=== PATIENT | male | born 1960 | race Caucasian/White ===

== ENCOUNTER → 2019-02-05 10:27 | Outpatient (CLI) | payer BC, SELFPAY ==
--- NOTE | 2019-02-05 | CA_ITS ---
PROCEDURE: 2-D M-mode and color Doppler study INDICATIONS FOR THE TEST: Chest pain COPD Heart Murmur Tobacco Smoking PalpitationsX Fatigue Syncope Edema Hypertension Diabetes MellitusX Rheumatic Fever SOB SMALLS Obesity HyperlipidemiaX Family History HDX Additional History PATIENT INFORMATION HEIGHT:71 WEIGHT:172 GENDER: Male B/P:130/60 2-D/M-MODE INTERPRETATION: 2-D MEASUREMENTS OBSERVED VALUES IN CMS Right Ventricular Dimension (RVDd) 2.2 Interventricular Septum (Thickness)(IVsd) .8 Left Ventricular Internal Dimensions(LVIDd) 5.3 Left Ventricular Posterior Wall (Thickness)(LVPWd) .8 Aortic Root 3.6 Aortic Cusp Separation 2.0 Left Atrial Dimensions (LAD) 1.9 2D 1. Left atrium is normal size, left ventricle is normal size, there is no concentric left ventricular hypertrophy, visually estimated ejection fraction of 55% with no regional wall motion abnormality. 2. The right atrium and right ventricle are normal size and contractility. 3. The aortic valve is minimally thickened and fibrosed. 4. The mitral and tricuspid valvular grossly normal. 5. The pulmonic valve is poorly visualized. 6. No significant pericardial effusion noted. DOPPLER INTERROGATION: Doppler interrogation of the aortic, mitral and tricuspid valvular presence of mild mitral and tricuspid regurgitation, tricuspid regurgitation jet velocity is inadequate for calculation of the right ventricular systolic pressure, diastolic parameters are within normal range. CONCLUSION: 1. Normal left ventricular size, preserved left ventricular systolic function, visually estimated ejection fraction 55% with no regional wall motion abnormality. Diastolic parameters are within normal range. 2. Mild mitral and tricuspid regurgitation 3. No significant pericardial effusion noted.
== END ==
PROVIDERS: PCP Family Medicine; Visit Provider Family Medicine
DX: R00.2 Palpitations (principal); Z91.89 Other specified personal risk factors, not elsewhere classified
CPT/HCPCS: 93017; 93306

== ENCOUNTER → 2019-02-20 10:06 | Outpatient (CLI) | payer BC, SELFPAY ==
[2019-02-20 10:54] LABS: Basophils % 0.8 % (0.1-2.0); Eosinophils # 0.2 K/mm3 (0.0-0.4); Eosinophils % 3.5 % (0.1-12.0); Hematocrit 46.4 % (42.0-52.0); Lymphocytes # 1.8 K/mm3 (0.7-4.5); Lymphocytes % 36.1 % (10-50); Mean Corpuscular HGB Conc 34.6 g/dL (31.8-35.4); Mean Corpuscular Hemoglobin 29.6 pg (27.0-31.2); Mean Corpuscular Volume 85.6 fl (80-94); Mean Platelet Volume 7.5 fl (7.4-10.4); Monocytes # 0.2 K/mm3 (0.1-1.0); Monocytes % 4.9 % (1.7-9.3); Neutrophils # 2.7 K/mm3 (1.8-7.8); Neutrophils % 54.6 % (37.0-80.0); Platelet Count 271 K/mm3 (142-424); Red Blood Count 5.42 M/mm3 (4.60-6.20); Red Cell Distribution Width 12.7 % (11.5-17.5); White Blood Count 4.9 K/mm3 (4.8-10.8)
[2019-02-20 11:09] LABS: Hemoglobin A1C 9.1 % (0.0-7.0)
[2019-02-20 13:35] LABS: Alanine Aminotransferase 25 U/L (12-78); Albumin Level 4.1 gm/dL (3.4-5.0); Albumin/Globulin Ratio 1.1 (1.1-1.8); Alkaline Phosphatase 87 U/L (46-116); Anion Gap 14.5 mEq/L (5-15); Aspartate Amino Transferase 13 U/L (15-37); Bilirubin,Total 0.8 mg/dL (0.2-1.0); Blood Urea Nitrogen 14 mg/dL (7-18); Calcium 9.3 mg/dL (8.5-10.1); Carbon Dioxide 27 mmol/L (21.0-32.0); Chloride 101 mmol/L (98-107); Chol/HDL Ratio 5.5 (1-3.5); Cholesterol 253 mg/dL (140-200); Creatinine,Serum 0.94 mg/dL (0.70-1.30); Estimated Glomerular Filt Rate 82 ml/min (>60); GFR (African American) 100 ML/MIN (>60); Globulin 3.7 gm/dl (1.3-3.2); Glucose 186 mg/dL (74-106); HDL Cholesterol 46 mg/dL (27-67); LDL Cholesterol 166 mg/dL (0-130); Potassium 4.5 mmoL/L (3.5-5.1); Prostate Specific Ag Screen 3.3 ng/mL (0.0-4.0); Sodium 138 mmol/L (136-145); T4 (Thyroxine) 5.9 ug/dl (4.7-13.3); Thyroid Stimulating Hormone 0.99 uIU/ml (0.358-3.740); Total Protein,Serum 7.8 gm/dL (6.4-8.2); Triglycerides 206 mg/dL (30-200); VLDL Cholesterol 41 mg/dL (0-40)
== END ==
PROVIDERS: Visit Provider Family Medicine
DX: R00.2 Palpitations (principal); E78.5 Hyperlipidemia, unspecified; E11.9 Type 2 diabetes mellitus without complications; Z79.84 Long term (current) use of oral hypoglycemic drugs
CPT/HCPCS: 36415; 80053; 80061; 83036; 84436; 84443; 85025; G0103

== ENCOUNTER → 2019-03-04 06:31 | Outpatient (CLI) | payer BC, SELFPAY ==
--- NOTE | 2019-03-04 06:40 | NM_ITS ---
CARDIOLITE SPECT MYOCARDIAL PERFUSION [facility], REST AND STRESS: History: Diabetes, hyperlipidemia, family history, shortness of breath and palpitations. Procedure: Patient exercised on Moustapha protocol 7 minutes and 45 seconds, resting heart rate was 76 bpm resting blood pressure 136/76, with exercise maximum heart rate achieved was 1 35 bpm is less than 85% of the maximum predicted heart rate and a blood pressure was 180/80. Test was stopped due to shortness of breath patient denied any complained of chest pain. Patient has good exercise capacity achieved 10.1mets of workload on treadmill, the blood pressure response to exercise was adequate. Patient did not achieve the target heart rate. Electrocardiogram: Resting electrocardiogram showed sinus rhythm occasional premature ventricular complexes, with exercise there is less than 1.[address] segment depression noted from the baseline EKG. The EKG portion of the exercise Myoview is nondiagnostic as patient did not achieve the target heart rate. Cardiac stress and resting SPECT images: Cardiac stress and resting SPECT images were obtained using technetium 99 Myoview 32.7 mCi stress and 9.7 mCi at rest. Gated SPECT further analysis of segmental wall motion and calculation of the ejection fraction also done. Cardiac stress and resting SPECT images show uniform myocardial activity without segmental perfusion abnormality, right ejection fraction is 63% with no regional wall motion abnormality, right ventricle is normal size and contractility. Conclusion: 1. The EKG portion of the exercise Myoview is nondiagnostic as patient did not achieve the target heart rate, patient has good exercise capacity achieved 10.1mets of workload on treadmill, the blood pressure response to exercise was adequate. Test was stopped shortness of breath patient denied any complained of chest pain. 2. No scintigraphic evidence of reversible ischemia seen at this level of exercise, computer derived ejection fraction is 63% with no regional wall motion abnormality, right ventricle is normal size and contractility.
--- NOTE | 2019-03-04 07:31 | HMH.ITSHM ---
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 []INVOCOMET ASA TRILIPEX
== END ==
PROVIDERS: PCP Family Medicine; Visit Provider Internal Medicine
DX: E11.8 Type 2 diabetes mellitus with unspecified complications (principal); E78.5 Hyperlipidemia, unspecified; I10 Essential (primary) hypertension; R00.2 Palpitations; R06.09 Other forms of dyspnea; R94.39 Abnormal result of other cardiovascular function study; Z72.0 Tobacco use; Z82.49 Family history of ischemic heart disease and other diseases of the circulatory system; Z79.84 Long term (current) use of oral hypoglycemic drugs
CPT/HCPCS: 78452; 93017; A9502

== ENCOUNTER → 2019-12-01 09:49 | Outpatient (CLI) | payer BC, SELFPAY ==
--- NOTE | 2019-12-01 09:52 | XR_ITS ---
PROCEDURE: XR CHEST 2V CLINICAL HISTORY: COUGH Cough, smoker COMPARISON: CXR CHEST(2 VIEWS-NOT PORTABLE) from 05/13/2014 CXR CHEST(2 VIEWS-NOT PORTABLE) from 11/30/[address] CHEST W/ CONTRAST from 12/09/2014 FINDINGS: The cardiomediastinal silhouette and pulmonary vascularity are within normal limits. The lungs are clear without infiltrates, suspicious nodules, or pleural effusions. There is mild chronic wedging involving what appears to represent T6 and T5 not significantly changed. There are degenerative changes in the thoracic. IMPRESSION: No acute findings. Dictated by: Chivo Worrell MD 12/01/2019 11:03 Electronically signed by Chivo Worrell MD in [place] 12/01/2019 11:03
== END ==
PROVIDERS: PCP Family Medicine; Visit Provider Family Medicine
DX: R05 Cough (principal)
CPT/HCPCS: 71046

== ENCOUNTER → 2021-02-21 10:53 | Outpatient (CLI) | payer BC, SELFPAY ==
--- NOTE | 2021-02-21 10:59 | XR_ITS ---
PROCEDURE: XR SHOULDER RT MIN 2V CLINICAL INDICATION: UNSPECIFIED FALL, INITIAL ENCOUNTER; PAIN IN RT SHOULDER COMPARISON: CR [id number] VIEWS from 02/06/2016 FINDINGS: Mild narrowing and sclerosis of the AC joint. Mild osteophytic spurring of inferior lip of the glenoid.. The humeral head appears intact. There are no soft tissue calcifications. IMPRESSION: Stable degenerate changes of the shoulder as noted, negative for acute fracture Dictated by: Dr. Mustapha Verduzco MD 02/21/2021 11:30 Dr. Mustapha Verduzco MD in [place] 02/21/2021 11:30
== END ==
PROVIDERS: PCP Family Medicine; Visit Provider Family Medicine
DX: M25.511 Pain in right shoulder (principal); W19.XXXA Unspecified fall, initial encounter
CPT/HCPCS: 73030

== ENCOUNTER → 2021-06-13 09:59 | Outpatient (CLI) | payer BC, SELFPAY ==
[2021-06-13 10:25] LABS: Basophils # 0.1 K/mm3 (0-0.2); Basophils % 1.2 % (0.1-2.0); Eosinophils # 0.3 K/mm3 (0.0-0.4); Eosinophils % 4.4 % (0.1-12.0); Hemoglobin 14.8 g/dL (14.1-18.0); Lymphocytes # 2.6 K/mm3 (0.7-4.5); Mean Corpuscular HGB Conc 33.6 g/dL (31.8-35.4); Mean Corpuscular Hemoglobin 28.7 pg (27.0-31.2); Mean Corpuscular Volume 85.6 fl (80-94); Monocytes # 0.3 K/mm3 (0.1-1.0); Monocytes % 4.9 % (1.7-9.3); Neutrophils # 2.8 K/mm3 (1.8-7.8); Neutrophils % 46.4 % (37.0-80.0); Platelet Count 268 K/mm3 (142-424); Red Blood Count 5.14 M/mm3 (4.60-6.20); Red Cell Distribution Width 12.5 % (11.5-17.5)
[2021-06-13 10:36] LABS: Hemoglobin A1C 8.7 % (4.0-6.0)
[2021-06-13 10:46] LABS: Alanine Aminotransferase 13 U/L (12-78); Albumin Level 4.3 g/dl (3.5-5.0); Albumin/Globulin Ratio 1.6 (1.1-1.8); Alkaline Phosphatase 74 U/L (38-126); Anion Gap 12.5 mEq/L (5-15); Aspartate Amino Transferase 17 U/L (17-59); Bilirubin,Total 0.7 mg/dl (0.2-1.3); Blood Urea Nitrogen 11 mg/dl (9-20); Carbon Dioxide 31 mmol/L (22.0-30.0); Chloride 99 mmol/L (98-107); Chol/HDL Ratio 3.3 (1-3.5); Cholesterol 138 mg/dl (140-200); Estimated Glomerular Filt Rate 86 ml/min (>60); GFR (African American) 104 ML/MIN (>60); Globulin 2.7 g/dL (1.3-3.2); Glucose 232 mg/dl (74-100); HDL Cholesterol 42 mg/dl (40-60); Potassium 4.5 mmoL/L (3.5-5.1); Sodium 138 mmol/L (136-145); Triglycerides 179 mg/dl (30-150); VLDL Cholesterol 36 mg/dL (0-40)
[2021-06-13 10:58] LABS: Direct LDL Cholesterol 63.56 mg/dL (100-129)
[2021-06-13 11:04] LABS: T4 (Thyroxine) 8.4 ug/dl (5.53-11.0)
[2021-06-13 11:17] LABS: Prostate Specific Ag Screen 3.8 ng/ml (0.0-4.0); Thyroid Stimulating Hormone 1.44 uIU/mL (0.465-4.68)
== END ==
PROVIDERS: Visit Provider Family Medicine
DX: E11.9 Type 2 diabetes mellitus without complications (principal); R63.4 Abnormal weight loss; Z12.5 Encounter for screening for malignant neoplasm of prostate
CPT/HCPCS: 36415; 80053; 80061; 83036; 84436; 84443; 85025; G0103

== ENCOUNTER → 2021-07-05 07:50 | Outpatient (CLI) | payer MEDICARE, BC, SELFPAY ==
--- NOTE | 2021-07-05 08:03 | US_ITS ---
PROCEDURE: US ABDOMEN LIMITED CLINICAL INDICATION: CHOLELITHIASIS COMPARISON: CT [facility] CT CHEST W/ CONTRAST from 12/09/2014 FINDINGS: PANCREAS: Pancreas is not well delineated due to overlying bowel gas. CT or MRI without and with contrast with pancreatic protocol may provide further evaluation if clinically desired. LIVER: No focal liver lesions demonstrated. Homogeneous echogenicity. No intrahepatic biliary ductal dilatation evident. There is appropriate direction of blood flow within a non dilated portal vein RIGHT KIDNEY: Unremarkable. Normal size and echogenicity. No hydronephrosis GALLBLADDER: Gallbladder is filled with sludge and small stones. Gallbladder is distended at 12 by 4 cm. No pericholecystic fluid biliary dilatation or gallbladder wall thickening. IMPRESSION: Distended gallbladder filled with sludge and small stones. The pancreas is not visualized due to overlying bowel gas. Dictated by: Chiov Worrell MD 07/05/2021 16:43 Chivo Worrell MD in [place] 07/05/2021 16:43
== END ==
PROVIDERS: PCP Family Medicine; Visit Provider Family Medicine
DX: K80.20 Calculus of gallbladder without cholecystitis without obstruction (principal)
CPT/HCPCS: 76705

== ENCOUNTER → 2021-07-31 14:16 | Outpatient (CLI) | payer MEDICARE, BC, SELFPAY | PROVIDERS: PCP Family Medicine; Visit Provider Nurse Practitioner | DX: Z20.822 Contact with and (suspected) exposure to COVID-19 (principal) | CPT/HCPCS: C9803; U0003; U0005 ==

== ENCOUNTER 2021-08-02 06:58 | Day surgery (SDC) | payer MEDICARE, BC, SELFPAY ==
[2021-08-01 12:41] VITALS: BMI 21.6
[2021-08-02 07:14] VITALS: BP 116/81; PULSE 88; RESP 18; TEMP 36.5; O2SAT 100
--- NOTE | 2021-08-02 07:41 | P.PN_ITS ---
[facility] Anesthesia Checklist - Patient Identification Patient Identification: Arm Band, Verbal (Name & ) - Structural Data Admitted From: Home Planned Operative Procedure/s: egd/colon Consent for Planned Operative Procedure(s) Verified: Yes Verified Documents: History and Physical - NPO Status Verified Time NPO: 00:00 - Chart Verification Results Verified: CBC, BMP - Additional verifications Patient : No Anesthesia Reactions: No Hx Blood Transfusions: No Blood Transfusion Reaction: No Cephalosporin Allergy: No Previous Colonoscopy: No - Cardiovascular Assessment Heart Sounds: S1 & S2 Pulse Strength: Baseline Pulse Rhythm: Regular Peripheral Edema: No - Airway Assessment C-Spine Mobility Assessed: Yes TMJ Mobility Assessed: Yes Dentition: Good Dentition - Neurological Assessment Level of Consciousness: Awake, Alert, Appropriate Hx Seizures: No Numbness or tingling in extremities: No - Anesthesia Plan Anesthesia Risk discussed: Yes Anesthesia Plan: Verified ASA Class: II Anesthesia Type: MAC [facility] History I have reviewed the patient's past medical history: Yes Medical History: Reports:: Diabetes Mellitus Type 2, Hyperlipidemia, Palpitations Denies:: Cancer, Diabetes Mellitus Type 1, Internal Pacemaker, MRSA, Seizures *Have you ever received a pneumonia vaccine?: No *Have you received a flu vaccine this season?: No Other Medical History: Reports: Arthritis Anesthesia experience/problems:: none Laterality Cases: Right: Arthroscopy Knee, Cataract Other Surgeries: Yes: No Previous Surgery, Other (Back Sx). No: Pacemaker Amputation: No Fractures: No - *Social History Last grade of school completed: High school graduate Smoking Status: Light tobacco smoker Tobacco Type: smokeless tobacco # Packs/Day (cigarettes): 0 #Yrs smoked (if former smoker): 40 Alcohol Intake: current Alcohol Intake Frequency:: a few times a week Substance Use Type: denies use *Occupational Status:: employed, retired Housing: house Household Members: family *Travel in the last 8 weeks: None Family Hx:: No significant family history
[2021-08-02 08:11] VITALS: O2SAT 100
[2021-08-02 09:09] VITALS: BP 98/60; PULSE 89; RESP 14; TEMP 36.3; O2SAT 95
--- NOTE | 2021-08-02 09:11 | HMH.SCOPE ---
- Procedure: Date: 08/02/21 Patient Date of :: 1960 Procedure Performed:: Esophagogastroduodenoscopy with biopsies Colonoscopy Indications:: Patient is a 61-year-old male with history of diabetes referred by Chuy Jean for gallbladder. Patient describes about a 6-month history of nausea and upset stomach . This often lasts for hours. It is not associated with eating. He describes a sour sulfur burps. He has been losing weight and has had about a 50 pound unintentional weight loss. He has no abdominal pain. Patient states that he had CT scanning performed. This may have been done at another institution as I do not have record. This prompted ultrasound which reveals distended gallbladder with small stones and sludge. Patient states that he has never had prior colonoscopy. He was scheduled on 2 occasions and ended up canceling. When I saw the patient I was concerned that he has no pain and his symptoms are not related to eating. He has merely had nausea and significant weight loss. Patient also states that he has significant irregularity of his bowels. He states that sometimes it may move daily and sometimes he goes 7 to 10 days without a bowel movement. For this reason I would advocate proceeding with EGD and colonoscopy initially to evaluate for potential malignancy. Patient presented for EGD and colonoscopy he stated that he was not clear despite undergoing full bowel prep. He was given enemas prior to the procedure. Performing Provider:: Wilbert Burgess MD Referring Provider:: Chuy Jean MD Sedation:: MAC sedation Procedure:: Patient was positioned in lateral decubitus position. Adequate intravenous sedation was achieved. Attention was first turned to upper endoscopy. Olympus endoscope was inserted via the oropharynx. Esophagus was cannulated and the endoscope was advanced. Apparent gastroesophageal junction was encountered at approximately 42 cm from the incisors. Stomach was cannulated and insufflated. Retroflexion was performed. There was some mild diffuse nonerosive gastritis. Gastric antral mucosal biopsies obtained for CLOtest for H. pylori. Pylorus was traversed and the endoscope was advanced into the duodenum which appeared unremarkable. Endoscope was withdrawn into the gastric lumen and gastric mucosal biopsy was obtained for histopathologic analysis. Distal esophageal biopsies were obtained to evaluate for microscopic esophagitis. Stomach was desufflated and the endoscope was withdrawn. Attention was turned to colonoscopy. Variable stiffness Olympus colonoscope was inserted via the anus. It was advanced to the cecum with some minor difficulty due to floppiness of the colon. Colonic preparation was poor as there was particulate stool throughout the colon with undigested vegetable matter as well. Fair visualization was achieved with irrigation and suctioning. The ileocecal valve was clearly identified. Colonoscope was slowly withdrawn through the colon with careful surveillance with irrigation and suctioning performed. Please note that upon initial advancement of the colonoscope there was a possible polyp. This was not visualized upon withdrawal and therefore the colonoscope was reinserted to the right colon and slowly withdrawn once again. There was no visualized polyp. However, visualization was suboptimal. Within the rectum retroflexion was performed which revealed no evidence of any pathologic internal hemorrhoids. Colonoscope was withdrawn. Findings:: Mild nonerosive gastritis Possible mild esophagitis Poor colonic preparation No obvious obstructing colonic mass Recommendations:: Follow-up on the biopsies from the upper endoscopy. No obvious alternative etiology on upper endoscopy or colonoscopy that would explain his nausea and weight loss. May proceed with cholecystectomy as a potential etiology. I will obtain his CT scan report from outside facility. Complications:
[2021-08-02 09:24] VITALS: BP 96/64; PULSE 86; RESP 16; TEMP 36.4; O2SAT 100
[2021-08-02 09:32] VITALS: BP 91/57; PULSE 79; RESP 16; TEMP 36.4; O2SAT 100
[2021-08-02 14:59] LABS: POC Glucose,Bedside 121 (70-110)
== END 2021-08-02 09:56 | disposition home or self-care (01) ==
LOC: OUTP 07:01
PROVIDERS: PCP Family Medicine; Visit Provider Surgery
PROC: 0DJ08ZZ Inspection of Upper Intestinal Tract, Via Natural or Artificial Opening Endoscopic (ICD-10-PCS; CPT 43235; principal; 2021-08-02 08:05)
DX: K29.40 Chronic atrophic gastritis without bleeding (principal); K22.9 Disease of esophagus, unspecified; R63.4 Abnormal weight loss; R93.3 Abnormal findings on diagnostic imaging of other parts of digestive tract; R11.0 Nausea; E11.9 Type 2 diabetes mellitus without complications; E78.5 Hyperlipidemia, unspecified; R00.2 Palpitations; M19.90 Unspecified osteoarthritis, unspecified site; Z72.0 Tobacco use; Z79.82 Long term (current) use of aspirin; Z79.899 Other long term (current) drug therapy; Z79.84 Long term (current) use of oral hypoglycemic drugs
CPT/HCPCS: 43239; 45378; 82962; 87339; 88305

== ENCOUNTER 2021-08-03 07:57 | Day surgery (SDC) | payer MEDICARE, BC, SELFPAY ==
[2021-08-03] VITALS (24 sets, daily range): BP systolic 114–156; BP diastolic 66–85; PULSE 60–87; RESP 16–18; TEMP 36.2–43; O2SAT 95–100; BMI 50.7
--- NOTE | 2021-08-03 08:19 | P.PN_ITS ---
[facility] Anesthesia Checklist - Patient Identification Patient Identification: Arm Band, Verbal (Name & ) - Structural Data Admitted From: Home Planned Operative Procedure/s: lap choly Consent for Planned Operative Procedure(s) Verified: Yes Verified Documents: History and Physical - NPO Status Verified Time NPO: 00:00 - Chart Verification Results Verified: CBC, BMP - Additional verifications Patient : No Anesthesia Reactions: No Hx Blood Transfusions: No Blood Transfusion Reaction: No Cephalosporin Allergy: No Previous Colonoscopy: Yes - Cardiovascular Assessment Heart Sounds: S1 & S2 Pulse Strength: Baseline Pulse Rhythm: Regular Peripheral Edema: No - Airway Assessment C-Spine Mobility Assessed: Yes TMJ Mobility Assessed: Yes Dentition: Good Dentition - Neurological Assessment Level of Consciousness: Awake, Alert, Appropriate Hx Seizures: No Numbness or tingling in extremities: No - Anesthesia Plan Anesthesia Risk discussed: Yes Anesthesia Plan: Verified ASA Class: II Anesthesia Type: General [facility] History I have reviewed the patient's past medical history: Yes Medical History: Reports:: Diabetes Mellitus Type 2, Hyperlipidemia, Palpitations Denies:: Cancer, Diabetes Mellitus Type 1, Internal Pacemaker, MRSA, Seizures *Have you ever received a pneumonia vaccine?: No *Have you received a flu vaccine this season?: No Other Medical History: Reports: Arthritis. Denies: Blood Transfusion Reaction Anesthesia experience/problems:: none Laterality Cases: Right: Arthroscopy Knee Other Surgeries: Yes: No Previous Surgery, Other (Back Sx). No: Pacemaker Amputation: No Fractures: No - *Social History Smoking Status: Never smoker Tobacco Type: smokeless tobacco # Packs/Day (cigarettes): 0 #Yrs smoked (if former smoker): 40 Alcohol Intake: never Alcohol Intake Frequency:: a few times a week Substance Use Type: denies use *Occupational Status:: retired Housing: house Household Members: spouse *Travel in the last 8 weeks: None Family Hx:: No significant family history
[2021-08-03 08:29] LABS: POC Glucose,Bedside 182 (70-110)
[2021-08-03 08:36] LABS: Basophils % 0.7 % (0.1-2.0); Eosinophils # 0.2 K/mm3 (0.0-0.4); Eosinophils % 3.4 % (0.1-12.0); Hematocrit 40.7 % (42.0-52.0); Hemoglobin 13.8 g/dL (14.1-18.0); Lymphocytes # 1.9 K/mm3 (0.7-4.5); Lymphocytes % 33.7 % (10-50); Mean Corpuscular HGB Conc 33.9 g/dL (31.8-35.4); Mean Corpuscular Hemoglobin 30.3 pg (27.0-31.2); Mean Corpuscular Volume 89.5 fl (80-94); Mean Platelet Volume 8.3 fl (7.4-10.4); Monocytes # 0.3 K/mm3 (0.1-1.0); Monocytes % 5.4 % (1.7-9.3); Neutrophils # 3.2 K/mm3 (1.8-7.8); Neutrophils % 56.8 % (37.0-80.0); Platelet Count 310 K/mm3 (142-424); Red Blood Count 4.54 M/mm3 (4.60-6.20); Red Cell Distribution Width 12.8 % (11.5-17.5); White Blood Count 5.7 K/mm3 (4.8-10.8)
[2021-08-03 08:39] LABS: Alanine Aminotransferase 20 U/L (12-78); Albumin Level 4.2 g/dl (3.5-5.0); Albumin/Globulin Ratio 1.4 (1.1-1.8); Alkaline Phosphatase 63 U/L (38-126); Anion Gap 10.9 mEq/L (5-15); Aspartate Amino Transferase 22 U/L (17-59); Bilirubin,Total 0.7 mg/dl (0.2-1.3); Blood Urea Nitrogen 12 mg/dl (9-20); Calcium 9.2 mg/dl (8.4-10.2); Carbon Dioxide 32 mmol/L (22.0-30.0); Chloride 100 mmol/L (98-107); Creatinine Clearance Estimated 105 mL/min (50-200); Estimated Glomerular Filt Rate 99 ml/min (>60); GFR (African American) 119 ML/MIN (>60); Glucose 196 mg/dl (74-100); Potassium 3.9 mmoL/L (3.5-5.1); Sodium 139 mmol/L (136-145); Total Protein,Serum 7.2 g/dl (6.3-8.2)
--- NOTE | 2021-08-03 11:27 | HMH.OPNOTE ---
Date of procedure: 08/03/21 Pre-op Diagnosis:: Symptomatic gallstones Post-op Diagnosis:: Same Procedure performed:: Laparoscopic cholecystectomy Surgeon:: Wilbert Burgess MD BASIC COMBATANT SWIMMER:: Ricardo Kat Anesthesia: GETFletcher Estimated blood loss (mL): 50 Clinical Note:: Patient is a 61-year-old male with history of diabetes referred by Chuy Jean for gallbladder and seen in the office several days ago. Patient describes about a 6-month history of nausea and upset stomach . This often lasts for hours. It is not associated with eating. He describes a sour sulfur burps. He has been losing weight and has had about a 50 pound unintentional weight loss. He has no abdominal pain. He had a CT scan done at outside facility. This prompted ultrasound which reveals distended gallbladder with small stones and sludge. When he was seen in the office patient stated that he has never had prior colonoscopy. He was scheduled on 2 occasions and ended up canceling. When I saw the patient I was concerned that he has no pain and his symptoms are not related to eating. He has merely had nausea and significant weight loss. Patient also states that he has significant irregularity of his bowels. He states that sometimes it may move daily and sometimes he goes 7 to 10 days without a bowel movement. For this reason I would advocated proceeding with EGD and colonoscopy initially to evaluate for potential malignancy. Patient presented for EGD and colonoscopy he stated that he was not clear despite undergoing full bowel prep. He was given enemas prior to the procedure. He underwent upper endoscopy and colonoscopy yesterday on 08/02/2021. Colonic preparation was poor with fair visualization but there was no obstructing mass and upper endoscopy was relatively unremarkable. Given his poor preparation I did recommend follow-up colonoscopy in 1 to 2 years. I did obtain the records from his CT scan done at [facility] on 06/16/2021. This reveals evidence of old granulomatous disease and nodular noncalcified opacity in the left lung base. Recommendation was for short interval follow-up CT of the chest or PET/CT scan with possible consideration of biopsy. Gallbladder was found to be markedly distended and hydropic with gallstones. There was a wedge-shaped area in the spleen consistent with possible previous splenic infarction. There was also noted to be low-density lesion in the lower pole of the right kidney which is indeterminate and felt that renal mass protocol CT or MRI should be considered. I did discuss the situation with the patient and family post procedure. He is going to be leaving to be out of town next week for 3 weeks. The options were discussed in great detail. Given the patient's significant symptomatology with no obvious etiology on upper endoscopy or colonoscopy surgery was offered to the patient. He strongly wished to proceed with cholecystectomy. Operative findings:: Patient had a massively distended tense gallbladder. It was filled with gallstones and sludge. Operative note:: Patient was taken to the operating room. He was positioned in supine position. General anesthesia was induced via endotracheal tube. Abdomen was prepped and draped in the standard surgical fashion. Subumbilical skin incision was made and while performing abdominal wall lift Veress needle was inserted. CO2 pneumoperitoneum was achieved to 15 mmHg. 11 mm optical trocar was inserted at the umbilicus. Intraperitoneal contents were visualized. He was positioned in reverse Trendelenburg with left side down. The gallbladder was easily identified and found to be markedly distended and somewhat tense. A couple of 5 mm trochars were inserted in the right upper abdomen. 10 mm trocar was inserted in the epigastrium. Gallbladder was grasped retracted anteriorly and superiorly over the dome of the liver. Gallbladder was distended and tense. Infundibulum of the gallbladde
--- NOTE | 2021-08-03 11:33 | P.PN_ITS ---
[facility] Anesthesia Record Part I Intake, IV Amount: 1,000 Estimated blood loss (mL): 50 Urine output (mL): 0 Blood Pressure: 156/85 SaO2: 99 Pulse Rate: 60 Respiratory Rate: 16 Temperature: 98.1 F Patient is:: Drowsy, Stable Stable to PACU at:: 11:30
[2021-08-03 13:07] LABS: POC Glucose,Bedside 236 (70-110)
--- NOTE | 2021-08-04 13:02 | HMH.ANESII ---
[facility] Anesthesia Record Part II Discharge Time: 12:30 Destination: Surgical Day Care (OP Surgery) PACU nurse assessment reviewed?: Yes Patient Condition:: Good Anesthesia Complications:: None Swallowing reflex intact?: Yes Cyanosis?: No Blood Pressure: 133/73 Pulse Rate: 76 Temperature: 98 F Mental Status: Alert & Oriented Pain level:: 7 Nausea and/or vomitting:: None Intake, IV Amount: 0
[2021-08-04 13:03] VITALS: BP 133/73; PULSE 76; TEMP 36.6
== END 2021-08-03 14:00 | disposition home or self-care (01) ==
LOC: OR 07:59
PROVIDERS: PCP Family Medicine; Visit Provider Surgery
PROC: 0FT44ZZ Resection of Gallbladder, Percutaneous Endoscopic Approach (ICD-10-PCS; CPT 47562; principal; 2021-08-03 09:30)
DX: K80.80 Other cholelithiasis without obstruction (principal); E11.9 Type 2 diabetes mellitus without complications; E78.5 Hyperlipidemia, unspecified; R00.2 Palpitations; M19.90 Unspecified osteoarthritis, unspecified site; Z82.49 Family history of ischemic heart disease and other diseases of the circulatory system
CPT/HCPCS: 47562; 80053; 82962; 85025; 88304; 96374; J0131; J2405; J2710

== ENCOUNTER → 2021-09-04 15:05 | Outpatient (CLI) | payer MEDICARE, BC, SELFPAY ==
--- NOTE | 2021-09-04 15:06 | CT_ITS ---
PROCEDURE: CT CHEST WO CON CLINICAL INDICATION: Lung nodule COMPARISON: CT [facility] CT CHEST W/ CONTRAST from 12/09/2014 US US ABDOMEN LIMITED from 07/05/2021 TECHNIQUE: Axial images obtained with sagittal and coronal reformats. All CT scans at the facility use one or more dose reduction, viz: automated exposure control, ma/kV adjustment per patient size (including targeted exams where dose is matched to indication, i.e. head), or iterative reconstruction technique. FINDINGS: HEART AND MEDIASTINAL STRUCTURES: Coronary artery calcifications and/or stent. No mediastinal or hilar mass or adenopathy. LUNGS AND PLEURAL SPACES: COPD changes. 14 x 10 mm noncalcified pulmonary nodule in the left lower lobe posteriorly in the subpleural region with a small linear extension projecting medially. Not significantly changed from 12/09/2014. No additional pulmonary nodules evident. No effusions or infiltrates. BONY STRUCTURES: Degenerative changes thoracic spine UPPER ABDOMEN: There is a pneumoperitoneum. There has been and interval cholecystectomy since the ultrasound exam of 07/05/2021 which could account for the pneumoperitoneum. Please correlate with clinical parameters. 12 mm hypodensity right kidney posteriorly suggesting a small renal cyst. ADDITIONAL FINDINGS: No other significant abnormalities. IMPRESSION: Stable 14 mm left lower lobe pulmonary nodule with COPD. Pneumoperitoneum. Please correlate as the patient's timing of the interval cholecystectomy. Dictated by: Chivo Worrell MD 09/05/2021 08:17 Chivo Worrell MD in [place] 09/05/2021 08:17
== END ==
PROVIDERS: PCP Family Medicine; Visit Provider Internal Medicine Pulmonary Disease
DX: R91.8 Other nonspecific abnormal finding of lung field (principal)
CPT/HCPCS: 71250

== ENCOUNTER 2021-11-05 15:46 | Emergency (ER) | payer MEDICARE, BC, SELFPAY ==
[2021-11-05 17:35] VITALS: BP 0/0; PULSE 0; RESP 0; TEMP -17.7; TEMP 0; O2SAT 0
== END 2021-11-05 17:35 | disposition left against medical advice (07) ==
PROVIDERS: Emergency Provider Emergency Medicine; PCP Family Medicine
DX: Z53.21 Procedure and treatment not carried out due to patient leaving prior to being seen by health care provider (principal)
CPT/HCPCS: 99211

== ENCOUNTER → 2021-11-07 09:17 | Outpatient (CLI) | payer MEDICARE, BC, SELFPAY ==
--- NOTE | 2021-11-07 | US_ITS ---
FINAL REPORT CLINICAL HISTORY: DM, HTN, HLD, SMOKER ULCER X 1 WK ON LATERAL SIDES OF FEET, BILATERALLY. REDNESS UP THE SIDE OF BOTH FEET FINDINGS: ANKLE-BRACHIAL PRESSURE INDICES Pressure indices are as follows: RIGHT LOWER EXTREMITY: Ankle-brachial pressure index: 1.8 Comments: Normal LEFT LOWER EXTREMITY: Ankle-brachial pressure index: 1.5 Comments: Normal CONCLUSION: No evidence of significant obstructive peripheral vascular disease of the lower extremities. Measurements may be artificially elevated. Correlate with any known vascular calcification. Reviewed, Interpreted and Dictated by Tomy Sun MD Transcribed by Virgilio Cummings Authenticated by Tomy Sun MD on 11/07/2021 01:37:26 PM [facility]
--- NOTE | 2021-11-07 10:15 | XR_ITS ---
FINAL REPORT CLINICAL HISTORY: DIABETIC FOOT ULCER on lateral side of left foot FINDINGS: LEFT FOOT Three views demonstrate no acute fracture or dislocation. There are advanced hypertrophic changes of osteoarthritis at the first MTP joint. The visualized bony structures are well aligned. No soft tissue abnormality is seen. IMPRESSION: No acute process. Reviewed, Interpreted and Dictated by Tomy Sun MD Transcribed by Stephanie Parks Authenticated by Tomy Sun MD on 11/07/2021 12:14:14 PM [facility]
== END ==
PROVIDERS: PCP Family Medicine; Visit Provider Family Medicine
DX: I73.9 Peripheral vascular disease, unspecified (principal); E11.621 Type 2 diabetes mellitus with foot ulcer; L97.421 Non-pressure chronic ulcer of left heel and midfoot limited to breakdown of skin
CPT/HCPCS: 73630; 93923

== ENCOUNTER → 2021-11-14 09:22 | Outpatient (CLI) | payer MEDICARE, BC, SELFPAY ==
[2021-11-14 10:10] LABS: Basophils # 0.1 K/mm3 (0-0.2); Basophils % 1.2 % (0.1-2.0); Eosinophils # 0.3 K/mm3 (0.0-0.4); Eosinophils % 4.1 % (0.1-12.0); Hematocrit 43.9 % (42.0-52.0); Hemoglobin 14.6 g/dL (14.1-18.0); Lymphocytes # 2.5 K/mm3 (0.7-4.5); Mean Corpuscular HGB Conc 33.3 g/dL (31.8-35.4); Mean Corpuscular Hemoglobin 29.6 pg (27.0-31.2); Mean Corpuscular Volume 88.8 fl (80-94); Mean Platelet Volume 7.7 fl (7.4-10.4); Monocytes # 0.3 K/mm3 (0.1-1.0); Monocytes % 4.9 % (1.7-9.3); Neutrophils # 3.7 K/mm3 (1.8-7.8); Neutrophils % 53.7 % (37.0-80.0); Platelet Count 353 K/mm3 (142-424); Red Blood Count 4.95 M/mm3 (4.60-6.20); Red Cell Distribution Width 12.6 % (11.5-17.5); White Blood Count 6.8 K/mm3 (4.8-10.8)
[2021-11-14 10:21] LABS: Hemoglobin A1C 8.6 % (4.0-6.0)
[2021-11-14 10:35] LABS: Erythrocyte Sedimentation Rate 16 mm/hr (0-20)
[2021-11-14 10:54] LABS: Chloride 101 mmol/L (98-107)
[2021-11-14 10:55] LABS: Potassium 4.4 mmoL/L (3.5-5.1); Sodium 138 mmol/L (136-145)
[2021-11-14 10:57] LABS: Alanine Aminotransferase 20 U/L (12-78); Alkaline Phosphatase 67 U/L (38-126); Anion Gap 12.4 mEq/L (5-15); Aspartate Amino Transferase 27 U/L (17-59); Bilirubin,Total 0.6 mg/dl (0.2-1.3); Blood Urea Nitrogen 15 mg/dl (9-20); Carbon Dioxide 29 mmol/L (22.0-30.0); Estimated Glomerular Filt Rate 115 ml/min (>60); GFR (African American) 139 ML/MIN (>60)
[2021-11-14 10:58] LABS: Albumin Level 4.3 g/dl (3.5-5.0); Albumin/Globulin Ratio 1.6 (1.1-1.8); Calcium 9.2 mg/dl (8.4-10.2); Globulin 2.7 g/dL (1.3-3.2); Glucose 172 mg/dl (74-100)
[2021-11-14 11:03] LABS: C-Reactive Protein 0.5 mg/L (0-4)
== END ==
PROVIDERS: PCP Family Medicine; Visit Provider Podiatrist
DX: Z51.89 Encounter for other specified aftercare (principal); E11.9 Type 2 diabetes mellitus without complications; Z79.84 Long term (current) use of oral hypoglycemic drugs
CPT/HCPCS: 36415; 80053; 83036; 85025; 85651; 86140

== ENCOUNTER → 2021-11-21 13:44 | Outpatient (CLI) | payer MEDICARE, BC, SELFPAY | PROVIDERS: Visit Provider Podiatrist | DX: E11.621 Type 2 diabetes mellitus with foot ulcer (principal); L97.412 Non-pressure chronic ulcer of right heel and midfoot with fat layer exposed; L97.411 Non-pressure chronic ulcer of right heel and midfoot limited to breakdown of skin; Z79.84 Long term (current) use of oral hypoglycemic drugs | CPT/HCPCS: 87070; 87205 ==

== ENCOUNTER → 2021-12-04 10:12 | Outpatient (CLI) | payer MEDICARE, BC, SELFPAY ==
[2021-12-04 11:30] LABS: Basophils # 0.1 K/mm3 (0-0.2); Basophils % 1.3 % (0.1-2.0); Eosinophils # 0.3 K/mm3 (0.0-0.4); Eosinophils % 4.2 % (0.1-12.0); Hematocrit 47.4 % (42.0-52.0); Hemoglobin 15.2 g/dL (14.1-18.0); Lymphocytes # 2.1 K/mm3 (0.7-4.5); Lymphocytes % 33.6 % (10-50); Mean Corpuscular HGB Conc 32.1 g/dL (31.8-35.4); Mean Corpuscular Volume 90.3 fl (80-94); Mean Platelet Volume 7.6 fl (7.4-10.4); Monocytes # 0.3 K/mm3 (0.1-1.0); Monocytes % 4.9 % (1.7-9.3); Neutrophils # 3.4 K/mm3 (1.8-7.8); Neutrophils % 56.1 % (37.0-80.0); Platelet Count 399 K/mm3 (142-424); Red Blood Count 5.25 M/mm3 (4.60-6.20); Red Cell Distribution Width 12.6 % (11.5-17.5); White Blood Count 6.1 K/mm3 (4.8-10.8)
[2021-12-04 11:49] LABS: Chloride 101 mmol/L (98-107); Potassium 4.6 mmoL/L (3.5-5.1); Sodium 137 mmol/L (136-145)
[2021-12-04 11:52] LABS: Anion Gap 11.6 mEq/L (5-15); Blood Urea Nitrogen 12 mg/dl (9-20); Calcium 9.4 mg/dl (8.4-10.2); Carbon Dioxide 29 mmol/L (22.0-30.0); Estimated Glomerular Filt Rate 115 ml/min (>60); GFR (African American) 139 ML/MIN (>60); Glucose 242 mg/dl (74-100)
== END ==
PROVIDERS: PCP Family Medicine; Visit Provider Urology
DX: E11.621 Type 2 diabetes mellitus with foot ulcer (principal); E78.2 Mixed hyperlipidemia; R00.2 Palpitations; R06.02 Shortness of breath; R68.89 Other general symptoms and signs; Z82.49 Family history of ischemic heart disease and other diseases of the circulatory system; Z79.84 Long term (current) use of oral hypoglycemic drugs
CPT/HCPCS: 36415; 80048; 85025; C9803; U0003; U0005

== ENCOUNTER 2021-12-05 08:52 | Day surgery (SDC) | payer MEDICARE, BC, SELFPAY ==
[2021-12-05] VITALS (19 sets, daily range): BP systolic 111–153; BP diastolic 65–91; PULSE 69–79; RESP 16–20; TEMP 36.9; O2SAT 99–100; BMI 22.0
--- NOTE | 2021-12-05 07:10 | IR_ITS ---
APPROVED REPORT Patient Location: Outpatient PROCEDURES Catheter placed in the abdominal aorta Abdominal aortography Repositioning of the catheter in the abdominal aorta Bilateral iliofemoral runoff INDICATION Abnormal MARILIA, Tiana claudication class V, Informed consent was obtained prior to the procedure. COMPLICATIONS None Estimated Blood Loss: Less than 10 mls TECHNIQUE 1% lidocaine used anesthetize the right groin the right femoral artery was accessed via the Salinger technique and a 4 Turkish sheath was placed in the right femoral artery. A pigtail catheter was advanced to the abdominal aorta where abdominal aortography was performed. The catheter was then repositioned and bilateral iliofemoral runoff was performed. Following this the patient was transferred to the postop holding area in stable condition for sheath removal. ANGIOGRAPHIC RESULTS Suprarenal abdominal aorta is widely patent. Bilateral renal arteries are widely patent and normal Infrarenal abdominal aorta is calcified with no stenosis greater than 10 to 20% Bilateral common internal and external iliac arteries are widely patent Bilateral common femoral arteries are normal Bilateral profunda femoris arteries are normal Bilateral superficial femoral arteries are widely patent with excellent inline flow into widely patent bilateral profunda femoris arteries. Distally there is three-vessel runoff below the knee bilaterally. The left anterior tibialis artery has a proximal calcified 80 to 90% stenosis but still delivers excellent inline flow through the dorsalis pedis IMPRESSION Excellent macro vasculature as described above with a severe stenosis in the left anterior tibialis artery which is not the etiology for patient's lower extremity ulcers Patient's lower extremity ulcers almost certainly stems from microvascular disease although there remains the possibility of ulcer stemming from venous insufficiency. PLAN 1. Xarelto 2.5 p.o. twice daily 2. Aspirin 81 mg daily 3. LDL less than 55 4. Physical therapy 5. Risk factor modification Electronically signed by : Trae Beaulieu MD 12/05/2021 13:03:43
== END 2021-12-05 15:11 | disposition home or self-care (01) ==
LOC: CATHLAB 08:53
PROVIDERS: PCP Family Medicine; Visit Provider Internal Medicine
DX: E11.621 Type 2 diabetes mellitus with foot ulcer (principal); E78.2 Mixed hyperlipidemia; Z82.49 Family history of ischemic heart disease and other diseases of the circulatory system; L97.522 Non-pressure chronic ulcer of other part of left foot with fat layer exposed; L97.512 Non-pressure chronic ulcer of other part of right foot with fat layer exposed; I70.213 Atherosclerosis of native arteries of extremities with intermittent claudication, bilateral legs; Z79.84 Long term (current) use of oral hypoglycemic drugs; Z79.899 Other long term (current) drug therapy
CPT/HCPCS: 36247; 75716; 99152; C1725; C1769; J1644; Q9966

== ENCOUNTER → 2021-12-06 15:36 | Outpatient (CLI) | payer MEDICARE, BC, SELFPAY | PROVIDERS: Visit Provider Family Medicine | DX: E11.9 Type 2 diabetes mellitus without complications (principal) ==

== ENCOUNTER → 2021-12-11 10:50 | Outpatient (CLI) | payer MEDICARE, BC, SELFPAY | PROVIDERS: PCP Family Medicine; Visit Provider Podiatrist | DX: Z01.812 Encounter for preprocedural laboratory examination (principal); Z11.52 Encounter for screening for COVID-19 | CPT/HCPCS: C9803; U0003; U0005 ==

== ENCOUNTER 2021-12-13 06:12 | Day surgery (SDC) | payer MEDICARE, BC, SELFPAY ==
[2021-12-11 14:54] VITALS: BMI 22.3
[2021-12-13 06:29] VITALS: BP 120/68; PULSE 79; RESP 18; TEMP 36.6; O2SAT 100
--- NOTE | 2021-12-13 07:03 | HMH.ANESCL ---
[facility] Anesthesia Checklist - Patient Identification Patient Identification: Arm Band - Structural Data Admitted From: Home Planned Operative Procedure/s: Wound debridement Consent for Planned Operative Procedure(s) Verified: Yes - NPO Status Verified Time NPO: 00:00 - Additional verifications Anesthesia Reactions: No Hx Blood Transfusions: No Blood Transfusion Reaction: No - Airway Assessment C-Spine Mobility Assessed: Yes TMJ Mobility Assessed: Yes Dentition: Good Dentition - Neurological Assessment Level of Consciousness: Awake Hx Seizures: No Numbness or tingling in extremities: No - Anesthesia Plan Anesthesia Risk discussed: Yes Anesthesia Plan: Verified ASA Class: III Anesthesia Type: General [facility] History I have reviewed the patient's past medical history: Yes Medical History: Reports:: Diabetes Mellitus Type 2, Hyperlipidemia, Palpitations Denies:: Cancer, Diabetes Mellitus Type 1, Internal Pacemaker, MRSA, Seizures *Have you ever received a pneumonia vaccine?: No *Have you received a flu vaccine this season?: No Other Medical History: Reports: Arthritis. Denies: Blood Transfusion Reaction Anesthesia experience/problems:: None Laterality Cases: Right: Arthroscopy Knee, Cataract, Other Other Surgeries: Yes: No Previous Surgery, Other (Back Sx). No: Pacemaker Amputation: No Fractures: No - *Social History Last grade of school completed: High school graduate Smoking Status: Heavy tobacco smoker Tobacco Type: smokeless tobacco # Packs/Day (cigarettes): 0 #Yrs smoked (if former smoker): 40 Alcohol Intake: never Alcohol Intake Frequency:: a few times a week Substance Use Type: denies use *Occupational Status:: unemployed Housing: house Household Members: spouse *Travel in the last 8 weeks: None Family Hx:: Coronary Artery Disease, Heart Attack
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
[2021-12-13 08:55] VITALS: BP 113/66; PULSE 78; RESP 16; TEMP 36.1; O2SAT 100
--- NOTE | 2021-12-13 09:00 | XR_ITS ---
FINAL REPORT CLINICAL HISTORY: Post op FINDINGS: RIGHT FOOT: Three views of the right foot were obtained. There is no acute fracture or dislocation. There are moderate degenerative changes at the 1st MTP joint. There are mild degenerative changes elsewhere in the foot. There is presumed postoperative change involving the lateral head of the 5th metatarsal in the lateral aspect of the 5th proximal phalanx. There is no soft tissue abnormality. IMPRESSION: Postoperative and degenerative changes. Reviewed, Interpreted and Dictated by Wilbert Zuniga III, MD Transcribed by Virgilio Cummings Authenticated by Wilbert Zuniga III, MD on 12/13/2021 10:33:[address] [facility]
--- NOTE | 2021-12-13 09:00 | XR_ITS ---
FINAL REPORT CLINICAL HISTORY: Post op COMPARISON: November 07, 2021 FINDINGS: LEFT FOOT: Three views of the left foot were obtained. There is no acute fracture or dislocation. There are moderate degenerative changes at the 1st MTP joint. There are mild degenerative changes elsewhere in the foot. There is postoperative change along the lateral midfoot. There is no soft tissue abnormality. IMPRESSION: Postoperative and degenerative changes. Reviewed, Interpreted and Dictated by Wilbert Zuniga III, MD Transcribed by Virgilio Cummings Authenticated by Wilbert Zuniga III, MD on 12/13/2021 10:33:57 AM [facility]
[2021-12-13 09:10] VITALS: BP 115/73; PULSE 74; RESP 16; O2SAT 100
[2021-12-13 09:25] VITALS: BP 109/76; PULSE 74; RESP 16; TEMP 36.4; O2SAT 100
[2021-12-13 09:50] VITALS: BP 104/70; PULSE 72; RESP 16; O2SAT 100
[2022-08-02 10:57] LABS: POC Glucose,Bedside 150 (70-110)
== END 2021-12-13 09:55 | disposition home or self-care (01) ==
LOC: OR 06:13
PROVIDERS: PCP Family Medicine; Visit Provider Podiatrist
DX: E11.621 Type 2 diabetes mellitus with foot ulcer (principal); L97.525 Non-pressure chronic ulcer of other part of left foot with muscle involvement without evidence of necrosis; L97.515 Non-pressure chronic ulcer of other part of right foot with muscle involvement without evidence of necrosis; T25.022A Burn of unspecified degree of left foot, initial encounter; T25.021A Burn of unspecified degree of right foot, initial encounter; E11.42 Type 2 diabetes mellitus with diabetic polyneuropathy; F17.200 Nicotine dependence, unspecified, uncomplicated; M19.071 Primary osteoarthritis, right ankle and foot; M19.072 Primary osteoarthritis, left ankle and foot; Z79.84 Long term (current) use of oral hypoglycemic drugs
CPT/HCPCS: 11042; 73630; 82962; 87070; 87077; 87186; 87205; 88304; 88305; 88311; 96374; J3370

== ENCOUNTER → 2022-01-01 11:15 | Outpatient (CLI) | payer MEDICARE, BC, SELFPAY ==
[2022-01-01 12:13] LABS: Basophils # 0.1 K/mm3 (0-0.2); Basophils % 0.8 % (0.1-2.0); Eosinophils # 0.2 K/mm3 (0.0-0.4); Eosinophils % 2.4 % (0.1-12.0); Hematocrit 41.5 % (42.0-52.0); Hemoglobin 13.4 g/dL (14.1-18.0); Lymphocytes # 1.8 K/mm3 (0.7-4.5); Lymphocytes % 18.4 % (10-50); Mean Corpuscular HGB Conc 32.3 g/dL (31.8-35.4); Mean Corpuscular Hemoglobin 28.3 pg (27.0-31.2); Mean Corpuscular Volume 87.8 fl (80-94); Mean Platelet Volume 6.9 fl (7.4-10.4); Monocytes # 0.4 K/mm3 (0.1-1.0); Monocytes % 4.1 % (1.7-9.3); Neutrophils # 7.4 K/mm3 (1.8-7.8); Neutrophils % 74.2 % (37.0-80.0); Platelet Count 595 K/mm3 (142-424); Red Blood Count 4.73 M/mm3 (4.60-6.20); Red Cell Distribution Width 12.6 % (11.5-17.5); White Blood Count 9.9 K/mm3 (4.8-10.8)
[2022-01-01 12:36] LABS: Erythrocyte Sedimentation Rate 54 mm/hr (0-20)
[2022-01-01 13:11] LABS: Hemoglobin A1C 7.4 % (4.0-6.0)
[2022-01-01 13:21] LABS: Alanine Aminotransferase 15 U/L (12-78); Albumin Level 3.8 g/dl (3.5-5.0); Albumin/Globulin Ratio 1.2 (1.1-1.8); Alkaline Phosphatase 96 U/L (38-126); Anion Gap 11.5 mEq/L (5-15); Aspartate Amino Transferase 20 U/L (17-59); Bilirubin,Total 0.4 mg/dl (0.2-1.3); Blood Urea Nitrogen 13 mg/dl (9-20); Calcium 9.1 mg/dl (8.4-10.2); Carbon Dioxide 30 mmol/L (22.0-30.0); Chloride 98 mmol/L (98-107); Estimated Glomerular Filt Rate 115 ml/min (>60); GFR (African American) 139 ML/MIN (>60); Globulin 3.1 g/dL (1.3-3.2); Glucose 250 mg/dl (74-100); Potassium 4.5 mmoL/L (3.5-5.1); Sodium 135 mmol/L (136-145); Total Protein,Serum 6.9 g/dl (6.3-8.2)
[2022-01-01 13:26] LABS: C-Reactive Protein 7.1 mg/L (0-4)
== END ==
PROVIDERS: PCP Family Medicine; Visit Provider Podiatrist
DX: Z51.89 Encounter for other specified aftercare (principal); E11.42 Type 2 diabetes mellitus with diabetic polyneuropathy; Z79.84 Long term (current) use of oral hypoglycemic drugs
CPT/HCPCS: 36415; 80053; 83036; 85025; 85651; 86140

== ENCOUNTER → 2022-01-17 09:03 | Outpatient (CLI) | payer MEDICARE, BC, SELFPAY ==
[2022-01-17 09:45] LABS: Basophils # 0.2 K/mm3 (0-0.2); Basophils % 2.2 % (0.1-2.0); Eosinophils # 0.4 K/mm3 (0.0-0.4); Eosinophils % 5.6 % (0.1-12.0); Hemoglobin 13.7 g/dL (14.1-18.0); Lymphocytes # 2.8 K/mm3 (0.7-4.5); Lymphocytes % 38.9 % (10-50); Mean Corpuscular HGB Conc 31.8 g/dL (31.8-35.4); Mean Corpuscular Hemoglobin 28.5 pg (27.0-31.2); Mean Corpuscular Volume 89.6 fl (80-94); Mean Platelet Volume 7.9 fl (7.4-10.4); Monocytes # 0.4 K/mm3 (0.1-1.0); Monocytes % 5.1 % (1.7-9.3); Neutrophils # 3.4 K/mm3 (1.8-7.8); Neutrophils % 48.2 % (37.0-80.0); Platelet Count 393 K/mm3 (142-424); Red Cell Distribution Width 13.4 % (11.5-17.5); White Blood Count 7.1 K/mm3 (4.8-10.8)
[2022-01-17 10:33] LABS: Alanine Aminotransferase 22 U/L (12-78); Albumin/Globulin Ratio 1.4 (1.1-1.8); Alkaline Phosphatase 86 U/L (38-126); Aspartate Amino Transferase 20 U/L (17-59); Bilirubin,Total 0.4 mg/dl (0.2-1.3); Blood Urea Nitrogen 15 mg/dl (9-20); Calcium 9.5 mg/dl (8.4-10.2); Carbon Dioxide 31 mmol/L (22.0-30.0); Chloride 99 mmol/L (98-107); Estimated Glomerular Filt Rate 115 ml/min (>60); GFR (African American) 139 ML/MIN (>60); Globulin 2.8 g/dL (1.3-3.2); Glucose 202 mg/dl (74-100); Sodium 136 mmol/L (136-145); Total Protein,Serum 6.8 g/dl (6.3-8.2)
[2022-01-17 10:43] LABS: Erythrocyte Sedimentation Rate 43 mm/hr (0-20)
[2022-01-17 15:02] LABS: Anion Gap 10.7 mEq/L (5-15); Potassium 4.7 mmoL/L (3.5-5.1)
[2022-01-17 15:11] LABS: C-Reactive Protein 2.8 mg/L (0-4)
[2022-01-18 09:07] LABS: Coronavirus 19, PCR Not Detected (NotDetected); Influenza A, PCR Not Detected (NotDetected); Influenza B, PCR Not Detected (NotDetected)
== END ==
PROVIDERS: Visit Provider Podiatrist
DX: Z01.812 Encounter for preprocedural laboratory examination (principal); Z11.52 Encounter for screening for COVID-19; M89.8X7 Other specified disorders of bone, ankle and foot; E11.42 Type 2 diabetes mellitus with diabetic polyneuropathy; Z79.84 Long term (current) use of oral hypoglycemic drugs; Z51.89 Encounter for other specified aftercare
CPT/HCPCS: 36415; 80053; 85025; 85651; 86140; C9803; U0003; U0005

== ENCOUNTER 2022-01-17 16:00 | Outpatient (RCR) | payer MEDICARE, BC, SELFPAY | END 2022-01-17 16:05 | disposition home or self-care (01) | LOC: PT 16:00 | PROVIDERS: PCP Family Medicine; Visit Provider Family Medicine | DX: E11.621 Type 2 diabetes mellitus with foot ulcer (principal) | CPT/HCPCS: 97162; 97164; 97597; 97598 ==

== ENCOUNTER 2022-01-18 11:58 | Day surgery (SDC) | payer MEDICARE, BC, SELFPAY ==
[2022-01-16 13:23] VITALS: BMI 22.3
[2022-01-18 12:14] VITALS: BP 113/76; PULSE 86; RESP 16; TEMP 36.4; O2SAT 99
[2022-01-18 14:02] VITALS: BP 124/75; PULSE 78; RESP 18; TEMP 36.2; O2SAT 97
--- NOTE | 2022-01-18 14:12 | HMH.OPNOTE ---
Date of procedure: 01/18/22 Pre-op Diagnosis:: 1. B/L DFU Post-op Diagnosis:: Same Procedure performed:: 1. Right foot wound debridement 2. Left foot wound debridement 3. B/L graft application Surgeon:: Latonia Reed DPM Anesthesia: none Estimated blood loss (mL): 5 Clinical Note:: Patient is a 62-year-old diabetic male who had surgery, 12/13/21: B/l foot ulcer wound debridement, B/l foot exostectomy, Open bone biopsy x2, Delayed primary closure with wound rotation flap/skin plasty. The patient has no new signs of infection. The wound base appears healthy and ready for skin graft substitute. We discussed continued local wound care versus application of graft. After a long discussion with the patient in regards to the conservative versus surgical treatment for the wound, the patient has elected to proceed with surgery because the wound is healthy, there will be a faster return to work and activities. The patient has been instructed on the planned procedure, all risk versus benefits of the procedure discussed. These include but are not limited to: bleeding, infection, nerve and blood vessel damage, need for further surgery, delay in healing of soft tissue, prolonged pain and recovery, CRPS/RSD, DVT and local anesthetic complications. No guarantees were given. All questions fully answered. The patient verbalized understanding and agreed to proceed with surgery. Written consent was obtained. Necessary labs and pre-op testing ordered: cbc, cmp, esr, crp, covid. Rx for Geary 5mg, Zyvox 600mg BID [id number] given. Operative findings:: Preop wound measurements, left fifth metatarsal base 4.2x2.6 x0.1 cm with intact eschar and yellow fibrotic tissue. The right foot predebridement was 2.6 x 1.3 x 0.1 cm with intact eschar and yellow fibrotic tissue. No purulence or malodor noted. Wounds were sharply excisionally divided with a 15 blade, forceps and curette full-thickness through skin subcutaneous tissue deep fascia down to the level of the bone. Post debridement the right 5th metatarsal wound was 100% granular. Exposed fifth MPJ. A piece of the fifth metatarsal head on the right was sent for pathology. No obvious signs of osteomyelitis to the fifth metatarsal. Post debridement: 2.8 x 1.6 x 0.5 cm. Post debridement the left fifth metatarsal base wound was 100% granular, measured 6.0 x 2.3 x 0.8 cm. Electrocautery was used on the left foot wound due to bleeding. Operative note:: On this date and time the patient was deemed an appropriate surgical candidate and with the informed consent signed the patient was wheeled from the preoperative holding area to the local procedure room. No anesthesia was used for this case. Both the right and left lower extremities were prepped and draped in normal sterile fashion. 1 g IM Rocephin given preop. Right foot wound debridement: Attention was directed to the dorsal lateral right foot where previous surgery had been performed. There was postoperative wound dehiscence noted, diabetic ulceration site. Swelling was down. See operative findings for pre and postop measurements and details. Utilizing a 15 blade, forceps and curette the wound was debrided sharply excisionally through skin subcutaneous tissue deep fascia of full-thickness down to the level of the bone. Exposed fifth metatarsal head. A piece of the fifth metatarsal head was taken for pathology specimen. Fibrotic tissue and biofilm was removed. No signs of deep infection. Good bleeding was noted. 100% granular base was noted. Post debridement, no purulence or signs of infection. Gentamicin irrigation was then used to flush the wound site. It was re-explored and no signs of deep infection noted. Left foot wound debridement: Similar procedure performed to the left foot. See operative findings for pre and postop measurements and details. 15 blade forceps and curettes used to sharply excisionally debride the wound full-thickness to the level of the fifth metatarsal base. Wound was
[2022-08-02 10:58] LABS: POC Glucose,Bedside 237 (70-110)
== END 2022-01-18 14:06 | disposition home or self-care (01) ==
LOC: OUTP 12:00
PROVIDERS: PCP Family Medicine; Visit Provider Podiatrist
PROC: (CPT 15275; principal; 2022-01-18 12:30)
DX: T81.31XA Disruption of external operation (surgical) wound, not elsewhere classified, initial encounter (principal); M19.071 Primary osteoarthritis, right ankle and foot; L97.412 Non-pressure chronic ulcer of right heel and midfoot with fat layer exposed; L97.422 Non-pressure chronic ulcer of left heel and midfoot with fat layer exposed; E11.621 Type 2 diabetes mellitus with foot ulcer; E11.42 Type 2 diabetes mellitus with diabetic polyneuropathy; A49.01 Methicillin susceptible Staphylococcus aureus infection, unspecified site; F17.290 Nicotine dependence, other tobacco product, uncomplicated; M20.11 Hallux valgus (acquired), right foot; M20.12 Hallux valgus (acquired), left foot; Z79.84 Long term (current) use of oral hypoglycemic drugs; Z82.49 Family history of ischemic heart disease and other diseases of the circulatory system; Z91.19 Patient's noncompliance with other medical treatment and regimen
CPT/HCPCS: 15275; 20240; 82962; 88305; 88311; J0696; Q4106

== ENCOUNTER → 2022-01-24 10:20 | Outpatient (CLI) | payer MEDICARE, BC, SELFPAY | PROVIDERS: PCP Family Medicine; Visit Provider Podiatrist | DX: Z01.812 Encounter for preprocedural laboratory examination (principal); Z11.52 Encounter for screening for COVID-19; E11.42 Type 2 diabetes mellitus with diabetic polyneuropathy | CPT/HCPCS: C9803; U0003; U0005 ==

== ENCOUNTER 2022-01-25 11:52 | Day surgery (SDC) | payer MEDICARE, BC, SELFPAY ==
[2022-01-22 13:46] VITALS: BMI 22.3
[2022-01-25 12:19] VITALS: BP 160/89; PULSE 84; RESP 18; TEMP 36.9; O2SAT 99
--- NOTE | 2022-01-25 12:38 | HMH.OPNOTE ---
Date of procedure: 01/25/22 Pre-op Diagnosis:: 1. B/L DFU Post-op Diagnosis:: Same Procedure performed:: 1. Right foot wound debridement 2. Left foot wound debridement 3. B/L graft application Surgeon:: Latonia Reed DPM Anesthesia: none Estimated blood loss (mL): 5 Clinical Note:: Patient is a 62-year-old diabetic male who had surgery, 12/13/21: B/l foot ulcer wound debridement, B/l foot exostectomy, Open bone biopsy x2, Delayed primary closure with wound rotation flap/skin plasty. The patient has no new signs of infection. The wound base appears healthy and ready for skin graft substitute. Discussed results of the pathology could indicate early bone changes. Clinically however not significant for osteomyelitis. We discussed continued local wound care versus application of graft #2. Discussed rechecking x-ray, infection labs next week. If changes noted to xray, plan for MRI and possible debridement with wound vac application prior to any more skin grafting. After a long discussion with the patient in regards to the conservative versus surgical treatment for the wound, the patient has elected to proceed with surgery because the wound is healthy, there will be a faster return to work and activities. The patient has been instructed on the planned procedure, all risk versus benefits of the procedure discussed. These include but are not limited to: bleeding, infection, nerve and blood vessel damage, need for further surgery, delay in healing of soft tissue, prolonged pain and recovery, CRPS/RSD, DVT and local anesthetic complications. No guarantees were given. All questions fully answered. The patient verbalized understanding and agreed to proceed with surgery. Written consent was obtained. Rx for Ranier 5mg, Zyvox 600mg BID [id number] given last week. Operative findings:: Preop wound measurements, left fifth metatarsal base 3.5 x1.8 x0.1 cm with intact eschar and yellow fibrotic tissue. Appears macerated and wet, slough noted to wound base. Exposed extensor tendon distally. The right foot predebridement was 3.1 x 1.5 x 0.1 cm with intact eschar and yellow fibrotic tissue. Exposed 5th metatarsal head on right. No purulence or malodor noted. Wounds were sharply excisionally divided with a 15 blade, forceps and curette full-thickness through skin subcutaneous tissue deep fascia down to the level of the bone. Post debridement the right 5th metatarsal wound was 100% granular. Exposed fifth MPJ. A piece of 5th metatarsal tissue was sent for pathology from both the left and right ulcer. No obvious signs of osteomyelitis to the fifth metatarsal. Post debridement right: 2.2 x 1.5 x 0.4cm. Post debridement the left fifth metatarsal base wound had a skin bridge noted. The proximal wound was 100% granular, 0.5x0.3x0.2cm, thru skin into/including subq tissue. The distal ulcer was 75% granular, 25% exposed tendon/yellow tissue and measured 4.5 x 2.2 x 0.6cm. No obvious signs of osteomyelitis however will monitor new pathology specimens and repeat labs and x-rays next week. Discussed with family if there is any suspicion we will proceed with MRI, hold off on grafting and may possibly need more aggressive surgery for bone debridement. Operative note:: On this date and time the patient was deemed an appropriate surgical candidate and with the informed consent signed the patient was wheeled from the preoperative holding area to the local procedure room. No anesthesia was used for this case. Both the right and left lower extremities were prepped and draped in normal sterile fashion. 1 g IM Rocephin given preop. Right foot wound debridement: Attention was directed to the dorsal lateral right foot where previous surgery had been performed. Swelling was down. See operative findings for pre and postop measurements and details. Utilizing a 15 blade, forceps and curette the wound was debrided sharply excisionally through skin subcutaneous tissue deep fascia of full-thickness down to the level of th
[2022-01-25 13:30] VITALS: BP 168/92; PULSE 85; RESP 18; TEMP 36.5; O2SAT 99
[2022-01-25 13:41] VITALS: BP 168/92; PULSE 85; RESP 18; O2SAT 99
[2022-08-02 10:58] LABS: POC Glucose,Bedside 290 (70-110)
== END 2022-01-25 13:44 | disposition home or self-care (01) ==
LOC: OUTP 11:54
PROVIDERS: PCP Family Medicine; Visit Provider Podiatrist
DX: E11.621 Type 2 diabetes mellitus with foot ulcer (principal); T81.31XA Disruption of external operation (surgical) wound, not elsewhere classified, initial encounter; M19.071 Primary osteoarthritis, right ankle and foot; L97.412 Non-pressure chronic ulcer of right heel and midfoot with fat layer exposed; L97.422 Non-pressure chronic ulcer of left heel and midfoot with fat layer exposed; E11.42 Type 2 diabetes mellitus with diabetic polyneuropathy; A49.01 Methicillin susceptible Staphylococcus aureus infection, unspecified site; F17.290 Nicotine dependence, other tobacco product, uncomplicated; M20.11 Hallux valgus (acquired), right foot; M20.12 Hallux valgus (acquired), left foot; Z79.84 Long term (current) use of oral hypoglycemic drugs; Z82.49 Family history of ischemic heart disease and other diseases of the circulatory system; Z91.19 Patient's noncompliance with other medical treatment and regimen
CPT/HCPCS: 15275; 20240; 82962; 88305; J0696; Q4106

== ENCOUNTER → 2022-01-31 09:58 | Outpatient (CLI) | payer MEDICARE, BC, SELFPAY ==
--- NOTE | 2022-01-31 10:08 | XR_ITS ---
FINAL REPORT CLINICAL HISTORY: diabetic ulcer lat foot FINDINGS: RIGHT FOOT Three views of the right foot demonstrate no acute fracture or dislocation. There is severe degenerative change of the 1st MTP joint. There are mild degenerative changes elsewhere. There is bony erosion of the distal 5th metatarsal and 5th proximal phalanx which is most worrisome for osteomyelitis. There is medial subluxation of the 5th proximal phalanx at the MTP joint. IMPRESSION: Findings worrisome for osteomyelitis at the distal 5th metatarsal and the 5th proximal phalanx. Reviewed, Interpreted and Dictated by Wilbert Zuniga III, MD Transcribed by Stephanie Parks Authenticated by Wilbert Zuniga III, MD on 01/31/2022 11:05:02 AM [facility]
--- NOTE | 2022-01-31 10:08 | XR_ITS ---
FINAL REPORT CLINICAL HISTORY: DIABETIC FOOT ULCERS lat side of foot FINDINGS: LEFT FOOT Three views of the left foot demonstrate no acute fracture or dislocation. There is severe degenerative change of the 1st MTP joint. There are mild degenerative changes elsewhere. There is erosion of the proximal lateral 5th metatarsal of uncertain chronicity. Osteomyelitis in this region cannot be excluded. There are vascular calcifications. IMPRESSION: Erosion of the proximal lateral 5th metatarsal of uncertain chronicity. Osteomyelitis in this region cannot be excluded. If indicated MRI for further evaluation. Degenerative change as described. Reviewed, Interpreted and Dictated by Wilbert Zuniga III, MD Transcribed by Stephanie Parks Authenticated by Wilbert Zuniga III, MD on 01/31/2022 11:05:00 AM [facility]
[2022-01-31 11:04] LABS: Basophils # 0.1 K/mm3 (0-0.2); Basophils % 1.5 % (0.1-2.0); Eosinophils # 0.3 K/mm3 (0.0-0.4); Eosinophils % 4.3 % (0.1-12.0); Hematocrit 42.7 % (42.0-52.0); Hemoglobin 14.1 g/dL (14.1-18.0); Lymphocytes # 1.6 K/mm3 (0.7-4.5); Lymphocytes % 26.5 % (10-50); Mean Corpuscular Hemoglobin 29.2 pg (27.0-31.2); Mean Corpuscular Volume 88.4 fl (80-94); Mean Platelet Volume 8.5 fl (7.4-10.4); Monocytes # 0.3 K/mm3 (0.1-1.0); Neutrophils # 3.9 K/mm3 (1.8-7.8); Neutrophils % 62.7 % (37.0-80.0); Platelet Count 389 K/mm3 (142-424); Red Blood Count 4.83 M/mm3 (4.60-6.20); Red Cell Distribution Width 14.2 % (11.5-17.5); White Blood Count 6.2 K/mm3 (4.8-10.8)
[2022-01-31 11:31] LABS: Erythrocyte Sedimentation Rate 26 mm/hr (0-20)
[2022-01-31 11:34] LABS: Chloride 103 mmol/L (98-107)
[2022-01-31 11:35] LABS: Potassium 4.4 mmoL/L (3.5-5.1); Sodium 138 mmol/L (136-145)
[2022-01-31 11:37] LABS: Alanine Aminotransferase 47 U/L (12-78); Aspartate Amino Transferase 34 U/L (17-59); Bilirubin,Total 0.4 mg/dl (0.2-1.3); Blood Urea Nitrogen 16 mg/dl (9-20); Estimated Glomerular Filt Rate 115 ml/min (>60); GFR (African American) 139 ML/MIN (>60)
[2022-01-31 11:38] LABS: Albumin Level 3.9 g/dl (3.5-5.0); Albumin/Globulin Ratio 1.3 (1.1-1.8); Alkaline Phosphatase 101 U/L (38-126); Anion Gap 9.4 mEq/L (5-15); Calcium 8.7 mg/dl (8.4-10.2); Carbon Dioxide 30 mmol/L (22.0-30.0); Globulin 2.9 g/dL (1.3-3.2); Glucose 279 mg/dl (74-100); Total Protein,Serum 6.8 g/dl (6.3-8.2)
[2022-01-31 11:46] LABS: C-Reactive Protein 0.9 mg/L (0-4)
[2022-01-31 12:07] LABS: Hemoglobin A1C 7.6 % (4.0-6.0)
== END ==
PROVIDERS: PCP Family Medicine; Visit Provider Nurse Practitioner Family
DX: Z01.812 Encounter for preprocedural laboratory examination (principal); Z11.52 Encounter for screening for COVID-19; M86.8X7 Other osteomyelitis, ankle and foot; M89.8X7 Other specified disorders of bone, ankle and foot; M19.071 Primary osteoarthritis, right ankle and foot; E11.621 Type 2 diabetes mellitus with foot ulcer
CPT/HCPCS: 36415; 73630; 80053; 83036; 85025; 85651; 86140; C9803; U0003; U0005

== ENCOUNTER 2022-02-01 12:14 | Day surgery (SDC) | payer MEDICARE, BC, SELFPAY ==
[2022-01-31 08:55] VITALS: BMI 22.3
[2022-02-01] VITALS (22 sets, daily range): BP systolic 125–146; BP diastolic 67–81; PULSE 72–77; RESP 16–20; TEMP 36.7–37.1; O2SAT 98–100
--- NOTE | 2022-02-01 14:27 | XR_ITS ---
FINAL REPORT CLINICAL HISTORY: Post op bone biopsy COMPARISON: 01/31/2022 FINDINGS: LEFT FOOT Three views demonstrate no acute fracture or dislocation. There are degenerative changes of the first metatarsophalangeal joint. There has been interval amputation of the proximal fifth metatarsal. 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 Reviewed, Interpreted and Dictated by Wilbert Zuniga III, MD Transcribed by Jennifer Sanders Authenticated by Wilbert Zuniga III, MD on 02/01/2022 04:06:[address] [facility]
--- NOTE | 2022-02-01 14:27 | XR_ITS ---
FINAL REPORT CLINICAL HISTORY: Post op bone biopsy COMPARISON: 01/31/2022 FINDINGS: RIGHT FOOT Three views demonstrate no acute fracture or dislocation. There are severe degenerative changes of the first metatarsophalangeal joint. Vascular calcification is identified. There has been interval amputation of the distal fifth metatarsal and a portion of the fifth proximal phalanx. IMPRESSION: Interval amputation as above. Reviewed, Interpreted and Dictated by Wilbert Zuniga III, MD Transcribed by Jennifer Sanders Authenticated by Wilbert Zuniga III, MD on 02/01/2022 04:06:07 PM [facility]
--- NOTE | 2022-02-01 17:00 | HMH.OPNOTE ---
Date of procedure: 02/01/22 Pre-op Diagnosis:: 1. Bilateral foot wound/DFU 2. Right foot osteomyelitis 3. Right diabetic foot infection Post-op Diagnosis:: Same Procedure performed:: 1. B/L foot wound debridement 2. Bone biopsy b/l 5th metatarsal Surgeon:: Latonia Reed DPM Anesthesia: local (20cc 0.5% marcaine plain) Estimated blood loss (mL): 20 Clinical Note:: Called patient to discuss results of b/l foot x-rays taken 01/31/22. Reports noted. FINDINGS: LEFT FOOT? Three views demonstrate no acute fracture or dislocation.? There are degenerative changes of the first metatarsophalangeal joint.? There has been interval amputation of the proximal fifth metatarsal. 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 FINDINGS: RIGHT FOOT Three views of the right foot demonstrate no acute fracture or dislocation. There is severe degenerative change of the 1st MTP joint. There are mild degenerative changes elsewhere. There is bony erosion of the distal 5th metatarsal and 5th proximal phalanx which is most worrisome for osteomyelitis. There is medial subluxation of the 5th proximal phalanx at the MTP joint. IMPRESSION: Findings worrisome for osteomyelitis at the distal 5th metatarsal and the 5th proximal phalanx. Explained with new x-rays changes, hold graft. Plan for surgery for I&D, bone biopsies. We discussed continued local wound care versus surgery. Discussed need for possible MRI, oral versus IV antibiotics. After a long discussion with the patient in regards to the conservative versus surgical treatment for the wound, the patient has elected to proceed with surgery. The patient has been instructed on the planned procedure, all risk versus benefits of the procedure discussed. \These include but are not limited to: bleeding, infection, nerve and blood vessel damage, need for further surgery, delay in healing of soft tissue, prolonged pain and recovery, CRPS/RSD, DVT and local anesthetic complications. No guarantees were given. All questions fully answered. The patient verbalized understanding and agreed to proceed with surgery. Written consent was obtained. Continue [place] 5mg, Zyvox 600mg BID [id number] given. Operative findings:: Interestingly both of the ulcers appears better and smaller secondary to graft applications. However with the x-ray changes, high index of suspicion for osteomyelitis will hold on rate graft application. Predebridement wound measurements, left fifth metatarsal base was 4x2x0.3cm, with some graft incorporation. There was intact eschar and yellow fibrotic tissue noted. There was no maceration and did not appear wet or sloughy. Prior skin bridge and the left fifth metatarsal proximal wound had healed. Post debridement sharply excisionally with 15 blade, forceps and curette full-thickness through skin, subcutaneous tissue into deep fascia and fifth metatarsal, wound was 75% granular, 25% exposed tendon/yellow tissue and measured 4.5 x 2.2 x 0.6cm. Fifth metatarsal base was soft, but no purulence or malodor noted. The right foot predebridement was 2.5 x 1.5 x 0.1 cm with intact eschar and yellow fibrotic tissue. Less exposed 5th metatarsal head on right. No purulence or malodor noted. Wounds were sharply excisionally divided with a 15 blade, forceps and curette full-thickness through skin subcutaneous tissue deep fascia down to the level of the bone. Incision made over the right fifth metatarsal head. The bone was soft to the base of the proximal phalanx and fifth metatarsal head. Post debridement the right 5th metatarsal wound was 100% granular, with bleeding noted. Exposed fifth MPJ. Post debridement right: 2.5 x 1.5 x 0.3cm. Concern for osteomyelitis, bone cultures and biopsy obtained. Discussed with the family we will proceed with MRI next week. He will follow up with [facility] wound care, Conrado Luciano. Pending results of cultures and MRI will possibly need PICC with IV antibiotics versus wound d
[2022-08-02 10:58] LABS: POC Glucose,Bedside 261 (70-110)
== END 2022-02-01 15:50 | disposition home or self-care (01) ==
LOC: OR 12:15
PROVIDERS: PCP Family Medicine; Visit Provider Podiatrist
DX: E11.621 Type 2 diabetes mellitus with foot ulcer (principal); T81.31XA Disruption of external operation (surgical) wound, not elsewhere classified, initial encounter; M19.071 Primary osteoarthritis, right ankle and foot; L97.412 Non-pressure chronic ulcer of right heel and midfoot with fat layer exposed; L97.422 Non-pressure chronic ulcer of left heel and midfoot with fat layer exposed; E11.42 Type 2 diabetes mellitus with diabetic polyneuropathy; A49.01 Methicillin susceptible Staphylococcus aureus infection, unspecified site; F17.290 Nicotine dependence, other tobacco product, uncomplicated; M20.11 Hallux valgus (acquired), right foot; M20.12 Hallux valgus (acquired), left foot; Z79.84 Long term (current) use of oral hypoglycemic drugs; Z82.49 Family history of ischemic heart disease and other diseases of the circulatory system; Z91.19 Patient's noncompliance with other medical treatment and regimen; E11.69 Type 2 diabetes mellitus with other specified complication; M86.172 Other acute osteomyelitis, left ankle and foot; M86.171 Other acute osteomyelitis, right ankle and foot
CPT/HCPCS: 11044; 20240; 73630; 82962; 87077; 87106; 88304; 88305; 88311; 96374; J3370

== ENCOUNTER 2022-02-06 07:56 | Outpatient (RCR) | payer MEDICARE, BC, SELFPAY ==
--- NOTE | 2022-02-06 08:57 | HMH.PTOPWND ---
Rehab Outpt Wound Evaluation Rehab OP Wound Evaluation Start: 02/06/22 08:04 Freq: Status: Active Protocol: Document 02/06/22 08:47 CAROL (Rec: 02/06/22 08:57 PHORKIMBERLYN [id number]) Electronically Signed By Alfonzo Catherine, PT 02/06/22 08:47 Subjective/History History History Pt is 62 yowm who presents with B lateral foot wounds S/P I&D with bone biopsy on 02/01. He reports continued pain in B feet, but otherwise feels he is healing well. He has hx of prior debridement of these wounds with graft placements. His last x-rays were concerning for osteomyelitis requiring the new surgery. He has PMH of DM- II (last A1c of 7.6%) and HL. Subjective Subjective Currently pain is 6/10, at worst he reports 7/10 with random sharp, shooting pains. Sutures remain in place after OR. Wound Eval Wound Left Lateral Foot Wound Type Diabetic Foot Ulcer Is This a Chronic Wound Yes Wound Length (cm) 1.6 Wound Width (cm) 3.6 Wound Bed Appearance Beefy Red Percentage Granulated (%) 100 Wound Margins Description Well Defined Surrounding Tissue Appearance [place] Surrounding Tissue Temperature Warm Drainage Description Serosanguineous Drainage Amount Small Drainage Odor No Odor Primary Dressing Composite Comment betadine,optifoam thin Wound Secondary Dressing Type Gauze Roll/Wrap,Adhering Gauze Roll Wound Debridement Method Gauze Wound Debridement Amount of Tissue Minimal Removed Dressing Change Patient Tolerance Tolerated Well Right Lateral Distal Toe - 5th Digit Wound Type Diabetic Foot Ulcer Is This a Chronic Wound Yes Wound Length (cm) 1.5 Wound Width (cm) 2.9 Wound Bed Appearance Beefy Red Percentage Granulated (%) 100 Wound Margins Description scabbed blood Surrounding Tissue Appearance [place] Surrounding Tissue Temperature Warm Drainage Description Serosanguineous Drainage Amount Small Drainage Odor No Odor Primary Dressing Composite Comment betadine, optifoam thin Woun
== END 2022-02-06 07:59 | disposition home or self-care (01) ==
LOC: PT 07:56
PROVIDERS: PCP Family Medicine; Visit Provider Podiatrist
DX: L03.116 Cellulitis of left lower limb (principal); L03.115 Cellulitis of right lower limb; M86.9 Osteomyelitis, unspecified; A49.01 Methicillin susceptible Staphylococcus aureus infection, unspecified site
CPT/HCPCS: 97162

== ENCOUNTER → 2022-02-13 13:30 | Outpatient (CLI) | payer MEDICARE, BC, SELFPAY ==
--- NOTE | 2022-02-13 13:30 | MR_ITS ---
FINAL REPORT CLINICAL HISTORY: eval for osteomyelitis, BILATERAL DIABETIC WOUNDS X4.5 MONTHS, NEUROPATHY LATERAL SIDED FOOT WOUND 15ML PROHANCE FINDINGS: MRI LOWER EXTREMITY W & W/O CONTRAST, RIGHT FOOT Multi planar MR imaging was obtained of the right foot before and after contrast administration. The Achilles tendon is intact. The plantar fascia is intact. There are moderate hypertrophic changes at the 1st MTP joint with osteophyte formation at the medial and lateral joint margins. There is marrow edema and contrast enhancement in the distal 5th metatarsal and 5th proximal phalanx. There is corresponding decreased signal on T1 imaging. There is overlying soft tissue ulceration. There is mild subcutaneous emphysema under the ulceration. IMPRESSION: Abnormal marrow edema and contrast enhancement of the distal 5th metatarsal and 5th proximal phalanx with overlying soft tissue ulceration and subcutaneous emphysema consistent with acute osteomyelitis. Reviewed, Interpreted and Dictated by Tomy Sun MD Transcribed by Virgilio Cummings Authenticated by Tomy Sun MD on 02/13/2022 04:21:35 PM [facility]
--- NOTE | 2022-02-13 13:30 | MR_ITS ---
FINAL REPORT CLINICAL HISTORY: eval for osteomyelitis, BILATERAL DIABETIC WOUNDS X4.5 MONTHS, NEUROPATHY LATERAL SIDED FOOT WOUND 15ML PROHANCE FINDINGS: Multi planar MR imaging of the left foot was obtained with and without contrast. There is abnormal marrow edema in the lateral and inferior cuboid. Marrow edema seen throughout the base of the 5th metatarsal and proximal 4th metatarsal. There is soft tissue ulceration laterally adjacent to the base of the 5th metatarsal. The supporting tendons appear intact. The mortise appears intact. IMPRESSION: Abnormal marrow edema, predominantly in the lateral cuboid and base of the 4th and 5th metatarsals highly concerning for acute osteomyelitis. Reviewed, Interpreted and Dictated by Tomy Sun MD Transcribed by Jennifer Sanders Authenticated by Tomy Sun MD on 02/13/2022 04:51:48 PM [facility]
== END ==
PROVIDERS: PCP Family Medicine; Visit Provider Podiatrist
DX: L03.116 Cellulitis of left lower limb (principal); M86.9 Osteomyelitis, unspecified
CPT/HCPCS: 73720; A9576

== ENCOUNTER 2022-02-15 12:02 | Outpatient (CLI) | payer MEDICARE, BC, SELFPAY ==
[2022-02-15 12:37] VITALS: BMI 22.3
--- NOTE | 2022-02-15 12:38 | XR_ITS ---
FINAL REPORT CLINICAL HISTORY: PICC line placement COMPARISON: December 01, 2019 FINDINGS: The heart size is normal. The mediastinum is within normal limits. There is no acute cardiopulmonary process. There is no pleural effusion. There is a questionable right apical pneumothorax with 7 mm of pleural separation. The bony thorax is intact. The left-sided PICC line tip terminates at the junction of the SVC and right atrium. IMPRESSION: Questionable right apical pneumothorax. Recommend repeat study to confirm. Please correlate with any recent attempted line placement. Left-sided PICC line terminates at the junction of the SVC and right atrium. Reviewed, Interpreted and Dictated by Tomy Sun MD Transcribed by Virgilio Cummings Authenticated by Tomy Sun MD on 02/15/2022 02:21:00 PM [facility]
--- NOTE | 2022-02-15 13:30 | XR_ITS ---
FINAL REPORT CLINICAL HISTORY: R/O PNEUMO COMPARISON: 1 hour prior FINDINGS: The heart size is normal. The mediastinum is within normal limits. There is no acute cardiopulmonary process. There is no pleural effusion. The previously questioned pneumothorax is not identified and probably represented a skin fold. The bony thorax is intact. The left PICC line remains in place. IMPRESSION: Previously questioned pneumothorax is not identified and probably represented a skin fold. Reviewed, Interpreted and Dictated by Tomy Sun MD Transcribed by Virgilio Cummings Authenticated by Tomy Sun MD on 02/15/2022 02:20:29 PM [facility]
[2022-02-15 15:15] VITALS: BP 119/70; PULSE 68; RESP 20; TEMP 36.9; O2SAT 95
[2022-02-15 15:57] VITALS: BP 126/74; PULSE 68; RESP 20; TEMP 36.9; O2SAT 95
== END 2022-02-15 16:02 | disposition home or self-care (01) ==
LOC: INF 12:02
PROVIDERS: PCP Family Medicine; Visit Provider Podiatrist
DX: M86.672 Other chronic osteomyelitis, left ankle and foot (principal); M86.671 Other chronic osteomyelitis, right ankle and foot
CPT/HCPCS: 36569; 71045; 96365; C1751; J0878

== ENCOUNTER 2022-02-16 10:16 | Outpatient (CLI) | payer MEDICARE, BC, SELFPAY ==
[2022-02-16 11:03] VITALS: BMI 22.3
[2022-02-16 11:26] VITALS: BP 110/52; PULSE 83; RESP 16; TEMP 36.7; O2SAT 99
[2022-02-16 11:29] LABS: Basophils # 0.2 K/mm3 (0-0.2); Basophils % 2.6 % (0.1-2.0); Eosinophils # 0.3 K/mm3 (0.0-0.4); Eosinophils % 4.2 % (0.1-12.0); Hematocrit 39.8 % (42.0-52.0); Hemoglobin 13.4 g/dL (14.1-18.0); Lymphocytes # 1.6 K/mm3 (0.7-4.5); Mean Corpuscular HGB Conc 33.6 g/dL (31.8-35.4); Mean Corpuscular Hemoglobin 29.4 pg (27.0-31.2); Mean Corpuscular Volume 87.3 fl (80-94); Mean Platelet Volume 8.2 fl (7.4-10.4); Monocytes # 0.4 K/mm3 (0.1-1.0); Monocytes % 5.4 % (1.7-9.3); Neutrophils # 4.2 K/mm3 (1.8-7.8); Neutrophils % 63.8 % (37.0-80.0); Platelet Count 290 K/mm3 (142-424); Red Blood Count 4.56 M/mm3 (4.60-6.20); Red Cell Distribution Width 13.9 % (11.5-17.5); White Blood Count 6.5 K/mm3 (4.8-10.8)
[2022-02-16 11:33] LABS: Alanine Aminotransferase 38 U/L (12-78); Albumin/Globulin Ratio 1.4 (1.1-1.8); Alkaline Phosphatase 86 U/L (38-126); Anion Gap 13.2 mEq/L (5-15); Aspartate Amino Transferase 34 U/L (17-59); Bilirubin,Total 0.5 mg/dl (0.2-1.3); Blood Urea Nitrogen 20 mg/dl (9-20); Calcium 9.1 mg/dl (8.4-10.2); Carbon Dioxide 27 mmol/L (22.0-30.0); Chloride 99 mmol/L (98-107); Creatine Kinase 43 U/L (55-170); Creatinine Clearance Estimated 80 mL/min (50-200); Estimated Glomerular Filt Rate 137 ml/min (>60); GFR (African American) 166 ML/MIN (>60); Globulin 2.9 g/dL (1.3-3.2); Glucose 241 mg/dl (74-100); Potassium 4.2 mmoL/L (3.5-5.1); Sodium 135 mmol/L (136-145); Total Protein,Serum 6.9 g/dl (6.3-8.2)
[2022-02-16 11:40] LABS: C-Reactive Protein 0.3 mg/L (0-4)
[2022-02-16 12:05] LABS: Erythrocyte Sedimentation Rate 24 mm/hr (0-20)
[2022-02-16 12:15] VITALS: BP 112/58; PULSE 81; RESP 17; TEMP 36.7; O2SAT 99
== END 2022-02-16 12:15 | disposition home or self-care (01) ==
PROVIDERS: PCP Family Medicine; Visit Provider Podiatrist
DX: M86.672 Other chronic osteomyelitis, left ankle and foot (principal); M86.671 Other chronic osteomyelitis, right ankle and foot; A49.01 Methicillin susceptible Staphylococcus aureus infection, unspecified site
CPT/HCPCS: 80053; 82550; 85025; 85651; 86140; 96365; G0463; J0878

== ENCOUNTER → 2022-02-17 10:13 | Outpatient (CLI) | payer MEDICARE, BC, SELFPAY ==
[2022-02-17 10:21] VITALS: BP 116/71; PULSE 83; RESP 20; TEMP 36.8; O2SAT 100
--- NOTE | 2022-02-17 15:47 | PC.NURSE ---
LATE ENTRY- DRESSING CHANGED TO BILAT FEET. PT TOLERATED WELL. REDNESS NOTED ON RIGHT FOOT- MARKED THIS WITH MARKER TO KEEP EYE ON THIS. CLEAN STERILE DRESSING APPLIED PER ORDER.
== END ==
PROVIDERS: PCP Family Medicine; Visit Provider Podiatrist
DX: E11.42 Type 2 diabetes mellitus with diabetic polyneuropathy (principal); M86.671 Other chronic osteomyelitis, right ankle and foot; M86.672 Other chronic osteomyelitis, left ankle and foot; A49.01 Methicillin susceptible Staphylococcus aureus infection, unspecified site
CPT/HCPCS: 96365; G0463; J0878

== ENCOUNTER → 2022-02-18 10:19 | Outpatient (CLI) | payer MEDICARE, BC, SELFPAY ==
[2022-02-18 10:40] VITALS: BMI 22.3
[2022-02-18 11:08] VITALS: BP 144/85; PULSE 78; RESP 18; TEMP 36.8; O2SAT 100
== END ==
PROVIDERS: PCP Family Medicine; Visit Provider Podiatrist
DX: A49.01 Methicillin susceptible Staphylococcus aureus infection, unspecified site (principal); M86.671 Other chronic osteomyelitis, right ankle and foot; M86.672 Other chronic osteomyelitis, left ankle and foot
CPT/HCPCS: 96365; G0463; J0878

== ENCOUNTER 2022-02-19 10:23 | Outpatient (CLI) | payer MEDICARE, BC, SELFPAY ==
[2022-02-19 10:35] VITALS: BP 117/58; PULSE 92; RESP 16; TEMP 36.4; O2SAT 98
[2022-02-19 11:30] VITALS: BP 119/62; PULSE 86
== END 2022-02-19 11:30 | disposition home or self-care (01) ==
LOC: INF 10:25
PROVIDERS: PCP Family Medicine; Visit Provider Podiatrist
DX: E11.621 Type 2 diabetes mellitus with foot ulcer (principal); L03.116 Cellulitis of left lower limb; L03.115 Cellulitis of right lower limb; Z79.84 Long term (current) use of oral hypoglycemic drugs
CPT/HCPCS: 96365; G0463; J0878

== ENCOUNTER 2022-02-20 10:19 | Outpatient (CLI) | payer MEDICARE, BC, SELFPAY ==
[2022-02-20 10:50] VITALS: BP 124/71; PULSE 82; RESP 18; TEMP 36.3; O2SAT 98
[2022-02-20 11:40] VITALS: BP 142/71; PULSE 77; RESP 18; O2SAT 98
== END 2022-02-20 11:40 | disposition home or self-care (01) ==
LOC: INF 10:20
PROVIDERS: PCP Family Medicine; Visit Provider Podiatrist
DX: E11.621 Type 2 diabetes mellitus with foot ulcer (principal); L03.116 Cellulitis of left lower limb; M86.172 Other acute osteomyelitis, left ankle and foot; L03.115 Cellulitis of right lower limb; M86.171 Other acute osteomyelitis, right ankle and foot; Z79.84 Long term (current) use of oral hypoglycemic drugs; A49.01 Methicillin susceptible Staphylococcus aureus infection, unspecified site
CPT/HCPCS: 96365; G0463; J0878

== ENCOUNTER 2022-02-21 10:11 | Outpatient (CLI) | payer MEDICARE, BC, SELFPAY ==
[2022-02-21 10:35] VITALS: BP 137/74; PULSE 78; RESP 16; O2SAT 99
[2022-02-21 11:30] VITALS: BP 145/48; PULSE 79
== END 2022-02-21 11:30 | disposition home or self-care (01) ==
PROVIDERS: PCP Family Medicine; Visit Provider Podiatrist
DX: E11.621 Type 2 diabetes mellitus with foot ulcer (principal); L03.116 Cellulitis of left lower limb; M86.672 Other chronic osteomyelitis, left ankle and foot; L03.115 Cellulitis of right lower limb; M86.671 Other chronic osteomyelitis, right ankle and foot; A49.01 Methicillin susceptible Staphylococcus aureus infection, unspecified site; Z79.84 Long term (current) use of oral hypoglycemic drugs
CPT/HCPCS: 96365; G0463; J0878

== ENCOUNTER 2022-02-22 10:09 | Outpatient (CLI) | payer MEDICARE, BC, SELFPAY ==
[2022-02-22 10:21] VITALS: BMI 22.3
[2022-02-22 10:45] VITALS: BP 125/63; PULSE 78; RESP 18; TEMP 36.1; O2SAT 95
[2022-02-22 10:45] LABS: Basophils # 0.1 K/mm3 (0-0.2); Basophils % 2.5 % (0.1-2.0); Eosinophils # 0.4 K/mm3 (0.0-0.4); Eosinophils % 7.8 % (0.1-12.0); Hematocrit 39.8 % (42.0-52.0); Hemoglobin 12.8 g/dL (14.1-18.0); Lymphocytes # 1.5 K/mm3 (0.7-4.5); Lymphocytes % 32.9 % (10-50); Mean Corpuscular HGB Conc 32.2 g/dL (31.8-35.4); Mean Corpuscular Hemoglobin 28.9 pg (27.0-31.2); Mean Corpuscular Volume 89.7 fl (80-94); Mean Platelet Volume 8.7 fl (7.4-10.4); Monocytes # 0.2 K/mm3 (0.1-1.0); Neutrophils # 2.4 K/mm3 (1.8-7.8); Neutrophils % 51.8 % (37.0-80.0); Platelet Count 275 K/mm3 (142-424); Red Blood Count 4.44 M/mm3 (4.60-6.20); Red Cell Distribution Width 14.3 % (11.5-17.5); White Blood Count 4.6 K/mm3 (4.8-10.8)
[2022-02-22 10:53] LABS: Chloride 103 mmol/L (98-107); Potassium 4.4 mmoL/L (3.5-5.1); Sodium 135 mmol/L (136-145)
[2022-02-22 10:56] LABS: Alanine Aminotransferase 41 U/L (12-78); Albumin Level 3.8 g/dl (3.5-5.0); Albumin/Globulin Ratio 1.3 (1.1-1.8); Alkaline Phosphatase 83 U/L (38-126); Anion Gap 10.4 mEq/L (5-15); Aspartate Amino Transferase 44 U/L (17-59); Bilirubin,Total 0.5 mg/dl (0.2-1.3); Blood Urea Nitrogen 12 mg/dl (9-20); Calcium 8.3 mg/dl (8.4-10.2); Carbon Dioxide 26 mmol/L (22.0-30.0); Creatinine Clearance Estimated 80 mL/min (50-200); Estimated Glomerular Filt Rate 137 ml/min (>60); GFR (African American) 166 ML/MIN (>60); Globulin 2.9 g/dL (1.3-3.2); Glucose 323 mg/dl (74-100); Total Protein,Serum 6.7 g/dl (6.3-8.2)
[2022-02-22 11:13] LABS: Creatine Kinase 286 U/L (55-170)
[2022-02-22 11:18] LABS: C-Reactive Protein 0.4 mg/L (0-4)
[2022-02-22 11:24] LABS: Erythrocyte Sedimentation Rate 31 mm/hr (0-20)
[2022-02-22 12:00] VITALS: BP 132/74; PULSE 82; RESP 16; TEMP 36.3; O2SAT 96
== END 2022-02-22 12:25 | disposition home or self-care (01) ==
LOC: INF 10:10
PROVIDERS: PCP Family Medicine; Visit Provider Podiatrist
DX: E11.621 Type 2 diabetes mellitus with foot ulcer (principal); L03.116 Cellulitis of left lower limb; M86.672 Other chronic osteomyelitis, left ankle and foot; L03.115 Cellulitis of right lower limb; M86.671 Other chronic osteomyelitis, right ankle and foot; A49.01 Methicillin susceptible Staphylococcus aureus infection, unspecified site; Z79.84 Long term (current) use of oral hypoglycemic drugs
CPT/HCPCS: 80053; 82550; 85025; 85651; 86140; 96365; G0463; J0878

== ENCOUNTER 2022-02-23 10:09 | Outpatient (CLI) | payer MEDICARE, BC, SELFPAY ==
[2022-02-23 10:21] VITALS: BP 136/74; PULSE 83; RESP 18; TEMP 36.4; O2SAT 99
[2022-02-23 11:20] VITALS: BP 142/84; PULSE 81; RESP 18; TEMP 36.4; O2SAT 99
== END 2022-02-23 11:20 | disposition home or self-care (01) ==
LOC: INF 10:10
PROVIDERS: PCP Family Medicine; Visit Provider Podiatrist
DX: E11.621 Type 2 diabetes mellitus with foot ulcer (principal); L03.116 Cellulitis of left lower limb; M86.672 Other chronic osteomyelitis, left ankle and foot; L03.115 Cellulitis of right lower limb; M86.671 Other chronic osteomyelitis, right ankle and foot; A49.01 Methicillin susceptible Staphylococcus aureus infection, unspecified site; Z79.84 Long term (current) use of oral hypoglycemic drugs
CPT/HCPCS: 96365; G0463; J0878

== ENCOUNTER 2022-02-24 09:32 | Outpatient (CLI) | payer MEDICARE, BC, SELFPAY ==
[2022-02-24 11:17] VITALS: BP 130/77; PULSE 76; RESP 18; O2SAT 100
== END 2022-02-24 11:10 | disposition home or self-care (01) ==
LOC: INF 09:33
PROVIDERS: PCP Family Medicine; Visit Provider Podiatrist
DX: E11.621 Type 2 diabetes mellitus with foot ulcer (principal); L03.116 Cellulitis of left lower limb; M86.672 Other chronic osteomyelitis, left ankle and foot; L03.115 Cellulitis of right lower limb; M86.671 Other chronic osteomyelitis, right ankle and foot; A49.01 Methicillin susceptible Staphylococcus aureus infection, unspecified site; Z79.84 Long term (current) use of oral hypoglycemic drugs
CPT/HCPCS: 96365; G0463; J0878

== ENCOUNTER 2022-02-25 10:06 | Outpatient (CLI) | payer MEDICARE, BC, SELFPAY ==
[2022-02-25 10:46] VITALS: BP 107/61; PULSE 63; RESP 18; O2SAT 99
== END 2022-02-25 11:00 | disposition home or self-care (01) ==
LOC: INF 10:07
PROVIDERS: PCP Family Medicine; Visit Provider Podiatrist
DX: E11.621 Type 2 diabetes mellitus with foot ulcer (principal); L03.116 Cellulitis of left lower limb; M86.672 Other chronic osteomyelitis, left ankle and foot; L03.115 Cellulitis of right lower limb; M86.671 Other chronic osteomyelitis, right ankle and foot; A49.01 Methicillin susceptible Staphylococcus aureus infection, unspecified site; Z79.84 Long term (current) use of oral hypoglycemic drugs
CPT/HCPCS: 96365; G0463; J0878

== ENCOUNTER 2022-02-26 10:15 | Outpatient (CLI) | payer MEDICARE, BC, SELFPAY ==
[2022-02-26 10:22] VITALS: BMI 22.3
[2022-02-26 10:40] VITALS: BP 120/69; PULSE 84; RESP 15; TEMP 36.3; O2SAT 98
[2022-02-26 10:46] LABS: Basophils # 0.1 K/mm3 (0-0.2); Eosinophils # 0.3 K/mm3 (0.0-0.4); Eosinophils % 6.1 % (0.1-12.0); Hematocrit 39.2 % (42.0-52.0); Lymphocytes # 1.6 K/mm3 (0.7-4.5); Lymphocytes % 31.2 % (10-50); Mean Corpuscular HGB Conc 33.1 g/dL (31.8-35.4); Mean Corpuscular Hemoglobin 28.4 pg (27.0-31.2); Mean Corpuscular Volume 85.6 fl (80-94); Mean Platelet Volume 7.6 fl (7.4-10.4); Monocytes # 0.3 K/mm3 (0.1-1.0); Monocytes % 5.8 % (1.7-9.3); Platelet Count 276 K/mm3 (142-424); Red Blood Count 4.58 M/mm3 (4.60-6.20); Red Cell Distribution Width 13.2 % (11.5-17.5); White Blood Count 5.3 K/mm3 (4.8-10.8)
[2022-02-26 10:47] LABS: Chloride 102 mmol/L (98-107); Potassium 4.5 mmoL/L (3.5-5.1); Sodium 135 mmol/L (136-145)
[2022-02-26 10:50] LABS: Alanine Aminotransferase 53 U/L (12-78); Albumin Level 3.9 g/dl (3.5-5.0); Albumin/Globulin Ratio 1.4 (1.1-1.8); Alkaline Phosphatase 82 U/L (38-126); Anion Gap 9.5 mEq/L (5-15); Aspartate Amino Transferase 48 U/L (17-59); Bilirubin,Total 0.5 mg/dl (0.2-1.3); Blood Urea Nitrogen 14 mg/dl (9-20); Calcium 9.2 mg/dl (8.4-10.2); Carbon Dioxide 28 mmol/L (22.0-30.0); Creatine Kinase 101 U/L (55-170); Creatinine Clearance Estimated 80 mL/min (50-200); Estimated Glomerular Filt Rate 115 ml/min (>60); GFR (African American) 139 ML/MIN (>60); Globulin 2.8 g/dL (1.3-3.2); Glucose 312 mg/dl (74-100); Total Protein,Serum 6.7 g/dl (6.3-8.2)
[2022-02-26 10:56] LABS: C-Reactive Protein 0.3 mg/L (0-4)
[2022-02-26 11:11] LABS: Erythrocyte Sedimentation Rate 24 mm/hr (0-20)
== END 2022-02-26 11:30 | disposition home or self-care (01) ==
PROVIDERS: PCP Family Medicine; Visit Provider Podiatrist
DX: E11.621 Type 2 diabetes mellitus with foot ulcer (principal); L03.116 Cellulitis of left lower limb; M86.672 Other chronic osteomyelitis, left ankle and foot; L03.115 Cellulitis of right lower limb; M86.671 Other chronic osteomyelitis, right ankle and foot; A49.01 Methicillin susceptible Staphylococcus aureus infection, unspecified site; Z79.84 Long term (current) use of oral hypoglycemic drugs
CPT/HCPCS: 80053; 82550; 85025; 85651; 86140; 96365; G0463; J0878

== ENCOUNTER 2022-02-27 10:07 | Outpatient (CLI) | payer MEDICARE, BC, SELFPAY ==
[2022-02-27 10:19] VITALS: BP 121/70; PULSE 81; RESP 18; TEMP 36.6; O2SAT 98
[2022-02-27 11:15] VITALS: BP 141/80; PULSE 77; RESP 18; O2SAT 98
== END 2022-02-27 11:15 | disposition home or self-care (01) ==
LOC: INF 10:08
PROVIDERS: PCP Family Medicine; Visit Provider Podiatrist
DX: E11.621 Type 2 diabetes mellitus with foot ulcer (principal); L03.116 Cellulitis of left lower limb; M86.672 Other chronic osteomyelitis, left ankle and foot; L03.115 Cellulitis of right lower limb; M86.671 Other chronic osteomyelitis, right ankle and foot; A49.01 Methicillin susceptible Staphylococcus aureus infection, unspecified site; Z79.84 Long term (current) use of oral hypoglycemic drugs; Z11.52 Encounter for screening for COVID-19
CPT/HCPCS: 96365; C9803; G0463; J0878; U0003; U0005

== ENCOUNTER → 2022-02-27 16:30 | Outpatient (CLI) | payer MEDICARE, BC, SELFPAY | PROVIDERS: PCP Family Medicine; Visit Provider Podiatrist | DX: Z01.812 Encounter for preprocedural laboratory examination (principal); Z11.52 Encounter for screening for COVID-19 | CPT/HCPCS: C9803; U0003; U0005 ==

== ENCOUNTER 2022-02-28 10:02 | Outpatient (CLI) | payer MEDICARE, BC, SELFPAY ==
[2022-02-28 10:10] VITALS: BP 131/72; PULSE 78; RESP 20; TEMP 36.4; O2SAT 99
[2022-02-28 10:58] VITALS: BP 134/66; PULSE 76; RESP 20; O2SAT 98
== END 2022-02-28 10:58 | disposition home or self-care (01) ==
LOC: INF 10:02
PROVIDERS: PCP Family Medicine; Visit Provider Podiatrist
DX: E11.621 Type 2 diabetes mellitus with foot ulcer (principal); L03.116 Cellulitis of left lower limb; M86.672 Other chronic osteomyelitis, left ankle and foot; L03.115 Cellulitis of right lower limb; M86.671 Other chronic osteomyelitis, right ankle and foot; A49.01 Methicillin susceptible Staphylococcus aureus infection, unspecified site; Z79.84 Long term (current) use of oral hypoglycemic drugs
CPT/HCPCS: 96365; G0463; J0878

== ENCOUNTER 2022-03-01 11:37 | Day surgery (SDC) | payer MEDICARE, BC, SELFPAY ==
[2022-02-28 08:20] VITALS: BMI 22.3
[2022-03-01] VITALS (25 sets, daily range): BP systolic 124–141; BP diastolic 60–84; PULSE 71–77; RESP 16–22; TEMP 36.3–36.9; O2SAT 96–100
--- NOTE | 2022-03-01 12:41 | HMH.OPNOTE ---
Date of procedure: 03/01/22 Pre-op Diagnosis:: 1. Bilateral foot wound/DFU 2. Right foot osteomyelitis 3. Right diabetic foot infection 4. Left DM Charcot foot Post-op Diagnosis:: Same Procedure performed:: 1. B/L foot suture removal 2. B/L foot wound debridement 3. Right 5th toe and 5th metatarsal bone resection, open bone biopsies 4. Left 5th metatarsal bone resection, open bone biopsy 5. Left 4th metatarsal, cuboid percutaneus bone biopsy Surgeon:: Latonia Reed DPM Anesthesia: local (0.5% marcaine plain) Estimated blood loss (mL): 30 Clinical Note:: Patient is a 62-year-old diabetic male with a history of bilateral foot osteomyelitis. He has had multiple graft applications, wound debridements. 02/16/2022 he had a PICC line placed and has been receiving daily infusions at [facility] of daptomycin. Discussed possible suture removal, b/l foot debridement or OR bone resection, new biopsies, possible right 5th toe amputation. He did not want amputation at this time. Explained if we do adequate resection with clean bone biopsy margins, we may be able to salvage the toe. He understands he still may need amputation in the future however. Conservative treatment options include local wound care, oral and IV antibiotics, change in shoe wear, taping/padding, and off-loading. Patient understands that there is a chance that the toes can migrate to fill the gap or the foot may change shape after surgery. He understands there is risk of future gangrene if the toe loses circulation or does not heal which could lead to amputation. Patient also understands that they could have wound healing complications including delayed healing and infection. We discussed that if the wound does not heal, it is possible that they may need a more proximal amputation and could result in further loss of digits, loss of partial foot or loss of leg. We discussed the risks and benefits in great detail. Other surgical risks include: prolonged pain and swelling, further infection requiring oral or IV antibiotics, delay in healing of soft tissue or bone, nerve or blood vessel damage, CRPS/RSD, DVT/PE, anesthesia complications, and even . All questions answered. Patient verbalized understanding. Consent obtained. Operative findings:: Both the left and right foot for last swollen. No significant ascending cellulitis noted. Sutures clean dry intact to the right fifth toe and metatarsal and left fifth metatarsal. All sutures were removed from both feet without complication. Post suture removal there was a wound noted to the incision sites. 15 blade and forceps used to sharply excisionally debrided the wounds through skin and subcutaneous tissue. No new purulence or drainage noted. The left fifth metatarsal wound postdebridement was 100% granular measured 4 x 1.4 x 0.6 cm extending full thickness to the deep fascia, exposed peroneal tendon. 15 blade used to extend the wound proximally over the fifth metatarsal full-thickness exposing the bone. Bone was soft. The saw was used to make a resection cut. A piece of the fifth metatarsal was sent as bone biopsy to path and culture. Sharp excisional debridement with 15 blade and forceps to the right wound. The right fifth metatarsal wound postdebridement was 100% granular and measured 1.6 x 0.2 x 0.1 cm extending full-thickness through skin into/including subcutaneous tissue. A separate incision was made dorsally over the fifth toe. Dissection full-thickness down to the bone. Saw used to resect base of the fifth proximal phalanx. Incision extended through the wound over the fifth metatarsal laterally full-thickness exposing the bone. Saw used to make a resection cut and a piece of the fifth metatarsal was sent as bone biopsy to path and culture. A piece of fifth metatarsal was also sent for proximal margin to pathology. Operative note:: On this date and time the patient was deemed an appropriate surgical candidate and with the informed
--- NOTE | 2022-03-01 14:00 | XR_ITS ---
FINAL REPORT CLINICAL HISTORY: Post op bone biopsy/resection COMPARISON: February 01, 2022 FINDINGS: 3 views of the left foot were obtained. There has been resection through the base of the 5th metatarsal. There are linear iatrogenic defects at the base of the 4th metatarsal and tarsal cuboid, new from prior. IMPRESSION: Resection through the base of the 5th metatarsal. Linear lucencies in the base of the 4th metatarsal and cuboid consistent with iatrogenic defects. Reviewed, Interpreted and Dictated by Tomy Sun MD Transcribed by Virgilio Cummings Authenticated by Tomy Sun MD on 03/01/2022 03:28:33 PM [facility]
--- NOTE | 2022-03-01 14:00 | XR_ITS ---
FINAL REPORT CLINICAL HISTORY: Post op bone biopsy/resection COMPARISON: February 01, 2022 FINDINGS: 3 views of the right foot were obtained. There has been progressive resection of the distal 5th metatarsal. There is a linear lucency of the mid 4th metatarsal concerning for iatrogenic defect. There are moderate hypertrophic changes of the 1st MTP joint. IMPRESSION: Progressive resection of the 5th metatarsal. Linear lucency mid 4th metatarsal concerning for iatrogenic defect. Reviewed, Interpreted and Dictated by Tomy Sun MD Transcribed by Virgilio Cummings Authenticated by Tomy Sun MD on 03/01/2022 03:28:34 PM [facility]
[2022-03-02 09:12] LABS: POC Glucose,Bedside 189 (70-110)
== END 2022-03-01 15:00 | disposition home or self-care (01) ==
LOC: OR 11:38
PROVIDERS: PCP Family Medicine; Visit Provider Podiatrist
PROC: (CPT 11044; principal; 2022-03-01 13:30)
DX: E11.621 Type 2 diabetes mellitus with foot ulcer (principal); M86.172 Other acute osteomyelitis, left ankle and foot; M86.171 Other acute osteomyelitis, right ankle and foot; L97.412 Non-pressure chronic ulcer of right heel and midfoot with fat layer exposed; L97.422 Non-pressure chronic ulcer of left heel and midfoot with fat layer exposed; E11.42 Type 2 diabetes mellitus with diabetic polyneuropathy
CPT/HCPCS: 11044; 73630; 82962; 88304; 88305; 88307; 88311; J0878; J3370

== ENCOUNTER 2022-03-02 09:57 | Outpatient (CLI) | payer MEDICARE, BC, SELFPAY ==
[2022-03-02 10:25] VITALS: BP 97/59; PULSE 83; RESP 20; TEMP 37.5; O2SAT 95
[2022-03-02 11:00] VITALS: BP 98/78; PULSE 83; RESP 20; TEMP 36.9; O2SAT 97
== END 2022-03-02 11:00 | disposition home or self-care (01) ==
LOC: INF 09:58
PROVIDERS: PCP Family Medicine; Visit Provider Podiatrist
DX: E11.621 Type 2 diabetes mellitus with foot ulcer (principal); L03.116 Cellulitis of left lower limb; M86.672 Other chronic osteomyelitis, left ankle and foot; L03.115 Cellulitis of right lower limb; M86.671 Other chronic osteomyelitis, right ankle and foot; A49.01 Methicillin susceptible Staphylococcus aureus infection, unspecified site; Z79.84 Long term (current) use of oral hypoglycemic drugs
CPT/HCPCS: 96365; G0463; J0878

== ENCOUNTER → 2022-03-03 09:44 | Outpatient (CLI) | payer MEDICARE, BC, SELFPAY ==
[2022-03-03 10:44] VITALS: BP 125/67; RESP 16; TEMP 37.1; O2SAT 99
--- NOTE | 2022-03-03 10:53 | PC.NURSE ---
bilateral foot dressings changed. incisions cleansed with betadine, covered with ioplex, 4x4, wrapped with kerlix and anders wrap. pt tolerated well. no drainage noted. sutures intact.
== END ==
PROVIDERS: PCP Family Medicine; Visit Provider Podiatrist
DX: E11.621 Type 2 diabetes mellitus with foot ulcer (principal); L03.116 Cellulitis of left lower limb; M86.672 Other chronic osteomyelitis, left ankle and foot; L03.115 Cellulitis of right lower limb; M86.671 Other chronic osteomyelitis, right ankle and foot; A49.01 Methicillin susceptible Staphylococcus aureus infection, unspecified site; Z79.84 Long term (current) use of oral hypoglycemic drugs
CPT/HCPCS: 96365; G0463; J0878

== ENCOUNTER → 2022-03-04 09:42 | Outpatient (CLI) | payer MEDICARE, BC, SELFPAY ==
--- NOTE | 2022-03-04 10:22 | PC.NURSE ---
BILATERAL FOOT DRESSINGS CHANGED. MINIMAL BLOODY DRAINAGED NOTED TO BOTH. REDRESSED PER MD ORDER
[2022-03-04 10:24] VITALS: BP 99/60; PULSE 79; RESP 18; TEMP 36.8; O2SAT 98
== END ==
PROVIDERS: PCP Family Medicine; Visit Provider Podiatrist
DX: E11.621 Type 2 diabetes mellitus with foot ulcer (principal); L03.116 Cellulitis of left lower limb; M86.672 Other chronic osteomyelitis, left ankle and foot; L03.115 Cellulitis of right lower limb; M86.671 Other chronic osteomyelitis, right ankle and foot; A49.01 Methicillin susceptible Staphylococcus aureus infection, unspecified site; Z79.84 Long term (current) use of oral hypoglycemic drugs
CPT/HCPCS: 96365; G0463; J0878

== ENCOUNTER 2022-03-05 09:45 | Outpatient (CLI) | payer MEDICARE, BC, SELFPAY ==
[2022-03-05 09:49] VITALS: BMI 22.3
[2022-03-05 10:10] LABS: Basophils # 0.1 K/mm3 (0-0.2); Basophils % 1.4 % (0.1-2.0); Eosinophils # 0.3 K/mm3 (0.0-0.4); Eosinophils % 3.8 % (0.1-12.0); Hematocrit 35.9 % (42.0-52.0); Hemoglobin 12.3 g/dL (14.1-18.0); Lymphocytes # 1.6 K/mm3 (0.7-4.5); Lymphocytes % 20.4 % (10-50); Mean Corpuscular HGB Conc 34.1 g/dL (31.8-35.4); Mean Corpuscular Hemoglobin 30.1 pg (27.0-31.2); Mean Corpuscular Volume 88.2 fl (80-94); Mean Platelet Volume 8.7 fl (7.4-10.4); Monocytes # 0.4 K/mm3 (0.1-1.0); Monocytes % 5.3 % (1.7-9.3); Neutrophils # 5.3 K/mm3 (1.8-7.8); Neutrophils % 69.1 % (37.0-80.0); Platelet Count 267 K/mm3 (142-424); Red Blood Count 4.07 M/mm3 (4.60-6.20); Red Cell Distribution Width 13.8 % (11.5-17.5); White Blood Count 7.7 K/mm3 (4.8-10.8)
[2022-03-05 10:12] VITALS: BP 132/73; PULSE 89; RESP 18; TEMP 36.2; O2SAT 98
[2022-03-05 10:20] LABS: Chloride 98 mmol/L (98-107)
[2022-03-05 10:21] LABS: Potassium 4.3 mmoL/L (3.5-5.1); Sodium 133 mmol/L (136-145)
[2022-03-05 10:23] LABS: Alanine Aminotransferase 40 U/L (12-78); Alkaline Phosphatase 87 U/L (38-126); Anion Gap 10.3 mEq/L (5-15); Aspartate Amino Transferase 29 U/L (17-59); Bilirubin,Total 0.6 mg/dl (0.2-1.3); Blood Urea Nitrogen 14 mg/dl (9-20); Carbon Dioxide 29 mmol/L (22.0-30.0); Creatinine Clearance Estimated 80 mL/min (50-200); Estimated Glomerular Filt Rate 137 ml/min (>60); GFR (African American) 166 ML/MIN (>60)
[2022-03-05 10:24] LABS: Albumin Level 3.7 g/dl (3.5-5.0); Albumin/Globulin Ratio 1.2 (1.1-1.8); Calcium 9.2 mg/dl (8.4-10.2); Glucose 385 mg/dl (74-100); Total Protein,Serum 6.7 g/dl (6.3-8.2)
[2022-03-05 10:29] LABS: Creatine Kinase 43 U/L (55-170)
[2022-03-05 10:35] LABS: C-Reactive Protein 44.6 mg/L (0-4)
[2022-03-05 10:39] LABS: Erythrocyte Sedimentation Rate 104 mm/hr (0-20)
[2022-03-05 11:10] VITALS: BP 127/61; PULSE 88; RESP 18; O2SAT 98
== END 2022-03-05 11:10 | disposition home or self-care (01) ==
LOC: INF 09:45
PROVIDERS: PCP Family Medicine; Visit Provider Podiatrist
DX: E11.621 Type 2 diabetes mellitus with foot ulcer (principal); L03.116 Cellulitis of left lower limb; M86.672 Other chronic osteomyelitis, left ankle and foot; L03.115 Cellulitis of right lower limb; M86.671 Other chronic osteomyelitis, right ankle and foot; A49.01 Methicillin susceptible Staphylococcus aureus infection, unspecified site; Z79.84 Long term (current) use of oral hypoglycemic drugs
CPT/HCPCS: 80053; 82550; 85025; 85651; 86140; 96365; G0463; J0878

== ENCOUNTER 2022-03-06 09:50 | Outpatient (CLI) | payer MEDICARE, BC, SELFPAY ==
[2022-03-06 10:54] VITALS: BP 115/72; PULSE 68; TEMP 36.7; O2SAT 99
== END 2022-03-06 10:54 | disposition home or self-care (01) ==
LOC: INF 09:51
PROVIDERS: PCP Family Medicine; Visit Provider Podiatrist
DX: E11.621 Type 2 diabetes mellitus with foot ulcer (principal); L03.116 Cellulitis of left lower limb; M86.672 Other chronic osteomyelitis, left ankle and foot; L03.115 Cellulitis of right lower limb; M86.671 Other chronic osteomyelitis, right ankle and foot; A49.01 Methicillin susceptible Staphylococcus aureus infection, unspecified site; Z79.84 Long term (current) use of oral hypoglycemic drugs
CPT/HCPCS: 96365; G0463; J0878

== ENCOUNTER 2022-03-07 09:42 | Outpatient (CLI) | payer MEDICARE, BC, SELFPAY ==
[2022-03-07 10:06] VITALS: BP 122/71; PULSE 80; RESP 18; TEMP 36.6; O2SAT 100
[2022-03-07 10:36] VITALS: BP 120/75; PULSE 77; RESP 18; O2SAT 99
[2022-03-07 10:55] VITALS: BP 123/64; PULSE 75; RESP 18; O2SAT 99
== END 2022-03-07 11:00 | disposition home or self-care (01) ==
LOC: INF 09:43
PROVIDERS: PCP Family Medicine; Visit Provider Podiatrist
DX: E11.621 Type 2 diabetes mellitus with foot ulcer (principal); L03.116 Cellulitis of left lower limb; M86.672 Other chronic osteomyelitis, left ankle and foot; L03.115 Cellulitis of right lower limb; M86.671 Other chronic osteomyelitis, right ankle and foot; A49.01 Methicillin susceptible Staphylococcus aureus infection, unspecified site; Z79.84 Long term (current) use of oral hypoglycemic drugs
CPT/HCPCS: 96365; G0463; J0878

== ENCOUNTER 2022-03-08 10:57 | Outpatient (CLI) | payer MEDICARE, BC, SELFPAY ==
[2022-03-08 11:15] VITALS: BP 132/74; PULSE 89; RESP 16; O2SAT 99
[2022-03-08 12:09] VITALS: BP 128/72; PULSE 82; RESP 16; TEMP 36.7; O2SAT 99
== END 2022-03-08 12:09 | disposition home or self-care (01) ==
LOC: INF 10:58
PROVIDERS: PCP Family Medicine; Visit Provider Podiatrist
DX: E11.621 Type 2 diabetes mellitus with foot ulcer (principal); L03.116 Cellulitis of left lower limb; M86.672 Other chronic osteomyelitis, left ankle and foot; L03.115 Cellulitis of right lower limb; M86.671 Other chronic osteomyelitis, right ankle and foot; A49.01 Methicillin susceptible Staphylococcus aureus infection, unspecified site; Z79.84 Long term (current) use of oral hypoglycemic drugs
CPT/HCPCS: 96365; J0878

== ENCOUNTER 2022-03-09 09:46 | Outpatient (CLI) | payer MEDICARE, BC, SELFPAY ==
[2022-03-09 10:13] VITALS: BP 134/72; PULSE 68; RESP 16; TEMP 36.8; O2SAT 99
[2022-03-09 11:17] VITALS: BP 131/67; PULSE 82; O2SAT 100
== END 2022-03-09 11:17 | disposition home or self-care (01) ==
LOC: INF 09:48
PROVIDERS: PCP Family Medicine; Visit Provider Podiatrist
DX: E11.621 Type 2 diabetes mellitus with foot ulcer (principal); L03.116 Cellulitis of left lower limb; M86.672 Other chronic osteomyelitis, left ankle and foot; L03.115 Cellulitis of right lower limb; M86.671 Other chronic osteomyelitis, right ankle and foot; A49.01 Methicillin susceptible Staphylococcus aureus infection, unspecified site; Z79.84 Long term (current) use of oral hypoglycemic drugs
CPT/HCPCS: 96365; G0463; J0878

== ENCOUNTER 2022-03-10 09:49 | Outpatient (CLI) | payer MEDICARE, BC, SELFPAY ==
[2022-03-10 11:10] VITALS: BP 135/69; PULSE 82; RESP 18; O2SAT 98
== END 2022-03-10 11:12 | disposition home or self-care (01) ==
LOC: INF 09:50
PROVIDERS: PCP Family Medicine; Visit Provider Podiatrist
DX: E11.621 Type 2 diabetes mellitus with foot ulcer (principal); L03.116 Cellulitis of left lower limb; M86.672 Other chronic osteomyelitis, left ankle and foot; L03.115 Cellulitis of right lower limb; M86.671 Other chronic osteomyelitis, right ankle and foot; A49.01 Methicillin susceptible Staphylococcus aureus infection, unspecified site; Z79.84 Long term (current) use of oral hypoglycemic drugs
CPT/HCPCS: 96365; G0463; J0878

== ENCOUNTER 2022-03-11 09:48 | Outpatient (CLI) | payer MEDICARE, BC, SELFPAY ==
[2022-03-11 10:42] VITALS: BP 127/68; PULSE 80; RESP 16; O2SAT 98
== END 2022-03-11 10:33 | disposition home or self-care (01) ==
PROVIDERS: PCP Family Medicine; Visit Provider Podiatrist
DX: E11.621 Type 2 diabetes mellitus with foot ulcer (principal); L03.116 Cellulitis of left lower limb; M86.672 Other chronic osteomyelitis, left ankle and foot; L03.115 Cellulitis of right lower limb; M86.671 Other chronic osteomyelitis, right ankle and foot; A49.01 Methicillin susceptible Staphylococcus aureus infection, unspecified site; Z79.84 Long term (current) use of oral hypoglycemic drugs
CPT/HCPCS: 96365; G0463; J0878

== ENCOUNTER 2022-03-12 09:51 | Outpatient (CLI) | payer MEDICARE, BC, SELFPAY ==
[2022-03-12 10:35] VITALS: BMI 22.3
[2022-03-12 10:45] VITALS: BP 144/76; PULSE 74; RESP 18; O2SAT 100
[2022-03-12 11:03] LABS: Basophils # 0.1 K/mm3 (0-0.2); Basophils % 1.7 % (0.1-2.0); Eosinophils # 0.1 K/mm3 (0.0-0.4); Eosinophils % 2.8 % (0.1-12.0); Hematocrit 37.8 % (42.0-52.0); Hemoglobin 12.6 g/dL (14.1-18.0); Lymphocytes # 1.2 K/mm3 (0.7-4.5); Lymphocytes % 34.2 % (10-50); Mean Corpuscular HGB Conc 33.5 g/dL (31.8-35.4); Mean Corpuscular Hemoglobin 29.2 pg (27.0-31.2); Mean Corpuscular Volume 87.2 fl (80-94); Mean Platelet Volume 7.9 fl (7.4-10.4); Monocytes # 0.2 K/mm3 (0.1-1.0); Monocytes % 5.8 % (1.7-9.3); Neutrophils % 55.4 % (37.0-80.0); Platelet Count 355 K/mm3 (142-424); Red Blood Count 4.33 M/mm3 (4.60-6.20); Red Cell Distribution Width 13.8 % (11.5-17.5); White Blood Count 3.6 K/mm3 (4.8-10.8)
[2022-03-12 11:06] LABS: Chloride 96 mmol/L (98-107)
[2022-03-12 11:07] LABS: Potassium 4.6 mmoL/L (3.5-5.1); Sodium 133 mmol/L (136-145)
[2022-03-12 11:09] LABS: Alanine Aminotransferase 74 U/L (12-78); Aspartate Amino Transferase 54 U/L (17-59); Bilirubin,Total 0.5 mg/dl (0.2-1.3); Blood Urea Nitrogen 14 mg/dl (9-20); Creatinine Clearance Estimated 80 mL/min (50-200); Estimated Glomerular Filt Rate 137 ml/min (>60); GFR (African American) 166 ML/MIN (>60)
[2022-03-12 11:10] LABS: Albumin Level 3.8 g/dl (3.5-5.0); Albumin/Globulin Ratio 1.3 (1.1-1.8); Alkaline Phosphatase 128 U/L (38-126); Anion Gap 13.6 mEq/L (5-15); Carbon Dioxide 28 mmol/L (22.0-30.0); Creatine Kinase 64 U/L (55-170); Total Protein,Serum 6.8 g/dl (6.3-8.2)
[2022-03-12 11:14] LABS: Glucose 466 mg/dl (74-100)
[2022-03-12 11:15] LABS: C-Reactive Protein 6.4 mg/L (0-4)
[2022-03-12 11:30] LABS: Erythrocyte Sedimentation Rate 60 mm/hr (0-20)
[2022-03-12 11:42] VITALS: BP 144/59; PULSE 73; RESP 18
== END 2022-03-12 11:42 | disposition home or self-care (01) ==
LOC: INF 09:52
PROVIDERS: PCP Family Medicine; Visit Provider Podiatrist
DX: E11.621 Type 2 diabetes mellitus with foot ulcer (principal); L03.116 Cellulitis of left lower limb; Z79.84 Long term (current) use of oral hypoglycemic drugs
CPT/HCPCS: 80053; 82550; 85025; 85651; 86140; 96365; G0463; J0878

== ENCOUNTER 2022-03-13 09:50 | Outpatient (CLI) | payer MEDICARE, BC, SELFPAY ==
[2022-03-13 10:09] VITALS: BP 109/65; PULSE 71; RESP 18; TEMP 36.4; O2SAT 98
[2022-03-13 10:39] VITALS: BP 111/69; PULSE 78; RESP 18; O2SAT 98
[2022-03-13 11:00] VITALS: BP 107/61; PULSE 76; RESP 18; O2SAT 98
== END 2022-03-13 11:06 | disposition home or self-care (01) ==
LOC: INF 09:53
PROVIDERS: PCP Family Medicine; Visit Provider Podiatrist
DX: E11.621 Type 2 diabetes mellitus with foot ulcer (principal); L03.116 Cellulitis of left lower limb; M86.672 Other chronic osteomyelitis, left ankle and foot; L03.115 Cellulitis of right lower limb; M86.671 Other chronic osteomyelitis, right ankle and foot; A49.01 Methicillin susceptible Staphylococcus aureus infection, unspecified site
CPT/HCPCS: 96365; G0463; J0878

== ENCOUNTER 2022-03-14 09:48 | Outpatient (CLI) | payer MEDICARE, BC, SELFPAY ==
[2022-03-14 10:21] VITALS: BP 130/86; PULSE 81; O2SAT 100
[2022-03-14 11:20] VITALS: BP 131/82; PULSE 79; O2SAT 100
== END 2022-03-14 11:20 | disposition home or self-care (01) ==
LOC: INF 09:49
PROVIDERS: PCP Family Medicine; Visit Provider Podiatrist
DX: E11.621 Type 2 diabetes mellitus with foot ulcer (principal); L03.116 Cellulitis of left lower limb; M86.672 Other chronic osteomyelitis, left ankle and foot; L03.115 Cellulitis of right lower limb; M86.671 Other chronic osteomyelitis, right ankle and foot; A49.01 Methicillin susceptible Staphylococcus aureus infection, unspecified site; Z79.84 Long term (current) use of oral hypoglycemic drugs
CPT/HCPCS: 96365; G0463; J0878

== ENCOUNTER 2022-03-15 09:51 | Outpatient (CLI) | payer MEDICARE, BC, SELFPAY ==
[2022-03-15 11:30] VITALS: BP 132/74; PULSE 69; O2SAT 100
[2022-03-15 11:35] VITALS: BP 134/68; PULSE 68; O2SAT 98
== END 2022-03-15 11:35 | disposition home or self-care (01) ==
LOC: INF 09:52
PROVIDERS: PCP Family Medicine; Visit Provider Podiatrist
DX: E11.621 Type 2 diabetes mellitus with foot ulcer (principal); L03.116 Cellulitis of left lower limb; M86.672 Other chronic osteomyelitis, left ankle and foot; L03.115 Cellulitis of right lower limb; M86.671 Other chronic osteomyelitis, right ankle and foot; A49.01 Methicillin susceptible Staphylococcus aureus infection, unspecified site; Z79.84 Long term (current) use of oral hypoglycemic drugs
CPT/HCPCS: 96365; G0463; J0878

== ENCOUNTER 2022-03-16 09:44 | Outpatient (CLI) | payer MEDICARE, BC, SELFPAY ==
[2022-03-16 10:15] VITALS: BP 140/72; PULSE 71; O2SAT 99
[2022-03-16 11:15] VITALS: BP 145/74; PULSE 78; O2SAT 99
== END 2022-03-16 11:15 | disposition home or self-care (01) ==
LOC: INF 09:45
PROVIDERS: PCP Family Medicine; Visit Provider Podiatrist
DX: E11.621 Type 2 diabetes mellitus with foot ulcer (principal); L03.116 Cellulitis of left lower limb; M86.672 Other chronic osteomyelitis, left ankle and foot; L03.115 Cellulitis of right lower limb; M86.671 Other chronic osteomyelitis, right ankle and foot; A49.01 Methicillin susceptible Staphylococcus aureus infection, unspecified site
CPT/HCPCS: 96365; G0463; J0878

== ENCOUNTER 2022-03-17 09:48 | Outpatient (CLI) | payer MEDICARE, BC, SELFPAY ==
[2022-03-17 10:04] VITALS: BP 108/55; PULSE 79; RESP 15; TEMP 36.8; O2SAT 98
[2022-03-17 11:03] VITALS: BP 108/64; PULSE 79; RESP 15; TEMP 36.7; O2SAT 98
== END 2022-03-17 11:03 | disposition home or self-care (01) ==
LOC: INF 09:49
PROVIDERS: PCP Family Medicine; Visit Provider Podiatrist
DX: E11.621 Type 2 diabetes mellitus with foot ulcer (principal); L03.116 Cellulitis of left lower limb; M86.672 Other chronic osteomyelitis, left ankle and foot; L03.115 Cellulitis of right lower limb; M86.671 Other chronic osteomyelitis, right ankle and foot; A49.01 Methicillin susceptible Staphylococcus aureus infection, unspecified site; Z79.84 Long term (current) use of oral hypoglycemic drugs
CPT/HCPCS: 96365; G0463; J0878

== ENCOUNTER → 2022-03-18 09:48 | Outpatient (CLI) | payer MEDICARE, BC, SELFPAY ==
[2022-03-18 10:05] VITALS: BP 149/72; PULSE 90; RESP 18; TEMP 36.5; O2SAT 99
== END ==
PROVIDERS: PCP Family Medicine; Visit Provider Podiatrist
DX: E11.621 Type 2 diabetes mellitus with foot ulcer (principal); L03.116 Cellulitis of left lower limb; M86.672 Other chronic osteomyelitis, left ankle and foot; L03.115 Cellulitis of right lower limb; M86.671 Other chronic osteomyelitis, right ankle and foot; A49.01 Methicillin susceptible Staphylococcus aureus infection, unspecified site; Z79.84 Long term (current) use of oral hypoglycemic drugs
CPT/HCPCS: 96365; G0463; J0878

== ENCOUNTER 2022-03-19 09:48 | Outpatient (CLI) | payer MEDICARE, BC, SELFPAY ==
[2022-03-19 10:11] VITALS: BMI 22.3
[2022-03-19 10:20] VITALS: BP 123/72; PULSE 84; O2SAT 99
[2022-03-19 10:37] LABS: Basophils # 0.1 K/mm3 (0-0.2); Basophils % 1.3 % (0.1-2.0); Eosinophils # 0.2 K/mm3 (0.0-0.4); Eosinophils % 3.2 % (0.1-12.0); Hematocrit 38.8 % (42.0-52.0); Hemoglobin 12.8 g/dL (14.1-18.0); Lymphocytes # 1.5 K/mm3 (0.7-4.5); Lymphocytes % 25.5 % (10-50); Mean Corpuscular Hemoglobin 28.5 pg (27.0-31.2); Mean Corpuscular Volume 86.3 fl (80-94); Mean Platelet Volume 8.2 fl (7.4-10.4); Monocytes # 0.2 K/mm3 (0.1-1.0); Neutrophils # 3.8 K/mm3 (1.8-7.8); Platelet Count 408 K/mm3 (142-424); Red Blood Count 4.49 M/mm3 (4.60-6.20); Red Cell Distribution Width 13.9 % (11.5-17.5); White Blood Count 5.8 K/mm3 (4.8-10.8)
[2022-03-19 11:02] LABS: Erythrocyte Sedimentation Rate 31 mm/hr (0-20)
[2022-03-19 11:04] LABS: Chloride 99 mmol/L (98-107); Sodium 133 mmol/L (136-145)
[2022-03-19 11:05] LABS: Potassium 4.4 mmoL/L (3.5-5.1)
[2022-03-19 11:07] LABS: Alanine Aminotransferase 35 U/L (12-78); Albumin Level 3.8 g/dl (3.5-5.0); Albumin/Globulin Ratio 1.2 (1.1-1.8); Alkaline Phosphatase 99 U/L (38-126); Anion Gap 11.4 mEq/L (5-15); Aspartate Amino Transferase 35 U/L (17-59); Bilirubin,Total 0.5 mg/dl (0.2-1.3); Blood Urea Nitrogen 16 mg/dl (9-20); Carbon Dioxide 27 mmol/L (22.0-30.0); Creatine Kinase 55 U/L (55-170); Creatinine Clearance Estimated 80 mL/min (50-200); Estimated Glomerular Filt Rate 115 ml/min (>60); GFR (African American) 139 ML/MIN (>60); Globulin 3.1 g/dL (1.3-3.2); Total Protein,Serum 6.9 g/dl (6.3-8.2)
[2022-03-19 11:11] LABS: Glucose 402 mg/dl (74-100)
[2022-03-19 11:13] LABS: C-Reactive Protein 1.4 mg/L (0-4)
[2022-03-19 11:15] VITALS: BP 133/82; PULSE 75; TEMP 36.6; O2SAT 99
--- NOTE | 2022-03-19 11:27 | PC.NURSE ---
lab called to report critical glucose level of 402. Name, and lab result were verified and repeated. pt was notified and reported that he forgot a couple sugar pills this weekend. Pt instructed to check glucose at home and take prescribed medicine as instructed and call PCP office if glucose remains that high.
== END 2022-03-19 11:15 | disposition home or self-care (01) ==
LOC: INF 09:49
PROVIDERS: PCP Family Medicine; Visit Provider Podiatrist
DX: E11.621 Type 2 diabetes mellitus with foot ulcer (principal); L03.116 Cellulitis of left lower limb; M86.672 Other chronic osteomyelitis, left ankle and foot; L03.115 Cellulitis of right lower limb; M86.671 Other chronic osteomyelitis, right ankle and foot; A49.01 Methicillin susceptible Staphylococcus aureus infection, unspecified site; Z79.84 Long term (current) use of oral hypoglycemic drugs
CPT/HCPCS: 80053; 82550; 85025; 85651; 86140; 96365; G0463; J0878

== ENCOUNTER 2022-03-20 11:37 | Outpatient (CLI) | payer MEDICARE, BC, SELFPAY ==
[2022-03-20 12:18] VITALS: BP 105/59; PULSE 56; O2SAT 99
[2022-03-20 13:10] VITALS: BP 130/74; PULSE 72; O2SAT 98
== END 2022-03-20 13:10 | disposition home or self-care (01) ==
LOC: INF 11:38
PROVIDERS: PCP Family Medicine; Visit Provider Podiatrist
DX: E11.621 Type 2 diabetes mellitus with foot ulcer (principal); L03.116 Cellulitis of left lower limb; M86.672 Other chronic osteomyelitis, left ankle and foot; L03.115 Cellulitis of right lower limb; M86.671 Other chronic osteomyelitis, right ankle and foot; A49.01 Methicillin susceptible Staphylococcus aureus infection, unspecified site; Z79.84 Long term (current) use of oral hypoglycemic drugs
CPT/HCPCS: 96365; J0878

== ENCOUNTER 2022-03-21 09:42 | Outpatient (CLI) | payer MEDICARE, BC, SELFPAY ==
[2022-03-21 10:45] VITALS: BP 121/63; BP 124/63; PULSE 68; PULSE 74; O2SAT 100; O2SAT 99
== END 2022-03-21 10:45 | disposition home or self-care (01) ==
LOC: INF 09:42
PROVIDERS: PCP Family Medicine; Visit Provider Podiatrist
DX: E11.621 Type 2 diabetes mellitus with foot ulcer (principal); L03.116 Cellulitis of left lower limb; M86.672 Other chronic osteomyelitis, left ankle and foot; L03.115 Cellulitis of right lower limb; M86.671 Other chronic osteomyelitis, right ankle and foot; Z79.84 Long term (current) use of oral hypoglycemic drugs; A49.01 Methicillin susceptible Staphylococcus aureus infection, unspecified site
CPT/HCPCS: 96365; G0463; J0878

== ENCOUNTER 2022-03-22 09:44 | Outpatient (CLI) | payer MEDICARE, BC, SELFPAY ==
[2022-03-22 10:20] VITALS: BP 115/68; PULSE 72; RESP 18; TEMP 36.4; O2SAT 99
[2022-03-22 11:10] VITALS: BP 130/75; PULSE 75; RESP 16; TEMP 36.4; O2SAT 99
== END 2022-03-22 11:12 | disposition home or self-care (01) ==
LOC: INF 09:45
PROVIDERS: PCP Family Medicine; Visit Provider Podiatrist
DX: E11.621 Type 2 diabetes mellitus with foot ulcer (principal); L03.116 Cellulitis of left lower limb; M86.672 Other chronic osteomyelitis, left ankle and foot; L03.115 Cellulitis of right lower limb; M86.671 Other chronic osteomyelitis, right ankle and foot; A49.01 Methicillin susceptible Staphylococcus aureus infection, unspecified site; Z79.84 Long term (current) use of oral hypoglycemic drugs
CPT/HCPCS: 96365; G0463; J0878

== ENCOUNTER 2022-03-23 09:49 | Outpatient (CLI) | payer MEDICARE, BC, SELFPAY ==
[2022-03-23 10:10] VITALS: BP 124/65; PULSE 72; O2SAT 99
[2022-03-23 10:55] VITALS: BP 128/72; PULSE 57; O2SAT 99
== END 2022-03-23 10:55 | disposition home or self-care (01) ==
LOC: INF 09:50
PROVIDERS: PCP Family Medicine; Visit Provider Podiatrist
DX: E11.621 Type 2 diabetes mellitus with foot ulcer (principal); L03.116 Cellulitis of left lower limb; M86.672 Other chronic osteomyelitis, left ankle and foot; L03.115 Cellulitis of right lower limb; M86.671 Other chronic osteomyelitis, right ankle and foot; A49.01 Methicillin susceptible Staphylococcus aureus infection, unspecified site; Z79.84 Long term (current) use of oral hypoglycemic drugs
CPT/HCPCS: 96365; G0463; J0878

== ENCOUNTER 2022-03-24 09:40 | Outpatient (CLI) | payer MEDICARE, BC, SELFPAY | END 2022-03-24 11:04 | disposition home or self-care (01) | LOC: INF 09:42 | PROVIDERS: PCP Family Medicine; Visit Provider Podiatrist | DX: E11.621 Type 2 diabetes mellitus with foot ulcer (principal); L03.116 Cellulitis of left lower limb; M86.672 Other chronic osteomyelitis, left ankle and foot; L03.115 Cellulitis of right lower limb; M86.671 Other chronic osteomyelitis, right ankle and foot; A49.01 Methicillin susceptible Staphylococcus aureus infection, unspecified site; Z79.84 Long term (current) use of oral hypoglycemic drugs | CPT/HCPCS: 96365; G0463; J0878 ==

== ENCOUNTER → 2022-03-25 09:42 | Outpatient (CLI) | payer MEDICARE, BC, SELFPAY ==
[2022-03-25 10:10] VITALS: BP 122/66; PULSE 83; RESP 16; TEMP 36.4; O2SAT 100
[2022-03-25 10:45] VITALS: BP 123/70; PULSE 78; RESP 17; O2SAT 98
== END ==
PROVIDERS: PCP Family Medicine; Visit Provider Podiatrist
DX: E11.621 Type 2 diabetes mellitus with foot ulcer (principal); L03.116 Cellulitis of left lower limb; M86.672 Other chronic osteomyelitis, left ankle and foot; L03.115 Cellulitis of right lower limb; M86.671 Other chronic osteomyelitis, right ankle and foot; A49.01 Methicillin susceptible Staphylococcus aureus infection, unspecified site; Z79.84 Long term (current) use of oral hypoglycemic drugs
CPT/HCPCS: 96365; G0463; J0878

== ENCOUNTER 2022-03-26 09:39 | Outpatient (CLI) | payer MEDICARE, BC, SELFPAY ==
[2022-03-26 10:05] VITALS: BP 141/66; PULSE 80; RESP 18; O2SAT 100
[2022-03-26 11:00] VITALS: BP 145/62; PULSE 78; RESP 18
== END 2022-03-26 11:00 | disposition home or self-care (01) ==
LOC: INF 09:40
PROVIDERS: PCP Family Medicine; Visit Provider Podiatrist
DX: E11.621 Type 2 diabetes mellitus with foot ulcer (principal); L03.116 Cellulitis of left lower limb; M86.672 Other chronic osteomyelitis, left ankle and foot; L03.115 Cellulitis of right lower limb; M86.671 Other chronic osteomyelitis, right ankle and foot; A49.01 Methicillin susceptible Staphylococcus aureus infection, unspecified site; Z79.84 Long term (current) use of oral hypoglycemic drugs
CPT/HCPCS: 96365; G0463; J0878

== ENCOUNTER 2022-03-27 09:42 | Outpatient (CLI) | payer MEDICARE, BC, SELFPAY ==
[2022-03-27 09:47] VITALS: BMI 22.3
[2022-03-27 10:00] VITALS: BP 135/59; PULSE 49; RESP 18; O2SAT 95
[2022-03-27 10:12] LABS: Basophils # 0.2 K/mm3 (0-0.2); Basophils % 2.1 % (0.1-2.0); Eosinophils # 0.3 K/mm3 (0.0-0.4); Eosinophils % 3.5 % (0.1-12.0); Hematocrit 41.2 % (42.0-52.0); Lymphocytes % 25.8 % (10-50); Mean Corpuscular HGB Conc 33.9 g/dL (31.8-35.4); Mean Corpuscular Hemoglobin 28.9 pg (27.0-31.2); Mean Corpuscular Volume 85.2 fl (80-94); Mean Platelet Volume 8.2 fl (7.4-10.4); Monocytes # 0.4 K/mm3 (0.1-1.0); Monocytes % 4.8 % (1.7-9.3); Neutrophils # 4.9 K/mm3 (1.8-7.8); Neutrophils % 63.8 % (37.0-80.0); Platelet Count 397 K/mm3 (142-424); Red Blood Count 4.84 M/mm3 (4.60-6.20); Red Cell Distribution Width 14.2 % (11.5-17.5); White Blood Count 7.6 K/mm3 (4.8-10.8)
[2022-03-27 10:17] LABS: Potassium 4.6 mmoL/L (3.5-5.1); Sodium 136 mmol/L (136-145)
[2022-03-27 10:20] LABS: Alanine Aminotransferase 41 U/L (12-78); Albumin Level 4.3 g/dl (3.5-5.0); Albumin/Globulin Ratio 1.3 (1.1-1.8); Alkaline Phosphatase 115 U/L (38-126); Aspartate Amino Transferase 32 U/L (17-59); Bilirubin,Total 0.5 mg/dl (0.2-1.3); Blood Urea Nitrogen 12 mg/dl (9-20); Calcium 9.4 mg/dl (8.4-10.2); Carbon Dioxide 29 mmol/L (22.0-30.0); Creatine Kinase 83 U/L (55-170); Creatinine Clearance Estimated 80 mL/min (50-200); Estimated Glomerular Filt Rate 137 ml/min (>60); GFR (African American) 166 ML/MIN (>60); Globulin 3.3 g/dL (1.3-3.2); Glucose 282 mg/dl (74-100); Total Protein,Serum 7.6 g/dl (6.3-8.2)
[2022-03-27 10:39] LABS: Erythrocyte Sedimentation Rate 16 mm/hr (0-20)
[2022-03-27 10:50] VITALS: BP 109/66; PULSE 86; RESP 18
[2022-03-27 11:04] LABS: Hemoglobin A1C 9.1 % (4.0-6.0)
[2022-03-27 11:08] LABS: C-Reactive Protein 0.4 mg/L (0-4)
[2022-03-27 13:30] LABS: Anion Gap 10.6 mEq/L (5-15); Chloride 101 mmol/L (98-107)
== END 2022-03-27 10:50 | disposition home or self-care (01) ==
LOC: INF 09:44
PROVIDERS: PCP Family Medicine; Visit Provider Podiatrist
DX: E11.9 Type 2 diabetes mellitus without complications (principal); M86.19 Other acute osteomyelitis, multiple sites; U07.1 COVID-19; Z79.84 Long term (current) use of oral hypoglycemic drugs
CPT/HCPCS: 80053; 82550; 83036; 85025; 85651; 86140; 96365; C9803; G0463; J0878; U0003; U0005

== ENCOUNTER 2022-03-28 09:44 | Outpatient (CLI) | payer MEDICARE, BC, SELFPAY ==
[2022-03-28 10:15] VITALS: BP 126/83; PULSE 72; TEMP 36.4; O2SAT 99
[2022-03-28 11:05] VITALS: BP 132/72; PULSE 74; O2SAT 99
== END 2022-03-28 11:05 | disposition home or self-care (01) ==
LOC: INF 09:45
PROVIDERS: PCP Family Medicine; Visit Provider Podiatrist
DX: E11.621 Type 2 diabetes mellitus with foot ulcer (principal); L03.116 Cellulitis of left lower limb; M86.672 Other chronic osteomyelitis, left ankle and foot; L03.115 Cellulitis of right lower limb; M86.671 Other chronic osteomyelitis, right ankle and foot; A49.01 Methicillin susceptible Staphylococcus aureus infection, unspecified site; Z79.84 Long term (current) use of oral hypoglycemic drugs
CPT/HCPCS: 96365; G0463; J0878

== ENCOUNTER 2022-03-29 11:52 | Day surgery (SDC) | payer MEDICARE, BC, SELFPAY ==
--- NOTE | 2022-03-28 15:16 | SUR.PREOP ---
Spoke w/ [place] in Dr. Reed's office, states MD wishes to continue w/ procedure aware of positive CV-19 swab. 1515 - Spoke w/ patient @ this time. Made aware of testing positive for covid.
[2022-03-29 12:21] VITALS: BMI 22.3
[2022-03-29 12:24] VITALS: BP 135/73; PULSE 84; RESP 18; TEMP 36.1; O2SAT 100
[2022-03-29 12:36] LABS: POC Glucose,Bedside 335 (70-110)
--- NOTE | 2022-03-29 13:45 | HMH.OPNOTE ---
Date of procedure: 03/29/22 Pre-op Diagnosis:: 1. B/L DFU Post-op Diagnosis:: Same Procedure performed:: 1. Right foot wound debridement 2. Left foot wound debridement 3. Left foot wound graft application Surgeon:: Latonia Reed DPM Anesthesia: none Estimated blood loss (mL): 3 Clinical Note:: Patient is a 62-year-old diabetic male with a history of bilateral foot osteomyelitis. He has had multiple graft applications, wound debridements. 02/16/2022 he had a PICC line placed and has been receiving daily infusions at [facility] of daptomycin. Repeat OR bone biopsies were negative for OM. Explained due to adequate resection with clean bone biopsy margin, we can likely salvage toe. He understands he still may need amputation in the future however if infection recurs. Conservative treatment options include local wound care, oral and IV antibiotics, change in shoe wear, taping/padding, and off-loading. Patient understands that there is a chance that the toes can migrate to fill the gap or the foot may change shape after surgery. He understands there is risk of future gangrene if the toe loses circulation or does not heal which could lead to amputation. Patient also understands that they could have wound healing complications including delayed healing and infection. We discussed that if the wound does not heal, it is possible that they may need a more proximal amputation and could result in further loss of digits, loss of partial foot or loss of leg. We discussed the risks and benefits in great detail. Other surgical risks include: prolonged pain and swelling, further infection requiring oral or IV antibiotics, delay in healing of soft tissue or bone, nerve or blood vessel damage, CRPS/RSD, DVT/PE, anesthesia complications, and even . All questions answered. Patient verbalized understanding. Consent obtained. Operative findings:: Preop wound measurements, left fifth metatarsal base 2.3 x 1.8 x0.2 cm with intact eschar and yellow fibrotic tissue. No exposed extensor tendon distally. The right foot predebridement was 1 x 0.3 x 0.0cm with intact dry scab. No purulence or malodor noted. Right foot wound was sharply excisionally divided with a 15 blade and forceps through the dried scab and skin. The wound underneath was healed. Post debridement wound measures 0 x 0 cm. Left foot wound was sharply excisionally divided with a 15 blade, forceps and curette full-thickness through skin subcutaneous tissue into/including deep fascia. No exposed 5th metatarsal bone. Post debridement the left fifth metatarsal base wound was 100% granular and measured 2.5 x 2.0 x 0.3cm. No obvious signs of infection. Proceed with graft application to left foot. Operative note:: On this date and time the patient was deemed an appropriate surgical candidate and with the informed consent signed the patient was wheeled from the preoperative holding area to the local procedure room. No anesthesia was used for this case. Both the right and left lower extremities were prepped and draped in normal sterile fashion. IV 750mg Dapotmycin given post-op. Right foot wound debridement: Attention was directed to the dorsal lateral right foot where previous surgery had been performed. Swelling was down. See operative findings for pre and postop measurements and details. Utilizing a 15 blade, forceps the wound was debrided sharply excisionally through skin. Dry scab and skin was removed. Post debridement, no purulence or signs of infection and the wound was healed. Gentamicin irrigation was then used to flush the skin. Dry sterile dressing applied. Left foot wound debridement: Similar procedure performed to the left foot. See operative findings for pre and postop measurements and details. 15 blade, forceps and curette used to sharply excisionally debride the wound full-thickness through skin, subcutaneous tissue into/including deep fascia. Wound was flushed with gentamicin irrigation. No deep
[2022-03-29 14:34] VITALS: BP 135/73; PULSE 84; RESP 18; O2SAT 100
== END 2022-03-29 14:30 | disposition home or self-care (01) ==
LOC: OUTP 11:53
PROVIDERS: PCP Family Medicine; Visit Provider Podiatrist
DX: E11.621 Type 2 diabetes mellitus with foot ulcer (principal); M86.172 Other acute osteomyelitis, left ankle and foot; M86.171 Other acute osteomyelitis, right ankle and foot; L97.412 Non-pressure chronic ulcer of right heel and midfoot with fat layer exposed; L97.411 Non-pressure chronic ulcer of right heel and midfoot limited to breakdown of skin; E11.42 Type 2 diabetes mellitus with diabetic polyneuropathy; Z91.19 Patient's noncompliance with other medical treatment and regimen; F17.210 Nicotine dependence, cigarettes, uncomplicated; Z79.84 Long term (current) use of oral hypoglycemic drugs
CPT/HCPCS: 11044; 82962; J0878; Q4101

== ENCOUNTER 2022-04-05 11:54 | Day surgery (SDC) | payer MEDICARE, BC, SELFPAY ==
[2022-04-03 13:26] VITALS: BMI 22.4
[2022-04-05 12:17] VITALS: BP 146/81; PULSE 83; RESP 18; TEMP 36.7; O2SAT 99
--- NOTE | 2022-04-05 12:22 | PC.NURSE ---
patient has PICC line in right upper arm
[2022-04-05 12:31] LABS: POC Glucose,Bedside 269 (70-110)
--- NOTE | 2022-04-05 12:46 | HMH.OPNOTE ---
Date of procedure: 04/05/22 Pre-op Diagnosis:: 1. B/L DFU Post-op Diagnosis:: Same Procedure performed:: 1. Right foot wound debridement 2. Left foot wound debridement 3. Left foot wound graft application Surgeon:: Latonia Reed DPM Anesthesia: none Estimated blood loss (mL): 2 Clinical Note:: Patient is a 62-year-old diabetic male with a history of bilateral foot osteomyelitis. He has had multiple graft applications, wound debridements. 02/16/2022 he had a PICC line placed and has been receiving daily infusions at [facility] of daptomycin. Repeat OR bone biopsies were negative for OM. Explained due to adequate resection with clean bone biopsy margin, we can likely salvage toe. He understands he still may need amputation in the future however if infection recurs. Conservative treatment options include local wound care, oral and IV antibiotics, change in shoe wear, taping/padding, and off-loading. Patient understands that there is a chance that the toes can migrate to fill the gap or the foot may change shape after surgery. He understands there is risk of future gangrene if the toe loses circulation or does not heal which could lead to amputation. Patient also understands that they could have wound healing complications including delayed healing and infection. We discussed that if the wound does not heal, it is possible that they may need a more proximal amputation and could result in further loss of digits, loss of partial foot or loss of leg. We discussed the risks and benefits in great detail. Other surgical risks include: prolonged pain and swelling, further infection requiring oral or IV antibiotics, delay in healing of soft tissue or bone, nerve or blood vessel damage, CRPS/RSD, DVT/PE, anesthesia complications, and even . All questions answered. Patient verbalized understanding. Consent obtained. Operative findings:: Preop wound measurements, the right foot predebridement was 0.2 x 0.1 x 0.0cm with intact dry scab. No purulence or malodor noted. Right foot wound was sharply excisionally divided with a 15 blade and forceps through the dried scab and skin. The wound underneath was healed. Post debridement wound measures 0 x 0 cm. Pre-debridement, left fifth metatarsal base 2.0 x 1.7 x0.3 cm with intact graft and yellow fibrotic tissue. Some graft incorporation noted. No exposed extensor tendon distally. Left foot wound was sharply excisionally divided with a 15 blade, forceps and curette full-thickness through skin subcutaneous tissue into/including deep fascia. No exposed 5th metatarsal bone. Post debridement the left fifth metatarsal base wound was 100% granular and measured 1.9 x 1.5 x 0.2cm. No obvious signs of infection. Proceed with graft application to left foot. Operative note:: On this date and time the patient was deemed an appropriate surgical candidate and with the informed consent signed the patient was wheeled from the preoperative holding area to the local procedure room. No anesthesia was used for this case. Both the right and left lower extremities were prepped and draped in normal sterile fashion. IM 1g Rocephin given post-op. Right foot wound debridement: Attention was directed to the dorsal lateral right foot where previous surgery had been performed. Swelling was down. See operative findings for pre and postop measurements and details. Utilizing a 15 blade, forceps the wound was debrided sharply excisionally through skin. Dry scab and skin was removed. Post debridement, no purulence or signs of infection and the wound was healed. Gentamicin irrigation was then used to flush the skin. Left foot wound debridement: Similar procedure performed to the left foot. See operative findings for pre and postop measurements and details. 15 blade, forceps and curette used to sharply excisionally debride the wound full-thickness through skin, subcutaneous tissue into/including deep fascia. Wound was flushed with gentamicin irrigation.
[2022-04-05 13:55] VITALS: BP 142/61; PULSE 71; RESP 16; TEMP 36.7; O2SAT 100
== END 2022-04-05 13:55 | disposition home or self-care (01) ==
LOC: OUTP 11:54
PROVIDERS: PCP Family Medicine; Visit Provider Podiatrist
DX: E11.621 Type 2 diabetes mellitus with foot ulcer (principal); Z79.84 Long term (current) use of oral hypoglycemic drugs; M86.172 Other acute osteomyelitis, left ankle and foot; M86.171 Other acute osteomyelitis, right ankle and foot; L97.412 Non-pressure chronic ulcer of right heel and midfoot with fat layer exposed; L97.411 Non-pressure chronic ulcer of right heel and midfoot limited to breakdown of skin; E11.42 Type 2 diabetes mellitus with diabetic polyneuropathy; F17.290 Nicotine dependence, other tobacco product, uncomplicated; Z91.19 Patient's noncompliance with other medical treatment and regimen; Z79.899 Other long term (current) drug therapy
CPT/HCPCS: 11044; 82962; J0696; Q4101

== ENCOUNTER → 2022-04-10 10:27 | Outpatient (CLI) | payer MEDICARE, BC, SELFPAY ==
[2022-04-10 10:34] LABS: Influenza A, PCR Not Detected (NotDetected); Influenza B, PCR Not Detected (NotDetected)
[2022-04-10 10:56] LABS: Basophils # 0.1 K/mm3 (0-0.2); Basophils % 1.8 % (0.1-2.0); Eosinophils # 0.3 K/mm3 (0.0-0.4); Eosinophils % 6.8 % (0.1-12.0); Hematocrit 43.3 % (42.0-52.0); Hemoglobin 14.2 g/dL (14.1-18.0); Lymphocytes # 1.5 K/mm3 (0.7-4.5); Lymphocytes % 34.3 % (10-50); Mean Corpuscular HGB Conc 32.9 g/dL (31.8-35.4); Mean Corpuscular Hemoglobin 29.1 pg (27.0-31.2); Mean Corpuscular Volume 88.4 fl (80-94); Mean Platelet Volume 8.3 fl (7.4-10.4); Monocytes # 0.3 K/mm3 (0.1-1.0); Monocytes % 6.5 % (1.7-9.3); Neutrophils # 2.2 K/mm3 (1.8-7.8); Neutrophils % 50.6 % (37.0-80.0); Platelet Count 238 K/mm3 (142-424); Red Cell Distribution Width 14.6 % (11.5-17.5); White Blood Count 4.4 K/mm3 (4.8-10.8)
[2022-04-10 11:21] LABS: Chloride 101 mmol/L (98-107); Potassium 4.7 mmoL/L (3.5-5.1); Sodium 138 mmol/L (136-145)
[2022-04-10 11:23] LABS: Alanine Aminotransferase 70 U/L (12-78); Aspartate Amino Transferase 46 U/L (17-59); Blood Urea Nitrogen 14 mg/dl (9-20); Estimated Glomerular Filt Rate 115 ml/min (>60); GFR (African American) 139 ML/MIN (>60)
[2022-04-10 11:24] LABS: Albumin Level 4.4 g/dl (3.5-5.0); Albumin/Globulin Ratio 1.6 (1.1-1.8); Alkaline Phosphatase 89 U/L (38-126); Anion Gap 11.7 mEq/L (5-15); Bilirubin,Total 0.4 mg/dl (0.2-1.3); Calcium 9.8 mg/dl (8.4-10.2); Carbon Dioxide 30 mmol/L (22.0-30.0); Globulin 2.8 g/dL (1.3-3.2); Glucose 297 mg/dl (74-100); Total Protein,Serum 7.2 g/dl (6.3-8.2)
[2022-04-10 11:29] LABS: C-Reactive Protein 0.3 mg/L (0-4)
[2022-04-10 11:36] LABS: Erythrocyte Sedimentation Rate 20 mm/hr (0-20)
[2022-04-10 12:34] LABS: Coronavirus 19, PCR Detected (NotDetected)
== END ==
PROVIDERS: PCP Family Medicine; Visit Provider Podiatrist
DX: E11.42 Type 2 diabetes mellitus with diabetic polyneuropathy (principal); Z98.890 Other specified postprocedural states; U07.1 COVID-19; Z79.84 Long term (current) use of oral hypoglycemic drugs
CPT/HCPCS: 36415; 80053; 85025; 85651; 86140; C9803; U0003; U0005

== ENCOUNTER → 2022-05-24 07:47 | Outpatient (CLI) | payer MEDICARE, BC, SELFPAY ==
[2022-05-24 08:53] LABS: Basophils # 0.1 K/mm3 (0-0.2); Basophils % 1.6 % (0.1-2.0); Eosinophils # 0.3 K/mm3 (0.0-0.4); Eosinophils % 4.6 % (0.1-12.0); Hematocrit 43.9 % (42.0-52.0); Hemoglobin 14.8 g/dL (14.1-18.0); Lymphocytes # 2.7 K/mm3 (0.7-4.5); Lymphocytes % 44.6 % (10-50); Mean Corpuscular HGB Conc 33.6 g/dL (31.8-35.4); Mean Corpuscular Hemoglobin 28.2 pg (27.0-31.2); Mean Platelet Volume 7.6 fl (7.4-10.4); Monocytes # 0.3 K/mm3 (0.1-1.0); Monocytes % 5.5 % (1.7-9.3); Neutrophils # 2.6 K/mm3 (1.8-7.8); Neutrophils % 43.7 % (37.0-80.0); Platelet Count 255 K/mm3 (142-424); Red Blood Count 5.23 M/mm3 (4.60-6.20); Red Cell Distribution Width 12.7 % (11.5-17.5); White Blood Count 6.1 K/mm3 (4.8-10.8)
[2022-05-24 09:09] LABS: Anion Gap 9.3 mEq/L (5-15); Blood Urea Nitrogen 15 mg/dl (9-20); Calcium 9.2 mg/dl (8.4-10.2); Carbon Dioxide 31 mmol/L (22.0-30.0); Chloride 99 mmol/L (98-107); Chol/HDL Ratio 5.6 (1-3.5); Cholesterol 168 mg/dl (140-200); Estimated Glomerular Filt Rate 98 ml/min (>60); GFR (African American) 119 ML/MIN (>60); Glucose 271 mg/dl (74-100); HDL Cholesterol 30 mg/dl (40-60); Potassium 4.3 mmoL/L (3.5-5.1); Sodium 135 mmol/L (136-145); Triglycerides 322 mg/dl (30-150); VLDL Cholesterol 64 mg/dL (0-40)
[2022-05-24 09:20] LABS: Direct LDL Cholesterol 78.52 mg/dL (100-129)
[2022-05-24 09:27] LABS: 25-OH Vitamin D, Total 29.7 ng/mL (30-100)
[2022-05-24 09:39] LABS: Thyroid Stimulating Hormone 2.42 uIU/mL (0.465-4.68)
[2022-05-24 10:00] LABS: Vitamin B12 461 pg/mL (239-931)
== END ==
PROVIDERS: PCP Family Medicine; Visit Provider Family Medicine
DX: E11.9 Type 2 diabetes mellitus without complications (principal); E78.5 Hyperlipidemia, unspecified; E55.9 Vitamin D deficiency, unspecified; R53.83 Other fatigue; Z12.5 Encounter for screening for malignant neoplasm of prostate; Z79.84 Long term (current) use of oral hypoglycemic drugs
CPT/HCPCS: 36415; 80048; 80061; 82306; 82607; 84443; 85025; G0103

== ENCOUNTER 2022-06-26 17:30 | Outpatient (RCR) | payer MEDICARE, BC, SELFPAY ==
--- NOTE | 2022-05-28 15:45 | HMH.PTOPEV ---
PT Outpatient Evaluation Rehab PT Outpatient Evaluation Start: 05/28/22 15:05 Freq: Status: Active Protocol: Document 05/28/22 15:05 BATSHEVASANCHEZ (Rec: 05/28/22 15:45 MIMIGLENN [id number]) Electronically Signed By Abdullahi Luciano PT 05/28/22 15:05 Outpatient Therapy Subjective History Subjective History THis is the initial Physical Therapy evaluation for Nas Marmolejo. Pt is a 62 y/o male referred to PT for c/o BLE weakness and decreased balance. Pt has long surgical history on B feet. Originally pt had diabetis wounds on feet in early 2021. Multiple bouts of wound care, surgical debridement, skin grafts and ABX finally required bone resections for osteomylitis. Pt has finally healed fully but has issues w/ deconditioning due to being NWB for multiple months. Pt has decreased strength, endurance and balance. Chief Complaint Paresthesia,Weakness Symptoms Relieved By Rest/Positioning Symptoms Aggravated By Physical Activity,Walking Prior Functional Limitations None Current Functional Limitations Recreation Activity,Walking, Balance Symptom Description Intermittent Ankle/Foot Eval Gait Observation General Gait Pattern Observation No Deviations/Normal MMT bilateral Ankle Dorsiflexion Strength Grade 4- Good- Ankle Plantarflexion Strength Grade 4- Good- Foot Eversion Strength Grade 4- Good- Foot Inversion Strength Grade 4- Good- Neuro tests normal sensation to monofilament No decrease sensation to monofilament Yes absent sensation to monofilament Yes Balance Eval Rhomberg Feet Together/Eyes open/Stable Surface pass Feet Together/Eyes Closed/Stable Surface fail Feet Together/Eyes open/Unstable Surface pass Feet Together/Eyes Closed/Unstable fail Surface Outpatient Therapy Assessment Impairments Problems/Impairmments Impaired Range of Motion, Impaired Strength,Impaired Walking,Impaired Incline Stepping,Impaired Stepping on Uneven Surface,Impaired Recreational Activities, Impaired Balance,Impaired Self Care/Self Management Prognosis Rehab Potential
== END 2022-06-26 17:35 | disposition home or self-care (01) ==
LOC: PT 17:30
PROVIDERS: PCP Family Medicine; Visit Provider Podiatrist
DX: M76.72 Peroneal tendinitis, left leg (principal); R29.898 Other symptoms and signs involving the musculoskeletal system; M25.372 Other instability, left ankle; Z98.890 Other specified postprocedural states
CPT/HCPCS: 97110; 97112; 97163; 97530

== ENCOUNTER → 2023-05-29 12:32 | Outpatient (CLI) | payer MEDICARE, BC, SELFPAY | PROVIDERS: PCP Family Medicine; Visit Provider Nurse Practitioner | DX: R00.2 Palpitations (principal) | CPT/HCPCS: 93270 ==

== ENCOUNTER → 2023-06-05 11:28 | Outpatient (CLI) | payer MEDICARE, BC, SELFPAY ==
--- NOTE | 2023-06-05 | CA_ITS ---
APPROVED REPORT Exam: Pharmacologic Technologist: Tracee Barrow, Ht: 5 ft 11 in Wt: 172 lbs BSA: 1.98 m2 HR: 62 bpm BP: 142/74 mmHg Rhythm: NSR, 1 DEGREE AVB, PVCS, LEFTWARD AXIS, INCOMPLETE RBBB Indications: SOA, CP Medical History Medical History: Hyperlipidemia, Diabetes, Smoking Medications: Asa,,,,, Metformin,,,,, Atorvastatin,,,,, BisOPROLOL,,,,, RIvaROXABAN,,,,, EMpagliflozin,,,,, Allergies: No known drug allergies Cardiac Risk Factors: Hyperlipidemia, Diabetes, Smoking Stress Test Details Test: LEXISCAN HR Resting HR: 65 bpm Max Heart Rate (APMHR): 158 bpm Max HR Achieved: 79 bpm Target HR (85% APMHR): 134 bpm % of APMHR: 50 Recovery HR: 60 bpm BP Resting BP: 142/74 mmHg Max BP: 153/70 mmHg Recovery BP: 141.0/72.0 mmHg ECG Resting ECG: NSR, 1 DEGREE, PVCS, LEFTWARD AXIS, INCOMPLETE RBBB Stress ECG: NO CHANGE Arrhythmia: PVCs Clinical Exercise duration: 04:00 min Highest Stage Achieved: Exercise capacity: n/a METs Stress ECG Conclusion PT HAD MILD SOA, AND HEAD DISCOMFORT NO CP OCC ISOLATED UNIFORM PVC NO SIGNIFICANT ST CHANGES CONCLUSION: UNREMARKABLE LEXISCAN STRESS MYOVIEW IMAGES REPORTED SEPARATELY Test Summary REST 04:39 . . 65 . 142/ 74 . . Stage 1 01:00 . . 76 . . . . Stage 2 01:00 . . 71 . 153/ 70 . . Stage 3 01:00 . . 71 . 146/ 70 . . Stage 4 01:00 . . 68 . 143/ 63 . Stop exercise at 04:00 RECOVERY 01:00 . . 66 . . . . RECOVERY 02:00 . . 65 . 136/ 68 . . RECOVERY 03:00 . . 61 . 141/ 72 . . RECOVERY 03:17 . . 62 . 141/ 72 . . Electronically signed by : Chrissy Kim, 06/08/2023 14:52:25
--- NOTE | 2023-06-05 11:32 | NM_ITS ---
APPROVED REPORT Exam: Nuclear Stress Test Indication: DYSRHYTHMIA, HTN, DM, HYPERLIPIDEMIA, FM HX, ANGINA, SOB, PALPITATIONS, FATIGUE Patient Location: Outpatient Stress Tech: Tracee Barrow [place] Tech:Mirela ButtMAKEDA RT(R)(N) Ht: 5 ft 11 in Wt: 170 lbs HR: 65 bpm BP: 142/74 mmHg BSA: 1.97 m2 TID: 1.00 BMI: 23.7 History: DYSRHYTHMIA, HTN, DM, HYPERLIPIDEMIA, FM HX, ANGINA, SOB, PALPITATIONS, FATIGUP PT. COULD NOT LAY ON STOMACH FOR PRONE IMAGES Procedure: Patient received 0.4 mg of intravenous Lexiscan, resting heart rate 65 bpm, resting blood pressure 142/74 mmHg, with Lexiscan maximum heart rate achieved was 76 bpm which is % of the maximum predicted heart rate and blood pressure was 153/70 mmHg. With Lexiscan, patient denied any complaint of chest pain. Cardiac Stress and Resting SPECT Images: Cardiac Stress and Resting SPECT images were obtained using technetium 99m Myoview 30.2 mCi stress and 10.49 mCi at rest. The patient could not lie on his abdomen. Therefore, prone stress imaging could not be performed. This may affect the diagnostic interpretation of the study findings. Resting and stress imaging in supine position demonstrate a large-sized, moderate, fixed perfusion defect in the inferior LV wall from the base and extending distally towards the inferoapical region. There is minimal surrounding reversibility in the same region. Gated imaging demonstrates mild reduction in global LV systolic function. There is moderate hypokinesis in the inferior LV wall. LVEF is calculated at 47%. Conclusion: The patient could not lie on his abdomen. Therefore, prone stress imaging could not be performed. This may affect the diagnostic interpretation of the study findings. Large-sized, moderate, fixed perfusion defect in the inferior LV wall from the base and extending distally towards the inferoapical region. There is minimal surrounding reversibility in the same region. Gated imaging demonstrates mild reduction in global LV systolic function. There is moderate hypokinesis in the inferior LV wall. LVEF is calculated at 47%. Electronically signed by : Chrissy Kim, 06/08/2023 14:56:59
== END ==
PROVIDERS: PCP Family Medicine; Visit Provider Nurse Practitioner
DX: I20.8 Other forms of angina pectoris (principal)
CPT/HCPCS: 78452; 93017; A9502; J2785

== ENCOUNTER → 2023-06-18 11:03 | Outpatient (CLI) | payer MEDICARE, BC, SELFPAY ==
--- NOTE | 2023-06-18 11:06 | CA_ITS ---
APPROVED REPORT EXAM: Comprehensive 2D, Doppler, and color-flow Echocardiogram Wood Treating Inspector: Radha Sharma RVT Ht: 5 ft 11 in Wt: 172lbs BSA: 1.98 BP: 127/67 mmHg Indications: SOA,HLD,PALPS,DM 2D Dimensions LVOT 2.39 cm (M/F) 1.5-2.5 LA Volume 26.70 mL LA Volume Index 13.48 mL/m2 (M/F) 16-34 M-Mode Dimensions RVDd 2.71 cm (0.9-2.6) LA Diam 2.94 cm (1.9-4.0) LVDd 5.04 cm (3.5-5.7) Ao Diam 3.71 cm (2.0-3.7) LVDs 3.31 cm (3.5-5.7) IVSd 0.96 cm (0.6-1.1) PWd 0.58 cm (0.6-1.1) EF (Teich) 63.10% FS 34.30% EDV (Teich) 120.50 mL TAPSE 2.59 (<1.7) ESV (Teich) 44.50 mL LV Diastology E Decel Time 193.00 (160-240 msec) E/A Ratio 0.8 MED E' 7.60 (< 7 cm/sec) E'/MED E' Ratio 9.54 (>14) LAT E' 8.50 (<10 cm/sec) E/LAT E' Ratio 8.53 (>14) Aortic Valve AO Peak GR. 3.50 mmHg Mitral Valve MV E Max Dawson. 73.00 (40-130 cm/s) MV A Velocity 93.00 (40-130 cm/s) E/A Ratio 0.78 MV Decel. Time 193.00 (160-240 ms) MV PHT 57.00 ms Pulmonary Valve PV Peak Velocity 79.00 (50-150 cm/s) Left Ventricle The left ventricle is normal size. The left ventricular systolic function is normal. The left ventricular ejection fraction is within the normal range. There is proximal septal thickening present. There is normal LV segmental wall motion. The left ventricular diastolic function is normal. LVEF is 50-55%. Right Ventricle The right ventricle is normal size. The right ventricular systolic function is normal. Atria The left atrium size is normal. The right atrium size is normal. There is no Doppler evidence of interatrial shunt. Aortic Valve The aortic valve is mildly thickened. The aortic valve is trileaflet. There is no aortic valvular stenosis. No aortic regurgitation is present. Mitral Valve The mitral valve is mildly thickened. No evidence of mitral valve stenosis. Trace mitral regurgitation. Tricuspid Valve The tricuspid valve leaflets are thin and pliable. Trace tricuspid regurgitation. There is insufficient TR jet to estimate RVSP. Pulmonic Valve The pulmonary valve is grossly normal in structure. Trace pulmonic regurgitation. Great Vessels The aortic root is normal in size. The visualized proximal segment of the ascending aorta is mildly dilated, measuring 3.9 cm. IVC is normal in size and collapses >50% with inspiration. Pericardium There is no pericardial effusion. Other Information Study Quality: Fair Conclusion Normal biventricular systolic function. No significant valvular disease. Mild dilation of the ascending aorta (3.9 cm). Electronically signed by : Chrissy Kim, 06/19/2023 14:54:34
== END ==
PROVIDERS: PCP Family Medicine; Visit Provider Nurse Practitioner
DX: R06.00 Dyspnea, unspecified (principal)
CPT/HCPCS: 93306

== ENCOUNTER 2023-06-20 10:50 | Day surgery (SDC) | payer MEDICARE, BC, SELFPAY ==
[2023-06-20] VITALS (11 sets, daily range): BP systolic 103–149; BP diastolic 65–91; PULSE 56–72; RESP 17–20; O2SAT 93–100; BMI 23.7
--- NOTE | 2023-06-20 07:10 | IR_ITS ---
APPROVED REPORT Patient Location: Outpatient Gum Sprayer: MAKEDA Huynh RT (R) PROCEDURES Selective coronary angiogram Drug-eluting stent deployment to the mid LAD Intravascular ultrasound to the LAD Drug-eluting stent deployment to the proximal right coronary artery INDICATION Coronary artery disease, Abnormal Myoview, Complex coronary artery revascularization requiring IVUS guidance, Informed consent was obtained prior to the procedure. COMPLICATIONS NONE Estimated Blood Loss: LESS THAN 10 ML TECHNIQUE One percent lidocaine used to anesthetize the right anterior aspect of the wrist. The right radial artery was accessed via the Seldinger technique. A 6 Kittitian sheath was placed in the right radial artery. 2.5 mg of Verapamil, 800 mcg of nitroglycerin, 1mg Lidocaine and 5000 U Heparin were given through the arterial sheath. The papa catheter was also used to perform selective coronary angiography. At the end the diagnostic angiogram therapeutic heparin was administered giving a therapeutic ACT and the guide catheter was placed in left main artery followed by Choice PT support wire being placed on the LAD. A 3 mm x 34 mm Greenwood frontier stent was deployed at 18 ben reducing the stenosis. Because of the complex nature of the angiogram and intervention intravascular ultrasound probe was advanced which demonstrated the stent had good stent apposition to the hathaway however it was undersized significantly. Because of this a 3.5 x 12 mm noncompliant balloon was deployed distally and the stent and deployed at 16 ben it was then pulled back incrementally and deployed at 18, 20, and 22 ben in the proximal portion of the stent. ILIANA-3 flow was present before and after the procedure. There was no jailing of the first diagonal artery. At this point the apparatus was removed and the guide catheter was placed in the right coronary followed by Choice PT export wire. Each time the right coronary was engaged there was severe dampening. A 2.75 x 38 mm Sung frontier stent was deployed at 20 ben reducing the severe stenosis to 0%. No dampening occurred after stent deployment. At the end the procedure the apparatus was removed the sheath was removed and hemostasis was achieved using TR banding patient was transferred to the postop putting in stable condition. ILIANA-3 flow was present down both the LAD and right coronary before and after the procedure ANGIOGRAPHIC RESULTS The left main artery Normal The left anterior descending artery Has proximal 30 to 40% stenosis with a mid vessel 50 and hazy 70% stenosis. A large first diagonal artery is a proximal eccentric 50% stenosis The circumflex artery Is codominant and has proximal 10 to 20% stenoses. Second obtuse marginal artery which is 2.5 mm in diameter has a proximal concentric 50% stenosis. The mid circumflex artery immediately distal to the second obtuse marginal artery has a 50 to 60% stenosis followed by an additional eccentric 50 to 60% stenosis. Distally it supplies a small to moderate obtuse marginal artery network The right coronary artery Is a codominant vessel has a long proximal 60 to 70% stenosis The KOROMA ventriculogram reveals Not performed The left ventricular end-diastolic pressure Not measured IMPRESSION Coronary disease as described above Successful stenting the mid LAD severe disease reduced to 0% with 1 drug-eluting stent Persistent mild to moderate disease in the proximal LAD and persistent moderate disease in a large proximal first diagonal artery Persistent moderate disease in the second obtuse marginal artery and mid circumflex artery distal to the second obtuse marginal artery which supplies a small to moderate distal marginal complex Severe disease in the right coronary artery in which severe dam
[2023-06-20 11:28] LABS: Basophils # 0.1 K/mm3 (0-0.2); Basophils % 0.9 % (0.1-2.0); Eosinophils # 0.3 K/mm3 (0.0-0.4); Hematocrit 51.8 % (42.0-52.0); Hemoglobin 16.8 g/dL (14.1-18.0); Lymphocytes # 2.4 K/mm3 (0.7-4.5); Lymphocytes % 37.1 % (10-50); Mean Corpuscular HGB Conc 32.5 g/dL (31.8-35.4); Mean Corpuscular Hemoglobin 29.1 pg (27.0-31.2); Mean Corpuscular Volume 89.4 fl (80-94); Mean Platelet Volume 8.9 fl (7.4-10.4); Monocytes # 0.4 K/mm3 (0.1-1.0); Monocytes % 5.5 % (1.7-9.3); Neutrophils # 3.4 K/mm3 (1.8-7.8); Neutrophils % 52.5 % (37.0-80.0); Platelet Count 289 K/mm3 (142-424); Red Blood Count 5.79 M/mm3 (4.60-6.20); Red Cell Distribution Width 12.6 % (11.5-17.5); White Blood Count 6.4 K/mm3 (4.8-10.8)
[2023-06-20 11:29] LABS: Chloride 98 mmol/L (98-107); Potassium 4.5 mmoL/L (3.5-5.1); Sodium 137 mmol/L (136-145)
[2023-06-20 11:32] LABS: Anion Gap 13.5 mEq/L (5-15); Blood Urea Nitrogen 15 mg/dl (9-20); Calcium 9.6 mg/dl (8.4-10.2); Carbon Dioxide 30 mmol/L (22.0-30.0); Creatinine Clearance Estimated 84 mL/min (50-200); Estimated Glomerular Filt Rate 76 ml/min (>60); GFR (African American) 92 ML/MIN (>60); Glucose 311 mg/dl (74-100)
[2023-06-20 13:32] LABS: CATHL Activated Clotting Time > 400 SEC (74-125)
--- NOTE | 2023-06-20 14:44 | HMH.PHACL ---
PHA Fish Hatchery Specialist Discharge Med Marketing Professional: Tomy Marmolejo has received discharge medication counseling on the following medications: EFFIENT 10 MG DAILY ASPIRIN 81 MG DAILY ATORVASTATIN 40 MG HS BISOPROLOL 5 MG DAILY HOLDING METFORMIN UNTIL 06/23/23. NO FABIO/ARB AT THIS TIME PER MD.
== END 2023-06-20 15:35 | disposition home or self-care (01) ==
PROVIDERS: PCP Family Medicine; Visit Provider Internal Medicine
DX: R94.39 Abnormal result of other cardiovascular function study (principal)
CPT/HCPCS: 80048; 85025; 85347; 99152; 99153; C1725; C1769; C1876; J1644; Q9967

== ENCOUNTER 2023-06-20 19:33 | Emergency (ER) | payer MEDICARE, BC, SELFPAY ==
[2023-06-20 19:35] VITALS: BP 180/81; PULSE 90; RESP 18; TEMP 36.9; O2SAT 99; BMI 23.7
--- NOTE | 2023-06-20 19:49 | CT_ITS ---
PROCEDURE INFORMATION: Exam: CT Head Without Contrast Exam date and time: 06/20/2023 8:16 PM Age: 63 years old Clinical indication: Pain; Headache not specified; Patient HX: Patient had a cardiac cath earlier today with stents placed. TECHNIQUE: Imaging protocol: Computed tomography of the head without contrast. Radiation optimization: All CT scans at this facility use at least one of these dose optimization techniques: automated exposure control; mA and/or kV adjustment per patient size (includes targeted exams where dose is matched to clinical indication); or iterative reconstruction. REPORTING DATA: Count of CT and Cardiac NM exams in prior 12 months: This patient has received 0 known CTs and 0 known cardiac nuclear medicine studies in the 12 months prior to the current study. COMPARISON: No relevant prior studies available. FINDINGS: Brain: Age-related involutional changes and chronic microvascular ischemic disease. Chronic lacunar infarcts involving the bilateral thalami and right basal ganglia. No evidence for acute transcortical infarct. No mass effect or midline shift. No extra-axial collection. No acute intracranial hemorrhage. Basal cisterns are patent. Cerebral ventricles: No ventriculomegaly. Paranasal sinuses: Visualized sinuses are unremarkable. No fluid levels. Mastoid air cells: Visualized mastoid air cells are well aerated. Orbital cavities: Right cataract surgery. Bones/joints: Unremarkable. No acute fracture. Soft tissues: Unremarkable. IMPRESSION: No evidence for acute transcortical infarct, acute intracranial hemorrhage, or mass effect.
--- NOTE | 2023-06-20 20:12 | PC.NURSE ---
Pt. to CT
--- NOTE | 2023-06-20 20:17 | PC.NURSE ---
pt. back from CT
--- NOTE | 2023-06-20 20:25 | HMH.EDGENADL ---
Discharge Plan Disposition Patient Disposition: Home, Self-Care Condition: Good Prescriptions Prescriptions: No Action metformin 500 mg tablet 500 mg PO BID Hold Instructions: Resume on 06/23/23. atorvastatin 40 mg tablet 40 mg PO DAILY aspirin [Adult Low Dose Aspirin] 81 mg tablet,delayed release (DR/EC) 81 mg PO DAILY rivaroxaban 10 mg Tablet 5 mg PO DAILY Rx Instructions: for 35 days bisoprolol fumarate 5 mg tablet 5 mg PO DAILY prasugrel 10 mg Tablet 10 mg PO DAILY Qty: 30 6RF empagliflozin 25 MG tablet 25 mg PO DAILY Referrals Follow up/Referrals: Jasen Jean MD [Primary Care Provider] - See instructions Activity Restrictions/Add. Instructions Additional Instructions/Restrictions: Please follow-up with your primary care provider. Please return to the emergency department if you develop any new or worsening symptoms or become concerned for your health. 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 pt was home when he started having a headache the pt reviewed the instructions given at [place] and called [facility] and was directed to the ER for a head ct.pt states pain 6/10 that the hydroxizine helped bring it from a 10/10 down the pt states that the pain is in the left denominational area History of Present Illness HPI narrative: 63-year-old male history of heart catheterization today. He reports that he was doing well afterwards but had relatively sudden onset severe left temporal headache. He reports he does not typically get headaches. It was severe earlier today and is improved to approximately 6 out of 10 now. Reports no weakness numbness tingling vision changes or other symptoms. No history of trauma. Related Data Home Medications Medication Instructions Recorded Confirmed aspirin 81 mg tablet,delayed 81 mg PO DAILY HEART HEALTHY 02/24/19 06/18/23 release (Adult Low Dose Aspirin) atorvastatin 40 mg tablet 40 mg PO DAILY Cholesterol 05/31/21 06/18/23 metformin 500 mg tablet 500 mg PO BID Diabetes 05/31/21 06/18/23 empagliflozin 25 mg tablet 25 mg PO DAILY Diabetes 04/03/22 06/18/23 bisoprolol fumarate 5 mg tablet 5 mg PO DAILY htn 06/20/23 rivaroxaban 10 mg tablet 5 mg PO DAILY pafib 06/20/23 06/20/23 Previous Rx's Medication Instructions Recorded prasugrel 10 mg tablet 10 mg PO DAILY #30 tabs 06/20/23 Allergies Allergy/AdvReac Type Severity Reaction Status Date / Time No Known Allergies Allergy Verified 06/20/23 11:30 [facility] Disclaimer: The information contained in this section may have been updated after the patient was seen, as this information can be updated by other users. Medical History Angina at rest Dyspnea Palpitations Surgical History History of colonoscopy Hx laparoscopic cholecystectomy Status post surgery of both feet Social History (Updated 06/20/23 @ 11:25 by Elida Bermudez RN) Smoking Status: Never smoker second hand exposure: Yes alcohol intake: never substance use type: denies use current occupational status: retired and disabled Travel in the last 8 weeks: None household members: spouse housing: house current occupational exposures/hazards: No caffeine: Yes ROS Obtained: Yes All systems reviewed & no additional complaints except as documented Physical Exam General General appearance: alert and in no apparent distress Head Head exam: atraumatic and normocephalic Eye Eye e
--- NOTE | 2023-06-20 22:01 | PC.NURSE ---
pt. assisted to bathroom,
[2023-06-20 22:03] VITALS: BP 167/78; PULSE 87; RESP 18; TEMP 36.9; O2SAT 99
== END 2023-06-20 22:03 | disposition home or self-care (01) ==
PROVIDERS: Emergency Provider Emergency Medicine; PCP Family Medicine
DX: R51.9 Headache, unspecified (principal); I25.118 Atherosclerotic heart disease of native coronary artery with other forms of angina pectoris; I10 Essential (primary) hypertension; E78.5 Hyperlipidemia, unspecified; E11.621 Type 2 diabetes mellitus with foot ulcer; Z79.84 Long term (current) use of oral hypoglycemic drugs; Z79.899 Other long term (current) drug therapy; F17.210 Nicotine dependence, cigarettes, uncomplicated; I48.0 Paroxysmal atrial fibrillation; L97.521 Non-pressure chronic ulcer of other part of left foot limited to breakdown of skin
CPT/HCPCS: 70450; 80048; 85025; 85347; 92928; 92978; 93454; 96361; 96374; 99152; 99153; 99284; C1725; C1769; C1876; C9600; J1644; Q9967

== ENCOUNTER → 2023-07-12 07:32 | Outpatient (CLI) | payer MEDICARE, BC, SELFPAY ==
--- NOTE | 2023-07-12 07:42 | CT_ITS ---
FINAL REPORT CLINICAL HISTORY: dilation of the aorta COMPARISON: 09/04/2021 FINDINGS: Thin section axial CT images of the chest were obtained with contrast. 3D reformatted images were also obtained. This study was performed with techniques to keep radiation doses as low as reasonably achievable (ALARA). Individualized dose reduction techniques using automated exposure control or adjustment of mA and/or kV according to the patients size were employed. There is no evidence of pulmonary embolism. There is mild ectasia of the ascending aorta measuring 38 mm, stable. There is no evidence of dissection. There is no evidence of mediastinal or hilar mass or adenopathy. There is a stable 14 mm left lower lobe nodule, favor benign. No localized inflammatory process is seen within the lungs. Limited images of the upper abdomen reveal several less than 1 cm presumed hepatic cysts. IMPRESSION: No evidence of pulmonary embolism. Stable ectasia of the ascending aorta. Stable left lower lobe nodule, favor benign. Reviewed, Interpreted and Dictated by Wilbert Zuniga III, MD Transcribed by Jennifer Sanders Authenticated and [facility]
[2023-07-12 08:11] LABS: Alanine Aminotransferase 24 U/L (12-78); Albumin Level 4.3 g/dl (3.5-5.0); Albumin/Globulin Ratio 1.3 (1.1-1.8); Alkaline Phosphatase 93 U/L (38-126); Anion Gap 12.2 mEq/L (5-15); Aspartate Amino Transferase 25 U/L (17-59); Bilirubin,Total 0.8 mg/dl (0.2-1.3); Blood Urea Nitrogen 14 mg/dl (9-20); Calcium 9.4 mg/dl (8.4-10.2); Carbon Dioxide 32 mmol/L (22.0-30.0); Chloride 100 mmol/L (98-107); Chol/HDL Ratio 4.1 (1-3.5); Cholesterol 141 mg/dl (140-200); Estimated Glomerular Filt Rate 86 ml/min (>60); GFR (African American) 103 ML/MIN (>60); Globulin 3.4 g/dL (1.3-3.2); Glucose 253 mg/dl (74-100); HDL Cholesterol 34 mg/dl (40-60); Potassium 4.2 mmoL/L (3.5-5.1); Sodium 140 mmol/L (136-145); Total Protein,Serum 7.7 g/dl (6.3-8.2); Triglycerides 286 mg/dl (30-150); VLDL Cholesterol 57 mg/dL (0-40)
[2023-07-12 08:22] LABS: Direct LDL Cholesterol 51.83 mg/dL (100-129)
[2023-07-12 09:04] LABS: Microalbumin/Creatinine Ratio 53.6
[2023-07-12 09:05] LABS: Creatinine,Urine Random 63 mg/dL (Not Estab.)
== END ==
PROVIDERS: Physician Assistant; PCP Family Medicine; Visit Provider Nurse Practitioner Family
DX: I77.819 Aortic ectasia, unspecified site (principal); E11.39 Type 2 diabetes mellitus with other diabetic ophthalmic complication; Q25.44 Congenital dilation of aorta
CPT/HCPCS: 36415; 71275; 80053; 80061; 82043; 82570; Q9967

== ENCOUNTER → 2023-07-23 10:11 | Outpatient (CLI) | payer MEDICARE, BC, SELFPAY ==
--- NOTE | 2023-07-23 10:12 | US_ITS ---
FINAL REPORT CLINICAL HISTORY: R31.9 - Hematuria, unspecified COMPARISON: None FINDINGS: RENAL ULTRASOUND: The right kidney measures 12.25 cm in length, without evidence of hydronephrosis or perinephric fluid. The echotexture of the right kidney is unremarkable. There is a single hypoechoic focus in the lower pole of the right kidney which measures 1.5 cm in size and is compatible with a small cyst. The left kidney measures 11.84 cm in length, without evidence of hydronephrosis or perinephric fluid. The echotexture of the left kidney is unremarkable. IMPRESSION: 1.5 cm cyst lower pole of the right kidney, otherwise unremarkable renal ultrasound. Reviewed, Interpreted and Dictated by Tomy Sun MD Transcribed by Audrey Sidhu Authenticated and [facility]
== END ==
PROVIDERS: PCP Family Medicine; Visit Provider Physician Assistant
DX: R31.9 Hematuria, unspecified (principal)
CPT/HCPCS: 76770

== ENCOUNTER 2024-03-31 15:19 | Outpatient (CLI) | payer MEDICARE, BC, SELFPAY | END 2024-03-31 23:59 | disposition home or self-care (01) | LOC: RT 15:20 | PROVIDERS: PCP Family Medicine; Visit Provider Nurse Practitioner | DX: R00.2 Palpitations (principal); Z79.899 Other long term (current) drug therapy | CPT/HCPCS: 93270 ==

== ENCOUNTER 2024-07-07 14:28 | Outpatient (CLI) | payer MEDICARE, BC, SELFPAY | END 2024-07-07 23:59 | disposition home or self-care (01) | LOC: RT 14:32 | PROVIDERS: PCP Family Medicine; Visit Provider Nurse Practitioner | DX: R00.2 Palpitations (principal); I77.810 Thoracic aortic ectasia; R06.02 Shortness of breath | CPT/HCPCS: 93270 ==

== ENCOUNTER 2024-08-18 08:12 | Outpatient (CLI) | payer MEDICARE, BC, SELFPAY ==
--- NOTE | 2024-08-18 08:15 | US_ITS ---
FINAL REPORT CLINICAL HISTORY: dilation of aorta FINDINGS: Limited sonographic images of the abdominal aorta were obtained. The abdominal aorta measures up to 2.1 cm. There is no evidence of abdominal aortic aneurysm. IMPRESSION: No evidence of abdominal aortic aneurysm. Reviewed, Interpreted and Dictated by Tomy Sun MD Transcribed by Jennifer Sanders Authenticated and [facility]
== END 2024-08-18 23:59 | disposition home or self-care (01) ==
LOC: RAD 08:13
PROVIDERS: PCP Family Medicine; Visit Provider Nurse Practitioner
DX: I77.810 Thoracic aortic ectasia (principal)
CPT/HCPCS: 76770

== ENCOUNTER 2024-12-08 14:54 | Outpatient (CLI) | payer MEDICARE, BC, SELFPAY ==
[2024-12-08 15:46] LABS: Basophils % 0.7 % (0.1-2.0); Eosinophils # 0.1 K/mm3 (0.0-0.4); Eosinophils % 2.2 % (0.1-12.0); Hematocrit 46.9 % (42.0-52.0); Hemoglobin 15.6 g/dL (14.1-18.0); Lymphocytes # 1.7 K/mm3 (0.7-4.5); Lymphocytes % 29.1 % (10-50); Mean Corpuscular HGB Conc 33.3 g/dL (31.8-35.4); Mean Corpuscular Hemoglobin 30.5 pg (27.0-31.2); Mean Corpuscular Volume 91.6 fl (80-94); Mean Platelet Volume 10.1 fl (7.4-10.4); Monocytes # 0.5 K/mm3 (0.1-1.0); Monocytes % 8.1 % (1.7-9.3); Neutrophils # 3.5 K/mm3 (1.8-7.8); Neutrophils % 59.7 % (37.0-80.0); Platelet Count 299 K/mm3 (142-424); Red Blood Count 5.12 M/mm3 (4.60-6.20); Red Cell Distribution Width 12.6 % (11.5-17.5); White Blood Count 5.9 K/mm3 (4.8-10.8)
[2024-12-08 16:03] LABS: Alanine Aminotransferase 24 U/L (12-78); Albumin Level 4.5 g/dl (3.5-5.0); Alkaline Phosphatase 71 U/L (38-126); Anion Gap 14.4 mEq/L (5-15); Aspartate Amino Transferase 27 U/L (17-59); Bilirubin,Direct 0.1 mg/dl (0.0-0.4); Bilirubin,Indirect 0.8 mg/dL (0.0-0.9); Bilirubin,Total 0.9 mg/dl (0.2-1.3); Bilirubin,Unconjugated 0.8 mg/dL (0.0-1.1); Blood Urea Nitrogen 14 mg/dl (9-20); Calcium 9.7 mg/dl (8.4-10.2); Carbon Dioxide 28 mmol/L (22.0-30.0); Chloride 99 mmol/L (98-107); Chol/HDL Ratio 3.4 (1-3.5); Cholesterol 185 mg/dl (140-200); Estimated Glomerular Filt Rate 98 ml/min (>60); GFR (African American) 118 ML/MIN (>60); Glucose 126 mg/dl (74-100); HDL Cholesterol 55 mg/dl (40-60); Potassium 4.4 mmoL/L (3.5-5.1); Sodium 137 mmol/L (136-145); Triglycerides 145 mg/dl (30-150); VLDL Cholesterol 29 mg/dL (0-40)
[2024-12-08 16:14] LABS: Direct LDL Cholesterol 90.63 mg/dL (100-129)
[2024-12-08 16:34] LABS: Thyroid Stimulating Hormone 1.12 uIU/mL (0.465-4.68)
== END 2024-12-08 23:59 | disposition home or self-care (01) ==
LOC: LAB 14:54
PROVIDERS: PCP Family Medicine; Visit Provider Nurse Practitioner
DX: I48.0 Paroxysmal atrial fibrillation (principal); E78.2 Mixed hyperlipidemia; E11.621 Type 2 diabetes mellitus with foot ulcer; L97.509 Non-pressure chronic ulcer of other part of unspecified foot with unspecified severity; I25.10 Atherosclerotic heart disease of native coronary artery without angina pectoris; E78.5 Hyperlipidemia, unspecified; I48.91 Unspecified atrial fibrillation; I10 Essential (primary) hypertension; I77.810 Thoracic aortic ectasia; Z72.0 Tobacco use; I73.9 Peripheral vascular disease, unspecified; I95.2 Hypotension due to drugs
CPT/HCPCS: 36415; 80048; 80061; 80076; 84439; 84443; 85025

== ENCOUNTER 2025-04-12 11:28 | Outpatient (CLI) | payer MEDICARE, BC, SELFPAY ==
--- NOTE | 2025-04-12 11:31 | XR_ITS ---
FINAL REPORT CLINICAL HISTORY: RF DFU dibetic wounds on toes 1-[address] removed debris and bone from 5th a couple yrs ago FINDINGS: RIGHT FOOT 3 views of the right foot were obtained. 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 A healed fracture is seen of the mid fourth metatarsal. There are advanced hypertrophic changes of osteoarthritis at the first MTP joint. Moderate vascular calcifications are seen which may be due to underlying diabetes. IMPRESSION: Postoperative and degenerative changes without acute bony abnormality. Reviewed, Interpreted and Dictated by Tomy Sun MD Transcribed by Sagrario Bosch Authenticated and . [facility]
--- OUTSIDE RECORDS SUMMARY | 2025-04-12 11:31 | XMS_ITS | Clinical Summary ---
Author Organization [facility] Address [address] [place] [address] Care Team Providers Care Filer And Sander Name Role Phone Jasen Jean MD Primary Care Provider +1- [phone] Allergies No known active allergies Medications bisoprolol (Zebeta) 5 MG tablet Take 0.5 tablets (2.5 mg) by mouth 1 (one) time each day. 05/29/20 23 Active prasugrel (Effient) 10 MG tablet Take 1 tablet (10 mg) by mouth 1 (one) time each day. 06/20/20 23 Active Xarelto 20 MG tablet TAKE 1 TABLET BY MOUTH ONCE DAILY WITH EVENING MEAL 06/21/20 23 Active cholecalciferol (Vitamin D-3) 50 MCG (2000 UT) capsule Take 1 capsule (2,000 Units) by mouth. Active hydrOXYzine HCl (Atarax) 10 MG tablet Take 2.5 tablets (25 mg) by mouth. PRN Active Insulin Pen Needle (BD Pen Needle Christina 2nd Gen) 32G X 4 MM miscIndications :Type 2 diabetes mellitus with other specified complication, with long-term current use of insulin ([facility]) USE TO INJECT INSULIN ONCE DAILY 100 each 3 08/11/20 24 Active clopidogrel (Plavix) 75 MG tablet Take 1 tablet (75 mg) by mouth 1 (one) time each day. Active apixaban (Eliquis) 2.5 MG tablet Take 1 tablet (2.5 mg) by mouth 2 (two) times a day. Active Semglee 100 UNIT/ML injection penIndications: Type 2 diabetes mellitus with other specified complication, with long-term current use of insulin (CMS/[facility]) Inject 11 units two times daily. Titrate as directed. MDD: 30 units 30 mL 1 10/19/20 24 Active metFORMIN XR (Glucophage-XR) 500 MG 24 hr tablet Take 2 tablets (1,000 mg) by mouth 2 (two) times a day with meals. 360 tablet 10/19/20 24 025 Active empagliflozin (Jardiance) 25 MGIndications:T ype 2 diabetes mellitus with other specified complication, with long-term current use of insulin (CMS/HCC) Take 1 tablet (25 mg) by mouth 1 (one) time each day. 90 tablet 10/19/20 24 025 Active atorvastatin (Lipitor) 40 MG tabletIndicatio ns:Type 2 diabetes mellitus with ophthalmic complication (CMS/HCC) Take 1 tablet by mouth daily. PLEASE HAVE LABS COMPLETED AND FAXED TO OFFICE FOR FURTHER REFILLS 30 tablet 03/23/20 25 025 Active pioglitazone (Actos) 30 MG tabletIndicatio ns:Type 2 diabetes mellitus with other specified complication, with long-term current use of insulin (CMS/[facility]) Take 1 tablet by mouth daily. 30 tablet 2 04/05/20 25 Active atorvastatin (Lipitor) 40 MG tabletIndicatio ns:Type 2 diabetes mellitus with ophthalmic complication (CMS/HCC) Take 1 tablet (40 mg) by mouth 1 (one) time each day. Further refills provided pending lab results. 30 tablet 09/16/20 24 025 Discontinued pioglitazone (Actos) 30 MG tabletIndicatio ns:Type 2 diabetes mellitus with other specified complication, with long-term current use of insulin (CMS/HCC) Take 1 tablet (30 mg) by mouth 1 (one) time each day. 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 01/20/2024 Type 2 diabetes mellitus, wi th long-term current use of insulin 01/20/2024 Retinopathy 01/20/2024 Neuropathy 01/20/2024 Primary hypertension 08/09/2023 Other hyperlipidemia 08/09/2023 Encounters Date Type Department Care Team Description 04/02/2025 Telephone amBX [facility] Endocrinology [address] [place] [address] Roxana Burris APRN 04/02/2025 Refill [facility] Endocrinology [address] [place] [address] Roxana Burris APRN Type 2 diabetes mellitus with other specified complication, with long-term current use of insulin ([facility]) 03/22/2025 Refill [facility]X [facility] Endocrinology [address] [place] [address] Roxana Burris APRN Type 2 diabetes mellitus with ophthalmic complication ([facility]) from Last 3 Months Family History Medical History Relation Name Comments Heart attack Brother Micah Heart disease Brother Micah Cancer Father Dad Diabetes Father Dad Diabetes type II Father Dad Heart attack Father Dad Heart disease Father Dad Hypertension Father Dad Diabetes Mother Mom Heart attack Mother Mom Heart disease Mother Mom Relation Name Status Comments Brother Micah Father Dad Mother Mom Social History Tobacco Use Types Packs/Day Years Used Date Smoking Tobacco: Never Smokeless Tobacco: Current Snuff Tobacco Cessation:Ready to Q uit: Not Asked; Counseling Given: Not Answered Comments:1 can daily. Alcohol Use Standard Drinks/Week Comments Yes 0 (1 standard drink = 0.6 oz pur e alcohol) Occ. PHQ-2 Answer Date Recorded Patient Health Questionnaire-2 Score 0 01/20/2024 Sex and Gender Information Value Date Recorded Sex Assigned at Not on file Legal Sex Male 7:33 PM EDT Gender Identity Not on file Sexual Orientation Not on file Last Filed Vital Signs Vital Sign Reading Time Taken Comments Blood Pressure 132/77 10/19/2024 2:37 PM EST Pulse 66 10/19/2024 2:37 PM EST Temperature - - Respiratory Rate - - Oxygen Saturation - - Inhaled Oxygen Concentration - - Weight 81.8 kg (180 lb 5.4 oz) 10/19/2024 2:15 P M EST Height 180.3 cm (5' 10.98 ) 10/19/2024 2:[address] Body Mass Index 25.16 10/19/2024 2:15 PM EST Plan of Treatment Upcoming Encounters Date Type Department Care Team (Late st Contact Info) Description 05/12/2025 2:40 PM EDT Office Visit [facility] Endocrinology [address] [place] [address] Roxana Burris, LAND SALES AGENT [address] [place] [address] Health Maintenance Due Date Last Done Comments [facility]-HIV Screening 1960 [facility]-Hepatitis C Screening 1960 [facility]-Medicare Annual Wellness (AWV) 1960 [facility]-/Child/Adol SDOH Screenings 1960 Diabetes: Dental Exam 1971 [facility]- SDOH Screenings 1979 [facility]-Adult SDOH Screenings 1979 [facility]-DTaP,Tdap,and Td Vaccines (1 - Tdap) 01/19/1980 [facility]-Pneumococcal Vaccine: 50+ Years (1 of 2 - PCV) 01/19/1980 CT Colonography 2006 Colonoscopy 2006 FIT-DNA 2006 FIT 2006 FOBT 2006 Sigmoidoscopy 2006 [facility]-Colorectal Cancer Screening 2006 [facility]-Zoster Vaccines (1 of 2) 2011 [facility]-RSV Vaccine: 60+ Years or (1 - Risk 60-74 years 1-dose series) 2021 HER-ONISD-30 Vaccine (2 - 2023- season) 2024 01/12/2021 [facility]-Diabetes: Hemoglobin A1C 2025, 04/13/2024, 01/20/2024, Additional history exists [facility]-Depression Screening 01/19/2025 01/20/2024 [facility]-Influenza Vaccine (Season Ended) 2025 [facility]-Obesity Intervention Completed 024, 04/13/2024, 01/20/2024 HPV Vaccines Aged Out No longer eligi ble based on patient's age to complete this topic [facility]-HIB Vaccines Aged Out No longer e ligible based on patient's age to complete this topic [facility]-Hepatitis A Vaccines Aged Out No longer eligible based on patient's age to complete this topic [facility]-IPV Vaccines Aged Out No longer e ligible based on patient's age to complete this topic [facility]-Rotavirus Vaccines Aged Out No lo nger eligible based on patient's age to complete this topic Procedures Procedure Name Priority Date/Time Associated Diagnosis Comments POCT GLYCOSYLATED HEMOGLOBIN (HGB A1C) Routine 10/19/2024 2:29 PM EST from Last 3 Months or Most Recently Relevant to Health Maintenance Results * POCT glycosylated hemoglobin (Hb A1C) (10/19/2024 2:29 PM EST) POCT Hemoglobin A1C 7.9 <5.7% Non-Diabet ic % [facility] Kit Lot Number [id number] [facility] Kit Expiration Date 07/04/26 [employer] [facility] Blood Venous blood specimen / Unknown 10/19/2024 2:29 PM EST Roxana Burris LAND SALES AGENT POINT OF CARE TEST ENTER /EDIT ORDERABLES Final Result Performing Organization Address City/State/[facility] de Phone Number [facility] [address] [place] [phone] from Last 3 Months or Most Recently Relevant to Health Maintenance [place] [address] ANTHEM Care Teams Filer And Sander Relationship Specialty Start Date End Date Jasen Jean MD [address] [place] [id number] PCP - General 03/17/21
--- OUTSIDE RECORDS SUMMARY | 2025-04-12 11:31 | XMS_ITS | Encounter Summary ---
Author Organization [facility] Address [address] [place] [address] Care Team Providers Care Fruit Trimmer Name Role Phone Jasen Jean MD Primary Care Provider [phone]- [phone] Reason for Visit * Reason Comments Med Refill Encounter Details Date Type Department Care Team (Late st Contact Info) Description 04/02/2025 Refill [facility] Endocrinology [address] [place] [address] Roxana Burris P, LITHOGRAPHY CONTACT WORKER [address] [address] Type 2 diabetes mellitus with other specified complication, with long-term current use of insulin ([facility]) Social History Tobacco Use Types Packs/Day Years Used Date Smoking Tobacco: Never Smokeless Tobacco: Current Snuff Comments:1 can daily. Alcohol Use Standard Drinks/Week Comments Yes 0 (1 standard drink = 0.6 oz pur e alcohol) Occ. PHQ-2 Answer Date Recorded Patient Health Questionnaire-2 Score 0 01/20/2024 Sex and Gender Information Value Date Recorded Sex Assigned at Not on file Legal Sex Male 7:33 PM EDT Gender Identity Not on file Sexual Orientation Not on file documented as of this encounter Miscellaneous Notes * Telephone Encounter - Amie Bolaños, PharmD - 04/02/2025 2:55 PM EDT 1 medication(s) has been approved per protocol. documented in this encounter Plan of Treatment Upcoming Encounters Date Type Department Care Team (Late st Contact Info) Description 05/12/2025 2:40 PM EDT Office Visit [facility] Endocrinology [address] [place] [address] Roxana Burris, LITHOGRAPHY CONTACT WORKER [address] [facility] [address] [place] [address] documented as of this encounter Visit Diagnoses Diagnosis Type 2 diabetes mellitus with other specified complication, with long-term current use of insulin ([facility]) documented in this encounter Additional Health Concerns Assessment Noted Time A fall risk assessment has been complete d for the patient 01/20/2024 3:23 PM EDT A Body Mass Index follow-up plan has been documented for the patient 10/19/2024 3:28 PM EST documented as of this encounter Care Teams Fruit Trimmer Relationship Specialty Start Date End Date Jasen Jean MD [address] [place] [address] PCP - General 03/17/21 documented as of this encounter
--- OUTSIDE RECORDS SUMMARY | 2025-04-12 11:31 | XMS_ITS | Encounter Summary ---
Author Organization [facility] Address [address] [place] [address] Care Team Providers Care Marinator Name Role Phone Jasen Jean MD Primary Care Provider +1- [phone] Reason for Visit * Reason Comments Med Refill Encounter Details Date Type Department Care Team (Late st Contact Info) Description 03/22/2025 Refill [facility] Endocrinology [address] [place] [address] Roxana Burris P, ASPHALT RAKER [address] [facility] [address] [place] [address] Type 2 diabetes mellitus with ophthalmic complication ([facility]) Social History Tobacco Use Types Packs/Day Years [...] encounter Miscellaneous Notes * Telephone Encounter - Yadi Garcia, PharmD - 03/23/2025 9:43 AM EDT Refill request does not meet protocol. Sending to clinic for review. Additional info: Clarification required: labs are overdue. documented in this encounter Plan of Treatment Upcoming Encounters Date Type Department Care Team (Late st Contact Info) Description 05/12/2025 2:40 PM EDT [facility] [address] [place] [address] Roxana Burris, ASPHALT RAKER [address] [facility] [address] [place] [address] documented as of this encounter Visit Diagnoses Diagnosis Type 2 diabetes mellitus with ophthalmic complication (CMS/HCC) documented in this encounter Additional Health Concerns Assessment Noted Time A fall risk assessment has been complete d for the patient 01/20/2024 3:23 PM EDT A Body Mass Index follow-up plan has been documented for the patient 10/19/2024 3:28 PM EST documented as of this encounter Care Teams Marinator Relationship Specialty Start Date End Date Jasen eJan MD [address] [place] [id number] PCP - General 03/17/21 documented as of this encounter
--- OUTSIDE RECORDS SUMMARY | 2025-04-12 11:31 | XMS_ITS | Encounter Summary ---
Author Organization [facility] Address [address] [place] [address] Care Team Providers Care Professor Of Geology Name Role Phone Jasen Jean MD Primary Care Provider +1- [phone] Encounter Details Date Type Department Care Team (Late st Contact Info) Description 04/02/2025 Telephone [facility] Endocrinology [address] [place] [address] Roxana Burris P, HEAVY EQUIPMENT PLUMBING SUPERVISOR [address] [facility] [address] [place] [address] Social History Tobacco Use Types Packs/Day Years [...] encounter Miscellaneous Notes * Telephone Encounter - Leyda Soto CDE, RD - 04/05/2025 9:46 AM EDT 15 mg tablet entered in error by pharmacy team. RX for 30 mg was historically sent after attempted to [place] 15 mg BID rx and discovered insurance only covered 1 - 30 mg tab/d. Updated med list and sent in new rx for 30 mg tablets. documented in this encounter Plan of Treatment Upcoming Encounters Date Type Department Care Team (Late st Contact Info) Description 05/12/2025 2:40 PM EDT [facility] [address] [place] [address] Roxana Burris, HEAVY EQUIPMENT PLUMBING SUPERVISOR [address] [facility] [address] [place] [address] documented as of this encounter Visit Diagnoses Diagnosis Type 2 diabetes mellitus with other specified complication, with long-term current use of insulin ([facility]) documented in this encounter Additional Health Concerns Assessment Noted Time A fall risk assessment has been complete d for the patient 01/20/2024 3:23 PM EDT A Body Mass Index follow-up plan has been documented for the patient 10/19/2024 3:28 PM EST documented as of this encounter Care Teams Professor Of Geology Relationship Specialty Start Date End Date Jasen Jean MD [address] [place] [address] PCP - General 03/17/21 documented as of this encounter
--- OUTSIDE RECORDS SUMMARY | 2025-04-12 11:31 | XMS_ITS | Referral Summary ---
Author Organization [facility] Address [address] [place] [address] Care Team Providers Care Conservation Of Resources Commissioner Name Role Phone Unavailable Primary Care Provider Unavailabl e Social History Tobacco Use Types Packs/Day Years Used Date Smoking Tobacco: Never Assessed Comments Unknown Sex and Gender Information Value Date Recorded Sex Assigned at Unknown 05/01/2022 4:58 PM CDT Legal Sex Male 4:58 PM CDT Gender Identity Other 05/01/2022 4:58 PM CDT Sexual Orientation Not on file Plan of Treatment Not on file
--- OUTSIDE RECORDS SUMMARY | 2025-04-12 11:31 | XMS_ITS | Clinical Summary ---
Author Organization [facility] Address [address] [place] [address] Care Team Providers Care Agricultural Engineering Technician Name Role Phone Unavailable Primary Care Provider [...]
[2025-04-12 12:12] LABS: Basophils % 0.2 % (0.1-2.0); Hematocrit 49.4 % (42.0-52.0); Hemoglobin 15.7 g/dL (14.1-18.0); Immature Granulocytes # 0.01 10^3uL; Immature Granulocytes % 0.1 %; Lymphocytes # 1.7 K/mm3 (0.7-4.5); Lymphocytes % 16.8 % (10-50); Mean Corpuscular HGB Conc 31.8 g/dL (31.8-35.4); Mean Corpuscular Hemoglobin 29.5 pg (27.0-31.2); Mean Corpuscular Volume 92.9 fl (80-94); Mean Platelet Volume 9.7 fl (7.4-10.4); Monocytes # 0.7 K/mm3 (0.1-1.0); Monocytes % 6.9 % (1.7-9.3); Neutrophils # 7.6 K/mm3 (1.8-7.8); Nucleated Red Blood Cells # 0 10^3/uL; Nucleated Red Blood Cells % 0 %; Platelet Count 316 K/mm3 (142-424); Red Blood Count 5.32 M/mm3 (4.60-6.20); Red Cell Distribution Width 12.7 % (11.5-17.5); Red Cell Distribution Width-SD 43.2 fL
[2025-04-12 12:41] LABS: Albumin Level 4.1 g/dl (3.5-5.0); Chloride 100 mmol/L (98-107); Sodium 138 mmol/L (136-145)
[2025-04-12 12:42] LABS: Potassium 4.6 mmoL/L (3.5-5.1)
[2025-04-12 12:43] LABS: Erythrocyte Sedimentation Rate 12 mm/hr (0-20)
[2025-04-12 12:44] LABS: Alanine Aminotransferase 17 U/L (12-78); Albumin/Globulin Ratio 1.2 (1.1-1.8); Aspartate Amino Transferase 21 U/L (17-59); Blood Urea Nitrogen 13 mg/dl (9-20); Estimated Glomerular Filt Rate 85 ml/min (>60); GFR (African American) 103 ML/MIN (>60); Globulin 3.3 g/dL (1.3-3.2); Total Protein,Serum 7.4 g/dl (6.3-8.2)
[2025-04-12 12:45] LABS: Alkaline Phosphatase 104 U/L (38-126); Bilirubin,Total 1.5 mg/dl (0.2-1.3); Calcium 9.6 mg/dl (8.4-10.2); Glucose 184 mg/dl (74-100)
[2025-04-12 12:50] LABS: C-Reactive Protein 40.5 mg/L (0-4)
[2025-04-12 13:17] LABS: Hemoglobin A1C 7.5 % (4.0-6.0)
--- NOTE | 2025-04-12 13:30 | US_ITS ---
FINAL REPORT CLINICAL HISTORY: cold extremity, discoloration, smokeless tobacco, HTN, HLD, DM, diabetic ulcers on right 1st, 2nd, and 3rd digits. Toe cuffs placed on 4th digits of bilateral foot., bilateral claudication, bilateral rest pain, CAD. FINDINGS: ANKLE-BRACHIAL PRESSURE INDICES Pressure indices are as follows: RIGHT LOWER EXTREMITY: Ankle-brachial pressure index: 1.50 Comments: No evidence of occlusion LEFT LOWER EXTREMITY: Ankle-brachial pressure index: 1.84 Comments: No evidence of occlusion IMPRESSION: No evidence of significant arterial occlusive disease of the bilateral lower extremities Reviewed, Interpreted and Dictated by Tomy Sun MD Transcribed by Loyda Pickens Authenticated and [facility]
[2025-04-12 14:30] LABS: Anion Gap 12.6 mEq/L (5-15); Carbon Dioxide 30 mmol/L (22.0-30.0)
== END 2025-04-12 23:59 | disposition home or self-care (01) ==
PROVIDERS: PCP Family Medicine; Visit Provider Podiatrist
DX: M79.671 Pain in right foot (principal); M79.672 Pain in left foot; E11.8 Type 2 diabetes mellitus with unspecified complications; E11.42 Type 2 diabetes mellitus with diabetic polyneuropathy; R09.89 Other specified symptoms and signs involving the circulatory and respiratory systems; E11.40 Type 2 diabetes mellitus with diabetic neuropathy, unspecified; E11.621 Type 2 diabetes mellitus with foot ulcer; L97.519 Non-pressure chronic ulcer of other part of right foot with unspecified severity
CPT/HCPCS: 36415; 73630; 80053; 83036; 85025; 85651; 86140; 87070; 87077; 87205; 93923

== ENCOUNTER 2025-04-21 08:41 | Day surgery (SDC) | payer MEDICARE, BC, SELFPAY ==
[2025-04-21 08:46] VITALS: BMI 25.1
[2025-04-21 08:56] VITALS: BP 176/97; PULSE 67; PULSE 74; RESP 20; O2SAT 96
[2025-04-21 09:09] LABS: Basophils % 0.7 % (0.1-2.0); Eosinophils # 0.2 Kmm3 (0.0-0.4); Eosinophils % 2.8 % (0.1-12.0); Hematocrit 45.8 % (42.0-52.0); Hemoglobin 15.1 g/dL (14.1-18.0); Immature Granulocytes # 0.01 10^3uL; Immature Granulocytes % 0.2 %; Lymphocytes % 32.6 % (10-50); Mean Corpuscular Hemoglobin 30.2 pg (27.0-31.2); Mean Corpuscular Volume 91.6 fl (80-94); Monocytes # 0.5 K/mm3 (0.1-1.0); Monocytes % 7.9 % (1.7-9.3); Neutrophils # 3.4 K/mm3 (1.8-7.8); Neutrophils % 55.8 % (37.0-80.0); Nucleated Red Blood Cells # 0 10^3/uL; Nucleated Red Blood Cells % 0 %; Platelet Count 296 K/mm3 (142-424); Red Cell Distribution Width 12.3 % (11.5-17.5); Red Cell Distribution Width-SD 41.3 fL
[2025-04-21 09:24] LABS: Chloride 104 mmol/L (98-107); Potassium 4.1 mmoL/L (3.5-5.1); Sodium 139 mmol/L (136-145)
[2025-04-21 09:27] LABS: Anion Gap 9.1 mEq/L (5-15); Blood Urea Nitrogen 6 mg/dl (9-20); Calcium 9.2 mg/dl (8.4-10.2); Carbon Dioxide 30 mmol/L (22.0-30.0); Creatinine Clearance Estimated 86 mL/min (50-200); Estimated Glomerular Filt Rate 114 ml/min (>60); GFR (African American) 137 ML/MIN (>60); Glucose 199 mg/dl (74-100)
== END 2025-04-21 10:58 | disposition home or self-care (01) ==
LOC: CATHLAB 08:42
PROVIDERS: PCP Family Medicine; Visit Provider Internal Medicine
DX: I25.118 Atherosclerotic heart disease of native coronary artery with other forms of angina pectoris (principal); Z53.9 Procedure and treatment not carried out, unspecified reason; E11.9 Type 2 diabetes mellitus without complications; I48.0 Paroxysmal atrial fibrillation; Z79.01 Long term (current) use of anticoagulants; E78.5 Hyperlipidemia, unspecified; I73.9 Peripheral vascular disease, unspecified; Z95.5 Presence of coronary angioplasty implant and graft; Z77.22 Contact with and (suspected) exposure to environmental tobacco smoke (acute) (chronic); Z88.8 Allergy status to other drugs, medicaments and biological substances; Z79.82 Long term (current) use of aspirin; Z79.02 Long term (current) use of antithrombotics/antiplatelets; Z79.84 Long term (current) use of oral hypoglycemic drugs; Z79.899 Other long term (current) drug therapy; Z79.4 Long term (current) use of insulin; I25.10 Atherosclerotic heart disease of native coronary artery without angina pectoris
CPT/HCPCS: 93458; 80048; 85025; J2003

== ENCOUNTER 2025-05-19 10:31 | Outpatient (CLI) | payer MEDICARE, BC, SELFPAY ==
--- OUTSIDE RECORDS SUMMARY | 2025-05-19 10:33 | XMS_ITS | Encounter Summary ---
Author Organization Healthcare Address [address] [place] [address] Care Team Providers Care Rotor Pilot Name Role Phone Jasen Jean MD Primary Care Provider +1- [phone] Reason for Visit * Reason Comments Med Refill Encounter Details Date Type Department Care Team (Late st Contact Info) Description 04/16/2025 Refill [facility] Endocrinology [address] [place] [address] Roxana Burris P, QUALITY REVIEW TRAINER [address] [address] Type 2 diabetes mellitus with ophthalmic complication ([facility]) Social History Tobacco Use Types [...] encounter Miscellaneous Notes * Telephone Encounter - Samir Kruger, PharmD - 04/16/2025 4:02 PM EDT 1 medication(s) has been approved per protocol. documented in this encounter Plan of Treatment Upcoming Encounters Date Type Department Care Team (Late st Contact Info) Description 05/25/2025 8:20 AM EDT Office Visit [facility] [address] [facility] 5th Floor [address], [address] [place] [address] Mukund Agustin MD [address] [facility] [address] [place] [address] documented as of this encounter Visit Diagnoses [...] documented as of this encounter Care Teams Rotor Pilot Relationship Specialty Start Date End Date Jasen Jean MD [address] [place] [address] PCP - General 03/17/21 documented as of this encounter
--- OUTSIDE RECORDS SUMMARY | 2025-05-19 10:33 | XMS_ITS | Clinical Summary ---
Author Organization [facility] Address [address] [place] [address] Care Team Providers Care Meat Packer Name Role Phone Jasen Jean MD Primary Care Provider +1- [phone] Allergies No known active allergies Medications bisoprolol (Zebeta) 5 MG tablet Take 0.5 tablets (2.5 mg) by mouth 1 (one) time each day. 3 Active prasugrel (Effient) 10 MG tablet Take 1 tablet (10 mg) by mouth 1 (one) time each day. 3 Active Xarelto 20 MG tablet TAKE 1 TABLET BY MOUTH ONCE DAILY WITH EVENING MEAL 3 Active cholecalciferol (Vitamin D-3) 50 MCG (2000 UT) capsule Take 1 capsule (2,000 Units) by mouth. Active hydrOXYzine HCl (Atarax) 10 MG tablet Take 2.5 tablets (25 mg) by mouth. PRN Active Insulin Pen Needle (BD Pen Needle Christina 2nd Gen) 32G X 4 MM miscIndications:T ype 2 diabetes mellitus with other specified complication, with long-term current use of insulin ([facility]) USE TO INJECT INSULIN ONCE DAILY 100 each 3 4 Active clopidogrel (Plavix) 75 MG tablet Take 1 tablet (75 mg) by mouth 1 (one) time each day. Active apixaban (Eliquis) 2.5 MG tablet Take 1 tablet (2.5 mg) by mouth 2 (two) times a day. Active Semglee 100 UNIT/ML injection penIndications:Ty pe 2 diabetes mellitus with other specified complication, with long-term current use of insulin ([facility]) Inject 11 units two times daily. Titrate as directed. MDD: 30 units 30 mL 1 4 Active metFORMIN XR (Glucophage-XR) 500 MG 24 hr tablet Take 2 tablets (1,000 mg) by mouth 2 (two) times a day with meals. 360 tablet 4 10/19/20 25 Active empagliflozin (Jardiance) 25 MGIndications:Typ e 2 diabetes mellitus with other specified complication, with long-term current use of insulin ([facility]) Take 1 tablet (25 mg) by mouth 1 (one) time each day. 90 tablet 4 10/19/20 25 Active pioglitazone (Actos) 30 MG tabletIndications :Type 2 diabetes mellitus with other specified complication, with long-term current use of insulin ([facility]) Take 1 tablet by mouth daily. 30 tablet 2 5 Active atorvastatin (Lipitor) 40 MG tabletIndications :Type 2 diabetes mellitus with ophthalmic complication ([facility]) TAKE 1 TABLET BY MOUTH ONCE DAILY PLEASE HAVE LABS COMPLETED AND FAXED TO OFFICE FOR FUTHER REFILLS 30 tablet 5 Active Active Problems Problem Noted Date Diagnosed Date Coronary artery disease 04/13/2024 Type 2 diabetes mellitus with ophthalmic complic ation 01/20/2024 Type 2 diabetes mellitus, wi th long-term current use of insulin 01/20/2024 Retinopathy 01/20/2024 Neuropathy 01/20/2024 Primary hypertension 08/09/2023 Other hyperlipidemia 08/09/2023 Encounters Date Type Department Care Team Description 05/13/2025 Refill [facility] Endocrinology [address] [place] [address] Roxana Burris, GALO Type 2 diabetes mellitus with ophthalmic complication (CMS/HCC) 05/06/2025 Telephone [facility] Comprehensive Vascular Clinic [address], [address] [place] [address] None, None 04/16/2025 Refill [facility] Endocrinology [address] [place] [address] Roxana Burris, GALO Type 2 diabetes mellitus with ophthalmic complication ([facility]/HCC) 04/12/2025 Orders Only External Location [address] [place] [address] Provider, External 04/02/2025 [facility] [address] [place] [address] Roxana Burris APRN 04/02/2025 Refill [facility] Endocrinology [address] [place] [address] Roxana Burris, ISOTOPE TECHNOLOGIST Type 2 diabetes mellitus with other specified complication, with long-term current use of insulin ([facility]) 03/22/2025 Refill [facility] Endocrinology [address] [place] [address] Roxana Burris APRN Type 2 diabetes mellitus with ophthalmic complication ([facility]) from Last 3 Months Family [...] Description 05/25/2025 8:20 AM EDT Office Visit [place] [facility] [address] 5th Floor [address], [address] [place] [address] Mukund Agustin MD [address] [place] [address] Health Maintenance Due Date Last Done Comments [facility]-HIV Screening 1960 [facility]-Hepatitis C Screening 1960 [facility]-Medicare Annual Wellness (AWV) 1960 [facility]-Infant/Child/Adol SDOH Screenings 1960 Diabetes: Dental Exam 1971 [...] - Risk 60-74 years 1-dose series) 2021 GTI-SYRUS-15 Vaccine (2 - 2023- season) 2024 01/12/2021 [facility]-Diabetes: Hemoglobin A1C 2025, 04/13/2024, 01/20/2024, Additional history exists [facility]-Depression Screening 01/19/2025 01/20/2024 [facility]-Influenza Vaccine (#1) 2025 [facility]-Obesity Intervention Completed 024, 04/13/2024, 01/20/2024 [...] Procedure Name Priority Date/Time Associated Diagnosis Comments US OUTSIDE IMAGES 04/12/2025 1:1 8 PM EDT POCT GLYCOSYLATED HEMOGLOBIN (HGB A1C) Routine 10/19/2024 2:29 PM EST from Last 3 Months or Most Recently Relevant to Health Maintenance Results * US OUTSIDE IMAGES (04/12/2025 1:18 PM EDT) Anatomical Region Laterality Modality Ultrasound 04/12/2025 1:18 PM EDT us External Provider IMG US PROCEDURES Final Result * POCT glycosylated hemoglobin (Hb A1C) (10/19/2024 2:29 PM EST) POCT Hemoglobin A1C 7.9 <5.7% Non-Diabet ic % [facility] Kit Lot Number [id number] [facility] Kit Expiration Date 07/04/26 HEALTHCARE LAB Blood Venous blood specimen / Unknown 10/19/2024 2:29 PM EST us Roxana Burris ISOTOPE TECHNOLOGIST POINT OF CARE TEST ENTER /EDIT ORDERABLES Final Result [facility] [address] [place] [phone] from Last 3 Months or Most Recently Relevant to Health Maintenance Insurance MEDICARE [facility] Care Teams Meat Packer Relationship Specialty Start Date End Date Jasen Jean MD [address] [place] [address] PCP - General 03/17/21
--- OUTSIDE RECORDS SUMMARY | 2025-05-19 10:33 | XMS_ITS | Encounter Summary ---
Author Organization Healthcare Address [address] [place] [address] Care Team Providers Care Director Marketing Communications Name Role Phone Jasen Jean MD Primary Care Provider +1- [phone] Reason for Visit * Reason Comments Med Refill Encounter Details Date Type Department Care Team (Late st Contact Info) Description 05/13/2025 Refill [facility] Endocrinology [address] [place] [address] Roxana Burris P, TRUCKING SUPERVISOR [address] [facility] [address] [place] [address] Type 2 diabetes mellitus with ophthalmic complication ([facility]) Social History Tobacco Use Types Packs/Day Years [...] encounter Miscellaneous Notes * Telephone Encounter - Sadie Hoskins - 05/14/2025 9:44 AM EDT Refill request does not meet protocol. Sending to clinic for review. Additional info: Appointment compliance - Patient has not followed up in clinic as requested. Please review for scheduling and if refills are appropriate. documented in this encounter Plan of Treatment Upcoming Encounters Date Type Department Care Team (Late st Contact Info) Description 05/25/2025 8:20 AM EDT Office Visit [facility] Comprehensive Vascular Clinic [address] [facility] 5th Floor [address], [address] [place] [address] Mukund Agustin MD [address] [facility] [address] [place] [address] documented as of this encounter Visit Diagnoses [...] documented as of this encounter Care Teams Director Marketing Communications Relationship Specialty Start Date End Date Jasen Jean MD [address] [place] [address] PCP - General 03/17/21 documented as of this encounter
--- OUTSIDE RECORDS SUMMARY | 2025-05-19 10:34 | XMS_ITS | Encounter Summary ---
Author Organization Healthcare Address [address] [place] [address] Care Team Providers Care Field Administrative Assistant Name Role Phone Jasen Jean MD Primary Care Provider +1- [phone] Encounter Details Date Type Department Care Team (Late st Contact Info) Description 05/06/2025 Telephone [facility] [address] [facility] 5th Floor [address], [address] [place] [address] None, None [address] [place], [place] [phone] Social History Tobacco Use Types Packs/Day Years [...] encounter Miscellaneous Notes * Telephone Encounter - Jacquelin Turner - 05/06/2025 10:28 AM EDT Spoke with the pt about scheduling his referral. They are aware and agreeable to the time/date/location and does not have questions at this time documented in this encounter Plan of Treatment Upcoming Encounters Date Type Department Care Team (Late st Contact Info) Description 05/25/2025 8:20 AM EDT Office Visit [facility] [address] [facility] 5th Floor [address], [address] [place] [address] Mukund Agustin MD [address] [facility] [address] [place] [address] documented as of this encounter Visit Diagnoses Not on filedocumented in this encounter Additional Health Concerns Assessment Noted Time A fall risk assessment has been complete d for the patient 01/20/2024 3:23 PM EDT A Body Mass Index follow-up plan has been documented for the patient 10/19/2024 3:28 PM EST documented as of this encounter Care Teams Field Administrative Assistant Relationship Specialty Start Date End Date Jasen Jean MD [address] [place] [address] PCP - General 03/17/21 documented as of this encounter
--- OUTSIDE RECORDS SUMMARY | 2025-05-19 10:34 | XMS_ITS | Encounter Summary ---
Author Organization Healthcare Address [address] [place] [address] Care Team Providers Care Lumpia Wrapper Maker Name Role Phone Jasen Jean MD Primary Care Provider +1- [phone] Encounter Details Date Type Department Care Team (Late st Contact Info) Description 04/02/2025 Telephone [facility] Endocrinology [address] [place] [address] Roxana Burris P, PUNCHER AND FASTENER [address] [facility] [address] [place] [address] Social History Tobacco Use Types [...] Description 05/25/2025 8:20 AM EDT Office Visit [facility] Comprehensive Vascular Clinic [address] [facility] 5th Floor [address], [address] [place] [address] Mukund Agustin MD [address] [facility] [address] [place] [address] documented as of this encounter Visit Diagnoses Diagnosis Type 2 diabetes mellitus with other specified complication, with long-term current use of insulin ([facility]) documented in this encounter Additional Health Concerns Assessment Noted Time A fall risk assessment has been complete d for the patient 01/20/2024 3:23 PM EDT A Body Mass Index follow-up plan has been documented for the patient 10/19/2024 3:28 PM EST documented as of this encounter Care Teams Lumpia Wrapper Maker Relationship Specialty Start Date End Date Jasen Jean MD [address] [facility] [address] [place] [address] PCP - General 03/17/21 documented as of this encounter
--- OUTSIDE RECORDS SUMMARY | 2025-05-19 10:34 | XMS_ITS | Encounter Summary ---
Author Organization [facility] Address [address] [place] [address] Care Team Providers Care Manager Electronic Name Role Phone Jasen Jean MD Primary Care Provider +1- [phone] Reason for Visit * Reason Comments Med Refill Encounter Details Date Type Department Care Team (Late st Contact Info) Description 03/22/2025 Refill [facility] Endocrinology [address] [place] [address] Roxana Burris P, MILL ATTENDANT [address] [facility] [address] [place] [address] Type 2 diabetes mellitus with ophthalmic complication ([facility]) Social History Tobacco Use Types Packs/Day Years [...] Description 05/25/2025 8:20 AM EDT Office Visit [facility]ascular Clinic [address] [facility] 5th Floor [address] [place] [address] Mukund Agustin MD [address] [facility] [address] [place] [address] documented as of this encounter [...] documented as of this encounter Care Teams Manager Electronic Relationship Specialty Start Date End Date Jasen Jean MD [address] [place] [address] PCP - General 03/17/21 documented as of this encounter
--- OUTSIDE RECORDS SUMMARY | 2025-05-19 10:34 | XMS_ITS | Encounter Summary ---
Author Organization [facility] Address [address] [place] [address] Care Team Providers Care Heel Sewer Name Role Phone Jasen Jean MD Primary Care Provider +1- [phone] Reason for Visit * Reason Comments Med Refill Encounter Details Date Type Department Care Team (Late st Contact Info) Description 04/02/2025 Refill [facility] Endocrinology [address] [place] [address] Roxana Burris P, MANAGER HEAVY DUTY [address] [address] Type 2 diabetes mellitus with other specified complication, with long-term current use of insulin ([facility]) Social History Tobacco Use Types [...] Description 05/25/2025 8:20 AM EDT Office Visit [facility] Comprehensive Vascular Clinic [address] [facility] 5th Floor [address] [place] [address] Mukund Agustin MD [address] [facility] [address] [place] [address] documented as of this encounter Visit Diagnoses Diagnosis Type 2 diabetes mellitus with other specified complication, with long-term current use of insulin ([facility]) documented in this encounter Additional Health Concerns Assessment Noted Time A fall risk assessment has been complete d for the patient 01/20/2024 3:23 PM EDT A Body Mass Index follow-up plan has been documented for the patient 10/19/2024 3:28 PM EST documented as of this encounter Care Teams Heel Sewer Relationship Specialty Start Date End Date Jasen Jean MD [address] [place] [address] PCP - General 03/17/21 documented as of this encounter
--- OUTSIDE RECORDS SUMMARY | 2025-05-19 10:34 | XMS_ITS | Referral Summary ---
Author Organization [employer] ([place], [place], [place], [place]) Address [address] [place] [address] Care Team Providers Care Asset Liability Analyst Name Role Phone Unavailable Primary Care Provider [...]
--- OUTSIDE RECORDS SUMMARY | 2025-05-19 10:34 | XMS_ITS | Clinical Summary ---
Author Organization [employer] ([place], [place], [place], [place]) Address [address] [place] [address] Care Team Providers Care Instructor Painting Name Role Phone Unavailable Primary Care Provider [...]
--- OUTSIDE RECORDS SUMMARY | 2025-05-19 10:34 | XMS_ITS | Encounter Summary ---
Author Organization [facility] Address [address] [place] [address] Care Team Providers Care Hairspring Studder Name Role Phone Jasen Jean MD Primary Care Provider +1- [phone] Encounter Details Date Type Department Care Team (Late Contact Info) Description 04/12/2025 Orders Only External Location [address] [place] [id number] Provider, External Social History Tobacco Use Types Packs/Day Years [...] on file documented as of this encounter Plan of Treatment Upcoming Encounters Date Type Department Care Team (Late st Contact Info) Description 05/25/2025 8:20 AM EDT Office Visit [place] [facility] [address] [facility] 5th Floor [address], [address] [place] [address] Mukund Agustin MD [address] [facility] [address] [place] [address] documented as of this encounter Procedures Procedure Name Priority Date/Time Associated Diagnosis Comments US OUTSIDE IMAGES 04/12/2025 1:18 PM EDT documented in this encounter Results * US OUTSIDE IMAGES (04/12/2025 1:18 PM EDT) Anatomical Region Laterality Modality Ultrasound 04/12/2025 1:18 PM EDT us External Provider IMG US PROCEDURES Final Result documented in this encounter Visit Diagnoses Not on filedocumented in this encounter Additional Health Concerns Assessment Noted Time A fall risk assessment has been complete d for the patient 01/20/2024 3:23 PM EDT A Body Mass Index follow-up plan has been documented for the patient 10/19/2024 3:28 PM EST documented as of this encounter Care Teams Hairspring Studder Relationship Specialty Start Date End Date Jasen Jean MD [address] [place] [address] PCP - General 03/17/21 documented as of this encounter
[2025-05-19 11:17] LABS: Hematocrit 44.8 % (42.0-52.0); Hemoglobin 15.0 g/dL (14.1-18.0); Immature Granulocytes % 0.4 %; Mean Corpuscular HGB Conc 33.5 g/dL (31.8-35.4); Mean Corpuscular Hemoglobin 30.5 pg (27.0-31.2); Mean Corpuscular Volume 91.1 fl (80-94); Nucleated Red Blood Cells % 0 %; Platelet Count 287 K/mm3 (142-424); Red Blood Count 4.92 M/mm3 (4.60-6.20); Red Cell Distribution Width-SD 41.1 fL; White Blood Count 5.5 K/mm3 (4.8-10.8)
[2025-05-19 11:45] LABS: Alanine Aminotransferase 16 U/L (12-78); Albumin Level 4.0 g/dl (3.5-5.0); Albumin/Globulin Ratio 1.4 (1.1-1.8); Alkaline Phosphatase 95 U/L (38-126); Anion Gap 17.4 mEq/L (5-15); Aspartate Amino Transferase 24 U/L (17-59); Bilirubin,Total 0.8 mg/dl (0.2-1.3); Blood Urea Nitrogen 16 mg/dl (9-20); Calcium 9.4 mg/dl (8.4-10.2); Carbon Dioxide 27 mmol/L (22.0-30.0); Chloride 96 mmol/L (98-107); Creatinine,Serum 0.90 mg/dl (0.66-1.25); Estimated Glomerular Filt Rate 85 ml/min (>60); GFR (African American) 103 ML/MIN (>60); Globulin 2.8 g/dL (1.3-3.2); Glucose 301 mg/dl (74-100); Potassium 4.4 mmoL/L (3.5-5.1); Sodium 136 mmol/L (136-145); Total Protein,Serum 6.8 g/dl (6.3-8.2)
[2025-05-19 11:50] LABS: C-Reactive Protein 1.3 mg/L (0-4)
== END 2025-05-19 23:59 | disposition home or self-care (01) ==
LOC: LAB 10:31
PROVIDERS: PCP Family Medicine; Visit Provider Podiatrist
DX: E11.621 Type 2 diabetes mellitus with foot ulcer (principal); L97.512 Non-pressure chronic ulcer of other part of right foot with fat layer exposed; L03.115 Cellulitis of right lower limb
CPT/HCPCS: 36415; 80053; 85025; 85651; 86140

== ENCOUNTER 2025-06-08 13:36 | Outpatient (CLI) | payer MEDICARE, BC, SELFPAY ==
--- OUTSIDE RECORDS SUMMARY | 2025-05-25 08:20 | XMS_ITS | Encounter Summary ---
Author Organization [facility] Address [address] [id number] Care Team Providers Care Country Director Name Role Phone Jasen Jean MD Primary Care Provider [phone]- [phone] Reason for Referral * Consultation (Routine) - Authorized Specialty Diagnoses / Procedures Referred By Contac t Referred To Contact Cardiology Diagnoses Atrial fibrillation, unspecified type (CMS/HCC) Mukund Agustin MD 0 [facility] [address] [place] [address] Phone: tel: fax: Referral ID Status Reason Start Date Expiration Date Visits Requested Visits Authorized [id number] Authorized Specialty Services Required 05/25/2025 11/24/2026 1 1 Reason for Visit * Reason Comments Abnormal ankle brachial index (MARILIA) - Diabetic foot ulcer * Consultation (Urgent) - Closed Specialty Diagnoses / Procedures Referred By Contact Referred To Contact Vascular Surgery / Comprehensive V[facility] Clinic Diagnoses Abnormal ankle brachial index (MARILIA) Diabetic foot ulcer (CMS/HCC) Latonia Reed [address] [address] Phone: tel:[phone] [place] [facility] 0 [facility] 5th Floor [address] [place] [address] Phone: tel: fax: Referral ID Status Reason Start Date Expiration Date V isits Requested Visits Authorized [id number] Closed Specialty Services Required 05/04/2025 11/03/2026 1 1 Encounter Details Date Type Department Care Team (Latest Contact Info) Description 05/25/2025 8:20 AM EDT Office Visit [facility] Comprehensive Vascular Clinic [address] [facility] 5th Floor [address] [place] [address] Mukund Agustin MD [address] [facility] [address] [place] [address] Atrial fibrillation, unspecified type (CMS/HCC) [...] before. I personally and independently reviewed the [facility] Vascular Lab Images from prior to today's [...] is consistent with vascular changes due to senior care uncontrolled diabetes. He has palpable DP bilaterally [...] mellitus, with long-term current use of insulin ([facility]) Open wound of foot Other Visit Diagnoses Atrial fibrillation, unspecified type ([facility]) - Primary Relevant Medications Cartia XT 240 [...] documented in this encounter Plan of Treatment Scheduled Referrals Name Type Priority Associated Diagnoses [...] documented as of this encounter Care Teams Country Director Relationship Specialty Start Date End Date Jasen Jean MD [address] [place] [address] PCP - General 03/17/21 documented as of this encounter
--- NOTE | 2025-06-08 13:41 | XR_ITS ---
FINAL REPORT CLINICAL HISTORY: PAIN COMPARISON: None FINDINGS: CERVICAL SPINE 5 views were obtained. There is no acute fracture or malalignment. There is moderate disc space narrowing at C5-6 and C6-7. Reversal of the cervical lordosis is noted. There is moderate facet hypertrophy in the lower cervical spine. IMPRESSION: Degenerative/chronic changes without acute bony abnormality. Reviewed, Interpreted and Dictated by Tomy Sun MD Transcribed by Loyda Pickens Authenticated and [facility]
--- OUTSIDE RECORDS SUMMARY | 2025-06-08 13:42 | XMS_ITS | Clinical Summary ---
Author Organization [facility] Address [address] [place] [address] Care Team Providers Care Surgery Consultant Name Role Phone Jasen Jean MD Primary Care Provider +1- [phone] Allergies Active Allergy Reactions Criticality Noted Date Comments Semaglutide Other - please docum ent in the comment field Low 05/25/2025 Medications bisoprolol (Zebeta) 5 MG tablet Take [...] complication, with long-term current use of insulin ([facility]) USE TO INJECT INSULIN ONCE DAILY 100 [...] complication, with long-term current use of insulin ([facility]) Inject 11 units two times daily. Titrate as directed. MDD: 30 units 30 mL 1 4 Active metFORMIN XR (Glucophage-XR) 500 MG 24 hr tablet Take 2 tablets (1,000 mg) by mouth 2 (two) times a day with meals. 360 tablet 4 10/19/20 25 Active empagliflozin (Jardiance) 25 MGIndications:Typ e 2 diabetes mellitus with other specified complication, with long-term current use of insulin ([facility]) Take 1 tablet (25 mg) by mouth 1 (one) time each day. 90 tablet 4 10/19/20 25 Active pioglitazone (Actos) 30 MG tabletIndications :Type 2 diabetes mellitus with other specified complication, with long-term current use of insulin ([facility]) Take 1 tablet by mouth daily. 30 tablet 2 5 Active atorvastatin (Lipitor) 40 MG tabletIndications :Type 2 diabetes mellitus with ophthalmic complication ([facility]) TAKE 1 TABLET BY MOUTH ONCE DAILY PLEASE HAVE LABS COMPLETED AND FAXED TO OFFICE FOR FUTHER REFILLS 30 tablet 5 Active sulfamethoxazole- trimethoprim (Bactrim DS) 800-160 MG tablet 5 Active hydrOXYzine pamoate (Vistaril) 25 MG capsule take 1 capsule by mouth three times daily as needed for anxiety 5 Active DULoxetine (Cymbalta) [address] capsule Take 1 capsule by mouth daily. Active Cartia XT 240 MG 24 hr capsule Take 1 capsule by mouth daily. 4 Active Santyl 250 UNIT/GM ointment Apply topically daily. 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 01/20/2024 Type 2 diabetes mellitus, wi th long-term current use of insulin 01/20/2024 Retinopathy 01/20/2024 Neuropathy 01/20/2024 Primary hypertension 08/09/2023 Other hyperlipidemia 08/09/2023 Encounters Date Type Department Care Team Description 05/25/2025 8:20 AM EDT Office Visit [facility] [address] [place] [address] Mukund Agustin MD Atrial fibrillation, unspecified type ([facility]) (Primary Dx); Open wound of right foot, initial encounter; Type 2 diabetes mellitus with foot ulcer, with long-term current use of insulin ([facility]) 05/25/2025 Travel 05/13/2025 Refill [facility] Endocrinology [address] [place] [address] Roxana Burris, GALO Type 2 diabetes mellitus with ophthalmic complication ([facility]) 05/06/2025 Telephone [facility] [address] [facility] 5th Floor [address], [address] [place] [address] None, None 04/16/2025 Refill [facility] Endocrinology [address] [place] [address] Roxana Burris, SMEARER Type 2 diabetes mellitus with ophthalmic complication ([facility]) 04/12/2025 Orders Only External Location [address] [place] [phone] Provider, External 04/02/2025 Telephone [facility] Endocrinology [address] [place] [address] Roxana Burris APRN 04/02/2025 Refill [facility] Endocrinology [address] [place] [address] Roxana Burris, SMEARER Type 2 diabetes mellitus with other specified complication, with long-term current use of insulin ([facility]) 03/22/2025 Refill [facility] Endocrinology [address] [place] [address] Roxana Burris, SMEARER Type 2 diabetes mellitus with ophthalmic complication ([facility]) from Last 3 Months Family History Medical [...] Mass Index 25.88 05/25/2025 8:09 AM EDT Plan of Treatment Health Maintenance Due Date Last Done Comments [facility]-HIV Screening 1960 [facility]-Hepatitis C Screening 1960 [facility]-Medicare Annual Wellness (AWV) 1960 [facility]-Infant/Child/Adol SDOH Screenings 1960 Diabetes: Dental Exam 1971 [facility]- SDOH Screenings 1979 [facility]-Adult SDOH Screenings 1979 [facility]-Pneumococcal Vaccine: 50+ Years (1 of 2 - PCV) 01/19/1980 CT Colonography 2006 Colonoscopy 2006 FIT-DNA 2006 FIT 2006 FOBT 2006 Sigmoidoscopy 2006 [facility]-Colorectal Cancer Screening 2006 [facility]-Zoster Vaccines (1 of 2) 2011 [facility]-DTaP,Tdap,and Td Vaccines (2 - Td or Tdap) 05/13/2019 05/13/2009 [facility]-RSV Vaccine: 60+ Years or (1 - Risk 60-74 years 1-dose series) 2021 IOP-URCNS-15 Vaccine (2 - season) 2024 01/12/2021 [facility]-Diabetes: Hemoglobin A1C 2025, 04/13/2024, 01/20/2024, Additional history exists [facility]-Depression Screening 01/19/2025 01/20/2024 [facility]-Influenza Vaccine (#1) 2025 [facility]-Obesity Intervention Completed 025, 10/19/2024, 04/13/2024, Additional history exists HPV Vaccines Aged Out No longer eligi [...] % [facility] Kit Lot Number [id number] [facility] Kit Expiration Date 07/04/26 [facility] Blood Venous blood specimen / Unknown 10/19/2024 2:29 PM EST Roxana Burris SMEARER POINT OF CARE TEST ENTER /EDIT ORDERABLES Final Result Performing Organization Address City/State/[facility] Co de Phone Number HEALTHCARE LAB [address] [place] [phone] from Last 3 Months or Most Recently Relevant to Health Maintenance [place] [address] [facility] Care Teams Surgery Consultant Relationship Specialty Start Date End Date Jasen Jean MD [address] [place] [address] PCP - General 03/17/21
--- OUTSIDE RECORDS SUMMARY | 2025-06-08 13:42 | XMS_ITS | Encounter Summary ---
Author Organization [facility] Address [address] [place] [address] Care Team Providers Care Commercial Floor Covering Installer Name Role Phone Jasen Jean MD Primary Care Provider +1- [phone] Reason for Visit * Reason Comments Med Refill Encounter Details Date Type Department Care Team (Late st Contact Info) Description 04/16/2025 Refill [facility] Endocrinology [address] [place] [address] Roxana Burris P, NAIL WELTER [address] [address] Type 2 diabetes mellitus with ophthalmic complication ([facility]) Social History Tobacco Use Types Packs/Day [...] documented in this encounter Plan of Treatment Not on file documented as of this encounter Visit Diagnoses [...] documented as of this encounter Care Teams Commercial Floor Covering Installer Relationship Specialty Start Date End Date Jasen Jean MD [address] [place] [address] PCP - General 03/17/21 documented as of this encounter
--- OUTSIDE RECORDS SUMMARY | 2025-06-08 13:42 | XMS_ITS | Encounter Summary ---
Author Organization [facility] Address [address] [place] [address] Care Team Providers Care Requirements Manager Name Role Phone Jasen Jean MD Primary Care Provider +1- [phone] Encounter Details Date Type Department Care Team ([facility] st Contact Info) Description 08/18/2024 Orders Only External Location [address] [place] [address] Perla Kramer, GLASS INSERTER [address] [facility] [address] [place] [address] Social History Tobacco Use Types Packs/Day Years [...] as of this encounter Plan of Treatment Not on file documented as of this encounter Procedures Procedure Name Priority Date/Time Associated Diagnosis Comments US OUTSIDE IMAGES 08/18/2024 8:16 AM EDT documented in this encounter Results * US OUTSIDE IMAGES (08/18/2024 8:16 AM EDT) Anatomical Region Laterality Modality Ultrasound 08/18/2024 8:16 AM EDT us Perla Kramer GLASS INSERTER IMG US PROCEDURES Sienna l Result documented in this encounter Visit Diagnoses Not on filedocumented in this encounter Additional Health Concerns Assessment Noted Time A fall risk assessment has been complete d for the patient 01/20/2024 3:23 PM EDT A Body Mass Index follow-up plan has been documented for the patient 04/13/2024 3:51 PM EDT documented as of this encounter Care Teams Requirements Manager Relationship Specialty Start Date End Date Jasen Jean MD [address] [place] [address] PCP - General 03/17/21 documented as of this encounter
--- OUTSIDE RECORDS SUMMARY | 2025-06-08 13:42 | XMS_ITS | Encounter Summary ---
Author Organization Healthcare Address [address] [place] [address] Care Team Providers Care Intake Specialist Name Role Phone Jasen Jean MD Primary Care Provider +1- [phone] Encounter Details Date Type Department Care Team (Latest Contact Info) Description 05/25/2025 Travel Social History Tobacco Use Types Packs/Day Years Used Date Smoking Tobacco: Never Passive Smoke Exposure: Never Smokeless Tobacco: Current Snuff Comments:1 can [...] on file documented as of this encounter Functional Status * AUDIT-C Score Answer Date of Assessment Author 7 05/25/2025 8:13 AM EDT Tashi Peterson * Question Answer Date of Assessment Author Q1: How often do you have a drink containing alcohol? 2-3 times a week 05/25/2025 8:13 AM EDT Cristian Peterson Q2: How many drinks containi ng alcohol do you have on a typical day when you are drinking? 3 or 4 05/25/2025 8:13 AM EDT Ana Peterson Q3: How often do you have si x or more drinks on one occasion? Weekly 05/25/2025 8:13 AM EDT Ranulfo Peterson documented as of this encounter Plan of [...] documented as of this encounter Care Teams Intake Specialist Relationship Specialty Start Date End Date Jasen Jean MD [address] [place] [address] PCP - General 03/17/21 documented as of this encounter
--- OUTSIDE RECORDS SUMMARY | 2025-06-08 13:42 | XMS_ITS | Encounter Summary ---
Author Organization Healthcare Address [address] [place] [address] Care Team Providers Care Clinical Faculty Name Role Phone Jasen Jean MD Primary Care Provider +1- [phone] Reason for Visit * Reason Comments Med Refill Encounter Details Date Type Department Care Team (Late st Contact Info) Description 05/13/2025 Refill [facility] Endocrinology [address] [place] [address] Roxana Burris P, ABORIGINAL CEREMONIAL CELEBRANT [address] [facility] [address] [place] [address] Type 2 diabetes mellitus with ophthalmic complication ([facility]) Social History Tobacco Use Types Packs/Day Years [...] documented as of this encounter Care Teams Clinical Faculty Relationship Specialty Start Date End Date Jasen Jean MD [address] [place] [address] PCP - General 03/17/21 documented as of this encounter
--- OUTSIDE RECORDS SUMMARY | 2025-06-08 13:43 | XMS_ITS | Referral Summary ---
Author Organization [email or web address] ([place], [place], [place], [place]) Address [address] [place] [address] Care Team Providers Care Wind Turbine Technician Name Role Phone Unavailable Primary Care [...]
--- OUTSIDE RECORDS SUMMARY | 2025-06-08 13:43 | XMS_ITS | Encounter Summary ---
Author Organization Healthcare Address [address] [place] [address] Care Team Providers Care Belting Inspector Name Role Phone Jasen Jean MD Primary Care Provider +1- [phone] Encounter Details Date Type Department Care Team (Late st Contact Info) Description 05/06/2025 Telephone [facility] [address] [facility] 5th Floor [address] [place] [address] None, None [address] [place], [place] [phone] Social History Tobacco Use Types Packs/Day Years [...] documented as of this encounter Care Teams Belting Inspector Relationship Specialty Start Date End Date Jasen Jean MD [address] [place] [address] PCP - General 03/17/21 documented as of this encounter
--- OUTSIDE RECORDS SUMMARY | 2025-06-08 13:43 | XMS_ITS | Clinical Summary ---
Author Organization [employer] ([place], [place], [place], [place]) Address [address] [place] [address] Care Team Providers Care Laundry Folder Name Role Phone Unavailable Primary Care Provider [...]
--- OUTSIDE RECORDS SUMMARY | 2025-06-08 13:43 | XMS_ITS | Encounter Summary ---
Author Organization Healthcare Address [address] [place] [address] Care Team Providers Care Apparel Merchandiser Name Role Phone Jasen Jean MD Primary Care Provider +1- [phone] Encounter Details Date Type Department Care Team ([facility] st Contact Info) Description 04/12/2025 Orders Only External Location [address] [place] [address] Provider, External Social History Tobacco Use Types [...] documented as of this encounter Care Teams Apparel Merchandiser Relationship Specialty Start Date End Date Jasen Jean MD [address] [place] [address] PCP - General 03/17/21 documented as of this encounter
--- OUTSIDE RECORDS SUMMARY | 2025-06-08 13:43 | XMS_ITS | Clinical Summary ---
[facility] Organization [facility] Address [address] [place] [address] Care Team Providers Care Hose Stripper Name Role Phone Jasen Jean MD Primary Care Provider Social History Tobacco Use Types Packs/Day Years Used Date Smoking Tobacco: Never Assessed Abuse Screen Answer Date Recorded Unsafe at Home or Work/School Not on file Feels Threatened by Someone? Not on file 07/2023 Does Anyone Keep You from Co ntacting Others or Doint Things Outside the Home? Not on file 08/12/2023 Physical Sign of Abuse Present Not on file 1 Housing Stability Answer Date Recorded Current Living Arrangements Not on file 07/2023 Potentially Unsafe Housing Conditions Not on melissa e 08/12/2023 Family and Community Support Answer Yg e Recorded Help with Day-to-Day Activities Not on file 08/12/2023 Lonely or Isolated Not on file 08/12/2023 Employment Answer Date Recorded Do you want help finding or keeping work or a victorino b? Not on file 08/12/2023 Disabilities Answer Date Recorded Concentrating, Remembering, or Making Decisions Difficulty Not on file 08/12/2023 Doing Errands Independently Difficulty Not on fi le 08/12/2023 Education Answer Date Recorded Help with school or training? Not on file Preferred Language Not on file 08/12/2023 Sex and Gender Information Value Date Recorded Sex Assigned at Not on file Legal Sex Male 12:27 PM EDT Gender Identity Not on file Sexual Orientation Not on file Last Filed Vital Signs Vital Sign Reading Time Taken Comments Blood Pressure 110/68 12/12/2015 2:03 PM EST Pulse 94 12/12/2015 2:03 PM EST Temperature 36.1 C (97 F) 12/12/2015 2:03 PM EST Respiratory Rate 16 12/12/2015 2:03 PM EST Oxygen Saturation 98% 12/12/2015 2:03 PM EST Inhaled Oxygen Concentration - - Weight 81.8 kg (180 lb 6.1 oz) 12/12/2015 2:03 P M EST Height 180.3 cm (5' 11 ) 12/12/2015 2:03 PM EST Body Mass Index 25.16 12/12/2015 2:03 PM EST Plan of Treatment Health Maintenance Due Date Last Done Comments TDAP/TD VACCINES (1 - Tdap) 01/19/1980 COLOGUARD 2006 COLON CANCER SCREENING 5 YEAR SIGMOIDOSCOPY 2006 COLONOSCOPY [address] CANCER SCREENING [address] COLONOGRAPHY 2006 FECAL OCCULT BLOOD TEST 2006 FIT Testing (1 year) 2006 Pneumococcal Vaccine 50+ (1 of 1 - PCV) 2011 ZOSTER VACCINE (1 of 2) 2011 ANNUAL PHYSICAL 07/01/2019 HEPATITIS C SCREENING 07/01/2019 PT PLAN OF CARE 07/01/2019 COVID-19 Vaccine ( season) 2024 INFLUENZA VACCINE 08/04/2025 [facility] Care Teams Hose Stripper Relationship Specialty Start Date End Date Jasen Jean MD [address] [place] [facility] [address] [place] [address] PCP - General 06/27/15
== END 2025-06-08 23:59 | disposition home or self-care (01) ==
LOC: RAD 13:39
PROVIDERS: PCP Family Medicine; Visit Provider Family Medicine
DX: M47.812 Spondylosis without myelopathy or radiculopathy, cervical region
CPT/HCPCS: 72050

== ENCOUNTER 2025-06-16 09:14 | Day surgery (SDC) | payer MEDICARE, BC, SELFPAY ==
[2025-06-14 15:37] VITALS: BMI 25.1
[2025-06-16 10:17] VITALS: BP 146/77; PULSE 58; RESP 18; TEMP 36.1; O2SAT 97
--- NOTE | 2025-06-16 10:26 | P.OP_ITS ---
Date of procedure: 06/16/25 Pre-op Diagnosis:: Right diabetic foot ulcer x2 PAD Post-op Diagnosis:: Same Procedure performed:: [facility] Application of skin graft substitute leg (25724-[address]) Surgical prep of skin graft recipient site (02230) Wound debridement (74153) Surgeon:: Latonia Reed DPM Anesthesia: none Estimated blood loss (mL): 2 Clinical Note:: Pre-Op indications: Patient is a 65year-old male with right diabetic foot and arterial ulcers. Patient has failed conservative treatment, including multiple debridements, various wound dressings, antibiotics, immobilization. Patient has seen vascular surgeon. The last x-rays are negative for underlying bone infecti on. Any prior skin/soft tissue infection resolved with oral antibiotics. He had a history of wound debridement with Apligraf applicatio lastly in 04/05/22-which resolved wounds for several years. We discussed staged surgery for graft applications. All risks and benefits were discussed including but not limited to: damage to blood vessels and nerves, bleeding, infection, wound complications, need for further surgery, implant/graft failure, need for removal of implant/graft, allergic reaction, prolonged or permanent swelling of the extremity, prolonged or permanent pain or deformity, CRPS/RSD, DVT/PE, and anesthetic complications including anaphylaxis or . Patient understands if wound/graft gets infected, it could lead to prolonged oral or IV antibiotics or increased risk of osteomyelitis, which could lead to possible loss of partial foot or even BKA. No guarantees were given. All questions fully answered. The patient verbalized understanding and agreed to proceed with surgery. Verbal and written consent was obtained. Operative findings:: Localized edema improved to the right distal forefoot. Erythema from right 1-3rd toes ends to PIPJ-resolved. No ascending cellulitis. Skin discoloration to the R 2-3rd dorsal toes, healed prior PIPJ 2-3rd toe DFUs. No right 2nd toenail. Right distal plantar 1-2nd toe DFU noted. Sharp excisional debridement full thickness with 15' blade, forceps, curette thru skin into subq (2nd toe) and into/including deep fascia (hallux). Post-debridement: Right distal plantar hallux DFU: 4.5 x 2.7 x 0.3cm, 100% granular. Right distal 2nd toe tip DFU: 1.1 x 1.0 x 0.2cm, 100% granular. Mild bleeding with debridement, controlled with compression. No kj purulence expressed. No new acute signs of infection. Operative note:: On this date and time patient was deemed an appropriate surgical candidate. With informed consent signed, the patient was taken to the local procedure operating theater room. The patient was positioned supine. No anesthesia was induced. No tourniquet used. Right lower extremity was prepped and draped in normal sterile fashion. 1g IM Rocephin given. Right foot wound debridement x2: Ulcer noted to the distal plantar hallux and 2nd toe distal tip. Predebridement there was minimal maceration and no acute signs of infection noted. Sharp excisional full-thickness debridement with 15 blade, curette, forceps down to/including subcutaneous tissue (2nd toe), deep fascia (hallux). Biofilm and fibrotic slough removed. No distal phalanx bone exposed. The skin edges were debrided with 15' blade, some bleeding noted. The wound was flushed with gentamicin irrigation. Skin cleansed with saline. Mastisol applied around the wound edges. Application of Apligraf ([employer] wound graft): Graft was prepared in standard fashion. It was cut and 1/4 of it applied to the 2nd toe and 3/4 graft to the hallux. The entire graft (44sq cm) was utilized over the two wounds. The graft was placed over the two open wound/DFUs and circumferentially around the surrounding skin (as the graft was larger than the wounds) and secured with S taylor-Strips. Adaptic was applied over the graft followed by dry sterile dressing to right foot. The patient tolerated the procedure well, without complications. Materials: [employer]ogenesis Aligraf wound graft x1 (44sq cm) Discharge/Plan: Ok to discharge home when ready and vss. Patient is to maintain dressing clean dry and intact. Elevate on two pillows. Minimize weight bearing. FWB to RLE in fracture boot. Discussed planned staged surgery in 1 week on 06/23/25 @1100: right foot wound debridement, application of wound graft #2. Condition: stable Disposition: same day Complications:: None
[2025-06-16] MEDS: GENTAMICIN 80 MG/2 ML VIAL (10:40)
[2025-06-16 11:16] VITALS: BP 116/73; PULSE 57; RESP 16; TEMP 36.6; O2SAT 98
[2025-06-16] MEDS: cefTRIAXone 1GM VIAL 1 GM IM (11:25)
[2025-06-16 12:01] LABS: POC Glucose,Bedside 138 (70-110)
== END 2025-06-16 11:30 | disposition home or self-care (01) ==
PROVIDERS: PCP Family Medicine; Visit Provider Podiatrist
PROC: (CPT 11042; principal; 2025-06-16 10:30)
DX: E11.621 Type 2 diabetes mellitus with foot ulcer (principal); L97.512 Non-pressure chronic ulcer of other part of right foot with fat layer exposed; I48.0 Paroxysmal atrial fibrillation; I25.119 Atherosclerotic heart disease of native coronary artery with unspecified angina pectoris; E11.40 Type 2 diabetes mellitus with diabetic neuropathy, unspecified; E11.51 Type 2 diabetes mellitus with diabetic peripheral angiopathy without gangrene; Z79.84 Long term (current) use of oral hypoglycemic drugs; Z79.4 Long term (current) use of insulin; Z79.01 Long term (current) use of anticoagulants; Z79.02 Long term (current) use of antithrombotics/antiplatelets; Z79.899 Other long term (current) drug therapy; Z88.8 Allergy status to other drugs, medicaments and biological substances
CPT/HCPCS: 11042; 15002; 15271; 15272; 82962; J0696; J1580; Q4101

== ENCOUNTER 2025-06-23 10:52 | Day surgery (SDC) | payer MEDICARE, BC, SELFPAY ==
[2025-06-23 11:05] VITALS: BP 132/68; PULSE 69; RESP 16; TEMP 36.1; O2SAT 98; BMI 25.1
[2025-06-23 11:11] LABS: POC Glucose,Bedside 230 (70-110)
[2025-06-23] MEDS: GENTAMICIN 80 MG/2 ML VIAL (11:50)
[2025-06-23 12:15] VITALS: BP 132/72; PULSE 62; RESP 18; TEMP 36.1; O2SAT 97
--- NOTE | 2025-06-23 12:21 | P.OP_ITS ---
Date of procedure: 06/23/25 Pre-op Diagnosis:: Right diabetic foot ulcer x2 PAD Post-op Diagnosis:: Same Procedure performed:: [facility] Application of skin graft substitute leg ([id number]) Surgical prep of skin graft recipient site (87363) Wound debridement (78632) Surgeon:: Latonia Reed DPM Anesthesia: none Estimated blood loss (mL): 2 Clinical Note:: Pre-Op indications: Patient is a 65year-old male with right diabetic foot and arterial ulcers. Patient has failed conservative treatment, including multiple debridements, various wound dressings, antibiotics, immobilization. Patient has seen vascular surgeon. The last x-rays are negative for underlying bone infecti on. Any prior skin/soft tissue infection resolved with oral antibiotics. He had a history of wound debridement with Apligraf applicatio lastly in 04/05/22-which resolved wounds for several years. We discussed staged surgery for wound debridement and graft applications. On 06/16/25 graft radha #1, 06/23/25 graft radha #2. All risks and benefits were discussed including but not limited to: damage to blood vessels and nerves, bleeding, infection, wound complications, need for further surgery, implant/graft failure, need for removal of implant/graft, allergic reaction, prolonged or permanent swelling of the extremity, prolonged or permanent pain or deformity, CRPS/RSD, DVT/PE, and anesthetic complications including anaphylaxis or . Patient understands if wound/graft gets infected, it could lead to prolonged oral or IV antibiotics or increased risk of osteomyelitis, which could lead to possible loss of partial foot or even BKA. No guarantees were given. All questions fully answered. The patient verbalized understanding and agreed to proceed with surgery. Verbal and written consent was obtained. Operative findings:: Localized edema improved to the right distal forefoot. Erythema from right 1-3rd toes ends to PIPJ-resolved. No ascending cellulitis. Skin discoloration to the R 2-3rd dorsal toes, healed prior PIPJ 2-3rd toe DFUs. No right 2nd toenail. Right distal plantar 1-2nd toe DFU noted. Sharp excisional debridement full thickness with 15' blade, forceps, curette thru skin into subq (2nd toe) and into/including deep fascia (hallux). Post-debridement: Right distal plantar hallux DFU: 3.6 x 2.6 x 0.25cm, 100% granular. Right distal 2nd toe tip DFU: 0.5 x 0.5 x 0.2cm, 100% granular. Mild bleeding with debridement, controlled with compression. No kj purulence expressed. No new acute signs of infection. Operative note:: On this date and time patient was deemed an appropriate surgical candidate. With informed consent signed, the patient was taken to the local procedure operating theater room. The patient was positioned supine. No anesthesia was induced. No tourniquet used. Right lower extremity was prepped and draped in normal sterile fashion. 1g IM Rocephin given. Right foot wound debridement x2: Ulcer noted to the distal plantar hallux and 2nd toe distal tip. Predebridement there was minimal maceration and no acute signs of infection noted. Sharp excisional full-thickness debridement with 15 blade, curette, forceps down to/including subcutaneous tissue (2nd toe), deep fascia (hallux). Biofilm and fibrotic slough removed. No distal phalanx bone exposed. The skin edges were debrided with 15' blade, some bleeding noted. The wound was flushed with gentamicin irrigation. Skin cleansed with saline. Mastisol applied around the wound edges. Application of Apligraf (Organogenesis wound graft): Graft was prepared in standard fashion. It was cut and 1/4 of it applied to the 2nd toe and 3/4 graft to the hallux. The entire graft (44sq cm) was utilized over the two wounds. The graft was placed over the two open wound/DFUs and circumferentially around the surrounding skin (as the graft was larger than the wounds) and secured with Steri-Strips. Adaptic was applied over the graft followed by dry sterile dressing to right foot. The patient tolerated the procedure well, without complications. Materials: Organogenesis Aligraf wound graft x1 (44sq cm) Discharge/Plan: Ok to discharge home when ready and vss. Patient is to maintain dressing clean dry and intact. Elevate on two pillows. Minimize activity and weight bearing. FWB to RLE in fracture boot. Discussed planned staged surgery in 1 week on 06/30/25 @1000: right foot wound debridement, application of wound graft #3. Condition: stable Disposition: same day Complications:: None
== END 2025-06-23 12:22 | disposition home or self-care (01) ==
PROVIDERS: PCP Family Medicine; Visit Provider Podiatrist
PROC: (CPT 15002; principal; 2025-06-23 11:15)
DX: E11.621 Type 2 diabetes mellitus with foot ulcer (principal); L97.519 Non-pressure chronic ulcer of other part of right foot with unspecified severity; I25.10 Atherosclerotic heart disease of native coronary artery without angina pectoris; F32.A Depression, unspecified; E78.5 Hyperlipidemia, unspecified; E11.51 Type 2 diabetes mellitus with diabetic peripheral angiopathy without gangrene; Z88.8 Allergy status to other drugs, medicaments and biological substances; Z79.01 Long term (current) use of anticoagulants; Z79.84 Long term (current) use of oral hypoglycemic drugs; Z79.4 Long term (current) use of insulin; Z79.899 Other long term (current) drug therapy
CPT/HCPCS: 15002; 15271; 15272; 82962; J1580; Q4101

== ENCOUNTER 2025-06-30 08:35 | Day surgery (SDC) | payer MEDICARE, BC, SELFPAY ==
[2025-06-30 08:57] VITALS: BMI 25.1
[2025-06-30 09:03] VITALS: BP 117/57; PULSE 67; RESP 18; TEMP 36.2; O2SAT 98
[2025-06-30] MEDS: GENTAMICIN 80 MG/2 ML VIAL (09:54)
--- NOTE | 2025-06-30 09:54 | EXP.OP.NOTE ---
Date of procedure: 06/30/25 Pre-op Diagnosis:: Right diabetic foot ulcer x2 PAD Post-op Diagnosis:: Same Procedure performed[facility] Application of skin graft substitute leg ([id number]) Surgical prep of skin graft recipient site (47946) Wound debridement x2 (13602) Surgeon:: Latonia Reed DPM Anesthesia: none Estimated blood loss (mL): 2 Clinical Note:: Pre-Op indications: Patient is a 65year-old male with right diabetic foot and arterial ulcers. Patient has failed conservative treatment, including multiple debridements, various wound dressings, antibiotics, immobilization. Patient has seen vascular surgeon. The last x-rays are negative for underlying bone infection. Any prior skin/soft tissue infection resolved with oral antibiotics. He had a history of wound debridement with Apligraf applicatio lastly in 04/05/22-which resolved wounds for several years. We discussed staged surgery for wound debridement and graft applications. On 06/16/25 graft radha #1, 06/23/25 graft radha #2, 06/30/25 graft #3. All risks and benefits were discussed including but not limited to: damage to blood vessels and nerves, bleeding, infection, wound complications, need for further surgery, implant/graft failure, need for removal of implant/graft, allergic reaction, prolonged or permanent swelling of the extremity, prolonged or permanent pain or deformity, CRPS/RSD, DVT/PE, and anesthetic complications including anaphylaxis or . Patient understands if wound/graft gets infected, it could lead to prolonged oral or IV antibiotics or increased risk of osteomyelitis, which could lead to possible loss of partial foot or even BKA. No guarantees were given. All questions fully answered. The patient verbalized understanding and agreed to proceed with surgery. Verbal and written consent was obtained. Operative findings:: Localized edema continues to improve to the right distal forefoot. Erythema from right 1-3rd toes ends to PIPJ-resolved. No ascending cellulitis. Skin discoloration to the R 2-3rd dorsal toes, healed prior PIPJ 2-3rd toe DFUs. No right 2nd toenail. Right distal plantar 1-2nd toe DFU noted with mild leonardo wound maceration. Sharp excisional debridement full thickness with 15' blade, forceps, curette thru skin into/including subq. Post-debridement: Right distal plantar hallux DFU: 3.25 x 2.4 x 0.2cm, 85% granular, 15% yellow/white graft incorporation. Right distal 2nd toe tip DFU: 0.2 x 0.2 x 0.1cm, 100% granular. Mild bleeding with debridement, controlled with compression. No kj purulence expressed. No new acute signs of infection. Operative note:: On this date and time patient was deemed an appropriate surgical candidate. With informed consent signed, the patient was taken to the local procedure operating theater room. The patient was positioned supine. No anesthesia was induced. No tourniquet used. Right lower extremity was prepped and draped in normal sterile fashion. 1g IM Rocephin given. Right foot wound debridement x2: Ulcer noted to the distal plantar hallux and 2nd toe distal tip. Predebridement there was some leonardo wound maceration and no acute signs of infection noted. Sharp excisional full-thickness debridement with 15 blade, curette, forceps down to/including subcutaneous tissue. Biofilm and fibrotic slough removed. No distal phalanx bone exposed. The skin edges were debrided with 15' blade, some bleeding noted. The wound was flushed with gentamicin irrigation. Skin cleansed with saline. Mastisol applied around the wound edges. Application of Apligraf (Organogenesis wound graft): Graft was prepared in standard fashion. It was cut and 1/4 of it applied to the 2nd toe and 3/4 graft to the hallux. The entire graft (44sq cm) was utilized over the two wounds. The graft was placed over the two open wound/DFUs and circumferentially around the surrounding skin (as the graft was larger than the wounds) and secured with Steri-Strips. Adaptic was applied over the graft followed by betadine soaked gauze to dry leonardo wound/ graft skin. A dry sterile dressing with gauze, darya, coban applied to right foot. The patient tolerated the procedure well, without complications. Materials: Organogenesis Aligraf wound graft x1 (44sq cm) Discharge/Plan: Ok to discharge home when ready and vss. Patient is to maintain dressing clean dry and intact. Elevate on two pillows. Minimize activity and weight bearing. FWB to RLE in fracture boot. Discussed planned staged surgery in 1 week on 07/08/25 @1300: right foot wound debridement, application of wound graft #4 depending on appearance at office visit on 07/06/25. Condition: stable Disposition: same day Complications:: None
--- NOTE | 2025-06-30 10:14 | SUR.OPER ---
pt right foot was prepped by this rn with betadine in sterile fashion. pt tolerated well
[2025-06-30 10:24] VITALS: BP 122/60; PULSE 60; RESP 17; TEMP 36.6; O2SAT 99
[2025-06-30] MEDS: cefTRIAXone 1GM VIAL 1 GM IM (10:34)
[2025-06-30 15:02] LABS: POC Glucose,Bedside 197 gm/dL (70-110)
== END 2025-06-30 10:38 | disposition home or self-care (01) ==
PROVIDERS: PCP Family Medicine; Visit Provider Podiatrist
PROC: (CPT 15002; principal; 2025-06-30 09:55)
DX: E11.621 Type 2 diabetes mellitus with foot ulcer (principal); L97.519 Non-pressure chronic ulcer of other part of right foot with unspecified severity; I25.10 Atherosclerotic heart disease of native coronary artery without angina pectoris; F32.A Depression, unspecified; E78.5 Hyperlipidemia, unspecified; E11.51 Type 2 diabetes mellitus with diabetic peripheral angiopathy without gangrene; I48.0 Paroxysmal atrial fibrillation; Z88.8 Allergy status to other drugs, medicaments and biological substances; Z79.84 Long term (current) use of oral hypoglycemic drugs; Z79.01 Long term (current) use of anticoagulants; Z79.4 Long term (current) use of insulin; Z79.899 Other long term (current) drug therapy
CPT/HCPCS: 15002; 15271; 15272; 82962; J0696; J1580; Q4101

== ENCOUNTER 2025-07-06 10:00 | Outpatient (CLI) | payer MEDICARE, BC, SELFPAY ==
--- OUTSIDE RECORDS SUMMARY | 2024-11-26 09:45 | XMS_ITS ---
Author Organization [facility] Address [address] [facility] [address] [place] [phone] Care Team Providers Care Engineering Instructor Name Role Phone Craig Jean Primary Care [...] Notes Problem Mixed anxiety and depressive disorder (844730729) Depression with anxiety (F41.8) Active confirmed Vital Signs Blood pressure systolic 112 mm Hg 11/26/19 25 Blood pressure diastolic 60 mm Hg 025 Heart Rate 64 /min 11/26/2024 Height 71 in 11/26/2024 Weight 184.6 lbs 11/26/2024 BMI 25.74 kg/m2 11/26/2024 Encounters Encounter Location Date Provider Diagnosis [facility] [address] [facility] [address] [place] [phone] 11/26/2024 Craig Jean Depression with anxiety F41.8 [...] Progress Notes * DEWEYCHERYLERASHIDAOB:1960 (65 yo M)Acc No.[id number]:11/26/2024 Progress Notes Patient: RIKA FLOREZ Provider: Craig Jean M.D. :1960 A ge:64 Y S ex:Male Date:11/26/2024 Address:[address] [place], [id number] Subjective: * Chief Complaints: * 1 . [...] eft knee arthroscopy , back surgery at [facility] Dr Roth 05/11, right hand surgery-Dr [...] uncle: hyperlipidemia, diabetes. S iblings: Brother had [place] at age 52, heart attack. 1 brother(s) , 1 sister(s) . 2 son(s) , 1 daughter(s) . . Great grand mother diabetes. * Social History: C URRENT TOBACCO USE S moking Status: Patient does NOT smoke. C affeine: yes, frequency:. Marital Status: . Alcohol: socially, Type: [place] , Frequency: 3-5 times/week ,Years: , Determination:. [...] * Images: Billing Information: * Visit Code: 67516 Office Visit, Est Pt., Level 3. * Procedure Codes: G2211 Complex e/m visit add on. * Electronic signature of Craig Jean MD on 07/08/2025 at 10:06 AM EDT Sign off status: Pending * Provider: Craig Jean M.D. Date: 0 11/26/2024 Generated for Lucy forrester/Eddie/Jessiitting on: 0 07/08/2025 10:06 AM EDT History and Physical Notes * Examination Category Sub-Category Detail Notes Category Not es Psychology Heart: RSR Lungs: clear to auscultatio n General Appearance: NAD Grooming : neat Eye contact : decreased Mood : A bit flat
--- OUTSIDE RECORDS SUMMARY | 2025-04-13 09:45 | XMS_ITS ---
Author Organization [facility]ancy Address [facility] [address] [place] [phone] Care Team Providers Care Laborer Orchard Name Role Phone Craig Jean Primary Care [...] Encounter Location Date Provider Diagnosis [facility] [address] [place] [phone] 04/13/2025 Craig Jean Adult general medica l [...] Notes * DEEPTHI MARMOLEJO:1960 (65 yo M)Acc No.[id number]:04/13/2025 Annual Wellness Visit Patient: RIKA FLOREZ Provider: Craig Jean M.D. :1960 A ge:65 Y S ex:Male Date:04/13/2025 Address:[place], [id number] Subjective: * Chief Complaints: * 1 . [...] uncle: hyperlipidemia, diabetes. S iblings: Brother had [place] at age 52, heart attack. 1 brother(s) , 1 sister(s) . 2 son(s) , 1 daughter(s) . . Great grand mother diabetes. * Social History: C URRENT TOBACCO USE S moking Status: Patient does NOT smoke. C affeine: yes, frequency:. Marital Status: . Alcohol: socially, Type: [place] , Frequency: 3-5 times/week ,Years: , Determination:. [...] , G2211 Complex e/[place], [address] GLYCATED HEMOGLOBIN TEST, Modifiers: QW , 1090F PRES/ABSN URINE INCON ASSESS, 3288F FALL RISK ASSESSMENT DOCD, 1170F FXNL STATUS ASSESSED, 1126F AMNT PAIN NOTED NONE PRSNT, 1159F MED LIST DOCD IN RCRD, 1003F LEVEL OF ACTIVITY ASSESS, 08605 CBC WITH AUTO DIFF, 1036F TOBACCO NON-USER [...] 25 G2211 Complex e/[place]. [address] GLYCATED HEMOGLOBIN TEST. Modifiers: QW 1090F PRES/ABSN URINE INCON ASSESS. 3288F FALL RISK ASSESSMENT DOCD. 1170F FXNL STATUS ASSESSED. 1126F AMNT PAIN NOTED NONE PRSNT. 1159F MED LIST DOCD IN RCRD. 1003F LEVEL OF ACTIVITY ASSESS. 01635 CBC WITH AUTO DIFF. 1036F TOBACCO NON-USER. * Electronic signature of Craig Jean MD on 07/08/2025 at 10:06 AM EDT Sign off status: Pending * Provider: Craig Jean M.D. Date: 0 04/13/2025 Generated for Lucy forrester/Eddie/Jessiitting on: 0 07/08/2025 [...]
--- OUTSIDE RECORDS SUMMARY | 2025-05-25 08:20 | XMS_ITS | Encounter Summary ---
Author Organization [facility] Address [address] [id number] Care Team Providers Care Machine Overhauler Name Role Phone Jasen Jean MD Primary Care Provider +1- [phone] Reason for Referral * Consultation (Routine) - Authorized Specialty Diagnoses / Procedures Referred By Contac t Referred To Contact Cardiology Diagnoses Atrial fibrillation, unspecified type (CMS/HCC) Mukund Agustin MD [address] [facility] [address] [place] [address] Phone: tel: fax: Referral ID Status Reason Start Date Expiration Date Visits Requested Visits Authorized [id number] Authorized Specialty Services Required 05/25/2025 11/24/2026 1 1 Reason for Visit * Reason Comments Abnormal ankle brachial index (MARILIA) - Diabetic foot ulcer * Consultation (Urgent) - Closed Specialty Diagnoses / Procedures Referred By Contact Referred To Contact Vascular Surgery / Comprehensive [facility] Diagnoses Abnormal ankle brachial index (MARILIA) Diabetic foot ulcer (CMS/HCC) Latonia Reed [address] [address] Phone: tel:[phone] [place] [facility] [address] [facility] 5th Floor [address], [address] [place] [address] Phone: tel: fax: Referral ID Status Reason Start Date Expiration Date V isits Requested Visits Authorized [id number] Closed Specialty Services Required 05/04/2025 11/03/2026 1 1 Encounter Details Date Type Department Care Team (Latest Contact Info) Description 05/25/2025 8:20 AM EDT Office Visit [facility] Comprehensive Vascular Clinic [address] [facility] 5th Floor [address] [place] [address] Mukund Agustin MD [address] [facility] [address] [place] [address] Atrial fibrillation, unspecified type (CMS/HCC) (Primary Dx); Open wound of right foot, initial encounter; Type 2 diabetes mellitus with foot ulcer, with long-term current use of insulin (CMS/HCC) Social History Tobacco Use Types Packs/Day Years Used Date Smoking Tobacco: Never Passive Smoke Exposure: Never Smokeless Tobacco: Current Snuff Tobacco Cessation:Ready to Q uit: Not Asked; Counseling Given: Not Answered Comments:1 can daily. Alcohol Use Standard Drinks/Week Comments Yes 0 (1 standard drink = 0.6 oz pur e alcohol) Occ. PHQ-2 Answer Date Recorded Patient Health Questionnaire-2 Score 0 01/20/2024 AUDIT-C Answer Date Recorded Q1: How often do you have a drink containing alc ohol? 2-3 times a week 05/25/2025 Q2: How many drinks containi ng alcohol do you have on a typical day when you are drinking? 3 or 4 05/25/2025 Q3: How often do you have si x or more drinks on one occasion? Weekly 05/25/2025 Sex and Gender Information Value Date Recorded Sex Assigned at Not on file Legal Sex Male 7:33 PM EDT Gender Identity Not on file Sexual Orientation Not on file documented as of this encounter Last Filed Vital Signs Vital Sign Reading Time Taken Comments Blood Pressure 104/67 05/25/2025 8:21 AM EDT Pulse 67 05/25/2025 8:09 AM EDT Temperature 36.6 C (97.9 F) 05/25/2025 8:09 AM EDT Respiratory Rate - - Oxygen Saturation 97% 05/25/2025 8:09 AM EDT Inhaled Oxygen Concentration - - Weight 81.8 kg (180 lb 5.4 oz) 05/25/2025 8:09 A M EDT Height 177.8 cm (5' 10 ) 05/25/2025 8:09 AM EDT Body Mass Index 25.88 05/25/2025 8:09 AM EDT documented in this encounter Functional Status * AUDIT-C Score Answer Date of Assessment Author 7 05/25/2025 8:13 AM EDT Tashi Peterson fredy * Question Answer Date of Assessment Author Q1: How often do you have a drink containing alcohol? 2-3 times a week 05/25/2025 8:13 AM EDT Cristian Peterson a Q2: How many drinks containi ng alcohol do you have on a typical day when you are drinking? 3 or 4 05/25/2025 8:13 AM EDT Ana Peterson na Q3: How often do you have si x or more drinks on one occasion? Weekly 05/25/2025 8:13 AM EDT Ranulfo Peterson documented as of this encounter Miscellaneous Notes * Progress Notes - Lexi Waller MD - 05/25/2025 8:20 AM EDT Dear Jasen Jean MD, HPI We had the pleasure of seeing your patient, Tomy Marmolejo, in clinic today in consultation for abnormally elevated ABIs. Patient has longstanding T2DM which was fairly uncontrolled for at least 18 years and has resulting significant neuropathy in his feet and frequent toe wounds. He follows with podiatry, and had ABIs recently on 04/12 which showed noncompressible vessels proximally with normal toe pressure. He states that he cannot feel his feet at all, and as a result he frequently develops wounds on his feet. The wounds are slow to heal, but he denies history of non-healing wounds. He denies rest pain and claudication symptoms. He has never had a vascular intervention before. I personally and independently reviewed the [facility] Vascular Lab Images from prior to today's visit which showed: noncompressible vessels in bilateral lower extremities with elevated MARILIA, normal toe pressures His chronic comorbid conditions that impact our treatment planning include: Hypertension (HTN) - well controlled, with a last BP of: BP Readings from Last 3 Encounters: 07/22/25 104/67 10/19/24 132/77 04/13/24 123/63 Diabetes (DM) - improved, with a last HbA1C of: 7.9 Dyslipidemia - control uncertain Cardiac Arrhythmia - well controlled, with the following arrhythmia: atrial fibrillation The following portions of the chart were reviewed this encounter and updated as appropriate: Subjective Review of Systems A 14 point review of systems was completed and is negative except what is stated in HPI/interval history. Objective Physical Exam Constitutional: well developed, well nourished, and in no acute distress Eye: equal and round Ears, Nose, Throat: normal atraumatic, no neck masses Respiratory: Normal expansion. Clear to auscultation. No rales, rhonchi, or wheezing. Cardiac: Heart regular rate and rhythm Musculoskeletal: normal strength, tone, and muscle mass, no deformities Psychiatric: oriented to time, place and person, mood and affect are within normal limits Neurologic: absent sensation Arterial: Lower Extremity Right Left Femoral Not evaluated Not evaluated Popliteal Not evaluated Not evaluated Dorsalis Pedis Present 2+ Present 2+ Posterior Tibial Doppler Doppler Capillary Refill <2 sec <2 sec Assessment/Plan In Summary: Tomy Marmolejo is a 65 y.o. year old male who we saw today in clinic in consultation for bilateral foot wounds and abnormally elevated ABIs. 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 Toe pressures are good. This is consistent with vascular changes due to prison uncontrolled diabetes. He has palpable DP bilaterally and multiphasic PT signals bilaterally, indicating good blood flow to the extremity. 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 There is no role for vascular surgery intervention at this time. Recommend patient continue good glucose control and follow upwith podiatry. Below is a summary of the diagnoses addressed in today's visit and any associated orders: Problem List Items Addressed This Visit Type 2 diabetes mellitus, with long-term current use of insulin ([facility]) Open wound of foot Other Visit Diagnoses Atrial fibrillation, unspecified type ([facility]) - Primary Relevant Medications Cartia XT 240 MG 24 hr capsule Other Relevant Orders Ambulatory referral to Cardiology We will see him back for: on an as needed basis The patient was counseled on the importance of: - strict diabetic glucose control - aspirin therapy for overall cardiovascular health - tobacco avoidance (a total time of 4-10 minutes was undertaken, addressing the role of tobacco incardiovascular disease and disease progression) - proper nutrition, exercise and maintaining a healthy weight. Cosigned by Mukund Agustin MD at 05/26/2025 9:01 AM EDT Associated attestation - Mukund Agustin MD - 05/26/2025 9:01 AM EDT I saw and evaluated the patient with the resident/fellow. I discussed the case with the resident/fellow and agree with the findings and plan as documented. This patient does not have evidence of arterial insufficiency. His MARILIA demonstrates medial calcinosis, however, his toe pressures are excellent. documented in this encounter Plan of Treatment Upcoming Encounters Date Type Department Care Team (Late st Contact Info) Description 08/09/2025 9:30 AM EDT Office Visit [facility] [place] [address] [facility], [address] [place] [address] Fina Muñoz, CONTENT DEVELOPMENT MANAGER [address] [place] [address] Scheduled Referrals Name Type Priority Associated Diagnoses Orde r Schedule Ambulatory referral to Cardiology Outpatient Referral Routine Atrial fibrillation, unspecified type (CMS/HCC) Expected: 05/25/2025 (Approximate), Expires: 11/26/2026 documented as of this encounter Visit Diagnoses Diagnosis Atrial fibrillation, unspecified type (CMS/HCC)- Primary Open wound of right foot, initial encounter Type 2 diabetes mellitus with foot ulcer, with long-term current use of insulin (CMS/HCC) documented in this encounter Additional Health Concerns Assessment Noted Time A fall risk assessment has been complete d for the patient 05/25/2025 8:18 AM EDT A Body Mass Index follow-up plan has been documented for the patient 05/26/2025 9:09 AM EDT documented as of this encounter Care Teams Machine Overhauler Relationship Specialty Start Date End Date Jasen Jean MD [address] [place] [address] PCP - General 03/17/21 documented as of this encounter
--- OUTSIDE RECORDS SUMMARY | 2025-06-03 10:15 | XMS_ITS ---
Author Organization [facility] Address [address] [place] [id number] Care Team Providers Care Drug Coordinator Name Role Phone Craig Jean Primary Care Provider [phone] Allergies Allergen (clinical drug ingredient) Drug/Non Drug [...] 167 Performing Lab: Notes/Report: Test performed by [facility] [address] [place] [address] , [address], [place] [address] Lucas Zhou MD, [facility] CLIA: [id number] Sodium 139 135-145 mmol/L Potassium 4.8 3.5-5.3 [...] 58 Performing Lab: Notes/Report: Test performed by [facility], [address] , [address], [place] [address] Lucas Zhou MD, [facility] CLIA: [id number] Albumin/Creatinine Ratio, Urine 58 0-30 ug/m g [...] Status W/U Status Risk Notes Problem Cervicalgia (04924668) Cervicalgia (M54.2) Active confirmed Vital Signs Blood pressure systolic 110 mm Hg 06/03/20 25 Blood pressure diastolic 60 mm Hg 025 Heart Rate 69 /min 06/03/2025 Height 71 in 06/03/2025 Weight 181.8 lbs 06/03/2025 BMI 25.35 kg/m2 06/03/2025 Encounters Encounter Location Date Provider [facility] [address] [address] [id number] 06/03/2025 Craig Jean Depression with anxi ety [...] Notes * LISA MARMOLEJODIPIKAOB:1960 (65 yo M)Acc No.[id number]:06/03/2025 Patient: RIKA FLOREZ Provider: Craig Jean M.D. :1960 A ge:65 Y S ex:Male Date:06/03/2025 Address:[facility] [place], [id number] Subjective: * Chief Complaints: * 1 . [...] eft knee arthroscopy , back surgery at [facility] Dr Roth 05/11, right hand [...] frequency:. Marital Status: . Alcohol: socially, Type: [place] , Frequency: 3-5 times/week ,Years: , Determination:. [...] 69, O2 Sat: 94% on RA, Nurse: [facility], Ht: 71, BMI:25.35. * Examination: G [...] G 2211 Complex e/[place] [address] CBC WITH AUTO DIFF, 49868 Urinalysis, no micro, G8420 BMI<30 AND >=22 CALC & DOCU, 1036F TOBACCO NON-USER, G8783 BP SCR PRFRM RCMDD DEFIND SCR INTVL, G8752 MOST RECENT SYSTOLIC BP < 140MM HG, G8754 MOST RECENT DIASTOLIC BP < 90MM HG * Follow Up: 6 Months * Images: Billing Information: * Visit Code: 06681 Office Visit, Est Pt., Level 4. * Procedure Codes: G2211 Complex e/[place] [address] CBC WITH AUTO DIFF. 14103 Urinalysis, no micro. G8420 BMI<30 AND >=22 [...] 06/03/2025 Generated for Lucy forrester/Eddie/eTransmitting on: 0 07/08/2025 10:06 AM EDT History [...]
--- OUTSIDE RECORDS SUMMARY | 2025-06-11 05:45 | XMS_ITS ---
Author Organization [facility]-Radha Address [address] [facility] [address] [place] [id number] Care Team Providers Care Manager Cosmetic Name Role Phone Craig Jean Primary Care [...] growth Performing Lab: Notes/Report: Test performed by [employer], [employer] [address] [place] [address] , [address], [place] [address] Lucas Zhou MD, Dolphin Researcher CLIA: [id number] Specimen Source Urine - Void Culture, Urine See Below Final Report : No growth REASON FOR VISIT blood work Encounters Encounter Location Date Provider Diagnosis [facility] [address] [facility] [address] [place] [id number] 06/11/2025 Craig Chuy Jean Type 2 diabetes [...] Notes * RASHIDA MARMOLEJOOB:1960 (65 yo M)Acc No.[id number]:06/11/2025 Patient: RIKA FLOREZ Provider: Craig Jean M.D. :1960 A ge:65 Y S ex:Male Date:06/11/2025 Address:[facility] [place] Subjective: * Chief Complaints: * 1 . [...] QW , 3052F HG A1C>EQUAL 8.0%<EQUAL 9.0%, 91812 CBC WITH AUTO DIFF, 61215 CAPILLARY BLOOD DRAW, 05819 Urinalysis, no micro * Images: Billing Information: * Visit Code: * Procedure Codes: 98489 GLYCATED HEMOGLOBIN TEST. Modifiers: QW 3052F HG A1C>EQUAL 8.0%<EQUAL 9.0%. 60614 CBC WITH AUTO DIFF. 38016 CAPILLARY BLOOD DRAW. 61037 Urinalysis, no micro. * Electronic signature of Craig Jean MD on 07/08/2025 at 10:07 AM EDT Sign off status: Pending * Provider: Flako Powell: 0 06/11/2025 Generated for Lucy forrester/Eddie/Jessiitting on: 0 07/08/2025 10:07 AM EDT
--- OUTSIDE RECORDS SUMMARY | 2025-06-17 04:33 | XMS_ITS ---
Author Organization [facility] Address [address] [facility] [address] [place] [phone] Care Team Providers Care Farm Equipment Assembler Name Role Phone Craig Jean Primary Care Provider [phone] Reason For Referral Reason PT at [facility] For cervic al DJD/ facet arthropathy Diagnosis 1 Facet arthropathy, c ervical (M46.92) Ref[facility] Referring Provider First Name Craig Vera Referring Provider Last Name Ted Referring Provider Speciality Family Pra ctice Referred Provider Physical Therapy, . Referred Provider Specialty Physical The rapist General Notes Emilia Da Silva 2024 01:26:35 PM > faxed to [facility] PT Referral Priority Routine Problems Problem Type SNOMED Code ICD Code Onset Dates Problem Status W/U Status Risk Notes Problem Arthropathy of cervical spine facet joint (disorder) (945657063) Facet arthropathy, cervical (M46.92) Active confirmed Encounters Encounter Location Date Provider Diagnosis [facility] [address] [facility] [address] [place] [id number] 06/17/2025 Craig Jean Cervicalgia M54.2 an d Facet arthropathy, cervical M46.92 Assessments Encounter Date Diagnosis (ICD Code) Assessment Notes Treatment Notes Treatment Clinical Notes Section Notes 06/17/2025 Cervicalgia (ICD-10 - M54.2) 06/17/2025 Facet arthropathy, cervical (ICD-10 - M46.92) Plan Of Treatment Referrals Referral Date Details 06/17/2025 06/17/2025, PT at [facility] For cervical DJD/ facet arthropathy, . Physical Therapy Progress Notes * RASHIDA MARMOLEJOOB:1960 (65 yo M)Acc No.[id number]:06/17/2025 Patient: RIKA FLOREZ :1960 A ge:65 Y S ex:Male Address:[facility] [address] Subjective: * Chief Complaints: * * Medical History: * Surgical History: * Hospitalization/Major Diagno stic Procedure: * Medications: Objective: * Vitals: * Physical Examination: Assessment: * Assessment: 1. C ervicalgia - M54.2 (Primary) 2 . F acet arthropathy, cervical - M46.92? Plan: * Treatment: * Procedure Codes: * true * Date: Generated for Lucy forrester/Eddie/eTjuansmitting on: 0 07/08/2025 10:07 AM EDT Consultation Request Notes Referral Date Referring Provider Referred Provider Not es 06/17/2025 Craig Jean Physical Therapy, . PT at [facility] For cervical DJD/ facet arthropathy
--- OUTSIDE RECORDS SUMMARY | 2025-07-08 10:08 | XMS_ITS | Clinical Summary ---
Author Organization [facility] Address [address] [place] [address] Care Team Providers Care Drapery Rod Assembler Name Role Phone Jasen Jean MD Primary Care Provider [phone]- [phone] Allergies Active Allergy Reactions Criticality Noted Date [...] Christina 2nd Gen) 32G X 4 MM miscIndications: Type 2 diabetes mellitus with other specified complication, with long-term current use of insulin ([facility]) USE TO INJECT INSULIN ONCE DAILY 100 each 3 08/11/20 24 Active clopidogrel (Plavix) 75 MG tablet Take 1 tablet (75 mg) by mouth 1 (one) time each day. Active apixaban (Eliquis) 2.5 MG tablet Take 1 tablet (2.5 mg) by mouth 2 (two) times a day. Active Semglee 100 UNIT/ML injection penIndications:T ype 2 diabetes mellitus with other specified complication, with long-term current use of insulin ([facility]) Inject 11 units two times daily. Titrate as directed. MDD: 30 units 30 mL 1 10/19/20 24 Active metFORMIN XR (Glucophage-XR) 500 MG 24 hr tablet Take 2 tablets (1,000 mg) by mouth 2 (two) times a day with meals. 360 tablet 10/19/20 24 025 Active pioglitazone (Actos) 30 MG tabletIndication s:Type 2 diabetes mellitus with other specified complication, with long-term current use of insulin ([facility]) Take 1 tablet by mouth daily. 30 tablet 2 04/05/20 25 Active atorvastatin (Lipitor) 40 MG tabletIndication s:Type 2 diabetes mellitus with ophthalmic complication ([facility]) TAKE 1 TABLET BY MOUTH ONCE DAILY PLEASE HAVE LABS COMPLETED AND FAXED TO OFFICE FOR FUTHER REFILLS 30 tablet 04/16/20 25 Active sulfamethoxazole -trimethoprim (Bactrim DS) 800-160 MG tablet 05/19/20 25 Active hydrOXYzine pamoate (Vistaril) 25 MG capsule take 1 capsule by mouth three times daily as needed for anxiety 11/26/19 25 Active DULoxetine (Cymbalta) [address] capsule Take 1 capsule by mouth daily. Active Cartia XT 240 MG 24 hr capsule Take 1 capsule by mouth daily. 06/23/20 24 Active Santyl 250 UNIT/GM ointment Apply topically daily. Active Jardiance 25 MGIndications:Ty pe 2 diabetes mellitus with other specified complication, with long-term current use of insulin ([facility]) Take 1 tablet by mouth once daily 90 tablet 06/16/20 25 Active empagliflozin (Jardiance) 25 MGIndications:Ty pe 2 diabetes mellitus with other specified complication, with long-term current use of insulin ([facility]) Take 1 tablet (25 mg) by mouth 1 (one) time each day. 90 tablet 10/19/20 24 025 Discontinued Active Problems Problem Noted Date Diagnosed Date Open wound of foot 05/26/2025 Coronary artery disease 04/13/2024 Type 2 diabetes mellitus with ophthalmic complic ation 01/20/2024 Type 2 diabetes mellitus, wi th long-term current use of insulin 01/20/2024 Retinopathy 01/20/2024 Neuropathy 01/20/2024 Primary hypertension 08/09/2023 Other hyperlipidemia 08/09/2023 Encounters Date Type Department Care Team Description 06/16/2025 Refill [facility] Endocrinology [address] [place] [id number] Roxana Burris APRN Type 2 diabetes mellitus with other specified complication, with long-term current use of insulin ([facility]) 05/25/2025 8:20 AM EDT Office Visit [facility] [address] [place] [address] Mukund Agustin MD Atrial fibrillation, unspecified type ([facility]) (Primary Dx); Open wound of right foot, initial encounter; Type 2 diabetes mellitus with foot ulcer, with long-term current use of insulin ([facility]) 05/25/2025 Travel 05/13/2025 Refill [facility] Endocrinology [address] [place] [address] Roxana Burris APRN Type 2 diabetes mellitus with ophthalmic complication ([facility]) 05/06/2025 Telephone [facility] [address] [place] [address] None, None 04/16/2025 Refill [facility] Endocrinology [address] [place] [address] Roxana Burris APRN Type 2 diabetes mellitus with ophthalmic complication ([facility]) 04/12/2025 Orders Only External Location [address] [place] [id number] Provider, External from Last 3 Months Family History Medical [...] 05/25/2025 8:09 AM EDT Plan of Treatment Upcoming Encounters Date Type Department Care Team (Late st Contact Info) Description 08/09/2025 9:30 AM EDT Office Visit [facility] [place] [address] [facility] [facility], [address] [place] [address] Fina Muñoz, ELEMENTARY MATH TUTOR [address] [place] [address] Health Maintenance Due Date Last Done Comments [...] - Risk 60-74 years 1-dose series) 2021 [id number] Vaccine (2 - 2023- season) 2024 01/12/2021 [...] % [facility] Kit Lot Number [id number] [facility] Kit Expiration Date 07/04/26 HEALTHCARE LAB Blood Venous blood specimen / Unknown 10/19/2024 2:29 PM EST us Roxana Burris ELEMENTARY MATH TUTOR POINT OF CARE TEST ENTER /EDIT ORDERABLES Final Result Performing Organization Address City/State/[facility] Co de Phone Number [facility] [address] [place] [phone] from Last 3 Months or Most Recently Relevant to Health Maintenance Insurance MEDICARE [facility] Care Teams Drapery Rod Assembler Relationship Specialty Start Date End Date Jasen Jean MD [address] [place] [id number] PCP - General 03/17/21
--- OUTSIDE RECORDS SUMMARY | 2025-07-08 10:08 | XMS_ITS | Encounter Summary ---
Author Organization [facility] Address [address] [place] [address] Care Team Providers Care Service Counselor Name Role Phone Jasen Jean MD Primary Care Provider +1- [phone] Reason for Visit * Reason Comments Med Refill Encounter Details Date Type Department Care Team (Late st Contact Info) Description 06/16/2025 Refill [facility] Endocrinology [address] [place] [address] Roxana Burris P, YEAST WASHER [address] [address] Type 2 diabetes mellitus with other specified complication, with long-term current use of insulin ([facility]) Social History Tobacco Use Types Packs/Day [...] encounter Miscellaneous Notes * Telephone Encounter - José Miguel Catalan - 06/16/2025 11:22 AM EDT 1 medication(s) has been approved per protocol. Pt needs appt. documented in this encounter Plan of Treatment Upcoming Encounters Date Type Department Care Team (Late st Contact Info) Description 08/09/2025 9:30 AM EDT Office Visit [facility] [place] [address] [facility], [address] [place] [address] Fina Muñoz, YEAST WASHER [address] [place] [address] documented as of this encounter Visit Diagnoses Diagnosis Type 2 diabetes mellitus with other specified complication, with long-term current use of insulin ([facility]) documented in this encounter Additional Health Concerns Assessment Noted Time A fall risk assessment has been complete d for the patient 05/25/2025 8:18 AM EDT A Body Mass Index follow-up plan has been documented for the patient 05/26/2025 9:09 AM EDT documented as of this encounter Care Teams Service Counselor Relationship Specialty Start Date End Date Jasen Jean MD [address] [place] [id number] PCP - General 03/17/21 documented as of this encounter
--- OUTSIDE RECORDS SUMMARY | 2025-07-08 10:08 | XMS_ITS | Encounter Summary ---
Author Organization [facility] Address [address] [place] [address] Care Team Providers Care Endoscopy Rn Name Role Phone Jasen Jean MD Primary Care Provider +1- [phone] Encounter Details Date Type Department Care Team [...] Description 08/09/2025 9:30 AM EDT Office Visit [facility] [place] [address] [facility], [address] [place] [address] Fina Muñoz, WEB COMMUNICATIONS SPECIALIST [address] [place] [address] documented as of this encounter Visit Diagnoses Not on filedocumented in this encounter Additional Health Concerns Assessment Noted Time A fall risk assessment has been complete d for the patient 05/25/2025 8:18 AM EDT A Body Mass Index follow-up plan has been documented for the patient 05/26/2025 9:09 AM EDT documented as of this encounter Care Teams Endoscopy Rn Relationship Specialty Start Date End Date Jasen Jean MD [address] [place] [id number] PCP - General 03/17/21 documented as of this encounter
--- OUTSIDE RECORDS SUMMARY | 2025-07-08 10:08 | XMS_ITS | Encounter Summary ---
Author Organization [facility] Address [address] [place] [address] Care Team Providers Care Sewing Machine Bobbin Winder Name Role Phone Jasen Jean MD Primary Care Provider +1- [phone] Encounter Details Date Type Department Care Team (Late Contact Info) Description 08/18/2024 Orders Only External Location [address] [place] [address] Perla Kramer, E[employer]EIN [employer] ASSISTANT MANAGER [address] [place] [address] Social History Tobacco Use Types Packs/Day Years [...] Encounters Date Type Department Care Team (Late Contact Info) Description 08/09/2025 9:30 AM EDT Office Visit [facility] [place] [address] [facility], [address] [place] [phone] Fina Muñoz, EINSTEIN [employer] ASSISTANT MANAGER [address] [place] [address] documented as of this encounter Procedures Procedure Name Priority Date/Time Associated Diagnosis Comments US OUTSIDE IMAGES 08/18/2024 8:16 AM EDT documented in this encounter Results * US OUTSIDE IMAGES (08/18/2024 8:16 AM EDT) Anatomical Region Laterality Modality Ultrasound 08/18/2024 8:16 AM EDT us Perla Kramer EINSTEIN BR[employer]EL[employer] ASSISTANT MANAGER IMG US PROCEDURES Sienna l Result documented in this encounter Visit Diagnoses Not on filedocumented in this encounter Additional Health Concerns Assessment Noted Time A fall risk assessment has been complete d for the patient 01/20/2024 3:23 PM EDT A Body Mass Index follow-up plan has been documented for the patient 04/13/2024 3:51 PM EDT documented as of this encounter Care Teams Sewing Machine Bobbin Winder Relationship Specialty Start Date End Date Jasen Jean MD [address] [place] [id number] PCP - General 03/17/21 documented as of this encounter
--- OUTSIDE RECORDS SUMMARY | 2025-07-08 10:08 | XMS_ITS | Clinical Summary ---
Author Organization [email or web address] ([place], [place], [place], [place]) Address [address] [place] [address] Care Team Providers Care [employer]ary Name Role Phone Unavailable Primary Care Provider [...]
--- OUTSIDE RECORDS SUMMARY | 2025-07-08 10:08 | XMS_ITS | Referral Summary ---
Author Organization [employer] ([place], [place], [place], [place]) Address [address] [place] [address] Care Team Providers Care Laboratory Analyst Name Role Phone Unavailable Primary Care [...]
--- OUTSIDE RECORDS SUMMARY | 2025-07-08 10:08 | XMS_ITS | Patient Health Record ---
Author Organization [facility] Address [address] [place] [phone] Care Team Providers Care Web Applications Programmer Name Role Phone Craig Jean Primary Care [...] 167 Performing Lab: Notes/Report: Test performed by [email or web address], Skype [facility] [place][note 2]0 [facility] , [address], [place] [address] Lucas Zhou MD, Vice President [employer] CLIA: [id number] Sodium 139 135-145 mmol/L Potassium 4.8 3.5-5.3 [...] 58 Performing Lab: Notes/Report: Test performed by [email or web address] [address] [place] [address] , [place] [address] Lucas Zhou MD, Vice President [employer] CLIA: [id number] Albumin/Creatinine Ratio, Urine 58 0-30 ug/mg Microalbumin, Urine, Random 4.5 Creatinine, Urine 78.1 X ray : Spine, cervical Reviewed date:06/17/2025 01:30:15 PM Interpretation:degenerative/chronic changes Performing Lab: Notes/Report: degenerative/chronic changes P-Microalbumin/Creatinine, R andom Urine Sample Reviewed date:08/06/2024 04:44:51 PM Interpretation:a/c 49 Performing Lab: Notes/Report: Test performed by [email or web address] [address] [place] [address] , [facility] [place] [address] Lucas Zhou MD, Vice President [employer] CLIA: [id number] Albumin/Creatinine Ratio, Urine 49 0-30 ug/mg Microalbumin, Urine, Random 7.4 Creatinine, Urine 152.2 P-PSA Reviewed date:08/06/2024 04:44:51 PM Interpretation:Normal Performing Lab: Notes/Report: Test performed by [email or web address] [address] [place] [address] , [place] [address] Lucas Zhou MD, Vice President [employer] CLIA: [id number] PSA 3.60 <4.00 ng/mL Please note this is an ultrasensitive PSA assay with a lower limit of detection of 0.014 ng/mL. This test is performed by the Gal[employer] ECLIA methodology. Values obtained with different assay methods or kits cannot be directly compared. P-Comprehensive Metabolic Pa octaviano ([facility]) Reviewed date:08/06/2024 04:44:51 PM Interpretation:gluc 118 Performing Lab: Notes/Report: Test performed by [email or web address], Skype [address] [facility] , [address], [place] [address] Lucas Zhou MD, Vice President [employer] CLIA: [id number] Sodium 141 135-145 mmol/L Potassium 4.2 3.5-5.3 [...] 1.0 <0.2-1.2 mg/dL A/G Ratio 1.6 1.1-2.5 Glycohemoglobin A1c (in hous e) Reviewed date:08/06/2024 04:44:51 PM Interpretation:7.4% Performing Lab: Notes/Report: 7.4% glycohemoglobin 7.4% 5 - 6.5 % CBC Venipuncture (in house) Reviewed date:08/06/2024 04:44:51 [...] - 38 platlet 282 100 - 400 Urinalysis - Inhouse Reviewed date:06/17/2025 01:31:38 PM [...] growth Performing Lab: Notes/Report: Test performed by [facility] [address] [place] [address] , [address], [place] [address] Lucas Zhou MD, Vice President [employer] CLIA: [id number] Specimen Source Urine - Void Culture, Urine See Below Final Report : No growth Medications Medication SIG (Take, Route, Frequency, Duration) Notes Start Date End Date Status Bisoprolol Fumarate 5 MG 1/2 tablet Oral ly Once a day Active Atorvastatin Calcium 40 MG 1 tab(s) orally once a day Active metFORMIN HCl 500 MG 1 tab(s) orally 2 t imes a day Active Prasugrel HCl 10 MG as directed Orally Not-Taking Glimepiride 1 MG 1 tablet with breakf ast or the first main meal of the day Orally Once a day Active DULoxetine HCl 60 MG 1 capsule Orally On ce a day; Duration: 90 days Active Xarelto 20 MG 1 tablet with food Orally Once a day; Duration: 30 day(s) Not-Taking Jardiance 25 MG 1 tab(s) orally once a day (in the morning) Active Flomax 0.4 MG 1 cap(s) orally once a day Active Eliquis 5 MG 1 tab Orally twice a day Active hydrOXYzine Pamoate 25 MG 1 cap(s) Orall y three times a day as needed anxiety 11/26/2024 Active Sildenafil Citrate 50 MG 1 tablet as nee ded Orally Once a day; Duration: 30 day(s) 08/04/2024 Active Clopidogrel Bisulfate 75 MG 1 tablet Orally Once a day Active Immunizations Vaccine Route Administration Date Status Comme nts Tetanus Tdap-Adacel (over 7yrs) IM Intramuscular 05/13/2009 Administered Prevnar (PCV20) Unknown 04/13/2025 Pending Fluzone Quad (6months&older) IM Intramuscular 11/08/2022 Administered Fluzone Quad (6months&older) IM Intramuscular 09/05/2023 Administered Fluzone Quad (6months&older) IM Intramuscular 08/04/2024 Administered COVID 19 Carrillo Unknown 01/12/2021 Administered Problems Problem Type SNOMED Code ICD Code Onset Dates Problem Status W/U Status Risk Notes Problem Diabetic foot ulcer (788356295) Diabetic foot ulcer (E11.621) Active confirmed Problem Anxiety disorder (374670453) Anxiety disorder (F41.9) Active confirmed Problem Cholelithiasis (873185400) Cholelithiasis (K80.20) Active confirmed Problem Cervicalgia (43172786) Cervicalgia (M54.2) Active confirmed Problem Mixed anxiety and depressive disorder (500928907) Depression with anxiety (F41.8) Active confirmed Problem Arthropathy of cervical spine facet joint (disorder) (720413298) Facet arthropathy, cervical (M46.92) Active confirmed Problem Benign prostatic hyperplasia (745717313) BPH (benign prostatic hyperplasia) (N40.0) Active confirmed Problem Pulmonary nodule (936283823) Pulmonary nodule (R91.1) Active confirmed Problem Type II diabetes mellitus without complication (321116586) Insulin dependent diabetes mellitus (E11.9) Active confirmed Problem Depressive disorder (19716831) Depressive disorder (F32.9) Active confirmed Problem Dyslipidemia (859231981) Dyslipidemia (E78.5) Active confirmed Problem Type II diabetes mellitus without complication (283323062) Type 2 diabetes mellitus without complication, without long-term current use of insulin (E11.9) Active confirmed Problem Peripheral vascular disease (591064039) PAD (peripheral artery disease) (I73.9) Active confirmed Problem Hyperglycemia due to type 2 diabetes mellitus (472035738661943) Type 2 diabetes mellitus with hyperglycemia, without long-term current use of insulin (E11.65) Active confirmed Problem Polyneuropathy due to type 2 diabetes mellitus (977386193) Type 2 diabetes mellitus with diabetic polyneuropathy, without long-term current use of insulin (E11.42) Active confirmed Problem Irritable bowel syndrome characterized by constipation (136288682) Irritable bowel syndrome with constipation (K58.1) Active confirmed Problem Lower urinary tract symptoms due to benign prostatic hypertrophy (76271397488439) Benign prostatic hyperplasia with lower urinary tract symptoms (N40.1) Active confirmed Problem Gallstone (725378829) Gall stones (K80.20) Active confirmed Problem Allergic rhinitis (33168444) Allergic rhinitis, unspecified seasonality, unspecified trigger (J30.9) Active confirmed Problem Secondary erectile dysfunction (disorder) (399327576) 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) Active confirmed Problem Contracture of palmar fascia (845971835) Dupuytren's contracture of both hands (M72.0) Active confirmed Vital Signs Heart Rate 69 /min 06/03/2025 Blood pressure diastolic 60 mm Hg 06/03/2025 Height 71 in 06/03/2025 Blood pressure systolic 110 mm Hg 06/03/2025 Weight 181.8 lbs 06/03/2025 BMI 25.35 kg/m2 06/03/2025 Encounters Encounter Location Date Provider Diagnosis [facility] [address] [facility] [address] [place] [id number] 08/04/2024 Craig Jean Encounter for immunization Z23 ; Insulin dependent diabetes mellitus E11.9 ; Dyslipidemia E78.5 ; ED (erectile dysfunction) of organic origin N52.9 ; Prostate cancer screening Z12.5 and Allergic rhinitis, unspecified seasonality, unspecified trigger J30.9 [facility] [address] [facility] [address] [facility] [address] [place], [place] [id number] 11/26/2024 R Chuy Jean Depression with anxi ety F41.8 [facility] [address] [facility] [address] [facility] [address] [place], [place] [id number] 06/03/2025 R Chuy Scaleseet Depression with anxi ety F41.8 ; Type 2 diabetes mellitus with diabetic polyneuropathy, without long-term current use of insulin E11.42 ; Cervicalgia M54.2 ; Flank pain R10.9 ; Dyslipidemia E78.5 and BMI 25.0-25.9,adult Z68.25 [facility] [address] [place], [place] [id number] 06/11/2025 R Chuy Schmittt Type 2 diabetes mellitus without complication, without long-term current use of insulin E11.9 and Flank pain R10.9 [facility] [address] [place], [place] [id number] 05/25/2025 R Chuy Ted [facility] [address] [place], [place] [id number] 08/05/2024 R Chuy Ted [facility] [address] [place], [place] [id number] 08/06/2024 R Chuy Ted [facility] [address] [place], [place] [id number] 03/15/2025 R Chuy Ted [facility] [address] [place], [place] [id number] 06/08/2025 R Chuy Ted [facility] [address] [place], [place] [id number] 06/17/2025 R Chuy Ted Cervicalgia M54.2 an d Facet arthropathy, cervical M46.92 Assessments Encounter Date Diagnosis (ICD Code) Assessment Notes Treatment Notes Treatment Clinical Notes Section Notes 08/04/2024 Encounter for immunization (ICD-10 - Z23) 08/04/2024 Insulin dependent diabetes mellitus (ICD-10 - E11.9) 11/26/2024 Depression with anxiety (ICD-10 - F41.8) 06/03/2025 Depression with anxiety (ICD-10 - F41.8) 06/03/2025 Type 2 diabetes mellitus with diabetic polyneuropathy, without long-term current use of insulin (ICD-10 - E11.42) 06/11/2025 Type 2 diabetes mellitus without complication, without long-term current use of insulin (ICD-10 - E11.9) 06/17/2025 Cervicalgia (ICD-10 - M54.2) 06/17/2025 Facet arthropathy, cervical (ICD-10 - M46.92) 06/11/2025 Flank pain (ICD-10 - R10.9) 06/03/2025 Cervicalgia (ICD-10 - M54.2) 08/04/2024 Dyslipidemia (ICD-10 - E78.5) 08/04/2024 ED (erectile dysfunction) of organic origin (ICD-10 - N52.9) 06/03/2025 Flank pain (ICD-10 - R10.9) 06/03/2025 Dyslipidemia (ICD-10 - E78.5) 08/04/2024 Prostate cancer screening (ICD-10 - Z12.5) 08/04/2024 Allergic rhinitis, unspecified seasonality, unspecified trigger (ICD-10 - J30.9) 06/03/2025 BMI 25.0-25.9,adult (ICD-10 - Z68.25) Plan Of Treatment No Information Insurance Providers Payer Name Payer Address Payer Phone Subscriber Number Group Number Insured Name Patient Relationship to Insured Coverage Start Date Coverage End Date MEDICARE PART B [address] [address] Aurelianomirtha amaya [place] [id number] RIKA MOY Self - patient is the insured [facility] [address] [place] [address] [id number] RIKA MOY Self - patient is the insured Medical (General) History Medical History History ICD Code type 2 diabetes hyperlipidemia ? rheumatoid arthritis - Dr. Sylvester diabetic neuropathy Diabetic foot ulcers Diabetic retinopathy ASCVD Paroxysmal AF Surgical History Surgery Date(Month/Year) left knee arthroscopy back surgery at [facility] Dr Roth right hand surgery-Dr Paulson 06/04/19 bone shaved from bilateral feet-Dr Sepulveda 01/2022 Coronary stent to LAD and RCA/ [place] 06/2023 Basal Cell Carcinoma Removal from Left S hugh of Nose 02/25/2024 Hospitalization History Reason Date(Month/Year) [facility] ER-Heart Palpitation 07/05/10
--- OUTSIDE RECORDS SUMMARY | 2025-07-08 10:08 | XMS_ITS | Encounter Summary ---
Author Organization Healthcare Address [address] [place] [address] Care Team Providers Care Video Camera Operator Name Role Phone Jasen Jean MD Primary Care Provider +1- [phone] Encounter Details Date Type Department Care Team (Late Contact Info) Description 04/12/2025 Orders Only External Location [address] [place] [phone] Provider, External Social History Tobacco Use Types [...] Description 08/09/2025 9:30 AM EDT Office Visit [facility] [place] [address] [facility], [address] [place] [address] Fina Muñoz APRN [address] [place] [address] documented as of this encounter Procedures Procedure [...] documented as of this encounter Care Teams Video Camera Operator Relationship Specialty Start Date End Date Jasen Jean MD [address] [place] [address] PCP - General 03/17/21 documented as of this encounter
--- OUTSIDE RECORDS SUMMARY | 2025-07-08 10:08 | XMS_ITS | Encounter Summary ---
Author Organization Healthcare Address [address] [place] [address] Care Team Providers Care Dental Appliance Repairer Name Role Phone Jasen Jean MD Primary Care Provider +1- [phone] Reason for Visit * Reason Comments Med Refill Encounter Details Date Type Department Care Team (Late st Contact Info) Description 05/13/2025 Refill [facility] Endocrinology [address] [place] [address] Roxana Burris P, BLANKING MACHINE OPERATOR [address] [facility] [address] [place] [address] Type 2 diabetes mellitus with ophthalmic complication ([facility]) Social History Tobacco Use Types Packs/Day Years [...] Description 08/09/2025 9:30 AM EDT Office Visit [facility] [place] [address] [facility], [address] [place] [address] Fina Muñoz, BLANKING MACHINE OPERATOR [address] [place] [address] documented as of this encounter [...] documented as of this encounter Care Teams Dental Appliance Repairer Relationship Specialty Start Date End Date Jasen Jean MD [address] [place] [address] PCP - General 03/17/21 documented as of this encounter
--- OUTSIDE RECORDS SUMMARY | 2025-07-08 10:08 | XMS_ITS | Clinical Summary ---
[facility] Address [address] [place] [address] Care Team Providers Care Rotary Dryer Operator Name Role Phone Jasen Jean MD [...] ( season) 2024 INFLUENZA VACCINE 08/04/2025 [facility] Care Teams Rotary Dryer Operator Relationship Specialty Start Date End Date Jasen Jean MD [address] [place] [facility] [address] [place] [address] PCP - General 06/27/15
== END 2025-07-06 23:59 | disposition home or self-care (01) ==
LOC: LAB.DROPOF 07-08 10:02
PROVIDERS: PCP Podiatrist; Visit Provider Podiatrist
DX: L03.115 Cellulitis of right lower limb (principal); E11.621 Type 2 diabetes mellitus with foot ulcer; L97.519 Non-pressure chronic ulcer of other part of right foot with unspecified severity
CPT/HCPCS: 87070; 87077; 87186; 87205

== ENCOUNTER 2025-07-12 11:18 | Outpatient (CLI) | payer MEDICARE, BC, SELFPAY ==
--- OUTSIDE RECORDS SUMMARY | 2024-11-26 09:45 | XMS_ITS ---
Author Organization [facility] Address [address] [facility] [address] [place] [phone] Care Team Providers Care Supervisor Plastering Name Role Phone Craig Jean Primary Care [...] Notes Problem Mixed anxiety and depressive disorder (136993023) Depression with anxiety (F41.8) Active confirmed Vital Signs Blood pressure systolic 112 mm Hg 11/26/19 25 Blood pressure diastolic 60 mm Hg 025 Heart Rate 64 /min 11/26/2024 Height 71 in 11/26/2024 Weight 184.6 lbs 11/26/2024 BMI 25.74 kg/m2 11/26/2024 Encounters Encounter Location Date Provider Diagnosis [facility] [address] [facility] [address] [place] [phone] 11/26/2024 Craig Jean Depression with anxiety F41.8 [...] Progress Notes * DEWEYCHERYLERASHIDAOB:1960 (65 yo M)Acc No.[id number]:11/26/2024 Progress Notes Patient: RIKA FLOREZ Provider: Craig Jean M.D. :1960 A ge:64 Y S ex:Male Date:11/26/2024 Address:[address], [id number] Subjective: * Chief Complaints: * 1 . [...] eft knee arthroscopy , back surgery at [facility] Dr Roth 05/11, right hand surgery-Dr [...] uncle: hyperlipidemia, diabetes. S iblings: Brother had [place] at age 52, heart attack. 1 brother(s) , 1 sister(s) . 2 son(s) , 1 daughter(s) . . Great grand mother diabetes. * Social History: C URRENT TOBACCO USE S moking Status: Patient does NOT smoke. C affeine: yes, frequency:. Marital Status: . Alcohol: socially, Type: [place] , Frequency: 3-5 times/week ,Years: , Determination:. [...] * Images: Billing Information: * Visit Code: 93852 Office Visit, Est Pt., Level 3. * Procedure Codes: G2211 Complex e/m visit add on. * Electronic signature of Craig Jean MD on 07/12/2025 at 11:22 AM EDT Sign off status: Pending * Provider: Craig Jean M.D. Date: 0 11/26/2024 Generated for Lucy forrester/Eddie/Jessiitting on: 0 07/12/2025 11:22 AM EDT History and Physical Notes * Examination Category Sub-Category Detail Notes Category Not es Psychology Heart: RSR Lungs: clear to auscultatio n General Appearance: NAD Grooming : neat Eye contact : decreased Mood : A bit flat
--- OUTSIDE RECORDS SUMMARY | 2025-04-13 09:45 | XMS_ITS ---
Author Organization Yancy Address [facility] [address] [place] [phone] Care Team Providers Care Supervisor Veneer Name Role Phone Craig Jean Primary Care Provider [phone] Allergies Allergen (clinical drug ingredient) Drug/Non Drug Allergy documented on EMR Reaction Allergy Type Onset Date Status semaglutide Rybelsus stomach upset Drug Allergy A ctive REASON FOR VISIT cough and checkup with Annual Wellness visit, due for diabetic eye exam Immunizations Vaccine Route Administration Date Status Comme nts Prevnar (PCV20) Unknown 04/13/2025 Pending Encounters Encounter Location Date Provider Diagnosis [facility] [address] [place] [phone] 04/13/2025 Craig Jean Adult general medica l [...] Notes * DEEPTHI MARMOLEJO:1960 (65 yo M)Acc No.[id number]:04/13/2025 Annual Wellness Visit Patient: RIKA FLOREZ Provider: Craig Jean M.D. :1960 A ge:65 Y S ex:Male Date:04/13/2025 Address:[place], [id number] Subjective: * Chief Complaints: * 1 . [...] eft knee arthroscopy , back surgery at [facility] Dr Roth 05/11, right hand surgery-Dr [...] uncle: hyperlipidemia, diabetes. S iblings: Brother had [place] at age 52, heart attack. 1 brother(s) , 1 sister(s) . 2 son(s) , 1 daughter(s) . . Great grand mother diabetes. * Social History: C URRENT TOBACCO USE S moking Status: Patient does NOT smoke. C affeine: yes, frequency:. Marital Status: . Alcohol: socially, Type: [place] , Frequency: 3-5 times/week ,Years: , Determination:. [...] , G2211 Complex e/[place], [address] GLYCATED HEMOGLOBIN TEST, Modifiers: QW , 1090F PRES/ABSN URINE INCON ASSESS, 3288F FALL RISK ASSESSMENT DOCD, 1170F FXNL STATUS ASSESSED, 1126F AMNT PAIN NOTED NONE PRSNT, 1159F MED LIST DOCD IN RCRD, 1003F LEVEL OF ACTIVITY ASSESS, 46416 CBC WITH AUTO DIFF, 1036F TOBACCO NON-USER [...] 25 G2211 Complex e/[place]. [address] GLYCATED HEMOGLOBIN TEST. Modifiers: QW 1090F PRES/ABSN URINE INCON ASSESS. 3288F FALL RISK ASSESSMENT DOCD. 1170F FXNL STATUS ASSESSED. 1126F AMNT PAIN NOTED NONE PRSNT. 1159F MED LIST DOCD IN RCRD. 1003F LEVEL OF ACTIVITY ASSESS. 19497 CBC WITH AUTO DIFF. 1036F TOBACCO NON-USER. * Electronic signature of Craig Jean MD on 07/12/2025 at 11:22 AM EDT Sign off status: Pending * Provider: Craig Jean M.D. Date: 0 04/13/2025 Generated for Lucy forrester/Eddie/Jesisitting on: 0 07/12/2025 11:22 AM EDT History [...]
--- OUTSIDE RECORDS SUMMARY | 2025-05-25 08:20 | XMS_ITS | Encounter Summary ---
Author Organization [facility] Address [address] [id number] Care Team Providers Care Global Expansion Sales Director Name Role Phone Jasen Jean MD Primary Care Provider [phone]- [phone] Reason for Referral * Consultation (Routine) - Authorized Specialty Diagnoses / Procedures Referred By Contac t Referred To Contact Cardiology Diagnoses Atrial fibrillation, unspecified type (CMS/HCC) Mukund Agustin MD 0 [facility] [address] [place] [address] Phone: tel: fax: Referral ID Status Reason Start Date Expiration Date Visits Requested Visits Authorized [id number] Authorized Specialty Services Required 05/25/2025 11/24/2026 1 1 Reason for Visit * Reason Comments Abnormal ankle brachial index (MARILIA) - Diabetic foot ulcer * Consultation (Urgent) - Closed Specialty Diagnoses / Procedures Referred By Contact Referred To Contact Vascular Surgery / Comprehensive [facility] Clinic Diagnoses Abnormal ankle brachial index (MARILIA) Diabetic foot ulcer (CMS/HCC) Latonia Reed [address] [address] Phone: tel:[phone] [place] [facility] 0 [facility] 5th Floor [address], [address] [place] [address] Phone: tel: fax: Referral ID Status Reason Start Date Expiration Date V isits Requested Visits Authorized [id number] Closed Specialty Services Required 05/04/2025 11/03/2026 1 1 Encounter Details Date Type Department Care Team (Latest Contact Info) Description 05/25/2025 8:20 AM EDT Office Visit [facility] Comprehensive Vascular Clinic [address] [facility] 5th Floor [address] [place] [address] Mukund Agustin MD [address] [facility] [address] [place] [address] Atrial fibrillation, unspecified type (CMS/HCC) [...] before. I personally and independently reviewed the [facility] Vascular Lab Images from prior to today's [...] is consistent with vascular changes due to group home uncontrolled diabetes. He has palpable DP bilaterally [...] mellitus, with long-term current use of insulin ([facility]) Open wound of foot Other Visit Diagnoses Atrial fibrillation, unspecified type ([facility]) - Primary Relevant Medications Cartia XT [...] Description 08/09/2025 9:30 AM EDT Office Visit [facility] [place] [address] [facility], [address] [place] [address] Fina Muñoz, PIZZA COOK [address] [place] [address] Scheduled Referrals Name Type Priority [...] documented as of this encounter Care Teams Global Expansion Sales Director Relationship Specialty Start Date End Date Jasen Jean MD [address] [place] [address] PCP - General 03/17/21 documented as of this encounter
--- OUTSIDE RECORDS SUMMARY | 2025-06-03 10:15 | XMS_ITS ---
Author Organization [facility] Address [address] [place] [phone] Care Team Providers Care Glass Fitter Name Role Phone Craig Jean Primary Care Provider [phone] Allergies Allergen (clinical drug ingredient) Drug/Non Drug [...] PM Interpretation:gluc 167 Performing Lab: Notes/Report: CLIA: [id number] Lucas Zhou MD, Ticket Machine Operator [address] [facility] , [address], [place] [address] Test performed by [facility], [facility] Sodium 139 135-145 mmol/L Potassium 4.8 3.5-5.3 [...] 58 Performing Lab: Notes/Report: Test performed by [employer], [address] , [address], [place] [address] Lucas Zhou MD, Ticket Machine Operator CLIA: [id number] Albumin/Creatinine Ratio, Urine 58 0-30 ug/m g [...] Status W/U Status Risk Notes Problem Cervicalgia (40554274) Cervicalgia (M54.2) Active confirmed Vital Signs Blood pressure systolic 110 mm Hg 06/03/20 25 Blood pressure diastolic 60 mm Hg 025 Heart Rate 69 /min 06/03/2025 Height 71 in 06/03/2025 Weight 181.8 lbs 06/03/2025 BMI 25.35 kg/m2 06/03/2025 Encounters Encounter Location Date [facility] [address] [phone] 06/03/2025 Craig Jean Depression with anxi ety [...] Notes * LISA MARMOLEJODIPIKAOB:1960 (65 yo M)Acc No.[id number]:06/03/2025 Patient: RIKA FLOREZ Provider: Craig Jean M.D. :1960 A ge:65 Y S ex:Male Date:06/03/2025 Address:[facility] [place], [id number] Subjective: * Chief Complaints: * 1 . [...] eft knee arthroscopy , back surgery at [facility] Dr Roth 05/11, right hand surgery-Dr Paulson [...] uncle: hyperlipidemia, diabetes. S iblings: Brother had [place] at age 52, heart attack. 1 brother(s) , 1 sister(s) . 2 son(s) , 1 daughter(s) . . Great grand mother diabetes. * Social History: C URRENT TOBACCO USE S moking Status: Patient does NOT smoke. C affeine: yes, frequency:. Marital Status: . Alcohol: socially, Type: [place] , Frequency: 3-5 times/week ,Years: , Determination:. [...] 69, O2 Sat: 94% on RA, Nurse: [facility], Ht: 71, BMI:25.35. * Examination: G eneral [...] D yslipidemia - E78.5 6 . B [place] 25.0-25.9,adult - Z68.25 Plan: * Treatment: 2. [...] G 2211 Complex e/[place], [address] CBC WITH AUTO DIFF, 82037 Urinalysis, no micro, G8420 BMI<30 AND >=22 CALC & DOCU, 1036F TOBACCO NON-USER, G8783 BP SCR PRFRM RCMDD DEFIND SCR INTVL, G8752 MOST RECENT SYSTOLIC BP < 140MM HG, G8754 MOST RECENT DIASTOLIC BP < 90MM HG * Follow Up: 6 Months * Images: Billing Information: * Visit Code: 55477 Office Visit, Est Pt., Level 4. * Procedure Codes: G2211 Complex e/[place]. [address] CBC WITH AUTO DIFF. 52307 Urinalysis, no micro. G8420 BMI<30 AND >=22 [...] 0 06/03/2025 Generated for Lucy forrester/Eddie/eTransmitting on: 0 07/12/2025 11:22 AM EDT History [...]
--- OUTSIDE RECORDS SUMMARY | 2025-06-11 05:45 | XMS_ITS ---
Author Organization [facility]-Radha Address [address] [facility] [address] [place] [phone] Care Team Providers Care Supervisor Frame Sample And Pattern Name Role Phone Craig Jean Primary Care [...] growth Performing Lab: Notes/Report: Test performed by [employer], [employer] [address] [place] [address] , [address], [place] [address] Lucas Zhou MD, Restaurant Line Cook CLIA: [id number] Specimen Source Urine - Void Culture, Urine See Below Final Report : No growth REASON FOR VISIT blood work Encounters Encounter Location Date Provider Diagnosis [facility] [address] [facility] [address] [place] [id number] 06/11/2025 Craig Chuy Jean Type 2 diabetes [...] Notes * RASHIDA MARMOLEJOOB:1960 (65 yo M)Acc No.[id number]:06/11/2025 Patient: RIKA FLOREZ Provider: Craig Jean M.D. :1960 A ge:65 Y S ex:Male Date:06/11/2025 Address:[facility] [place], [place] Subjective: * Chief Complaints: * 1 . [...] p lat 237 100 - 400 * MonseSherry 06/11/2025 09:56 :33 AM EDT > Craig [...] QW , 3052F HG A1C>EQUAL 8.0%<EQUAL 9.0%, 23603 CBC WITH AUTO DIFF, 27201 CAPILLARY BLOOD DRAW, 40810 Urinalysis, no micro * Images: Billing Information: * Visit Code: * Procedure Codes: 21019 GLYCATED HEMOGLOBIN TEST. Modifiers: QW 3052F HG A1C>EQUAL 8.0%<EQUAL 9.0%. 52842 CBC WITH AUTO DIFF. 39920 CAPILLARY BLOOD DRAW. 90296 Urinalysis, no micro. * Electronic signature of Craig Jean MD on 07/12/2025 at 11:23 AM EDT Sign off status: Pending * Provider: Flako Powell: 0 06/11/2025 Generated for Lucy forrester/Eddie/Sharri on: 0 07/12/2025 11:23 AM EDT
--- OUTSIDE RECORDS SUMMARY | 2025-06-17 04:33 | XMS_ITS ---
Author Organization [facility] Address [address] [facility] [address] [place] [phone] Care Team Providers Care Founder And Chief Technical Officer Name Role Phone Craig Jean Primary Care Provider [phone] Reason For Referral Reason PT at [facility] For cervic al DJD/ facet arthropathy Diagnosis 1 Facet arthropathy, c ervical (M46.92) Referral [facility] Referring Provider First Name Craig Vera Referring Provider Last Name Ted Referring Provider Speciality Family Pra ctice Referred Provider Physical Therapy, . Referred Provider Specialty Physical The rapist General Notes Emilia Da Silva 2024 01:26:35 PM > faxed to [facility] PT Referral Priority Routine Problems Problem Type SNOMED Code ICD Code Onset Dates Problem Status W/U Status Risk Notes Problem Arthropathy of cervical spine facet joint (disorder) (672344536) Facet arthropathy, cervical (M46.92) Active confirmed Encounters Encounter Location Date Provider Diagnosis [place] [address] [facility] [address] [place] [id number] 06/17/2025 Craig Jean Cervicalgia M54.2 an d Facet arthropathy, cervical M46.92 Assessments Encounter Date Diagnosis (ICD Code) Assessment Notes Treatment Notes Treatment Clinical Notes Section Notes 06/17/2025 Cervicalgia (ICD-10 - M54.2) 06/17/2025 Facet arthropathy, cervical (ICD-10 - M46.92) Plan Of Treatment Referrals Referral Date Details 06/17/2025 06/17/2025, PT at [facility] For cervical DJD/ facet arthropathy, . Physical Therapy Progress Notes * RASHIDA MARMOLEJOOB:1960 (65 yo M)Acc No.[id number]:06/17/2025 Patient: RIKA FLOREZ :1960 A ge:65 Y S ex:Male Address:[facility] [place] [address] Subjective: * Chief Complaints: * * Medical History: * Surgical History: * Hospitalization/Major Diagno stic Procedure: * Medications: Objective: * Vitals: * Physical Examination: Assessment: * Assessment: 1. C ervicalgia - M54.2 (Primary) 2 . F acet arthropathy, cervical - M46.92? Plan: * Treatment: * Procedure Codes: * true * Date: Generated for Lucy forrester/Eddie/eTransmitting on: 0 07/12/2025 11:23 AM EDT Consultation Request Notes Referral Date Referring Provider Referred Provider Not es 06/17/2025 Craig Jean Physical Therapy, . PT at [facility] For cervical DJD/ facet arthropathy
--- OUTSIDE RECORDS SUMMARY | 2025-07-12 11:22 | XMS_ITS | Clinical Summary ---
Author Organization [employer] ([place], [place], [place], [place]) Address [address] [place] [address] Care Team Providers Care Manager Part Name Role Phone Unavailable Primary Care Provider [...]
--- OUTSIDE RECORDS SUMMARY | 2025-07-12 11:22 | XMS_ITS | Clinical Summary ---
[facility] Address [address] [place] [address] Care Team Providers Care Radiological Technician Name Role Phone Jasen Jean MD Primary [...] OF CARE 07/01/2019 COVID-19 Vaccine ( season) 2025 INFLUENZA VACCINE 08/04/2025 [facility] Care Teams Radiological Technician Relationship Specialty Start Date End Date Jasen Jean MD [address] [place] [facility] [address] [place] [address] PCP - General 06/27/15
--- OUTSIDE RECORDS SUMMARY | 2025-07-12 11:22 | XMS_ITS | Encounter Summary ---
Author Organization Healthcare Address [address] [place] [address] Care Team Providers Care Cessation Systems Outreach Specialist Name Role Phone Jasen Jean MD Primary Care Provider +1- [phone] Encounter Details Date Type Department Care Team [...] Description 08/09/2025 9:30 AM EDT Office Visit [facility] [place] [address] [facility], [address] [place] [address] Fina Muñoz, ACCOUNTANT AUDITOR [address] [place] [address] documented as of this encounter Visit Diagnoses Not on filedocumented in this encounter Additional Health Concerns Assessment Noted Time A fall risk assessment has been complete d for the patient 05/25/2025 8:18 AM EDT A Body Mass Index follow-up plan has been documented for the patient 05/26/2025 9:09 AM EDT documented as of this encounter Care Teams Cessation Systems Outreach Specialist Relationship Specialty Start Date End Date Jasen Jean MD [address] [place] [address] PCP - General 03/17/21 documented as of this encounter
--- OUTSIDE RECORDS SUMMARY | 2025-07-12 11:22 | XMS_ITS | Encounter Summary ---
Author Organization [facility] Address [address] [place] [address] Care Team Providers Care Carpet Repairer Name Role Phone Jasen Jean MD Primary Care Provider +1- [phone] Encounter Details Date Type Department Care Team (Late Contact Info) Description 08/18/2024 Orders Only External Location [address] [place] [address] Perla Kramer, RELOCATION MANAGER [address] [facility] [address] [place] [address] Social History Tobacco Use Types Packs/Day Years [...] Description 08/09/2025 9:30 AM EDT Office Visit [facility] [address] [facility], [address] [place] [address] Fina Muñoz, RELOCATION MANAGER [address] [place] [address] documented as of this encounter Procedures Procedure Name Priority Date/Time Associated Diagnosis Comments US OUTSIDE IMAGES 08/18/2024 8:16 AM EDT documented in this encounter Results * US OUTSIDE IMAGES (08/18/2024 8:16 AM EDT) Anatomical Region Laterality Modality Ultrasound 08/18/2024 8:16 AM EDT us Perla Kramer RELOCATION MANAGER IMG US PROCEDURES Sienna l Result documented in this encounter Visit Diagnoses Not on filedocumented in this encounter Additional Health Concerns Assessment Noted Time A fall risk assessment has been complete d for the patient 01/20/2024 3:23 PM EDT A Body Mass Index follow-up plan has been documented for the patient 04/13/2024 3:51 PM EDT documented as of this encounter Care Teams Carpet Repairer Relationship Specialty Start Date End Date Jasen Jean MD [address] [place] [address] PCP - General 03/17/21 documented as of this encounter
--- OUTSIDE RECORDS SUMMARY | 2025-07-12 11:22 | XMS_ITS | Clinical Summary ---
Author Organization [facility] Address [address] [place] [address] Care Team Providers Care Auto Transmission Technician Name Role Phone Jasen Jean MD Primary Care Provider +1- [phone] Allergies Active Allergy Reactions Criticality Noted Date [...] use of insulin ([facility]) USE TO INJECT INSULIN ONCE [...] use of insulin ([facility]) Inject 11 units two times [...] use of insulin ([facility]) Take 1 tablet by mouth daily. 30 tablet 2 04/05/20 25 Active atorvastatin (Lipitor) 40 MG tabletIndication s:Type 2 diabetes mellitus with ophthalmic complication ([facility]) TAKE 1 TABLET BY MOUTH [...] use of insulin ([facility]) Take 1 tablet by mouth once daily 90 tablet 06/16/20 25 Active empagliflozin (Jardiance) 25 MGIndications:Ty pe 2 diabetes mellitus with other specified complication, with long-term current use of insulin ([facility]) Take 1 tablet (25 mg) [...] Department Care Team Description 06/16/2025 Refill [facility] Endocrinology [address] [place] [address] Roxana Burris APRN Type 2 diabetes mellitus with other specified complication, with long-term current use of insulin ([facility]) 05/25/2025 8:20 AM EDT Office Visit [facility] [address] [place] [address] Mukund Agustin MD Atrial fibrillation, unspecified type ([facility]) (Primary Dx); Open wound of right foot, initial encounter; Type 2 diabetes mellitus with foot ulcer, with long-term current use of insulin ([facility]) 05/25/2025 Travel 05/13/2025 Refill [facility] Endocrinology [address] [place] [address] Roxana Burris APRN Type 2 diabetes mellitus with ophthalmic complication ([facility]) 05/06/2025 Telephone [facility] [address] [place] [address] None, None 04/16/2025 Refill [facility] Endocrinology [address] [place] [address] Roxana Burris APRN Type 2 diabetes mellitus with ophthalmic complication ([facility]) 04/12/2025 Orders Only External Location [address] [place] [address] Provider, External from Last 3 Months Family [...] Description 08/09/2025 9:30 AM EDT Office Visit [facility] [place] [address] [facility], [address] [place] [address] Fina Muñoz, DIAMOND DIE MAKER [address] [place] [address] Health Maintenance Due Date Last [...] - Risk 60-74 years 1-dose series) 2021 [facility]-Diabetes: Hemoglobin A1C 2025, 04/13/2024, 01/20/2024, Additional history exists [facility]-Depression Screening 01/19/2025 01/20/2024 [id number] Vaccine (2 - 2024- season) 2025 01/12/2021 [facility]-Influenza Vaccine (#1) 2025 [facility]-Obesity Intervention Completed [...] % [facility] Kit Lot Number [id number] [facility] Kit Expiration Date 07/04/26 [facility]ALTH[facility]ARE [facility] Blood Venous blood specimen / Unknown 10/19/2024 2:29 PM EST us Roxana Burris DIAMOND DIE MAKER POINT OF CARE TEST ENTER /EDIT ORDERABLES Final Result Performing Organization Address City/State/[facility] Co de Phone Number [facility] [address] [place] [phone] from Last 3 Months or Most Recently Relevant to Health Maintenance Insurance MEDICARE [facility] Care Teams Auto Transmission Technician Relationship Specialty Start Date End Date Jasen Jean MD [address] [place] [address] PCP - General 03/17/21
--- OUTSIDE RECORDS SUMMARY | 2025-07-12 11:22 | XMS_ITS | Encounter Summary ---
Author Organization Healthcare Address [address] [place] [address] Care Team Providers Care Core Blower Operator Name Role Phone Jasen Jean MD Primary Care Provider +1- [phone] Reason for Visit * Reason Comments Med Refill Encounter Details Date Type Department Care Team (Late st Contact Info) Description 05/13/2025 Refill [facility] Endocrinology [address] [place] [address] Roxana Burris P, LITHOSTRIPPER [address] [facility] [address] [place] [address] Type 2 diabetes mellitus with ophthalmic complication ([facility]) Social History Tobacco Use Types [...] Description 08/09/2025 9:30 AM EDT Office Visit [facility] [place] [address] [facility], [address] [place] [address] Fina Muñoz, LITHOSTRIPPER [address] [place] [address] documented as of this encounter [...] documented as of this encounter Care Teams Core Blower Operator Relationship Specialty Start Date End Date Jasen Jean MD [address] [place] [address] PCP - General 03/17/21 documented as of this encounter
--- OUTSIDE RECORDS SUMMARY | 2025-07-12 11:22 | XMS_ITS | Encounter Summary ---
Author Organization Healthcare Address [address] [facility] [place] [address] Care Team Providers Care Loom Operator Name Role Phone Jasen Jean MD Primary Care Provider +1- [phone] Encounter Details Date Type Department Care Team (Late Contact Info) Description 04/12/2025 Orders Only External Location [address] [place] [id number] Provider, External Social History Tobacco Use Types [...] Description 08/09/2025 9:30 AM EDT Office Visit [facility] [place] [address] [facility], [address] [place] [address] Fina Muñoz APRN [address] [place] [address] documented as of this encounter Procedures Procedure [...] documented as of this encounter Care Teams Loom Operator Relationship Specialty Start Date End Date Jasen Jean MD [address] [place] [address] PCP - General 03/17/21 documented as of this encounter
--- NOTE | 2025-07-12 11:23 | XR_ITS ---
FINAL REPORT CLINICAL HISTORY: evaluate ulcers of right foot COMPARISON: 04/12/2025 FINDINGS: RIGHT FOOT 3 views of the right foot were obtained. There is no acute fracture or dislocation. There are postoperative changes of amputation of the distal half of the fifth metatarsal. There has been interval healing of the fourth metatarsal fracture. Bone destruction is seen at the distal chandrakant of the great toe and second toe most consistent with osteomyelitis. Multijoint degenerative disease has progressed from prior exam. There is soft tissue edema, most pronounced at the medial forefoot. No radiopaque foreign body is identified. IMPRESSION: Findings concerning for osteomyelitis of the distal chandrakant of the 1st and 2nd digits. Reviewed, Interpreted and Dictated by Georgia Cantu MD Transcribed by Sagrario Bosch Authenticated and [facility]
--- OUTSIDE RECORDS SUMMARY | 2025-07-12 11:23 | XMS_ITS | Referral Summary ---
Author Organization [employer] ([place], [place], [place], [place]) Address [address] [place] [address] Care Team Providers Care Timekeeper Supervisor Name Role Phone Unavailable Primary Care Provider [...]
--- OUTSIDE RECORDS SUMMARY | 2025-07-12 11:23 | XMS_ITS | Patient Health Record ---
Author Organization [facility] Address [address] [place] [id number] Care Team Providers Care Music Executive Name Role Phone Craig Jean Primary Care Provider [phone] Allergies Allergen (clinical drug ingredient) Drug/Non Drug [...] 167 Performing Lab: Notes/Report: Test performed by [employer], [facility] , [address], [place] [address] Lucsa Zhou MD, Cpas CLIA: [id number] Sodium 139 135-145 mmol/L Potassium 4.8 3.5-5.3 [...] 58 Performing Lab: Notes/Report: Test performed by [facility] [address] [place] [address] , [place] [address] Lucas Zhou MD, Cpas CLIA: [id number] Albumin/Creatinine Ratio, Urine 58 0-30 ug/mg Microalbumin, Urine, Random 4.5 Creatinine, Urine 78.1 X ray : Spine, cervical Reviewed date:06/17/2025 01:30:15 PM Interpretation:degenerative/chronic changes Performing Lab: Notes/Report: degenerative/chronic changes P-Culture, Urine Reviewed date:06/17/2025 01:31:38 PM Interpretation:No growth Performing Lab: Notes/Report: CLIA: [id number] Lucas Zhou MD, Cpas [address] [place] [address] , [place] [address] Test performed by [facility] Specimen Source Urine - Void Culture, Urine See Below Final Report : No growth CBC Venipuncture (in house) Reviewed date:08/06/2024 04:44:51 [...] PM Interpretation:gluc 118 Performing Lab: Notes/Report: CLIA: [id number] Lucas Zhou MD, Cpas [facility] , [address], [place] [address] Test performed by [facility] Sodium 141 135-145 mmol/L Potassium 4.2 3.5-5.3 [...] Interpretation:Normal Performing Lab: Notes/Report: Test performed by [facility] , [address], [place] [address] Lucas Zhou MD, Cpas CLIA: [id number] PSA 3.60 <4.00 ng/mL Please note this is an ultrasensitive PSA assay with a lower limit of detection of 0.014 ng/mL. This test is performed by the [employer] ECLIA methodology. Values obtained with different assay methods or kits cannot be directly compared. P-Microalbumin/Creatinine, R andom Urine Sample Reviewed date:08/06/2024 04:44:51 PM Interpretation:a/c 49 Performing Lab: Notes/Report: Test performed by [employer], [facility] , [address], [place] [address] Lucas Zhou MD, Cpas CLIA: [id number] Albumin/Creatinine Ratio, Urine 49 0-30 ug/mg Microalbumin, Urine, Random 7.4 Creatinine, Urine 152.2 Urinalysis - Inhouse Reviewed date:06/17/2025 01:31:38 PM [...] 8.6% glycohemoglobin 8.6% 5 - 6.5 % Medications Medication SIG (Take, Route, Frequency, Duration) [...] Vaccine Route Administration Date Status Comme nts COVID 19 Carrillo Unknown 01/12/2021 Administered Fluzone Quad (6months&older) IM Intramuscular 11/08/2022 Administered Fluzone Quad (6months&older) IM Intramuscular 09/05/2023 Administered Fluzone Quad (6months&older) IM Intramuscular 08/04/2024 Administered Prevnar (PCV20) Unknown 04/13/2025 Pending Tetanus Tdap-Adacel (over 7yrs) IM Intramuscular 05/13/2009 Administered Problems Problem Type SNOMED Code ICD Code Onset Dates Problem Status W/U Status Risk Notes Problem Diabetic foot ulcer (986043980) Diabetic foot ulcer (E11.621) Active confirmed Problem Anxiety disorder (479048640) Anxiety disorder (F41.9) Active confirmed Problem Cholelithiasis (525379167) Cholelithiasis (K80.20) Active confirmed Problem Cervicalgia (92663892) Cervicalgia (M54.2) Active confirmed Problem Mixed anxiety and depressive disorder (542212647) Depression with anxiety (F41.8) Active confirmed Problem Arthropathy of cervical spine facet joint (disorder) (259362057) Facet arthropathy, cervical (M46.92) Active confirmed Problem Benign prostatic hyperplasia (377463910) BPH (benign prostatic hyperplasia) (N40.0) Active confirmed Problem Pulmonary nodule (419178564) Pulmonary nodule (R91.1) Active confirmed Problem Type II diabetes mellitus without complication (193192523) Insulin dependent diabetes mellitus (E11.9) Active confirmed Problem Depressive disorder (57779795) Depressive disorder (F32.9) Active confirmed Problem Dyslipidemia (441852659) Dyslipidemia (E78.5) Active confirmed Problem Type II diabetes mellitus without complication (637951898) Type 2 diabetes mellitus without complication, without long-term current use of insulin (E11.9) Active confirmed Problem Peripheral vascular disease (412733967) PAD (peripheral artery disease) (I73.9) Active confirmed Problem Hyperglycemia due to type 2 diabetes mellitus (543621033925114) Type 2 diabetes mellitus with hyperglycemia, without long-term current use of insulin (E11.65) Active confirmed Problem Polyneuropathy due to type 2 diabetes mellitus (390740766) Type 2 diabetes mellitus with diabetic polyneuropathy, without long-term current use of insulin (E11.42) Active confirmed Problem Irritable bowel syndrome characterized by constipation (019503735) Irritable bowel syndrome with constipation (K58.1) Active confirmed Problem Lower urinary tract symptoms due to benign prostatic hypertrophy (29392806785916) Benign prostatic hyperplasia with lower urinary tract symptoms (N40.1) Active confirmed Problem Gallstone (307103234) Gall stones (K80.20) Active confirmed Problem Allergic rhinitis (21355116) Allergic rhinitis, unspecified seasonality, unspecified trigger (J30.9) Active confirmed Problem Secondary erectile dysfunction (disorder) (840965618) 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) Active confirmed Problem Contracture of palmar fascia (210686303) Dupuytren's contracture of both hands (M72.0) Active confirmed Vital Signs Heart Rate 69 /min 06/03/2025 Blood pressure diastolic 60 mm Hg 06/03/2025 Height 71 in 06/03/2025 Blood pressure systolic 110 mm Hg 06/03/2025 Weight 181.8 lbs 06/03/2025 BMI 25.35 kg/m2 06/03/2025 Encounters Encounter Location Date Provider Diagnosis [facility] [facility] [address] [place] [phone] 08/04/2024 Craig Jean Encounter for immunization Z23 ; Insulin dependent diabetes mellitus E11.9 ; Dyslipidemia E78.5 ; ED (erectile dysfunction) of organic origin N52.9 ; Prostate cancer screening Z12.5 and Allergic rhinitis, unspecified seasonality, unspecified trigger J30.9 [facility] [address] [facility] [address] [place], [place] [id number] 11/26/2024 R Chuy Jean Depression with anxi ety F41.8 [facility] [address] [facility] [address] [place], [place] [id number] 06/03/2025 R Chuy Scaleseet Depression with anxi ety F41.8 ; Type 2 diabetes mellitus with diabetic polyneuropathy, without long-term current use of insulin E11.42 ; Cervicalgia M54.2 ; Flank pain R10.9 ; Dyslipidemia E78.5 and BMI 25.0-25.9,adult Z68.25 [facility] [address] [place], [place] [id number] 06/11/2025 R Chuy Schmittt Type 2 diabetes mellitus without complication, without long-term current use of insulin E11.9 and Flank pain R10.9 [facility] [address] [place], [place] [id number] 05/25/2025 R Chuy Ted [facility] [address] [place], [place] [id number] 08/05/2024 R Chuy Ted [facility] [address] [place], [place] [id number] 08/06/2024 R Chuy Ted [facility] [address] [place], [place] [id number] 03/15/2025 R Chuy Ted [facility] [address] [place], [place] [id number] 06/08/2025 R Chuy Ted [facility] [address] [place], [place] [id number] 06/17/2025 R Chuy Ted Cervicalgia M54.2 an [...] - M54.2) 08/04/2024 Dyslipidemia (ICD-10 - E78.5) 06/03/2025 Flank pain (ICD-10 - R10.9) 08/04/2024 ED (erectile dysfunction) of organic origin (ICD-10 - N52.9) 06/03/2025 Dyslipidemia (ICD-10 - E78.5) 08/04/2024 Prostate cancer screening (ICD-10 - Z12.5) 06/03/2025 BMI 25.0-25.9,adult (ICD-10 - Z68.25) 08/04/2024 Allergic rhinitis, unspecified seasonality, unspecified trigger (ICD-10 - J30.9) Plan Of Treatment No Information Insurance Providers Payer Name Payer Address Payer Phone Subscriber Number Group Number Insured Name Patient Relationship to Insured Coverage Start Date Coverage End Date MEDICARE PART B [address] [address] Aurelianomirtha amaya [place] [id number] RIKA MOY Self - patient is the insured [facility] [address] [place] [address] [id number] RIKA MOY Self - patient is the insured Medical (General) History Medical History History ICD Code type 2 diabetes hyperlipidemia ? rheumatoid arthritis - Dr. Sylvester diabetic neuropathy Diabetic foot ulcers Diabetic retinopathy ASCVD Paroxysmal AF Surgical History Surgery Date(Month/Year) left knee arthroscopy back surgery at [facility] [place] Dr Roth right hand surgery-Dr Paulson 06/04/19 bone shaved from bilateral feet-Dr Sepulveda 01/2022 Coronary stent to LAD and RCA/ [place] 06/2023 Basal Cell Carcinoma Removal from Left S hugh of Nose 02/25/2024 Hospitalization History Reason Date(Month/Year) [facility] ER-Heart Palpitation 07/05/10
--- OUTSIDE RECORDS SUMMARY | 2025-07-12 11:23 | XMS_ITS | Encounter Summary ---
Author Organization Healthcare Address [address] [place] [address] Care Team Providers Care Tunnel Heading Inspector Name Role Phone Jasen Jean MD Primary Care Provider +1- [phone] Reason for Visit * Reason Comments Med Refill Encounter Details Date Type Department Care Team (Late st Contact Info) Description 06/16/2025 Refill [facility] Endocrinology [address] [place] [address] Roxana Burris P, AUDIO VIDEO TECHNICIAN [address] [address] Type 2 diabetes mellitus with other specified complication, with long-term current use of insulin ([facility]) Social History Tobacco Use Types Packs/Day [...] Description 08/09/2025 9:30 AM EDT Office Visit [facility] [place] [address] [facility], [address] [place] [address] Fina Muñoz, AUDIO VIDEO TECHNICIAN [address] [place] [address] documented as of this encounter Visit Diagnoses Diagnosis Type 2 diabetes mellitus with other specified complication, with long-term current use of insulin ([facility]) documented in this encounter Additional Health Concerns Assessment Noted Time A fall risk assessment has been complete d for the patient 05/25/2025 8:18 AM EDT A Body Mass Index follow-up plan has been documented for the patient 05/26/2025 9:09 AM EDT documented as of this encounter Care Teams Tunnel Heading Inspector Relationship Specialty Start Date End Date Jasen Jean MD [address] [place] [address] PCP - General 03/17/21 documented as of this encounter
[2025-07-12 13:06] LABS: Hematocrit 48.5 % (42.0-52.0); Hemoglobin 15.5 g/dL (14.1-18.0); Immature Granulocytes % 0.2 %; Mean Corpuscular HGB Conc 32.0 g/dL (31.8-35.4); Mean Corpuscular Hemoglobin 29.7 pg (27.0-31.2); Mean Corpuscular Volume 92.9 fl (80-94); Nucleated Red Blood Cells % 0 %; Platelet Count 304 K/mm3 (142-424); Red Blood Count 5.22 M/mm3 (4.60-6.20); Red Cell Distribution Width-SD 43.1 fL; White Blood Count 5.8 K/mm3 (4.8-10.8)
[2025-07-12 13:20] LABS: Hemoglobin A1C 7.7 % (4.0-6.0)
[2025-07-12 13:48] LABS: Alanine Aminotransferase 15 U/L (12-78); Albumin Level 4.1 g/dl (3.5-5.0); Albumin/Globulin Ratio 1.4 (1.1-1.8); Alkaline Phosphatase 94 U/L (38-126); Anion Gap 13.6 mEq/L (5-15); Aspartate Amino Transferase 19 U/L (17-59); Bilirubin,Total 0.7 mg/dl (0.2-1.3); Blood Urea Nitrogen 14 mg/dl (9-20); Calcium 9.2 mg/dl (8.4-10.2); Carbon Dioxide 29 mmol/L (22.0-30.0); Chloride 99 mmol/L (98-107); Creatinine,Serum 1.00 mg/dl (0.66-1.25); Estimated Glomerular Filt Rate 75 ml/min (>60); GFR (African American) 91 ML/MIN (>60); Globulin 3.0 g/dL (1.3-3.2); Glucose 232 mg/dl (74-100); Potassium 4.6 mmoL/L (3.5-5.1); Sodium 137 mmol/L (136-145); Total Protein,Serum 7.1 g/dl (6.3-8.2)
[2025-07-12 13:53] LABS: C-Reactive Protein 0.8 mg/L (0-4)
== END 2025-07-12 23:59 | disposition home or self-care (01) ==
LOC: LAB 11:21
PROVIDERS: PCP Family Medicine; Visit Provider Podiatrist
DX: E11.621 Type 2 diabetes mellitus with foot ulcer (principal); I70.235 Atherosclerosis of native arteries of right leg with ulceration of other part of foot; L97.519 Non-pressure chronic ulcer of other part of right foot with unspecified severity; L03.115 Cellulitis of right lower limb; R93.6 Abnormal findings on diagnostic imaging of limbs; E11.51 Type 2 diabetes mellitus with diabetic peripheral angiopathy without gangrene
CPT/HCPCS: 36415; 73630; 80053; 83036; 85025; 85651; 86140

== ENCOUNTER 2025-07-21 15:00 | Outpatient (RCR) | payer MEDICARE, BC, SELFPAY | END 2025-07-21 23:59 | disposition home or self-care (01) | LOC: PT 15:00 | PROVIDERS: Visit Provider Family Medicine | DX: L03.115 Cellulitis of right lower limb (principal); E11.621 Type 2 diabetes mellitus with foot ulcer; L97.512 Non-pressure chronic ulcer of other part of right foot with fat layer exposed | CPT/HCPCS: 87070; 87077; 87186; 87205; 97110; 97140; 97162; 97535 ==

== ENCOUNTER 2025-07-26 15:29 | Outpatient (CLI) | payer MEDICARE, BC, SELFPAY ==
--- OUTSIDE RECORDS SUMMARY | 2024-11-26 09:45 | XMS_ITS ---
Author Organization [facility] Address [address] [facility] [address] [place] [phone] Care Team Providers Care Agriculture Extension Specialist Name Role Phone Craig Jean Primary Care Provider [phone] Allergies Allergen (clinical drug ingredient) Drug/Non Drug [...] Notes Problem Mixed anxiety and depressive disorder (093118768) Depression with anxiety (F41.8) Active confirmed Vital Signs Blood pressure systolic 112 mm Hg 11/26/19 25 Blood pressure diastolic 60 mm Hg 025 Heart Rate 64 /min 11/26/2024 Height 71 in 11/26/2024 Weight 184.6 lbs 11/26/2024 BMI 25.74 kg/m2 11/26/2024 Encounters Encounter Location Date Provider Diagnosis [facility] [address] [facility] [address] [place] [phone] 11/26/2024 Craig Jean Depression with anxiety F41.8 [...] Progress Notes * DEWEYCHERYLERASHIDAOB:1960 (65 yo M)Acc No.[id number]:11/26/2024 Progress Notes Patient: RIKA FLOREZ Provider: Craig Jean M.D. :1960 A ge:64 Y S ex:Male Date:11/26/2024 Address:[address] [place], [id number] Subjective: * Chief Complaints: * 1 . [...] eft knee arthroscopy , back surgery at [facility] Dr Roth 05/11, right hand surgery-Dr Paulson [...] uncle: hyperlipidemia, diabetes. S iblings: Brother had [place] at age 52, heart attack. 1 brother(s) , 1 sister(s) . 2 son(s) , 1 daughter(s) . . Great grand mother diabetes. * Social History: C URRENT TOBACCO USE S moking Status: Patient does NOT smoke. C affeine: yes, frequency:. Marital Status: . Alcohol: socially, Type: [place] , Frequency: 3-5 times/week ,Years: , Determination:. [...] * Images: Billing Information: * Visit Code: 05285 Office Visit, Est Pt., Level 3. * Procedure Codes: G2211 Complex e/m visit add on. * Electronic signature of Craig Jean MD on 07/26/2025 at 03:32 PM EDT Sign off status: Pending * Provider: Craig Jean M.D. Date: 0 11/26/2024 Generated for Lucy forrester/Eddie/Jessiitting on: 0 07/26/2025 03:32 PM EDT History and Physical Notes * Examination Category Sub-Category Detail Notes Category Not es Psychology Heart: RSR Lungs: clear to auscultatio n General Appearance: NAD Grooming : neat Eye contact : decreased Mood : A bit flat
--- OUTSIDE RECORDS SUMMARY | 2025-04-13 09:45 | XMS_ITS ---
Author Organization Yancy Address 1210 [facility] [address] [place] [phone] Care Team Providers Care Government Affairs Director Name Role Phone Craig Jean Primary Care Provider [phone] Allergies Allergen (clinical drug ingredient) Drug/Non Drug Allergy documented on EMR Reaction Allergy Type Onset Date Status semaglutide Rybelsus stomach upset Drug Allergy A ctive REASON FOR VISIT cough and checkup with Annual Wellness visit, due for diabetic eye exam Immunizations Vaccine Route Administration Date Status Comme nts Prevnar (PCV20) Unknown 04/13/2025 Pending Encounters Encounter Location Date Provider Diagnosis [facility] 12[facility] [address] [place] [phone] 04/13/2025 Craig Jean Adult general medica l [...] Notes * DEEPTHI MARMOLEJO:1960 (65 yo M)Acc No.[id number]:04/13/2025 Annual Wellness Visit Patient: RIKA FLOREZ Provider: Craig Jean M.D. :1960 A ge:65 Y S ex:Male Date:04/13/2025 Address:[place], [id number] Subjective: * Chief Complaints: * 1 . [...] eft knee arthroscopy , back surgery at [facility] Dr Roth 05/11, right hand [...] frequency:. Marital Status: . Alcohol: socially, Type: [place] , Frequency: 3-5 times/week ,Years: , Determination:. [...] , G2211 Complex e/[place], [address] GLYCATED HEMOGLOBIN TEST, Modifiers: QW , 1090F PRES/ABSN URINE INCON ASSESS, 3288F FALL RISK ASSESSMENT DOCD, 1170F FXNL STATUS ASSESSED, 1126F AMNT PAIN NOTED NONE PRSNT, 1159F MED LIST DOCD IN RCRD, 1003F LEVEL OF ACTIVITY ASSESS, 35997 CBC WITH AUTO DIFF, 1036F TOBACCO NON-USER [...] 25 G2211 Complex e/[place]. [address] GLYCATED HEMOGLOBIN TEST. Modifiers: QW 1090F PRES/ABSN URINE INCON ASSESS. 3288F FALL RISK ASSESSMENT DOCD. 1170F FXNL STATUS ASSESSED. 1126F AMNT PAIN NOTED NONE PRSNT. 1159F MED LIST DOCD IN RCRD. 1003F LEVEL OF ACTIVITY ASSESS. 49805 CBC WITH AUTO DIFF. 1036F TOBACCO NON-USER. * Electronic signature of Craig Jean MD on 07/26/2025 at 03:32 PM EDT Sign off status: Pending * Provider: Craig Jean M.D. Date: 0 04/13/2025 Generated for Lucy forrester/Eddie/Jessiitting on: 0 07/26/2025 03:32 PM EDT History and Physical Notes * HPI [...]
--- OUTSIDE RECORDS SUMMARY | 2025-06-03 10:15 | XMS_ITS ---
Author Organization [facility] Address [address] [place] [phone] Care Team Providers Care Medical Scientific Liaison Name Role Phone Craig Jean Primary Care [...] 167 Performing Lab: Notes/Report: Test performed by [facility] [address] [place] [address] , [address], [place] [address] Lucas Zhou MD, Extruding Press Operator CLIA: [id number] Sodium 139 135-145 mmol/L Potassium 4.8 3.5-5.3 [...] 58 Performing Lab: Notes/Report: Test performed by [employer], [address] , [address], [place] [address] Lucas Zhou MD, Extruding Press Operator CLIA: [id number] Albumin/Creatinine Ratio, Urine 58 0-30 ug/m g [...] Status W/U Status Risk Notes Problem Cervicalgia (40807932) Cervicalgia (M54.2) Active confirmed Vital Signs Blood pressure systolic 110 mm Hg 06/03/20 25 Blood pressure diastolic 60 mm Hg 025 Heart Rate 69 /min 06/03/2025 Height 71 in 06/03/2025 Weight 181.8 lbs 06/03/2025 BMI 25.35 kg/m2 06/03/2025 Encounters Encounter Location Date Provider [facility] [address] [phone] 06/03/2025 Craig Jean Depression with anxi ety [...] Notes * LISA MARMOLEJODIPIKAOB:1960 (65 yo M)Acc No.[id number]:06/03/2025 Patient: RIKA FLOREZ Provider: Craig Jean M.D. :1960 A ge:65 Y S ex:Male Date:06/03/2025 Address:[facility] [place], [id number] Subjective: * Chief Complaints: * 1 . [...] eft knee arthroscopy , back surgery at [facility] Dr Roth 05/11, right hand surgery-Dr [...] uncle: hyperlipidemia, diabetes. S iblings: Brother had [place] at age 52, heart attack. 1 brother(s) , 1 sister(s) . 2 son(s) , 1 daughter(s) . . Great grand mother diabetes. * Social History: C URRENT TOBACCO USE S moking Status: Patient does NOT smoke. C affeine: yes, frequency:. Marital Status: . Alcohol: socially, Type: [place] , Frequency: 3-5 times/week ,Years: , Determination:. [...] on RA, Nurse: [facility], Ht: 71, BMI:25.35. * Examination: G [...] D yslipidemia - E78.5 6 . B [place] 25.0-25.9,adult - Z68.25 Plan: * Treatment: 2. [...] G 2211 Complex e/[place], [address] CBC WITH AUTO DIFF, 02852 Urinalysis, no micro, G8420 BMI<30 AND >=22 CALC & DOCU, 1036F TOBACCO NON-USER, G8783 BP SCR PRFRM RCMDD DEFIND SCR INTVL, G8752 MOST RECENT SYSTOLIC BP < 140MM HG, G8754 MOST RECENT DIASTOLIC BP < 90MM HG * Follow Up: 6 Months * Images: Billing Information: * Visit Code: 29105 Office Visit, Est Pt., Level 4. * Procedure Codes: G2211 Complex e/[place]. [address] CBC WITH AUTO DIFF. 42676 Urinalysis, no micro. G8420 BMI<30 AND >=22 [...] 06/03/2025 Generated for Lucy forrester/Eddie/eTransmitting on: 0 07/26/2025 03:32 PM EDT History [...]
--- OUTSIDE RECORDS SUMMARY | 2025-06-11 05:45 | XMS_ITS ---
Author Organization [facility] Address [address] [facility] [address] [place] [id number] Care Team Providers Care Funeral Director And Embalmer Name Role Phone Craig Jean Primary Care [...] growth Performing Lab: Notes/Report: Test performed by [employer], [facility] [address] [place] [address] , [address], [place] [address] Lucas Zhou MD, Youth Director CLIA: [id number] Specimen Source Urine - Void Culture, Urine See Below Final Report : No growth REASON FOR VISIT blood work Encounters Encounter Location Date Provider Diagnosis [facility] [address] [facility] [address] [place] [id number] 06/11/2025 Craig Chuy Jean Type 2 diabetes [...] Notes * RASHIDA MARMOLEJOOB:1960 (65 yo M)Acc No.[id number]:06/11/2025 Patient: RIKA FLOREZ Provider: Craig Jean M.D. :1960 A ge:65 Y S ex:Male Date:06/11/2025 Address:[facility] [place], [id number] Subjective: * Chief Complaints: * 1 . [...] QW , 3052F HG A1C>EQUAL 8.0%<EQUAL 9.0%, 97058 CBC WITH AUTO DIFF, 91982 CAPILLARY BLOOD DRAW, 64221 Urinalysis, no micro * Images: Billing Information: * Visit Code: * Procedure Codes: 16186 GLYCATED HEMOGLOBIN TEST. Modifiers: QW 3052F HG A1C>EQUAL 8.0%<EQUAL 9.0%. 82181 CBC WITH AUTO DIFF. 16015 CAPILLARY BLOOD DRAW. 43039 Urinalysis, no micro. * Electronic signature of Craig Jean MD on 07/26/2025 at 03:33 PM EDT Sign off status: Pending * Provider: Flako Powell: 0 06/11/2025 Generated for Lucy forrester/Eddie/Sharri on: 0 07/26/2025 03:33 PM EDT
--- OUTSIDE RECORDS SUMMARY | 2025-06-17 04:33 | XMS_ITS ---
Author Organization [facility] [address] [facility] [address] [place] [phone] Care Team Providers Care Able Bodied Tankerman Name Role Phone Craig Jean Primary Care Provider [phone] Reason For Referral Reason PT at [facility] For cervic al DJD/ facet arthropathy Diagnosis 1 Facet arthropathy, c ervical (M46.92) Referral Organization [facility] Referring Provider First Name Craig Vera Referring Provider Last Name Ted Referring Provider Speciality Family Pra ctice Referred Provider Physical Therapy, . Referred Provider Specialty Physical The rapist General Notes Emilia Da Silva 2024 01:26:35 PM > faxed to [facility] PT Referral Priority Routine Problems Problem Type SNOMED Code ICD Code Onset Dates Problem Status W/U Status Risk Notes Problem Arthropathy of cervical spine facet joint (disorder) (532313770) Facet arthropathy, cervical (M46.92) Active confirmed Encounters Encounter Location Date Provider Diagnosis [place] [address] [facility] [address] [place] [id number] 06/17/2025 Craig Jean Cervicalgia M54.2 an d Facet arthropathy, cervical M46.92 Assessments Encounter Date Diagnosis (ICD Code) Assessment Notes Treatment Notes Treatment Clinical Notes Section Notes 06/17/2025 Cervicalgia (ICD-10 - M54.2) 06/17/2025 Facet arthropathy, cervical (ICD-10 - M46.92) Plan Of Treatment Referrals Referral Date Details 06/17/2025 06/17/2025, PT at [facility] For cervical DJD/ facet arthropathy, . Physical Therapy Progress Notes * RASHIDA MARMOLEJOOB:1960 (65 yo M)Acc No.[id number]:06/17/2025 Patient: RIKA FLOREZ :1960 A ge:65 Y S ex:Male Address:[facility] [place] [address] Subjective: * Chief Complaints: * * Medical History: * Surgical History: * Hospitalization/Major Diagno stic Procedure: * Medications: Objective: * Vitals: * Physical Examination: Assessment: * Assessment: 1. C ervicalgia - M54.2 (Primary) 2 . F acet arthropathy, cervical - M46.92? Plan: * Treatment: * Procedure Codes: * true * Date: Generated for Lucy forrester/Eddie/eTransmitting on: 0 07/26/2025 03:33 PM EDT Consultation Request Notes Referral Date Referring Provider Referred Provider Not es 06/17/2025 Craig Jean Physical Therapy, . PT at [facility] For cervical DJD/ facet arthropathy
--- OUTSIDE RECORDS SUMMARY | 2025-07-26 15:32 | XMS_ITS | Clinical Summary ---
[facility] Organization [facility] Address [address] [place] [address] Care Team Providers Care Bisque Tile Burner Name Role Phone Jasen Jean MD Primary [...] SCREENING 07/01/2019 PT PLAN OF CARE 07/01/2019 INFLUENZA VACCINE 06/04/2025 Insurance Care Teams Bisque Tile Burner Relationship Specialty Start Date End Date Jasen Jean MD [address] [place] [facility] [address] [facility] [address] [place] [address] [facility] - General 06/27/15
--- OUTSIDE RECORDS SUMMARY | 2025-07-26 15:32 | XMS_ITS | Encounter Summary ---
Author Organization Healthcare Address [address] [facility] [place] [address] Care Team Providers Care Collection Team Lead Name Role Phone Jasen Jean MD Primary Care Provider +1- [phone] Encounter Details Date Type Department Care Team (Late Contact Info) Description 04/12/2025 Orders Only External Location [address] [place] [phone] Provider, External Social History Tobacco Use Types [...] Description 08/09/2025 9:30 AM EDT Office Visit [facility] [place] [address] [facility], [address] [place] [address] Fina Muñoz APRN [address] [place] [address] documented as of this encounter Procedures Procedure [...] documented as of this encounter Care Teams Collection Team Lead Relationship Specialty Start Date End Date Jasen Jean MD [address] [place] [address] PCP - General 03/17/21 documented as of this encounter
--- OUTSIDE RECORDS SUMMARY | 2025-07-26 15:32 | XMS_ITS | Encounter Summary ---
Author Organization [facility] Address [address] [place] [address] Care Team Providers Care Produce Inspector Name Role Phone Jasen Jean MD Primary Care Provider +1- [phone] Encounter Details Date Type Department Care Team (Late Contact Info) Description 08/18/2024 Orders Only External Location [address] [place] [address] Perla Kramer, DIRECTOR OF CREATIVE SERVICES [address] [facility] [address] [place] [address] Social History Tobacco Use Types Packs/Day Years [...] Description 08/09/2025 9:30 AM EDT Office Visit [facility] [place] [address] [facility], [address] [place] [address] Fina Muñoz, DIRECTOR OF CREATIVE SERVICES [address] [place] [address] documented as of this encounter Procedures Procedure Name Priority Date/Time Associated Diagnosis Comments US OUTSIDE IMAGES 08/18/2024 8:16 AM EDT documented in this encounter Results * US OUTSIDE IMAGES (08/18/2024 8:16 AM EDT) Anatomical Region Laterality Modality Ultrasound 08/18/2024 8:16 AM EDT us Perla Kramer DIRECTOR OF CREATIVE SERVICES IMG US PROCEDURES Sienna l Result documented in this encounter Visit Diagnoses Not on filedocumented in this encounter Additional Health Concerns Assessment Noted Time A fall risk assessment has been complete d for the patient 01/20/2024 3:23 PM EDT A Body Mass Index follow-up plan has been documented for the patient 04/13/2024 3:51 PM EDT documented as of this encounter Care Teams Produce Inspector Relationship Specialty Start Date End Date Jasen Jean MD [address] [place] [address] PCP - General 03/17/21 documented as of this encounter
--- OUTSIDE RECORDS SUMMARY | 2025-07-26 15:32 | XMS_ITS | Clinical Summary ---
Author Organization [facility] Address [address] [place] [address] Care Team Providers Care Cath Lab Nurse Name Role Phone Jasen Jean MD Primary Care Provider +1- [phone] Allergies Active Allergy Reactions Criticality Noted Date [...] complication, with long-term current use of insulin ([facility]) USE TO INJECT INSULIN ONCE [...] complication, with long-term current use of insulin ([facility]) Inject 11 units two times daily. Titrate as directed. MDD: 30 units 30 mL 1 4 Active metFORMIN XR (Glucophage-XR) 500 MG 24 hr tablet Take 2 tablets (1,000 mg) by mouth 2 (two) times a day with meals. 360 tablet 4 10/19/20 25 Active pioglitazone (Actos) 30 MG tabletIndications :Type 2 diabetes mellitus with other specified complication, with long-term current use of insulin ([facility]) Take 1 tablet by mouth daily. 30 tablet 2 5 Active atorvastatin (Lipitor) 40 MG tabletIndications :Type 2 diabetes mellitus with ophthalmic complication ([facility]) TAKE 1 TABLET BY MOUTH [...] ointment Apply topically daily. Active Jardiance 25 MGIndications:Typ e 2 diabetes mellitus with other specified complication, with long-term current use of insulin ([facility]) Take 1 tablet by mouth once daily 90 tablet 5 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 01/20/2024 Type 2 diabetes mellitus, wi th long-term current use of insulin 01/20/2024 Retinopathy 01/20/2024 Neuropathy 01/20/2024 Primary hypertension 08/09/2023 Other hyperlipidemia 08/09/2023 Encounters Date Type Department Care Team Description 06/16/2025 Refill [facility] Endocrinology [address] [place] [address] Roxana Burris APRN Type 2 diabetes mellitus with other specified complication, with long-term current use of insulin ([facility]) 05/25/2025 8:20 AM EDT Office Visit [facility] [address] [place] [address] Mukund Agustin MD Atrial fibrillation, unspecified type ([facility]) (Primary Dx); Open wound of right foot, initial encounter; Type 2 diabetes mellitus with foot ulcer, with long-term current use of insulin ([facility]) 05/25/2025 Travel 05/13/2025 Refill [facility] Endocrinology [address] [place] [address] Roxana Burris APRN Type 2 diabetes mellitus with ophthalmic complication ([facility]) 05/06/2025 Telephone [facility] [address] [place] [address] None, None from Last 3 Months Family History Medical [...] Description 08/09/2025 9:30 AM EDT Office Visit [facility] [place] [address] [facility], [address] [place] [address] Fina Muñoz, VESSEL SLAG WORKER [address] [place] [address] Health Maintenance Due Date Last [...] Additional history exists [facility]-Depression Screening 01/19/2025 01/20/2024 [id number] Vaccine (2 - season) 2025 01/12/2021 [facility]-Influenza Vaccine (#1) 2025 [...] A1C 7.9 <5.7% Non-Diabet ic % [facility] [employer] [facility] Kit Lot Number [id number] [facility] [employer] [facility] Kit Expiration Date 07/04/26 [employer] [facility] Blood Venous blood specimen / Unknown 10/19/2024 2:29 PM EST Roxana Burris VESSEL SLAG WORKER POINT OF CARE TEST ENTER /EDIT ORDERABLES Final Result [facility] [address] [place] [address] from Last 3 Months or Most Recently Relevant to Health Maintenance Insurance [address] [place] [id number] MEDICARE ANTH Care Teams Cath Lab Nurse Relationship Specialty Start Date End Date Jasen Jean MD [address] [place] [address] PCP - General 03/17/21
--- OUTSIDE RECORDS SUMMARY | 2025-07-26 15:33 | XMS_ITS | Patient Health Record ---
Author Organization [facility] Address [address] [place] [id number] Care Team Providers Care Cyber Workforce Developer And Manager Name Role Phone Craig Jean Primary Care [...] 167 Performing Lab: Notes/Report: Test performed by [employer], [employer] [facility] [place] , [address], [place] [address] Lucas Zhou MD, Seat Cover Cutter CLIA: [id number] Sodium 139 135-145 mmol/L Potassium 4.8 3.5-5.3 [...] 58 Performing Lab: Notes/Report: Test performed by [facility] [address] [place] [address] , [address], [place] [address] Lucas Zhou MD, Seat Cover Cutter CLIA: [id number] Albumin/Creatinine Ratio, Urine 58 0-30 ug/mg Microalbumin, Urine, Random 4.5 Creatinine, Urine 78.1 X ray : Spine, cervical Reviewed date:06/17/2025 01:30:15 PM Interpretation:degenerative/chronic changes Performing Lab: Notes/Report: degenerative/chronic changes P-Culture, Urine Reviewed date:06/17/2025 01:31:38 PM Interpretation:No growth Performing Lab: Notes/Report: Test performed by [facility] [address] [place] [address] , [address], [place] [address] Lucas Zhou MD, Seat Cover Cutter CLIA: [id number] Specimen Source Urine - Void Culture, Urine See Below Final Report : No growth Glycohemoglobin A1c (in hous e) Reviewed date:06/17/2025 01:31:38 PM Interpretation:8.6% Performing Lab: Notes/Report: 8.6% glycohemoglobin 8.6% 5 - 6.5 % CBC Fingerstick (in house) Reviewed date:06/17/2025 01:31:38 [...] - 38 plat 237 100 - 400 Urinalysis - Inhouse Reviewed date:06/17/2025 01:31:38 PM Interpretation: Performing Lab: Notes/Report: Color/Clarity yellow Leuk neg Nitrite neg Urobili 3.2 Protein 2+ pH 5.5 Blood trace-intact Sp. Gr. 1.020 Ketone neg Bili neg Gluc 3+ P-Microalbumin/Creatinine, R andom Urine Sample Reviewed date:08/06/2024 04:44:51 PM Interpretation:a/c 49 Performing Lab: Notes/Report: Test performed by [facility] [address] [place] [address] , [address], [place] [address] Lucas Zhou MD, Seat Cover Cutter CLIA: [id number] Albumin/Creatinine Ratio, Urine 49 0-30 ug/mg Microalbumin, Urine, Random 7.4 Creatinine, Urine 152.2 P-PSA Reviewed date:08/06/2024 04:44:51 PM Interpretation:Normal Performing Lab: Notes/Report: Test performed by [facility] [address] [place] [address] , [facility] C, [place] [address] Lucas Zhou MD, Seat Cover Cutter CLIA: [id number] PSA 3.60 <4.00 ng/mL Please note this is an ultrasensitive PSA assay with a lower limit of detection of 0.014 ng/mL. This test is performed by the [employer] ECLIA methodology. Values obtained with different assay methods or kits cannot be directly compared. P-Comprehensive Metabolic Pa octaviano (CMP) Reviewed date:08/06/2024 04:44:51 PM Interpretation:gluc 118 Performing Lab: Notes/Report: Test performed by [facility] [address] [place], [place] [address] [place] , [address], [place] [address] Lucas Zhou MD, Seat Cover Cutter CLIA: [id number] Sodium 141 135-145 mmol/L Potassium 4.2 3.5-5.3 [...] - 38 platlet 282 100 - 400 Medications Medication SIG (Take, Route, Frequency, Duration) [...] Status Risk Notes Problem Diabetic foot ulcer (127495972) Diabetic foot ulcer (E11.621) Active confirmed Problem Anxiety disorder (791670098) Anxiety disorder (F41.9) Active confirmed Problem Cholelithiasis (209572763) Cholelithiasis (K80.20) Active confirmed Problem Cervicalgia (73486243) Cervicalgia (M54.2) Active confirmed Problem Mixed anxiety and depressive disorder (429202594) Depression with anxiety (F41.8) Active confirmed Problem Arthropathy of cervical spine facet joint (disorder) (579424861) Facet arthropathy, cervical (M46.92) Active confirmed Problem Benign prostatic hyperplasia (645113688) BPH (benign prostatic hyperplasia) (N40.0) Active confirmed Problem Pulmonary nodule (630592129) Pulmonary nodule (R91.1) Active confirmed Problem Type II diabetes mellitus without complication (509557480) Insulin dependent diabetes mellitus (E11.9) Active confirmed Problem Depressive disorder (97424179) Depressive disorder (F32.9) Active confirmed Problem Dyslipidemia (311518778) Dyslipidemia (E78.5) Active confirmed Problem Type II diabetes mellitus without complication (754851982) Type 2 diabetes mellitus without complication, without long-term current use of insulin (E11.9) Active confirmed Problem Peripheral vascular disease (017645246) PAD (peripheral artery disease) (I73.9) Active confirmed Problem Hyperglycemia due to type 2 diabetes mellitus (249643478476007) Type 2 diabetes mellitus with hyperglycemia, without long-term current use of insulin (E11.65) Active confirmed Problem Polyneuropathy due to type 2 diabetes mellitus (110000115) Type 2 diabetes mellitus with diabetic polyneuropathy, without long-term current use of insulin (E11.42) Active confirmed Problem Irritable bowel syndrome characterized by constipation (694600991) Irritable bowel syndrome with constipation (K58.1) Active confirmed Problem Lower urinary tract symptoms due to benign prostatic hypertrophy (78781741717054) Benign prostatic hyperplasia with lower urinary tract symptoms (N40.1) Active confirmed Problem Gallstone (994815196) Gall stones (K80.20) Active confirmed Problem Allergic rhinitis (79288922) Allergic rhinitis, unspecified seasonality, unspecified trigger (J30.9) Active confirmed Problem Secondary erectile dysfunction (disorder) (933330195) 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) Active confirmed Problem Contracture of palmar fascia (277515088) Dupuytren's contracture of both hands (M72.0) Active confirmed Vital Signs Heart Rate 69 /min 06/03/2025 Blood pressure diastolic 60 mm Hg 06/03/2025 Height 71 in 06/03/2025 Blood pressure systolic 110 mm Hg 06/03/2025 Weight 181.8 lbs 06/03/2025 BMI 25.35 kg/m2 06/03/2025 Encounters Encounter Location Date Provider Diagnosis [facility] [address] [facility] [address] [place] [id number] 08/04/2024 Craig Jean Encounter for immunization Z23 ; Insulin dependent diabetes mellitus E11.9 ; Dyslipidemia E78.5 ; ED (erectile dysfunction) of organic origin N52.9 ; Prostate cancer screening Z12.5 and Allergic rhinitis, unspecified seasonality, unspecified trigger J30.9 [facility] [address] [facility] 36 [facility] [address] [place], [place] [id number] 11/26/2024 R Chuy Jean Depression with anxi ety F41.8 [facility] [address] [facility] 36 [facility] [address] [place], [place] [id number] 06/03/2025 R Chuy [place] Depression with anxi ety F41.8 ; Type 2 diabetes mellitus with diabetic polyneuropathy, without long-term current use of insulin E11.42 ; Cervicalgia M54.2 ; Flank pain R10.9 ; Dyslipidemia E78.5 and BMI 25.0-25.9,adult Z68.25 [facility] [address] [place], [place] [id number] 06/11/2025 R Chuy [place] Type 2 diabetes mellitus without complication, without long-term current use of insulin E11.9 and Flank pain R10.9 [facility] [address] [place], [place] [id number] 08/05/2024 R Chuy Ted [facility] [address] [place], [place] [id number] 08/06/2024 R Chuy Ted [facility] [address] [place], [place] [id number] 03/15/2025 R Chuy Ted [facility] [address] [place], [place] [id number] 05/25/2025 R Chuy Ted [facility] [address] [place], [place] [id number] 06/08/2025 R Chuy Ted [facility] [address] [place], [place] [id number] 06/17/2025 R Chuy Ted Cervicalgia M54.2 an [...] Date MEDICARE PART B [address] [address] Aurelianomirtha amaya [place] [address] [id number] RIKA MOY Self - patient is the insured [facility] [address] [place] [address] [id number] 1ER RIKA MOY Self - patient is the insured Medical (General) History Medical History History ICD Code type 2 diabetes hyperlipidemia ? rheumatoid arthritis - Dr. Sylvester diabetic neuropathy Diabetic foot ulcers Diabetic retinopathy ASCVD Paroxysmal AF Surgical History Surgery Date(Month/Year) left knee arthroscopy back surgery at [facility] Dr Roth right hand surgery-Dr Paulson 06/04/19 bone shaved from bilateral feet-Dr Sepulveda 01/2022 Coronary stent to LAD and RCA/ [place] 06/2023 Basal Cell Carcinoma Removal from Left S hugh of Nose 02/25/2024 Hospitalization History Reason Date(Month/Year) [facility] ER-Heart Palpitation 07/05/10
--- OUTSIDE RECORDS SUMMARY | 2025-07-26 15:33 | XMS_ITS | Encounter Summary ---
Author Organization Healthcare Address [address] [place] [address] Care Team Providers Care Corporate Event Planner Name Role Phone Jasen Jean MD Primary Care Provider +1- [phone] Reason for Visit * Reason Comments Med Refill Encounter Details Date Type Department Care Team (Late st Contact Info) Description 06/16/2025 Refill [facility] Endocrinology [address] [place] [address] Roxana Burris P, [employer] [address] [address] Type 2 diabetes mellitus with other specified complication, with long-term current use of insulin ([facility]) Social History Tobacco Use Types Packs/Day [...] Description 08/09/2025 9:30 AM EDT Office Visit [facility] [place] [address] [facility], [address] [place] [address] Fina Muñoz, [employer] [address] [place] [address] documented as of this encounter Visit Diagnoses Diagnosis Type 2 diabetes mellitus with other specified complication, with long-term current use of insulin ([facility]) documented in this encounter Additional Health Concerns Assessment Noted Time A fall risk assessment has been complete d for the patient 05/25/2025 8:18 AM EDT A Body Mass Index follow-up plan has been documented for the patient 05/26/2025 9:09 AM EDT documented as of this encounter Care Teams Corporate Event Planner Relationship Specialty Start Date End Date Jasen Jean MD [address] [place] [address] PCP - General 03/17/21 documented as of this encounter
--- NOTE | 2025-07-26 15:45 | MR_ITS ---
PROCEDURE INFORMATION: Exam: MR Right Lower Extremity Other Than Joint Without and With Contrast; Foot Exam date and time: 07/26/2025 3:40 PM Age: 65 years old Clinical indication: Diabetic wounds on 1st and 2nd digits x 2-3 months and also on the lateral side of foot x 2 weeks; Additional info: Evaluate for distal hallux, 2nd toe osteomyelitis TECHNIQUE: Imaging protocol: Magnetic resonance imaging of the right lower extremity without and with contrast. Exam focused on the foot. Contrast material: ISOVUE; Contrast volume: 16 ml; Contrast route: IV; COMPARISON: MR FOOT RT WO/W CON 02/13/2022 1:45 PM FINDINGS: Bones/joints: Redemonstrated, and better appreciated on x-ray , remote amputation of the 5th metatarsal mid diaphysis segments, with intervening gap, and still present the phalanges and distal portion of the 5th metatarsal metadiaphysis. Remote, healed fracture of the 4th metatarsal mid diaphysis. Status post erosion or/and amputation of the great toe distal phalanx distal neck, with irregular, obscured margins and mild overlying periosteal reaction/callus formation/dystrophic soft tissue calcification. (concerning for osteomyelitis). Severe degenerative change of the great toe MTP joint. Mild to moderate scattered degenerative changes in the forefoot and midfoot. There is mild diffuse marrow T1 signal /concurrent diffuse increased T2 signal in the great toe distal phalanx and also 2nd toe distal phalanx tip, suspicious for osteomyelitis. Soft tissues: Mild diffuse soft tissue and intramuscular edema and enhancement in the foot, consistent with neuropathic change. Scarring in the lateral forefoot overlying the region of the amputated 5th metacarpal. No organized, drainable fluid or gas. IMPRESSION: There are findings suspicious for osteomyelitis at the tips of the 1st and 2nd digits distal phalanges.
[2025-07-26] MEDS: SODIUM CHLORIDE 0.9% 10ML SYR (RAD ONLY) 10 ML IV (16:36)
[2025-07-26] MEDS: GADOTERIDOL INJ 20ML SYRINGE 16 ML IV (16:36)
== END 2025-07-26 23:59 | disposition home or self-care (01) ==
LOC: RAD 15:30
PROVIDERS: PCP Family Medicine; Visit Provider Podiatrist
DX: E11.621 Type 2 diabetes mellitus with foot ulcer (principal); I70.239 Atherosclerosis of native arteries of right leg with ulceration of unspecified site; L97.519 Non-pressure chronic ulcer of other part of right foot with unspecified severity; L03.115 Cellulitis of right lower limb; R93.6 Abnormal findings on diagnostic imaging of limbs
CPT/HCPCS: 73720; A9576

== ENCOUNTER 2025-07-27 10:40 | Outpatient (CLI) | payer MEDICARE, BC, SELFPAY ==
--- OUTSIDE RECORDS SUMMARY | 2025-07-27 10:44 | XMS_ITS | Clinical Summary ---
Author Organization [facility] Address [address] [place] [address] Care Team Providers Care Field Technical Assistant Name Role Phone Jasen Jean MD Primary Care Provider +1- [phone] Allergies Active Allergy Reactions Criticality Noted Date [...] complication, with long-term current use of insulin USE TO INJECT INSULIN ONCE DAILY 100 [...] complication, with long-term current use of insulin Inject 11 units two times daily. Titrate [...] complication, with long-term current use of insulin Take 1 tablet by mouth daily. 30 tablet 2 5 Active atorvastatin (Lipitor) 40 MG tabletIndications :Type 2 diabetes mellitus with ophthalmic complication TAKE 1 TABLET BY MOUTH ONCE DAILY [...] complication, with long-term current use of insulin Take 1 tablet by mouth once daily [...] Type Department Care Team Description 06/16/2025 Refill [facility] Endocrinology [address] [place] [address] Roxana Burris APRN Type 2 diabetes mellitus with other specified complication, with long-term current use of insulin ([facility]) 05/25/2025 8:20 AM EDT Office Visit [facility] [address] [place] [address] Mukund Agustin MD Atrial fibrillation, unspecified type ([facility]) (Primary Dx); Open wound of right foot, initial encounter; Type 2 diabetes mellitus with foot ulcer, with long-term current use of insulin ([facility]) 05/25/2025 Travel 05/13/2025 Refill [facility] Endocrinology [address] [place] [address] Roxana Burris APRN Type 2 diabetes mellitus with ophthalmic complication ([facility]) 05/06/2025 Telephone [facility] [address] [place] [address] None, None from Last 3 [...] Description 08/09/2025 9:30 AM EDT Office Visit [facility] Chitina [place] [address] [facility], [address] [place] [address] Fina Muñoz, LIFE AGENT [address] [place] [address] Health Maintenance Due Date Last [...] Additional history exists [facility]-Depression Screening 01/19/2025 01/20/2024 OQA-SPSWQ-17 Vaccine (2 - season) 2025 01/12/2021 [facility]-Influenza [...] % [facility] Kit Lot Number [id number] [facility] Kit Expiration Date 07/04/26 [facility] Blood Venous blood specimen / Unknown 10/19/2024 2:29 PM EST us Roxana Burris LIFE AGENT POINT OF CARE TEST ENTER /EDIT ORDERABLES Final Result [facility] [address] [place] [address] from Last 3 Months or Most Recently Relevant to Health Maintenance [place] [address] [facility] Care Teams Field Technical Assistant Relationship Specialty Start Date End Date Jasen Jean MD [address] [place] [address] PCP - General 03/17/21
--- OUTSIDE RECORDS SUMMARY | 2025-07-27 10:44 | XMS_ITS | Encounter Summary ---
Author Organization Healthcare Address [address] [place] [address] Care Team Providers Care Substation Operator Helper Generation Name Role Phone Jasen Jean MD Primary Care Provider +1- [phone] Encounter Details Date Type Department Care Team (Late Contact Info) Description 04/12/2025 Orders Only External Location [address] [place] [address] Provider, External Social History Tobacco Use Types [...] Description 08/09/2025 9:30 AM EDT Office Visit [facility] [place] [address] [facility], [address] [place] [address] Fina Muñoz APRN [address] [place] [address] documented as of this encounter Procedures Procedure [...] documented as of this encounter Care Teams Substation Operator Helper Generation Relationship Specialty Start Date End Date Jasen Jean MD [address] [place] [address] PCP - General 03/17/21 documented as of this encounter
--- OUTSIDE RECORDS SUMMARY | 2025-07-27 10:44 | XMS_ITS | Encounter Summary ---
Author Organization [facility] Address [address] [place] [address] Care Team Providers Care Freight Booker Name Role Phone Jasen Jean MD Primary Care Provider +1- [phone] Encounter Details Date Type Department Care Team (Late Contact Info) Description 08/18/2024 Orders Only External Location [address] [place] [address] Perla Kramer, FOXPRO DEVELOPER [address] [facility] [address] [place] [address] Social History Tobacco Use Types Packs/Day Years [...] Description 08/09/2025 9:30 AM EDT Office Visit [facility] [place] [address] [facility], [address] [place] [address] Fina Muñoz, [employer] DEVELOPER [address] [place] [address] documented as of this encounter Procedures Procedure Name Priority Date/Time Associated Diagnosis Comments US OUTSIDE IMAGES 08/18/2024 8:16 AM EDT documented in this encounter Results * US OUTSIDE IMAGES (08/18/2024 8:16 AM EDT) Anatomical Region Laterality Modality Ultrasound 08/18/2024 8:16 AM EDT us Perla Kramer [employer] DEVELOPER IMG US PROCEDURES Sienna l Result documented in this encounter Visit Diagnoses Not on filedocumented in this encounter Additional Health Concerns Assessment Noted Time A fall risk assessment has been complete d for the patient 01/20/2024 3:23 PM EDT A Body Mass Index follow-up plan has been documented for the patient 04/13/2024 3:51 PM EDT documented as of this encounter Care Teams Freight Booker Relationship Specialty Start Date End Date Jasen Jean MD [address] [place] [address] PCP - General 03/17/21 documented as of this encounter
--- OUTSIDE RECORDS SUMMARY | 2025-07-27 10:44 | XMS_ITS | Clinical Summary ---
Author Organization [facility] ([place], [place], [place], [place]) Address [address] [place] [address] Care Team Providers Care Shaft Repairer Name Role Phone Unavailable Primary Care Provider [...]
--- OUTSIDE RECORDS SUMMARY | 2025-07-27 10:44 | XMS_ITS | Referral Summary ---
Author Organization [facility] ([place], [place], [place], [place]) Address [address] [place] [address] Care Team Providers Care Production Intern Name Role Phone Unavailable Primary Care Provider [...]
--- OUTSIDE RECORDS SUMMARY | 2025-07-27 10:44 | XMS_ITS | Encounter Summary ---
Author Organization [facility] Address [address] [address] Care Team Providers Care Firmware Test Engineer Name Role Phone Jasen Jean MD Primary Care Provider +1- [phone] Reason for Visit * Reason Comments Med Refill Encounter Details Date Type Department Care Team (Late st Contact Info) Description 06/16/2025 Refill [facility] Endocrinology [address] [place] [address] Roxana Burris P, ASSOCIATE MATERIAL HANDLER [address] [address] Type 2 diabetes mellitus with other specified complication, with long-term current use of insulin ([facility]) Social History Tobacco Use Types [...] Description 08/09/2025 9:30 AM EDT Office Visit [facility] [place] [address] [facility], [address] [address] Fina Muñoz, ASSOCIATE MATERIAL HANDLER [address] [place] [address] documented as of this encounter Visit Diagnoses Diagnosis Type 2 diabetes mellitus with other specified complication, with long-term current use of insulin documented in this encounter Additional Health Concerns Assessment Noted Time A fall risk assessment has been complete d for the patient 05/25/2025 8:18 AM EDT A Body Mass Index follow-up plan has been documented for the patient 05/26/2025 9:09 AM EDT documented as of this encounter Care Teams Firmware Test Engineer Relationship Specialty Start Date End Date Jasen Jean MD [address] [place] [address] PCP - General 03/17/21 documented as of this encounter
--- OUTSIDE RECORDS SUMMARY | 2025-07-27 10:44 | XMS_ITS | Clinical Summary ---
Author Organization [facility] Address [address] [place] [address] Care Team Providers Care Berry Picker Name Role Phone Jasen Jean MD Primary [...] 07/01/2019 INFLUENZA VACCINE 06/04/2025 Insurance Care Teams Berry Picker Relationship Specialty Start Date End Date Jasen Jean MD [address] [place] [facility] [address] [facility] [address] [place] [address] [facility] - General 06/27/15
[2025-07-27 10:45] VITALS: BMI 25.1
--- NOTE | 2025-07-27 11:10 | ECG_ITS ---
APPROVED REPORT Exam: Resting ECG HR:60 bpm ECG Measurements Heart Rate 60 AXES [place] 200 P 14 QRSd 145 QRS -29 QT 431 T 50 QTc 431 Conclusion SINUS RHYTHM BORDERLINE LEFT AXIS DEVIATION [QRS AXIS < -20] RIGHT BUNDLE BRANCH BLOCK [120+ ms QRS DURATION, UPRIGHT V1, 40+ ms S IN I/aVL/V4/V5/V6] ABNORMAL ECG UNCONFIRMED REPORT Electronically signed by : Brain Linares MD 07/27/2025 20:25:56
[2025-07-27 11:34] LABS: Hematocrit 46.1 % (42.0-52.0); Hemoglobin 15.0 g/dL (14.1-18.0); Immature Granulocytes % 0.2 %; Mean Corpuscular HGB Conc 32.5 g/dL (31.8-35.4); Mean Corpuscular Hemoglobin 30.4 pg (27.0-31.2); Mean Corpuscular Volume 93.5 fl (80-94); Nucleated Red Blood Cells % 0 %; Platelet Count 233 K/mm3 (142-424); Red Blood Count 4.93 M/mm3 (4.60-6.20); Red Cell Distribution Width-SD 44.0 fL; White Blood Count 4.5 K/mm3 (4.8-10.8)
[2025-07-27 11:37] LABS: Albumin Level 4.2 g/dl (3.5-5.0); Chloride 100 mmol/L (98-107); Potassium 4.8 mmoL/L (3.5-5.1); Sodium 139 mmol/L (136-145)
[2025-07-27 11:39] LABS: Blood Urea Nitrogen 13 mg/dl (9-20); Creatinine Clearance Estimated 86 mL/min (50-200); Creatinine,Serum 0.90 mg/dl (0.66-1.25); Estimated Glomerular Filt Rate 85 ml/min (>60); GFR (African American) 103 ML/MIN (>60)
[2025-07-27 11:40] LABS: Alanine Aminotransferase 16 U/L (12-78); Albumin/Globulin Ratio 1.5 (1.1-1.8); Alkaline Phosphatase 75 U/L (38-126); Anion Gap 12.8 mEq/L (5-15); Aspartate Amino Transferase 26 U/L (17-59); Bilirubin,Total 0.7 mg/dl (0.2-1.3); Calcium 9.2 mg/dl (8.4-10.2); Carbon Dioxide 31 mmol/L (22.0-30.0); Globulin 2.8 g/dL (1.3-3.2); Glucose 249 mg/dl (74-100); Total Protein,Serum 7.0 g/dl (6.3-8.2)
[2025-07-27 12:01] LABS: C-Reactive Protein 0.6 mg/L (0-4)
== END 2025-07-27 23:59 | disposition home or self-care (01) ==
LOC: PREOP 10:42
PROVIDERS: PCP Family Medicine; Visit Provider Podiatrist
DX: Z01.810 Encounter for preprocedural cardiovascular examination (principal); Z01.812 Encounter for preprocedural laboratory examination; Z01.818 Encounter for other preprocedural examination; I45.10 Unspecified right bundle-branch block; R94.31 Abnormal electrocardiogram [ECG] [EKG]
CPT/HCPCS: 80053; 85025; 85651; 86140; 93005

== ENCOUNTER 2025-07-29 11:17 | Day surgery (SDC) | payer MEDICARE, BC, SELFPAY ==
--- NOTE | 2025-07-27 14:03 | SUR.PREOP ---
Anesthesia request evaluation regarding findings on 06/2023 ECHO to determine if pt ok to proceed with surgery. Appointment scheduled w/ cardiology for 07/28 @ 1030 w/ explanation of anesthesia's request/concern. Pt and Dr. Reed's office notified, both verbalizing understanding of plan.
[2025-07-27 14:16] VITALS: BMI 25.1
[2025-07-29 11:40] VITALS: BP 126/93; PULSE 77; RESP 18; TEMP 36.2; O2SAT 99
[2025-07-29 11:43] LABS: POC Glucose,Bedside 203 gm/dL (70-110)
[2025-07-29] MEDS: 0.9 % SODIUM CHLORIDE 1000ML 1,000 ML 25 ML IV (11:53)
--- NOTE | 2025-07-29 12:12 | EXP.ANES.CKL ---
[facility] Disclaimer: The information contained in this section may have been updated after the patient was seen, as this information can be updated by other users. Medical History Toenail deformity Toenail avulsion Abnormal ankle brachial index (MARILIA) Depression Fatigue Hypotension Headache CAD in [place] artery Tobacco user PAF (paroxysmal atrial fibrillation) Dyspnea Angina at rest PAD (peripheral artery disease) Diabetes mellitus HLD (hyperlipidemia) Palpitations Surgical History History of coronary artery stent placement History of colonoscopy Hx laparoscopic cholecystectomy Status post surgery of both feet Family History Other Family history of heart disease Social History Smoking Status: Never smoker second hand exposure: Yes alcohol intake: never substance use type: denies use current occupational status: retired Travel in the last 8 weeks?: None household members: spouse housing: house current occupational exposures/hazards: No caffeine: Yes Have you lived/traveled outside [place] in past 30 days?: No Contact w/someone who lives/traveled outside US past 30 days?: No Exposure to someone with infectious disease in past 14 days?: No Do you have a fever (greater than 100.4 F or 38 C)?: No Have you tested positive for COVID-19?: No Exposed to someone with COVID-19 in past 14 days?: No Do you have a sore throat?: No Do you have a cough?: No Do you have any weakness?: No Do you have any diarrhea?: No Are you experiencing any unusual bleeding?: No Do you have any muscle aches/pain?: No Do you have any abdominal pain?: No Are you experiencing loss of taste or smell?: No [facility] Anesthesia Checklist Patient Identification Patient Identification: Arm Band Structural Data Admitted From: Home Planned Operative Procedure/s: Right 1st and 2nd Toe Amputation, Wound Debridement Consent for Planned Operative Procedure(s) Verified: Yes Verified Documents: Surgical Consent and History and Physical NPO Status Verified Time NPO: 00:00 Additional verifications Anesthesia Reactions: No Hx Blood Transfusions: No Blood Transfusion Reaction: No Airway Assessment Mallampati Score:: Class II C-Spine Mobility Assessed: Yes TMJ Mobility Assessed: Yes Dentition: Good Dentition Neurological Assessment Level of Consciousness: Awake, Alert and Appropriate Anesthesia Plan Anesthesia Risk discussed: Yes Anesthesia Plan: Verified ASA Class: III Anesthesia Type: MAC
[2025-07-29] MEDS: PIPERCILLIN/TAZO 3.375 GM in 0.9 % SODIUM CHLORIDE 50 ML IV (13:10)
[2025-07-29] MEDS: BUPIVACAINE 0.5% 30ML VIAL 150 MG (13:23)
[2025-07-29] MEDS: GENTAMICIN 80 MG/2 ML VIAL (13:24)
[2025-07-29] MEDS: VANCOMYCIN/WATER FOR INJ (PEG) 1.25 GM/250 ML PIGGYBACK IV (13:29)
[2025-07-29 14:14] VITALS: BP 107/63; PULSE 63; RESP 17; TEMP 36.3; O2SAT 96
--- NOTE | 2025-07-29 14:16 | XR_ITS ---
FINAL REPORT CLINICAL HISTORY: Right 1-2nd toe amp COMPARISON: 07/12/2025 FINDINGS: AP, oblique and lateral views of the right foot were obtained. There has been interval amputation of the distal phalanges of the 1st and 2nd toes. Chronic fracture of the 4th metatarsal and postoperative changes of the 5th metatarsal are stable. Degenerative joint disease is unchanged. No convincing new bony destruction identified. There is soft tissue edema of the medial forefoot favored to be postoperative. IMPRESSION: Interval amputation distal phalanges 1st and 2nd digits. Soft tissue edema favored to be postoperative. Otherwise, stable exam. Reviewed, Interpreted and Dictated by Georgia Cantu MD Transcribed by Loyda Pickens Authenticated and . [facility]
--- NOTE | 2025-07-29 14:17 | EXP.OP.NOTE ---
Date of procedure: 07/29/25 Pre-op Diagnosis:: Right diabetic foot ulcer x3 Right 1-2nd toe osteomyelitis PAD Post-op Diagnosis:: Same Procedure performed:: Apligraf [facility] code Q4101 Application of skin graft substitute leg Surgical prep of skin graft recipient site Wound debridement Incision bone cortex for osteomyelitis First toe amputation at IP with derotational skin flap/adjacent soft tissue rearrangement 2nd toe amputation at [facility] Surgeon:: Latonia Reed DPM [employer]CH[employer]IC:: Eduardo Martinez Anesthesia: MAC and local (10cc 0.5% marcaine plain) Estimated blood loss (mL): 10 Clinical Note:: Pre-Op indications: Patient is a 65 year-old male with right diabetic foot and arterial ulcers. Patient has failed conservative treatment, including multiple debridements, various wound dressings, antibiotics, immobilization. Patient has seen vascular surgeon. The last x-rays are suspicious for underlying bone infection. Recent MRI from 07/26/25 showed bone changes suspicious for osteomyelitis at the tips of the 1st and 2nd distal phalanx toes. He had a history of wound debridement with Apligraf application on 04/05/22-which resolved wounds for several years. We discussed staged surgery for wound debridement and graft applications. On 06/16/25 graft radha #1, 06/23/25 graft radha #2, 06/30/25 graft #3. We previously discussed staged surgery for graft applications. Given new clinical and imaging changes, discussed wound debridement with 1st and 2nd toe amputations, 5th met wound debridement and graft application. Discussed the foot can change shape after surgery, toes may migrate, he may have gait changes and transfer skin lesion/new preulcerativecallus areas secondary to changes in foot structure/biomechanics. Risks and benefits were discussed including but not limited to: damage to blood vessels and nerves, bleeding, residual/recurrent/worsening infection, wound complications, need for further surgery, implant/graft failure, need for removal of implant/graft, allergic reaction, prolonged or permanent swelling of the extremity, prolonged or permanent pain or deformity, CRPS/RSD, DVT/PE, and anesthetic complications including anaphylaxis or . Patient understands if wound/graft gets re/infected, it could lead to prolonged oral or IV antibiotics or increased risk of osteomyelitis, which could lead to possible loss of toe, partial foot or even BKA. No guarantees were given. All questions fully answered. The patient verbalized understanding and agreed to proceed with surgery. Verbal and written consent was obtained. Operative findings:: Localized edema, mild leonardo wound erythema noted to the right distal hallux superior tip. Toe discoloration with multiple arterial spots-improved. Right 2nd s/p TNA. Right distal plantar 1-2nd toe DFU noted with mild leonardo wound maceration. Pre-debridement: Right distal plantar hallux DFU: 2.6 x 1.4 x 0.15cm, 100% granular. Right distal 2nd toe tip DFU: 0.2 x 0.3 x 0.0cm, 100% granular. Distal hallux and 2nd toe distal phalanx were disarticulated from proximal proximal phalanx. Cortical changes and erosions to the distal tip of the hallux and second toe bones. Specimen sent for bone culture and pathology. The head of the middle phalanx of the second toe and proximal phalanx of the hallux toe were intact with no obvious cortical erosions or signs of osteomyelitis. The dorsal skin from the hallux was salvaged and utilized to perform a derotational skin flap in order to cover the plantar medial DFU on the great toe. No purulence, malodor or ascending cellulitis. Right fifth metatarsal diabetic foot ulcer noted. Predebridement wound base 100% black eschar. Sharp excisional debridement full thickness with 15' blade/curette thru skin, subq into/including deep fascia. Post-debridement: Right 5th met DFU: 100% granular, 1.6 x 1.4 x 0.3cm. Mild bleeding with debridement, controlled with compression. No signs of infection to the fifth met wound. Overall prognosis is fair. Await bone cultures and adjust antibiotics as needed. Operative note:: On this date and time patient was deemed an appropriate surgical candidate. With informed consent signed, the patient was taken to the operating theater room. The patient was positioned supine. MAC anesthesia was induced. No tourniquet used. Right lower extremity was prepped and draped in normal sterile fashion. 1g IV Vanco, Zosyn 3.375 infused. Pre-op right 1-2nd toe blocks given with 10 cc 0.5% marcaine plain. Right hallux (partial) amputation with derotational skin flap: A modified fish mouth incision was mapped out around the HIPJ and around the plantar hallux diabetic foot ulcer. Utilizing a 15 blade dissection was carried down sharply to the level of the bone around the distal phalanx which was disarticulated from the proximal phalanx. The distal phalanx bone was soft and crumbly but had no malodor to it. Portion of it was cut and sent for bone culture and the other part was sent for bone biopsy for pathology. Attention was then directed to the proximal phalanx. The head was hard and intact, with no obvious discoloration or cortical erosions noted. Next gentamicin irrigation was used to flush the wound. The wound was reexplored and no further signs of infection noted. Bleeding controlled. No vessels ligated with electrocautery or tied as there was minimal to no blood loss. 3-0 Vicryl was used to reapproximate tissue over the bone. As there was a modified incision utilized to perform the distal amputation and resect the diabetic foot ulcer, there was not enough plantar tissue to close the wound. The dorsal tissue just behind the toenail had been salvaged and was utilized rotating the dorsal lateral skin plantar medial which did cover over the soft tissue defect. The soft tissue rearrangement/D rotational skin flap was closed with Prolene in an interrupted simple suture fashion. Right 2nd digit (partial) amputation: A fish mouth incision was mapped out around the DIPJ. Utilizing a 15 blade dissection was carried down sharply to the level of the bone around the distal phalanx which was disarticulated from the medial phalanx. The distal phalanx bone was soft and crumbly and had a no malodor to it. Portion of it was cut and sent for bone culture and the other part was sent for bone biopsy for pathology. Attention was then directed to the middle phalanx. The head was hard and intact, with no obvious discoloration or cortical erosions noted. Next gentamicin irrigation was used to flush the wound. The wound was reexplored and no further signs of infection noted. Bleeding controlled. No vessels ligated with electrocautery or tied as there was minimal to no blood loss. 3-0 Prolene was used to close skin in an interrupted simple suture fashion. Right foot wound debridement x1: Ulcer noted to the lateral fifth metatarsal. Predebridement there was minimal leonardo wound maceration and no acute signs of infection noted. Sharp excisional full-thickness debridement with 15 blade, curette, forceps down to/including deep fascia. Biofilm and fibrotic slough removed. No metatarsal bone exposed. The skin edges were debrided with 15' blade, some bleeding noted. The wound was flushed with gentamicin irrigation. Skin cleansed with saline. Mastisol applied around the wound edges. Application of Apligraf (Organogenesis wound graft): Graft was prepared in standard fashion. The entire graft (44sq cm) was utilized over the diabetic foot ulcer. The graft was placed over the open wound/DFU and circumferentially around the surrounding skin (as the graft was larger than the wounds) and secured with Steri-Strips. Adaptic was applied over the graft followed by betadine soaked gauze to dry leonardo wound/graft skin and 1-2nd toes. A dry sterile dressing with gauze, darya coban applied to right foot. The patient was awoken from anesthesia and transferred to recovery with vital signs stable and neurovascular status intact. Patient appeared to tolerate procedure and anesthesia well without complication. Materials: Organogenesis Aligraf wound graft x1 (44sq cm) Discharge/Plan: Ok to discharge home when ready and vss. Patient is to maintain dressing clean dry and intact. Elevate on two pillows. Minimize activity and weight bearing. NWB to RLE in fracture boot with walker/rolling knee scooter. Take post-op oral Clinda, Levo as directed. Follow up in one week for dressing change and skin check. Condition: stable Disposition: same day Specimens:: Right hallux toe path Right 2nd toe path Right hallux distal bone culture Right 2nd toe bone culture Complications:: None
[2025-07-29 14:29] VITALS: BP 115/68; PULSE 55; RESP 18; O2SAT 99
[2025-07-29 14:44] VITALS: BP 132/72; PULSE 60; RESP 18; O2SAT 99
== END 2025-07-29 15:00 | disposition home or self-care (01) ==
PROVIDERS: PCP Family Medicine; Visit Provider Podiatrist
PROC: (CPT 14040; principal; 2025-07-29 13:00)
DX: E11.621 Type 2 diabetes mellitus with foot ulcer (principal); L97.512 Non-pressure chronic ulcer of other part of right foot with fat layer exposed; L03.031 Cellulitis of right toe; E11.51 Type 2 diabetes mellitus with diabetic peripheral angiopathy without gangrene; I25.110 Atherosclerotic heart disease of native coronary artery with unstable angina pectoris; I10 Essential (primary) hypertension; E78.5 Hyperlipidemia, unspecified; F32.A Depression, unspecified; I48.0 Paroxysmal atrial fibrillation; F17.220 Nicotine dependence, chewing tobacco, uncomplicated; Z79.01 Long term (current) use of anticoagulants; Z79.84 Long term (current) use of oral hypoglycemic drugs; Z79.82 Long term (current) use of aspirin; Z79.4 Long term (current) use of insulin; Z79.899 Other long term (current) drug therapy; Z88.8 Allergy status to other drugs, medicaments and biological substances
CPT/HCPCS: 14040; 15271; 15272; 28825 ×2; Q4101; 73630; 82962; 87070; 87077; 87186; 87205; 88304; 88305; 88311; 96374; J0665; J1580; J2003; J2543; J2704; J3375; J7030

== ENCOUNTER 2025-08-18 10:56 | Day surgery (SDC) | payer MEDICARE, BC, SELFPAY ==
[2025-08-18 11:09] VITALS: BMI 25.1
[2025-08-18 11:15] VITALS: BP 135/80; PULSE 70; RESP 18; TEMP 36.1; O2SAT 100
[2025-08-18 11:20] LABS: POC Glucose,Bedside 199 gm/dL (70-110)
--- NOTE | 2025-08-18 11:54 | P.OP_ITS ---
Date of procedure: 08/18/25 Pre-op Diagnosis:: Right diabetic foot ulcer x2 Right 1-2nd toe sutures PAD New right plantar fascia pain Post-op Diagnosis:: Same Procedure performed:: Apligraf [facility] code Q4101 Application of skin graft substitute leg Surgical prep of skin graft recipient site Wound debridement x2 Suture removal (right 1-2nd amp sites) Surgeon:: Latonia Reed DPM Anesthesia: none Estimated blood loss (mL): 3 Clinical Note:: Pre-Op indications: Patient is a 65 year-old male with right diabetic foot and arterial ulcers. Patient has failed conservative treatment, including multiple debridements, various wound dressings, antibiotics, immobilization. Patient has seen vascular surgeon. He had a history of wound debridement with Apligraf application on 04/05/22-which resolved wounds for several years. We discussed staged surgery for wound debridement and graft applications. On 06/16/25 graft radha #1, 06/23/25 graft radha #2, 06/30/25 graft #3. We previously discussed staged surgery for graft applications. He had surgery 07/29/25 for right 1-2nd distal toe amputation and 5th met woud debridement with Apligraf application #4, plan for graft #5 on 08/18/25. Discussed the foot can change shape after surgery, toes may migrate, he may have gait changes and transfer skin lesion/new preulcerativecallus areas secondary to changes in foot structure/biomechanics. Risks and benefits were discussed including but not limited to: damage to blood vessels and nerves, bleeding, residual/recurrent/worsening infection, wound complications, need for further surgery, implant/graft failure, need for removal of implant/graft, allergic reaction, prolonged or permanent swelling of the ex tremity, prolonged or permanent pain or deformity, CRPS/RSD, DVT/PE, and anesthetic complications including anaphylaxis or . Patient understands if wound/graft gets re/infected, it could lead to prolonged oral or IV antibiotics or increased risk of osteomyelitis, which could lead to possible loss of toe, partial foot or even BKA. No guarantees were given. All questions fully answered. The patient verbalized understanding and agreed to proceed with surgery. Verbal and written consent was obtained. Operative findings:: Right hallux and 2nd toe distal amp sites have sutures clean dry and intact. Some localized edema and minimal erythema. Suture removed x11. The hallux was healed with no wound dehiscence. Some black eschar noted to right 2nd toe incision. Sharp excisional full-thickness debridement with 15 blade and forceps along the incision line through the eschar/skin. Post debridement: 100% granular with some bleeding noted, 1.4 x 0.2 x 0.1 cm. Right 5th met DFU noted with some graft incorporation. There is no purulence, malodor or drainage noted. Mild leonardo wound erythema with no warmth or ascending cellulitis. Sharp excisional full-thickness debridement with 15' blade/curette thru skin into/including subq. Post-debridement: Right 5th met DFU: 100% granular, 1.9 x 1.4 x 0.3cm. Operative note:: On this date and time patient was deemed an appropriate surgical candidate. With informed consent signed, the patient was taken to the local procedure operating theater room. The patient was positioned supine. No anesthesia was induced. No tourniquet used. Right lower extremity was prepped and draped in normal sterile fashion. 1g IM Rocephin given. Right 1-2nd toe suture removal: Attention directed to the distal tips of the prior partial amputation sites. Sutures were removed without complication. Hallux healed. Right second toe wound noted. Right second toe wound debridement: 15 blade and forceps used to sharply debride scab and eschar through skin only. No full-thickness wound dehiscence noted. No signs of infection. Right lateral foot wound debridement: Ulcer noted to the lateral fifth metatarsal. Predebridement there was minimal leonardo wound maceration and no acute signs of infection noted. Sharp excisional full-thickness debridement with 15 blade, curette, forceps down to/including deep fascia. Biofilm and fibrotic slough removed. No metatarsal bone exposed. The skin edges were debrided with 15' blade, some bleeding noted. The wound was flushed with gentamicin irrigation. Skin cleansed with saline. Mastisol applied around the wound edges. Application of Apligraf (Organogenesis wound graft): Graft was prepared in standard fashion. The entire graft (44sq cm) was utilized over the lateral fifth metatarsal diabetic foot ulcer and second toe wound. The graft was cut and 1/4 of it was placed over the distal second toe. The remaining fifth metatarsal graft was placed over the fifth metatarsal open wound/DFU and circumferentially around the surrounding skin (as the graft was larger than the wounds) and secured with Steri-Strips. Adaptic was applied over the graft followed by betadine soaked gauze to dry leonardo wound/graft skin and 1-2nd toes. A dry sterile dressing with gauze, darya, [place] applied to right foot. The patient was transferred to recovery with vital signs stable and neurovascular status intact at baseline. Patient appeared to tolerate procedure well without complication. Materials: Organogenesis Aligraf wound graft x1 (44sq cm, 0 waste) Discharge/Plan: Ok to discharge home when ready and vss. Patient is to maintain dressing clean dry and intact. Elevate on two pillows. Minimize activity and weight bearing. PWB to RLE in fracture boot with walker/rolling knee scooter. Complete oral antibiotics as directed. Plan for right foot x-rays in post-op (complained of new plantar foot pain, worse with standing. Discussed dif ferential diagnosis: Plantar fasciitis/plantar fascial strain secondary to fracture boot immobilization, stress reaction, metatarsal stress fracture). Discussed planned staged surgery in 1-2 weeks: right foot wound debridement, application of wound graft #6 depending on appearance at office visit. Follow up in one week for x-ray review, dressing change and skin check. Condition: stable Disposition: same day Complications:: None
[2025-08-18 12:25] VITALS: BP 144/76; PULSE 66; RESP 16; TEMP 36.3; O2SAT 97
--- NOTE | 2025-08-18 12:26 | XR_ITS ---
FINAL REPORT CLINICAL HISTORY: new graft today -- diabetic foot COMPARISON: 07/29/2025 FINDINGS: AP, oblique and lateral views of the right foot were obtained. There are postoperative changes from amputation of the distal phalanges of the 1st and 2nd toes. Postoperative changes are also noted from resection of the distal fifth metatarsal. There is old fracture deformity of the fourth metatarsal. No acute osseous abnormality is identified. No evidence of bony destruction. There is multijoint degenerative disease. Soft tissue edema is noted along the lateral mid foot, similar to the prior study. No radiopaque foreign body identified. IMPRESSION: Postoperative degenerative changes without acute osseous abnormality. Soft tissue edema is similar to the prior study. Reviewed, Interpreted and Dictated by Georgia Cantu MD Transcribed by Loyda Pickens Authenticated and [facility]
[2025-08-18] MEDS: cefTRIAXone 1GM VIAL 1 GM IM (12:57)
[2025-08-18 13:00] VITALS: BP 144/76; PULSE 66; RESP 18; O2SAT 97
[2025-08-18] MEDS: GENTAMICIN 80 MG/2 ML VIAL (13:38)
== END 2025-08-18 13:00 | disposition home or self-care (01) ==
PROVIDERS: PCP Family Medicine; Visit Provider Podiatrist
PROC: (CPT 15275; principal; 2025-08-18 11:30)
DX: E11.621 Type 2 diabetes mellitus with foot ulcer (principal); L97.512 Non-pressure chronic ulcer of other part of right foot with fat layer exposed; M79.671 Pain in right foot; L90.5 Scar conditions and fibrosis of skin; L60.3 Nail dystrophy; E11.42 Type 2 diabetes mellitus with diabetic polyneuropathy; M19.071 Primary osteoarthritis, right ankle and foot; M19.072 Primary osteoarthritis, left ankle and foot; Z89.411 Acquired absence of right great toe; Z89.421 Acquired absence of other right toe(s); L57.0 Actinic keratosis; E11.51 Type 2 diabetes mellitus with diabetic peripheral angiopathy without gangrene; I70.25 Atherosclerosis of native arteries of other extremities with ulceration; I10 Essential (primary) hypertension; E78.5 Hyperlipidemia, unspecified; Z79.01 Long term (current) use of anticoagulants; Z79.02 Long term (current) use of antithrombotics/antiplatelets; Z79.899 Other long term (current) drug therapy; Z79.4 Long term (current) use of insulin; Z79.85 Long-term (current) use of injectable non-insulin antidiabetic drugs; Z88.8 Allergy status to other drugs, medicaments and biological substances; I48.0 Paroxysmal atrial fibrillation; I25.110 Atherosclerotic heart disease of native coronary artery with unstable angina pectoris; Z95.5 Presence of coronary angioplasty implant and graft; Z72.0 Tobacco use
CPT/HCPCS: 15275; 15276; 73630; 82962; J0696; J1580; Q4101

== ENCOUNTER 2025-08-25 12:27 | Day surgery (SDC) | payer MEDICARE, BC, SELFPAY ==
[2025-08-24 10:58] VITALS: BMI 25.1
[2025-08-25 12:53] VITALS: BP 145/85; PULSE 67; RESP 16; TEMP 36.6; O2SAT 97
[2025-08-25 13:41] VITALS: BP 117/71; PULSE 60; RESP 18; TEMP 36.1; O2SAT 99
--- NOTE | 2025-08-25 13:44 | P.OP_ITS ---
Date of procedure: 08/25/25 Pre-op Diagnosis:: Right diabetic foot ulcer x2 PAD Post-op Diagnosis:: Same Procedure performed:: [id number] Application of skin graft substitute leg Surgical prep of skin graft recipient site Wound debridement x2 Surgeon:: Latonia Reed DPM Anesthesia: none Estimated blood loss (mL): 3 Clinical Note:: Pre-Op indications: Patient is a 65 year-old male with right diabetic foot and arterial ulcers. Patient has failed conservative treatment, including multiple debridements, various wound dressings, antibiotics, immobilization. Patient has seen vascular surgeon. He had a history of wound debridement with Apligraf application on 04/05/22-which resolved wounds for several years. We discussed staged surgery for wound debridement and graft applications. On 06/16/25 graft radha #1, 06/23/25 graft radha #2, 06/30/25 graft #3. We previously discussed staged surgery for graft applications. He had surgery 07/29/25 for right 1-2nd distal toe amputation and 5th met wound debridement with Apligraf application #4. He had surgery for right 5th met wound debridement and graft application #1 on 08/18/25 (had to re-submit to insurance). Planned staged surgery for graft #2 on 08/25/25. Discussed the foot can change shape after surgery, toes may migrate, he may have gait changes and transfer skin lesion/new preulcerativecallus areas secondary to changes in foot structure/biomechanics. Risks and benefits were discussed including but not limited to: damage to blood vessels and nerves, bleeding, residual/recurrent/worsening infection, wound complications, need for further surgery, implant/graft failure, need for removal of implant/graft, allergic reaction, prolonged or permanent swelling of the extremity, prolonged or permanent pain or deformity, CRPS/RSD, DVT/PE, and anesthetic complications including anaphylaxis or . Patient understands if wound/graft gets re/infected, it could lead to prolonged oral or IV antibiotics or increased risk of osteomyelitis, which could lead to possible loss of toe, partial foot or even BKA. No guarantees were given. All questions fully answered. The patient verbalized understanding and agreed to proceed with surgery. Verbal and written consent was obtained. Of note, he had 3v right foot x-rays 08/18/25 in post-op. He complained of plantar foot pain, worse with standing. Discussed differential diagnosis: Plantar fasciitis/plantar fascial strain secondary to fracture boot immobilization, stress reaction, metatarsal stress fracture). X-rays were negative for acute frature and osteomyelitis. Symptoms have improved-will wait on new x-rays today. If symptoms still noted next week, check new x-rays and labs. Operative findings:: Right hallux and 2nd toe distal amp sites sutures previously removed. The hallux was healed with no wound dehiscence. Right 2nd toe DFU noted to central-lateral toe. Sharp excisional full-thickness debridement with 15' blade thru skin into subq. Post debridement: 100% granular with minimal bleeding noted, 0.4 x 0.2 x 0.1cm. Right 5th met DFU noted with some graft incorporation. There is no purulence, malodor or drainage noted. Mild leonardo wound erythema improving with no warmth or ascending cellulitis. Sharp excisional full-thickness debridement with 15' blade/forceps thru skin, subq, into/including deep fascia. There was a small inferior track 0.5cm to deep fascia. Post-debridement: Right 5th met DFU: 100% granular, 1.3 x 1.3 x 0.50cm. New superficial abrasion noted to the anterior ankle secondary to ankle motion rubbing against the top of the Bismark bandage. Abrasion ~1cm round, no depth and no signs of infection. Operative note:: On this date and time patient was deemed an appropriate surgical candidate. With informed consent signed, the patient was taken to the local procedure operating theater room. The patient was positioned supine. No anesthesia was induced. No tourniquet used. Right lower extremity was prepped and draped in normal sterile fashion. 1g IM Rocephin given. Right second toe wound debridement: 15 blade and forceps used to sharply debride scab, eschar and DFU through skin into/including subq full-thickness. No signs of infection. Right lateral foot wound debridement: Ulcer noted to the lateral fifth metatarsal. Predebridement there was nol leonardo wound maceration and no acute signs of infection noted. Sharp excisional full-thickness debridement with 15 blade, forceps down to/including deep fascia. Biofilm and fibrotic slough removed. No metatarsal bone exposed. The skin edges were debrided with 15' blade, some bleeding noted. The wound was flushed with gentamicin irrigation. Skin cleansed with saline. Mastisol applied around the wound edges. Due to inferior depth, Michelle collagen was used to pack into track. Application of Apligraf (Organogenesis wound graft): Graft was prepared in standard fashion. The entire graft (44sq cm) was utilized over the lateral fifth metatarsal diabetic foot ulcer and second toe wound. The graft was cut and 1/4 of it was placed over the distal second toe. The remaining fifth metatarsal graft was placed over the fifth metatarsal open wound/DFU and circumferentially around the surrounding skin (as the graft was larger than the wounds) and secured with Steri-Strips. Adaptic was applied over the graft followed by betadine soaked gauze to dry leonardo wound/graft skin and 2nd toe. Extra c ollagen/padding applied to anterior ankle to prevent abrasion from ankle movement. A dry sterile dressing with gauze, darya, Bismark applied to right foot. The patient was transferred to recovery with vital signs stable and neurovascular status intact at baseline. Patient appeared to tolerate procedure well without complication. Materials: Organogenesis Aligraf wound graft x1 (44sq cm, 0 waste), Michelle collagen (4.34sq in) Discharge/Plan: Ok to discharge home when ready and vss. Patient is to maintain dressing clean dry and intact. Elevate on two pillows. Minimize activity and weight bearing. PWB to RLE in fracture boot with walker. Completed oral antibiotics as directed. Hold off on new right foot x-rays today (he had x-rays 08/18/25). Better sugar control. Discussed planned staged surgery in 1-2 weeks: right foot wound debridement, application of wound graft #3, vs delayed primary closure with suture depending on appearance at office visit. Follow up in one week for dressing change, skin check and possible surgery planning visit. Condition: stable Disposition: same day Complications:: None
[2025-08-25] MEDS: GENTAMICIN 80 MG/2 ML VIAL (13:54)
[2025-08-25] MEDS: cefTRIAXone 1GM VIAL 1 GM IM (13:56)
[2025-08-26 10:02] LABS: POC Glucose,Bedside 226 gm/dL (70-110)
== END 2025-08-25 13:41 | disposition home or self-care (01) ==
PROVIDERS: PCP Family Medicine; Visit Provider Podiatrist
DX: E11.621 Type 2 diabetes mellitus with foot ulcer (principal); L97.519 Non-pressure chronic ulcer of other part of right foot with unspecified severity; E11.51 Type 2 diabetes mellitus with diabetic peripheral angiopathy without gangrene; L97.512 Non-pressure chronic ulcer of other part of right foot with fat layer exposed; E11.628 Type 2 diabetes mellitus with other skin complications; L03.115 Cellulitis of right lower limb; M86.171 Other acute osteomyelitis, right ankle and foot; L90.5 Scar conditions and fibrosis of skin; L60.3 Nail dystrophy; B35.1 Tinea unguium; M20.41 Other hammer toe(s) (acquired), right foot; M20.12 Hallux valgus (acquired), left foot; E11.42 Type 2 diabetes mellitus with diabetic polyneuropathy; M19.072 Primary osteoarthritis, left ankle and foot; M19.071 Primary osteoarthritis, right ankle and foot; L57.0 Actinic keratosis; Z79.4 Long term (current) use of insulin; Z79.01 Long term (current) use of anticoagulants; Z79.84 Long term (current) use of oral hypoglycemic drugs; Z89.411 Acquired absence of right great toe; Z89.421 Acquired absence of other right toe(s); S90.511A Abrasion, right ankle, initial encounter; X58.XXXA Exposure to other specified factors, initial encounter; Z72.0 Tobacco use; Z98.890 Other specified postprocedural states
CPT/HCPCS: 11042; 15004; 15275; 15276; 82962; J0696; J1580; Q4101

== ENCOUNTER 2025-08-30 08:53 | Outpatient (CLI) | payer MEDICARE, BC, SELFPAY ==
--- OUTSIDE RECORDS SUMMARY | 2024-03-03 06:50 | XMS_ITS ---
Author Organization [facility] Address [address] [facility] [address] [place] [id number] Care Team Providers Care Acid Extractor Name Role Phone Craig Jean Primary Care Provider [phone] Allergies Allergen (clinical drug ingredient) Drug/Non Drug Allergy documented on EMR Reaction Allergy Type Onset Date Status semaglutide Rybelsus stomach upset Drug Allergy A ctive REASON FOR VISIT suture removal Medications Medication SIG (Take, Route, Frequency, Duration) Notes Start Date End Date Status Aspirin 81 MG 1 tab(s) orally once a day; Duration: 30 day(s) Not-Taking DULoxetine HCl 60 MG 1 cap(s) orally onc e a day 08/08/2018 Not-Taking Ozempic (0.25 or 0.5 MG/DOSE) 2 MG/1.5 ML (1 MG DOSE) 2MG SUBCUTANEOUSLY ONCE A WEEK 12/26/2022 Active traMADol HCl 50 MG 1-2 tab(s) orally ev greg 6 hours prn 02/21/2021 Not-Taking Cyclobenzaprine HCl 10 MG 1 tab(s) orall y 3 times a day 02/21/2021 Not-Taking Bisoprolol Fumarate 5 MG 1/2 tablet Oral ly Once a day Active metFORMIN HCl 500 MG 1 tab(s) orally 2 t imes a day Active Atorvastatin Calcium 40 MG 1 tab(s) orally once a day Active Linzess 145 MCG 1 cap(s) orally once a day; Duration: 30 day(s) 11/08/2022 Active Jardiance 25 MG 1 tab(s) orally once a day (in the morning) Active Prasugrel HCl 10 MG as directed Orally Active Xarelto 20 MG 1 tablet with food Orally Once a day; Duration: 30 day(s) Active Flomax 0.4 MG 1 cap(s) orally once a day Active Glimepiride 1 MG 1 tablet with breakf ast or the first main meal of the day Orally Once a day; Duration: 30 day(s) Active Vital Signs Blood pressure systolic 126 mm Hg 03/03/20 24 Blood pressure diastolic 70 mm Hg 024 Heart Rate 52 /min 03/03/2024 Height 71 in 03/03/2024 Weight 181.8 lbs 03/03/2024 BMI 25.35 kg/m2 03/03/2024 Encounters Encounter Location Date Provider Diagnosis [facility] [address] [place] [id number] 03/03/2024 Craig Jean Encounter for remova l of sutures Z48.02 Assessments Encounter Date Diagnosis (ICD Code) Assessment Notes Treatment Notes Treatment Clinical Notes Section Notes 03/03/2024 Encounter for removal of sutures (ICD-10 - Z48.02) Sutures removed without difficulty. Continue local wound care Plan Of Treatment Treatment Notes Assessment Notes Encounter for removal of sutures Sutures removed without difficulty. Continue local wound care Next Appt Details Follow Up: prn, Reason: Progress Notes * RASHIDA MARMOLEJOOB:1960 (65 yo M)Acc No.[id number]:03/03/2024 Progress Notes Patient: RIKA FLOREZ Provider: Craig Jean M.D. :1960 A ge:64 Y S ex:Male Date:03/03/2024 Address:[facility] [id number] Subjective: * Chief Complaints: * 1 . Suture removal. * HPI: D ermatology: 64 year old male presents with c/o Suture Removal P t presents today to have sutures removed from the left side of his nose. Pt had basal cell carcinoma removed by a investment banking analyst in [place] but did not want to drive all the way back to [place] just for suture removal. The e xcision was by Mohs procedure requiring a flap rotation for s kin grafting. . * ROS: D ERMATOLOGY: no R edmundo. n o H jon. G ASTROENTEROLOGY: no N ausea. n o V omiting. n o D iarrhea.? U ROLOGY: Difficulty urinating yes. B lood in urine yes.? * Medical History: T ype 2 diabetes, Hyperlipidemia, ? rheumatoid arthritis - Dr. Sylvester, Diabetic neuropathy, Diabetic foot ulcers, Diabetic retinopathy, ASCVD. * Surgical History: l eft knee arthroscopy , back surgery at [facility] Dr Roth 05/11, right hand surgery-Dr Paulson 06/04/19, bone shaved from bilateral feet-Dr Sepulveda 01/2022, Coronary stent to LAD and RCA/ [place] 06/2023, Basal Cell Carcinoma Removal from Left Side of Nose 02/25/2024. * Hospitalization/Major Diagno stic Procedure: H ER-Heart Palpitation 07/05/10. * Family History: F ather: , hyperlipidemia, diabetes, CAD(S/P CABG). M other: , diagnosed with Heart Disease. P aternal Grand Father: . P aternal Grand Mother: . M aternal Grand Father: . M aternal Grand Mother: . M aternal uncle: hyperlipidemia, diabetes. S iblings: Brother had NM at age 52, heart attack. 1 brother(s) , 1 sister(s) . 2 son(s) , 1 daughter(s) . . Great grand mother diabetes. * Social History: C URRENT TOBACCO USE S moking Status: Patient does NOT smoke. C affeine: yes, frequency:. Marital Status: . Alcohol: socially, Type: [place] , Frequency: 3-5 times/week ,Years: , Determination:. * Medications: T aking Glimepiride 1 MG Tablet 1 tablet with breakfast or the first main meal of the day Orally Once a day , Taking Flomax 0.4 MG Capsule 1 cap(s) orally once a day , Taking Prasugrel HCl 10 MG Tablet as directed Orally , Taking Xarelto 20 MG Tablet 1 tablet with food Orally Once a day , Taking Bisoprolol Fumarate 5 MG Tablet 1/2 tablet Orally Once a day , Taking Atorvastatin Calcium 40 MG Tablet 1 tab(s) orally once a day , Taking metFORMIN HCl 500 MG Tablet 1 tab(s) orally 2 times a day , Taking Jardiance 25 MG Tablet 1 tab(s) orally once a day (in the morning) , Taking Linzess 145 MCG Capsule 1 cap(s) orally once a day , Taking Ozempic (0.25 or 0.5 MG/DOSE) 2 MG/1.5 ML (1 MG DOSE) SOLUTION 2MG SUBCUTANEOUSLY ONCE A WEEK , Not- Taking DULoxetine HCl 60 MG Capsule Delayed Release Particles 1 cap(s) orally once a day , Not-Taking Cyclobenzaprine HCl 10 MG Tablet 1 tab(s) orally 3 times a day , Not-Taking traMADol HCl 50 MG Tablet 1-2 tab(s) orally every 6 hours prn , Not- Taking Aspirin 81 MG Tablet Delayed Release 1 tab(s) orally once a day , Medication List reviewed and reconciled with the patient * Allergies: R ybelsus: stomach upset - Side Effects. Objective: * Vitals: W t:181.8, Temp:98.0, BP:126/70, HR:52, O2 Sat:98% on RA, Nurse:CAROLINA, Ht: 71, BMI:25.35. * Examination: D ermatology: Face: T here is a wound near the nasal alar fold on the left with incision extending in a circular manner onto the left cheek. There is mild erythema.? No purulent drainage.. Assessment: * Assessment: 1. E ncounter for removal of sutures - Z48.02 (Primary) Plan: * Treatment: * Procedure Codes: 9 4760 PULSE OX * Follow Up: p rn * Images: Billing Information: * Visit Code: 37846 Office Visit, Est Pt., Level 3. * Procedure Codes: 49964 PULSE OX. * Electronic signature of Craig Jean MD on 09/02/2025 at 08:59 AM EDT Sign off status: Pending * Provider: Craig Jean M.D. Date: 0 03/03/2024 Generated for Lucy forrester/Eddie/Sharri on: 08:59 AM EDT History and Physical Notes * HPI (History of Present Illness) Category Sub-Category Detail Notes Category Not es Dermatology Suture Removal Pt presents toda y to have sutures removed from the left side of his nose. Pt had basal cell carcinoma removed by a investment banking analyst in [place] but did not want to drive all the way back to [place] just for suture removal. The excision was by Mohs procedure requiring a flap rotation for skin grafting. Examination Category Sub-Category Detail Notes Category Not es Dermatology Face: There is a wound near the nasal alar fold on the left with incision extending in a circular manner onto the left cheek. There is mild erythema. No purulent drainage.
--- OUTSIDE RECORDS SUMMARY | 2024-08-04 11:15 | XMS_ITS ---
Author Organization [facility] Address [address] [place] [id number] Care Team Providers Care Automotive Production Worker Name Role Phone Craig Jean Primary Care Provider [phone] Allergies Allergen (clinical drug ingredient) Drug/Non Drug [...] 04:44:51 PM Interpretation:gluc 118 Performing Lab: Notes/Report: Test performed by [facility] [address] [facility] , [address], [place] [address] Lucas Zhou MD, Director Apparel CLIA: [id number] Sodium 141 135-145 mmol/L Potassium 4.2 3.5-5.3 [...] Interpretation:Normal Performing Lab: Notes/Report: Test performed by [facility] [address] [place] [address] , [address], [place] [address] Lucas Zhou MD, Director Apparel CLIA: [id number] PSA 3.60 <4.00 ng/mL Please note this is an ultrasensitive PSA assay with a lower limit of detection of 0.014 ng/mL. This test is performed by the [employer] ECLIA methodology. Values obtained with different assay methods or kits cannot be directly compared. P-Microalbumin/Creatinine, R andom Urine Sample Reviewed date:08/06/2024 04:44:51 PM Interpretation:a/c 49 Performing Lab: Notes/Report: Test performed by [facility] [address] [place], [place] [address] , [address], [place] [address] Lucas Zhou MD, Director Apparel CLIA: [id number] Albumin/Creatinine Ratio, Urine 49 0-30 ug/m g [...] W/U Status Risk Notes Problem Allergic rhinitis (34399120) Allergic rhinitis, unspecified seasonality, unspecified trigger (J30.9) Active confirmed Vital Signs Blood pressure systolic 110 mm Hg 08/04/20 24 Blood pressure diastolic 58 mm Hg 024 Heart Rate 44 /min 08/04/2024 Height 71 in 08/04/2024 Weight 181.8 lbs 08/04/2024 BMI 25.35 kg/m2 08/04/2024 Encounters Encounter Location Date Provider Diagnosis [facility] [address] [place] [phone] 08/04/2024 Craig Jean Encounter for immunization Z23 [...] 6 Months, Reason: Progress Notes * RASHIDA MRAMOLEJOOB:1960 (65 yo M)Acc No.[id number]:08/04/2024 Progress Notes Patient: RIKA FLOREZ Provider: Craig Jean M.D. :1960 A ge:64 Y S ex:Male Date:08/04/2024 Address:[facility] [address] [place], [id number] Subjective: * Chief Complaints: * 1 . [...] eft knee arthroscopy , back surgery at [facility] Dr Roth 05/11, right hand surgery-Dr [...] uncle: hyperlipidemia, diabetes. S iblings: Brother had [place] at age 52, heart attack. 1 brother(s) , 1 sister(s) . 2 son(s) , 1 daughter(s) . . Great grand mother diabetes. * Social History: C URRENT TOBACCO USE S moking Status: Patient does NOT smoke. C affeine: yes, frequency:. Marital Status: . Alcohol: socially, Type: [place] , Frequency: 3-5 times/week ,Years: , Determination:. [...] latlet 282 100 - 400 * Sherry Seha 08/04/2024 3:43: 52 PM > Craig Jean [...] * Procedure Codes: 9 4760 [place], [address] CBC WITH AUTO DIFF, 04180 GLYCATED HEMOGLOBIN TEST, Modifiers: QW * Follow Up: 6 Months * Images: Billing Information: * Visit Code: 05931 Office Visit, Est Pt., Level 4. * Procedure Codes: 11125 [place]. [address] CBC WITH AUTO DIFF. 94793 GLYCATED HEMOGLOBIN TEST. Modifiers: QW * Electronic signature of Craig Jean MD on 09/02/2025 at 08:58 AM EDT Sign off status: Pending * Provider: Craig Jean M.D. Date: Generated for Printi ng/Faherbertg/eTransmitting on: 08:58 AM EDT History and Physical Notes * HPI (History of Present Illness) Category Sub-Category Detail Notes Category Not es HPI [facility] Pt would like [...]
--- OUTSIDE RECORDS SUMMARY | 2024-11-26 09:45 | XMS_ITS ---
Author Organization [facility] Address [address] [facility] [address] [place] [phone] Care Team Providers Care Cryptographer Name Role Phone Craig Jean Primary Care [...] Notes Problem Mixed anxiety and depressive disorder (723692260) Depression with anxiety (F41.8) Active confirmed Vital Signs Blood pressure systolic 112 mm Hg 11/26/19 25 Blood pressure diastolic 60 mm Hg 025 Heart Rate 64 /min 11/26/2024 Height 71 in 11/26/2024 Weight 184.6 lbs 11/26/2024 BMI 25.74 kg/m2 11/26/2024 Encounters Encounter Location Date Provider Diagnosis [facility] [address] [facility] [address] [place] [phone] 11/26/2024 Craig Jean Depression with anxiety F41.8 [...] Progress Notes * DEWEYCHERYLERASHIDAOB:1960 (65 yo M)Acc No.[id number]:11/26/2024 Progress Notes Patient: RIKA FLOREZ Provider: Craig Jean M.D. :1960 A ge:64 Y S ex:Male Date:11/26/2024 Address:[address], [id number] Subjective: * Chief Complaints: * 1 . [...] eft knee arthroscopy , back surgery at [facility] Dr Roth 05/11, right hand [...] uncle: hyperlipidemia, diabetes. S iblings: Brother had [place] at age 52, heart attack. 1 brother(s) , 1 sister(s) . 2 son(s) , 1 daughter(s) . . Great grand mother diabetes. * Social History: C URRENT TOBACCO USE S moking Status: Patient does NOT smoke. C affeine: yes, frequency:. Marital Status: . Alcohol: socially, Type: [place] , Frequency: 3-5 times/week ,Years: , Determination:. [...] * Images: Billing Information: * Visit Code: 48831 Office Visit, Est Pt., Level 3. * Procedure Codes: G2211 Complex e/m visit add on. * Electronic signature of Craig Jaen MD on 09/02/2025 at 08:59 AM EDT Sign off status: Pending * Provider: Craig Jean M.D. Date: 0 11/26/2024 Generated for Lucy forrester/Eddie/Sharri on: 08:59 AM EDT History and Physical Notes * Examination Category Sub-Category Detail Notes Category Not es Psychology Heart: RSR Lungs: clear to auscultatio n General Appearance: NAD Grooming : neat Eye contact : decreased Mood : A bit flat
--- OUTSIDE RECORDS SUMMARY | 2025-04-13 09:45 | XMS_ITS ---
Author Organization Yancy Address 1210 [facility] [address] [place] [phone] Care Team Providers Care Rectangular Tank Cooper Name Role Phone Craig Jean Primary Care [...] Encounter Location Date Provider Diagnosis [facility] 12[facility] [address] [place] [phone] 04/13/2025 Craig Jean Adult general medica l [...] Notes * DEEPTHI MARMOLEJO:1960 (65 yo M)Acc No.[id number]:04/13/2025 Annual Wellness Visit Patient: RIKA FLOREZ Provider: Craig Jean M.D. :1960 A ge:65 Y S ex:Male Date:04/13/2025 Address:[place], [id number] Subjective: * Chief Complaints: * 1 . [...] knee arthroscopy , back surgery at [facility] Dr Roth 05/11, right hand surgery-Dr [...] uncle: hyperlipidemia, diabetes. S iblings: Brother had [place] at age 52, heart attack. 1 brother(s) , 1 sister(s) . 2 son(s) , 1 daughter(s) . . Great grand mother diabetes. * Social History: C URRENT TOBACCO USE S moking Status: Patient does NOT smoke. C affeine: yes, frequency:. Marital Status: . Alcohol: socially, Type: [place] , Frequency: 3-5 times/week ,Years: , Determination:. [...] , G2211 Complex e/[place], [address] GLYCATED HEMOGLOBIN TEST, Modifiers: QW , 1090F PRES/ABSN URINE INCON ASSESS, 3288F FALL RISK ASSESSMENT DOCD, 1170F FXNL STATUS ASSESSED, 1126F AMNT PAIN NOTED NONE PRSNT, 1159F MED LIST DOCD IN RCRD, 1003F LEVEL OF ACTIVITY ASSESS, 30973 CBC WITH AUTO DIFF, 1036F TOBACCO NON-USER [...] 25 G2211 Complex e/[place]. [address] GLYCATED HEMOGLOBIN TEST. Modifiers: QW 1090F PRES/ABSN URINE INCON ASSESS. 3288F FALL RISK ASSESSMENT DOCD. 1170F FXNL STATUS ASSESSED. 1126F AMNT PAIN NOTED NONE PRSNT. 1159F MED LIST DOCD IN RCRD. 1003F LEVEL OF ACTIVITY ASSESS. 18647 CBC WITH AUTO DIFF. 1036F TOBACCO NON-USER. * Electronic signature of Craig Jean MD on 09/02/2025 at 08:59 AM EDT Sign off status: Pending * Provider: Craig Jean M.D. Date: 0 04/13/2025 Generated for Lucy forrester/Eddie/Jessiitting on: 1 08:59 AM EDT History and Physical Notes [...]
--- OUTSIDE RECORDS SUMMARY | 2025-06-03 10:15 | XMS_ITS ---
Author Organization [facility] Address [address] [place] [phone] Care Team Providers Care District Medical Examiner Name Role Phone Craig Jean Primary Care [...] 167 Performing Lab: Notes/Report: Test performed by [facility] [employer] [address] [place] [address] , [address], [place] [address] Lucas Zhou MD, Building Manager CLIA: [id number] Sodium 139 135-145 mmol/L Potassium 4.8 3.5-5.3 [...] 58 Performing Lab: Notes/Report: Test performed by [employer], [address] , [address], [place] [address] Lucas Zhou MD, Building Manager CLIA: [id number] Albumin/Creatinine Ratio, Urine 58 0-30 ug/m g [...] Status W/U Status Risk Notes Problem Cervicalgia (70377061) Cervicalgia (M54.2) Active confirmed Vital Signs Blood pressure systolic 110 mm Hg 06/03/20 25 Blood pressure diastolic 60 mm Hg 025 Heart Rate 69 /min 06/03/2025 Height 71 in 06/03/2025 Weight 181.8 lbs 06/03/2025 BMI 25.35 kg/m2 06/03/2025 Encounters Encounter Location Date [facility] [address] [phone] 06/03/2025 Craig Jean Depression with anxi ety [...] Notes * LISA MARMOLEJODIPIKAOB:1960 (65 yo M)Acc No.[id number]:06/03/2025 Patient: RIKA FLOREZ Provider: Craig Jean M.D. :1960 A ge:65 Y S ex:Male Date:06/03/2025 Address:[facility] [place], [id number] Subjective: * Chief Complaints: * 1 . [...] eft knee arthroscopy , back surgery at [facility] Dr Roth 05/11, right hand surgery-Dr Paulsno 06/04/19, bone shaved from bilateral feet-Dr Sepulveda [...] uncle: hyperlipidemia, diabetes. S iblings: Brother had [place] at age 52, heart attack. 1 brother(s) , 1 sister(s) . 2 son(s) , 1 daughter(s) . . Great grand mother diabetes. * Social History: C URRENT TOBACCO USE S moking Status: Patient does NOT smoke. C affeine: yes, frequency:. Marital Status: . Alcohol: socially, Type: [place] , Frequency: 3-5 times/week ,Years: , Determination:. [...] 69, O2 Sat: 94% on RA, Nurse: [facility], Ht: 71, BMI:25.35. * Examination: G [...] D yslipidemia - E78.5 6 . B [place] 25.0-25.9,adult - Z68.25 Plan: * Treatment: 2. [...] G 2211 Complex e/[place], [address] CBC WITH AUTO DIFF, 33357 Urinalysis, no micro, G8420 BMI<30 AND >=22 CALC & DOCU, 1036F TOBACCO NON-USER, G8783 BP SCR PRFRM RCMDD DEFIND SCR INTVL, G8752 MOST RECENT SYSTOLIC BP < 140MM HG, G8754 MOST RECENT DIASTOLIC BP < 90MM HG * Follow Up: 6 Months * Images: Billing Information: * Visit Code: 49907 Office Visit, Est Pt., Level 4. * Procedure Codes: G2211 Complex e/[place]. [address] CBC WITH AUTO DIFF. 05668 Urinalysis, no micro. G8420 BMI<30 AND >=22 [...] 0 06/03/2025 Generated for Lucy forrester/Eddie/eTransmitting on: 1 08:59 AM EDT History and [...]
--- OUTSIDE RECORDS SUMMARY | 2025-06-11 05:45 | XMS_ITS ---
Author Organization [facility] Address [address] [facility] [address] [place] [phone] Care Team Providers Care Line Dancer Name Role Phone Craig Jean Primary Care [...] growth Performing Lab: Notes/Report: Test performed by [employer], [place] [address] [place] [address] , [address], [place] [address] Lucas Zhou MD, Er Tech CLIA: [id number] Specimen Source Urine - Void Culture, Urine See Below Final Report : No growth REASON FOR VISIT blood work Encounters Encounter Location Date Provider Diagnosis [facility] [address] [facility] [address] [place] [id number] 06/11/2025 Craig Chuy Jean Type 2 diabetes [...] Notes * RASHIDA MARMOLEJOOB:1960 (65 yo M)Acc No.[id number]:06/11/2025 Patient: RIKA FLOREZ Provider: Craig Jean M.D. :1960 A ge:65 Y S ex:Male Date:06/11/2025 Address:[facility] [place], [place] Subjective: * Chief Complaints: * 1 . [...] Sherry 06/11/2025 09:56 :33 AM EDT > Criag Jean 06/17/2025 01:31:29 PM EDT > See [...] QW , 3052F HG A1C>EQUAL 8.0%<EQUAL 9.0%, 64476 CBC WITH AUTO DIFF, 15087 CAPILLARY BLOOD DRAW, 30430 Urinalysis, no micro * Images: Billing Information: * Visit Code: * Procedure Codes: 29042 GLYCATED HEMOGLOBIN TEST. Modifiers: QW 3052F HG A1C>EQUAL 8.0%<EQUAL 9.0%. 84493 CBC WITH AUTO DIFF. 56966 CAPILLARY BLOOD DRAW. 07403 Urinalysis, no micro. * Electronic signature of Craig Jean MD on 09/02/2025 at 09:00 AM EDT Sign off status: Pending * Provider: Flako Powell: 0 06/11/2025 Generated for Lucy forrester/Eddie/Sharri on: 1 09:00 AM EDT
--- OUTSIDE RECORDS SUMMARY | 2025-09-02 08:59 | XMS_ITS | Encounter Summary ---
Author Organization Healthcare Address [address] [place] [address] Care Team Providers Care Drawing Kiln Supervisor Name Role Phone Jasen Jean MD Primary Care Provider +1- [phone] Encounter Details Date Type Department Care Team ([facility] st Contact Info) Description 08/06/2025 Telephone [facility] [place] [address], [address] [place] [address] Elida Calderon Social History Tobacco Use Types Packs/Day Years [...] documented as of this encounter Care Teams Drawing Kiln Supervisor Relationship Specialty Start Date End Date Jasen Jean MD [address] [place] [id number] PCP - General 03/17/21 documented as of this encounter
--- OUTSIDE RECORDS SUMMARY | 2025-09-02 08:59 | XMS_ITS | Clinical Summary ---
Author Organization [facility] Address [address] [place] [address] Care Team Providers Care Bulwark Carpenter Name Role Phone Jasen Jean MD Primary Care Provider +1- [phone] Allergies Active Allergy Reactions Criticality Noted Date [...] mouth once daily 90 tablet 5 Active omeprazole (PriLOSEC) [address] capsule Take 1 capsule by mouth daily. 5 Active Active Problems Problem Noted Date Diagnosed Date Arthropathy of cervical facet joint 08/09/2025 Cervicalgia 08/09/2025 Mixed anxiety and depressive disorder 08/09/2025 Open wound of foot 05/26/2025 Coronary artery disease 04/13/2024 Type 2 diabetes mellitus with ophthalmic complic ation 01/20/2024 Type 2 diabetes mellitus, wi th long-term current use of insulin 01/20/2024 Retinopathy 01/20/2024 Neuropathy 01/20/2024 Primary hypertension 08/09/2023 Other hyperlipidemia 08/09/2023 Encounters Date Type Department Care Team Description 08/06/2025 Telephone [facility] [place] [address] , [address] [place] [address] Elida Calderon 08/04/2025 Telephone [facility] [place] [address] , [address] [place] [address] Elida Calderon 06/16/2025 Refill [facility]ology [address] [place] [address] Roxana Burris, CARDIOLOGY ASSOCIATE Type 2 diabetes mellitus with other specified complication, with long-term current use of insulin ([facility]) from Last 3 Months Family History Medical [...] Additional history exists [facility]-Depression Screening 01/19/2025 01/20/2024 [id number] Vaccine (2 - 2024- season) 2025 01/12/2021 [...] % [facility] Kit Lot Number [id number] [facility] Kit Expiration Date 07/04/26 [employer] [facility] Blood Venous blood specimen / Unknown 10/19/2024 2:29 PM EST Roxana Burris CARDIOLOGY ASSOCIATE POINT OF CARE TEST ENTER /EDIT ORDERABLES Final Result Performing Organization Address City/State/[facility] Co de Phone Number [facility] [address] [place] [phone] from Last 3 Months or Most Recently Relevant to Health Maintenance Insurance MEDICARE ANTHEM Care Teams Bulwark Carpenter Relationship Specialty Start Date End Date Jasen Jean MD [address] [place] [id number] PCP - General 03/17/21
--- OUTSIDE RECORDS SUMMARY | 2025-09-02 08:59 | XMS_ITS | Encounter Summary ---
Author Organization Healthcare Address [address] [place] [address] Care Team Providers Care Director Of Design Name Role Phone Jasen Jean MD Primary Care Provider +1- [phone] Encounter Details Date Type Department Care Team (Late st Contact Info) Description 08/18/2024 Orders Only External Location [address] [place] [address] Perla Kramer, GALO [address] [facility] [address] [place] [address] Social History Tobacco Use Types Packs/Day Years [...] 08/18/2024 8:16 AM EDT us Perla Kramer FASHION DESIGN PROFESSOR IMG US PROCEDURES Sienna l Result documented in this encounter Visit Diagnoses Not on filedocumented in this encounter Additional Health Concerns Assessment Noted Time A fall risk assessment has been complete d for the patient 01/20/2024 3:23 PM EDT A Body Mass Index follow-up plan has been documented for the patient 04/13/2024 3:51 PM EDT documented as of this encounter Care Teams Director Of Design Relationship Specialty Start Date End Date Jasen Jean MD [address] [place] [address] PCP - General 03/17/21 documented as of this encounter
--- OUTSIDE RECORDS SUMMARY | 2025-09-02 08:59 | XMS_ITS | Clinical Summary ---
Author Organization [employer] ([place], [place], [place], [place]) Address [address] [place] [address] Care Team Providers Care Casting Room Operator Name Role Phone Unavailable Primary Care Provider [...]
--- OUTSIDE RECORDS SUMMARY | 2025-09-02 08:59 | XMS_ITS | Clinical Summary ---
[facility] Address [address] [place] [address] Care Team Providers Care Contact Center Engineer Name Role Phone Jasen Jean MD [...] 07/01/2019 INFLUENZA VACCINE 06/04/2025 Insurance Care Teams Contact Center Engineer Relationship Specialty Start Date End Date Jasen Jean MD [address] [facility] [address] [facility] [address] [place] [address] [facility] - General 06/27/15
--- OUTSIDE RECORDS SUMMARY | 2025-09-02 08:59 | XMS_ITS | Encounter Summary ---
Author Organization Healthcare Address [address] [place] [address] Care Team Providers Care Lobbyist Name Role Phone Jasen Jean MD Primary Care Provider +1- [phone] Encounter Details Date Type Department Care Team (Late st Contact Info) Description 04/12/2025 Orders Only External Location [address] [place] [address] Provider, External Social History Tobacco Use Types [...] documented as of this encounter Care Teams Lobbyist Relationship Specialty Start Date End Date Jasen Jean MD [address] [place] [address] PCP - General 03/17/21 documented as of this encounter
--- OUTSIDE RECORDS SUMMARY | 2025-09-02 09:00 | XMS_ITS | Patient Health Record ---
Author Organization [facility] Address [address] [place] [id number] Care Team Providers Care Orthodontic Assistant Name Role Phone rCaig Jean Primary Care Provider Allergies Allergen (clinical [...] 167 Performing Lab: Notes/Report: Test performed by [employer] [employer] [facility] , [address], [place] [address] Lucas Zhou MD, Lactation Coordinator CLIA: [id number] Sodium 139 135-145 mmol/L Potassium 4.8 3.5-5.3 [...] 58 Performing Lab: Notes/Report: Test performed by [facility] [address] [place] [address] , [address], [place] [address] Lucas Zhou MD, Lactation Coordinator CLIA: [id number] Albumin/Creatinine Ratio, Urine 58 0-30 ug/m g Microalbumin, Urine, Random 4.5 Creatinine, Urine 78.1 X ray : Spine, cervical Reviewed date:06/17/2025 01:30:15 PM Interpretation:degenerative/chronic changes Performing Lab: Notes/Report: degenerative/chronic changes P-Culture, Urine Reviewed date:06/17/2025 01:31:38 PM Interpretation:No growth Performing Lab: Notes/Report: Test performed by [facility] [address] [place] [address] , [address], [place] [address] Lucas Zhou MD, Lactation Coordinator CLIA: [id number] Specimen Source Urine - Void Culture, Urine [...] 1.020 Ketone neg Bili neg Gluc 3+ Medications Medication SIG (Take, Route, Frequency, Duration) [...] Status Risk Notes Problem Diabetic foot ulcer (491462697) Diabetic foot ulcer (E11.621) Active confirmed Problem Anxiety disorder (705071772) Anxiety disorder (F41.9) Active confirmed Problem Cholelithiasis (824327165) Cholelithiasis (K80.20) Active confirmed Problem Cervicalgia (71181922) Cervicalgia (M54.2) Active confirmed Problem Mixed anxiety and depressive disorder (525817791) Depression with anxiety (F41.8) Active confirmed Problem Arthropathy of cervical spine facet joint (disorder) (662292273) Facet arthropathy, cervical (M46.92) Active confirmed Problem Benign prostatic hyperplasia (731473497) BPH (benign prostatic hyperplasia) (N40.0) Active confirmed Problem Pulmonary nodule (717374774) Pulmonary nodule (R91.1) Active confirmed Problem Type II diabetes mellitus without complication (986706480) Insulin dependent diabetes mellitus (E11.9) Active confirmed Problem Depressive disorder (82567880) Depressive disorder (F32.9) Active confirmed Problem Dyslipidemia (492108458) Dyslipidemia (E78.5) Active confirmed Problem Type II diabetes mellitus without complication (632288608) Type 2 diabetes mellitus without complication, without long-term current use of insulin (E11.9) Active confirmed Problem Peripheral vascular disease (877534697) PAD (peripheral artery disease) (I73.9) Active confirmed Problem Hyperglycemia due to type 2 diabetes mellitus (337762086348228) Type 2 diabetes mellitus with hyperglycemia, without long-term current use of insulin (E11.65) Active confirmed Problem Polyneuropathy due to type 2 diabetes mellitus (746168861) Type 2 diabetes mellitus with diabetic polyneuropathy, without long-term current use of insulin (E11.42) Active confirmed Problem Irritable bowel syndrome characterized by constipation (415103520) Irritable bowel syndrome with constipation (K58.1) Active confirmed Problem Lower urinary tract symptoms due to benign prostatic hypertrophy (92864876331932) Benign prostatic hyperplasia with lower urinary tract symptoms (N40.1) Active confirmed Problem Gallstone (455678519) Gall stones (K80.20) Active confirmed Problem Allergic rhinitis (35423776) Allergic rhinitis, unspecified seasonality, unspecified trigger (J30.9) Active confirmed Problem Secondary erectile dysfunction (disorder) (396679245) 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) Active confirmed Problem Contracture of palmar fascia (588136001) Dupuytren's contracture of both hands (M72.0) Active confirmed Vital Signs Heart Rate 69 /min 06/03/2025 Blood pressure diastolic 60 mm Hg 06/03/2025 Height 71 in 06/03/2025 Blood pressure systolic 110 mm Hg 06/03/2025 Weight 181.8 lbs 06/03/2025 BMI 25.35 kg/m2 06/03/2025 Encounters Encounter Location Date Provider Diagnosis [facility] [address] [facility] [address] [place] [id number] 11/26/2024 R Chuy Ted Depression with anxi ety F41.8 [facility] [address] [place] [id number] 06/03/2025 R Chuy Ted Depression with anxi ety F41.8 ; Type 2 diabetes mellitus with diabetic polyneuropathy, without long-term current use of insulin E11.42 ; Cervicalgia M54.2 ; Flank pain R10.9 ; Dyslipidemia E78.5 and BMI 25.0-25.9,adult Z68.25 [facility] [address] [place] [id number] 06/11/2025 R Chuy Ted Type 2 diabetes mellitus without complication, without long-term current use of insulin E11.9 and Flank pain R10.9 [facility] [address] [facility] [address] [place] [id number] 03/15/2025 R Chuy Ted [facility] [address] [place] [id number] 05/25/2025 R Chuy Ted [facility] [address] [facility] [address] [place] [id number] 06/08/2025 R Chuy Ted [facility] [address] [place] [id number] 06/17/2025 R Chuy Ted Cervicalgia M54.2 an [...] - R10.9) 06/03/2025 Cervicalgia (ICD-10 - M54.2) 06/03/2025 Flank pain (ICD-10 - R10.9) 06/03/2025 Dyslipidemia (ICD-10 - E78.5) 06/03/2025 BMI 25.0-25.9,adult (ICD-10 - Z68.25) Plan Of Treatment No Information Insurance Providers Payer Name Payer Address Payer Phone Subscriber Number Group Number Insured Name Patient Relationship to Insured Coverage Start Date Coverage End Date MEDICARE PART B [address] [address] [place] [id number] [phone] [id number] RIKA MOY Self - patient is the insured [facility] [address] [place] [address] [id number] RIKA MOY Self - patient is the insured Medical (General) History Medical History History ICD Code type 2 diabetes hyperlipidemia ? rheumatoid arthritis - Dr. Sylvester diabetic neuropathy Diabetic foot ulcers Diabetic retinopathy ASCVD Paroxysmal AF Surgical History Surgery Date(Month/Year) left knee arthroscopy back surgery [facility] Dr Roth right hand surgery-Dr Paulson 06/04/19 bone shaved from bilateral feet-Dr Sepulveda 01/2022 Coronary stent to LAD and RCA/ [place] 06/2023 Basal Cell Carcinoma Removal from Left S hugh of Nose 02/25/2024 Hospitalization History Reason Date(Month/Year) [facility] ER-Heart Palpitation 07/05/10
--- OUTSIDE RECORDS SUMMARY | 2025-09-02 09:01 | XMS_ITS | Encounter Summary ---
Author Organization Healthcare Address [address] [place] [address] Care Team Providers Care Associate Genetics Professor Name Role Phone Jasen Jean MD Primary Care Provider +1- [phone] Encounter Details Date Type Department Care Team ([facility] st Contact Info) Description 08/04/2025 Telephone [facility] [place] [address] [facility] [facility], [address] [place] [address] Elida Calderon [...] documented as of this encounter Care Teams Associate Genetics Professor Relationship Specialty Start Date End Date Jasen Jean MD [address] [place] [id number] PCP - General 03/17/21 documented as of this encounter
--- OUTSIDE RECORDS SUMMARY | 2025-09-02 09:01 | XMS_ITS | Referral Summary ---
Author Organization [employer] ([place], [place], [place], [place]) Address [address] [place] [address] Care Team Providers Care Traffic Division Commanding Officer Name Role Phone Unavailable Primary Care Provider [...]
== END 2025-08-30 23:59 ==
LOC: LAB.DROPOF 09-02 08:54
PROVIDERS: PCP Family Medicine; Visit Provider Podiatrist
DX: E11.621 Type 2 diabetes mellitus with foot ulcer (principal); L97.512 Non-pressure chronic ulcer of other part of right foot with fat layer exposed
CPT/HCPCS: 87070; 87205

== ENCOUNTER 2025-09-07 09:10 | Outpatient (CLI) | payer MEDICARE, BC, SELFPAY ==
--- OUTSIDE RECORDS SUMMARY | 2024-08-04 10:15 | XMS_ITS ---
Author Organization [facility] Address [address] [place] [id number] Care Team Providers Care Proof Coins Inspector Name Role Phone Craig Jean Primary Care Provider [phone] Allergies Allergen (clinical drug ingredient) Drug/Non Drug [...] PM Interpretation:gluc 118 Performing Lab: Notes/Report: CLIA: [id number] Lucas Zhou MD, Attorney [facility] , [place] [address] Test performed by [facility] Sodium 141 135-145 mmol/L Potassium 4.2 3.5-5.3 [...] Interpretation:Normal Performing Lab: Notes/Report: Test performed by [facility] [address] [place], [place] [address] [place] , [address], [place] [address] Lucas Zhou MD, Attorney CLIA: [id number] PSA 3.60 <4.00 ng/mL Please note this is an ultrasensitive PSA assay with a lower limit of detection of 0.014 ng/mL. This test is performed by the [employer] ECLIA methodology. Values obtained with different assay methods or kits cannot be directly compared. P-Microalbumin/Creatinine, R andom Urine Sample Reviewed date:08/06/2024 04:44:51 PM Interpretation:a/c 49 Performing Lab: Notes/Report: Test performed by [facility] [address] [place], [place] [address] [place] , [address], [place] [address] Lucas Zhou MD, Attorney CLIA: [id number] Albumin/Creatinine Ratio, Urine 49 0-30 ug/m g [...] W/U Status Risk Notes Problem Allergic rhinitis (39899205) Allergic rhinitis, unspecified seasonality, unspecified trigger (J30.9) Active confirmed Vital Signs Blood pressure systolic 110 mm Hg 08/04/20 24 Blood pressure diastolic 58 mm Hg 024 Heart Rate 44 /min 08/04/2024 Height 71 in 08/04/2024 Weight 181.8 lbs 08/04/2024 BMI 25.35 kg/m2 08/04/2024 Encounters Encounter Location Date Provider [facility] [address] [place] [id number] 08/04/2024 Craig Jean Encounter for immunization Z23 [...] Notes * RASHIDA MARMOLEJOOB:1960 (65 yo M)Acc No.[id number]:08/04/2024 Progress Notes Patient: RIKA FLOREZ Provider: Craig Jean M.D. :1960 A ge:64 Y S ex:Male Date:08/04/2024 Address:[facility] [place], [id number] Subjective: * Chief Complaints: * 1 . [...] eft knee arthroscopy , back surgery at [facility] Dr Roth 05/11, right hand surgery-Dr [...] uncle: hyperlipidemia, diabetes. S iblings: Brother had MS at age 52, heart attack. 1 brother(s) , 1 sister(s) . 2 son(s) , 1 daughter(s) . . Great grand mother diabetes. * Social History: C URRENT TOBACCO USE S moking Status: Patient does NOT smoke. C affeine: yes, frequency:. Marital Status: . Alcohol: socially, Type: [place] , Frequency: 3-5 times/week ,Years: , Determination:. [...] Sherry Shea 08/04/2024 3:43: 52 PM > Craig Jean 08/06/2024 4:44:42 PM [...] * Procedure Codes: 9 4760 [place], [address] CBC WITH AUTO DIFF, 77794 GLYCATED HEMOGLOBIN TEST, Modifiers: QW * Follow Up: 6 Months * Images: Billing Information: * Visit Code: 82808 Office Visit, Est Pt., Level 4. * Procedure Codes: [address] [place]. [address] CBC WITH AUTO DIFF. 15696 GLYCATED HEMOGLOBIN TEST. Modifiers: QW * Electronic signature of Craig Jean MD on 09/07/2025 at 09:13 AM EST Sign off status: Pending * Provider: Craig Jean M.D. Date: Generated for Printi ng/Faherbertg/eTransmitting on: 11/07/2024 09:13 AM EST History and Physical Notes * HPI (History of Present Illness) Category Sub-Category Detail Notes Category Not es HPI Patient is here today for a the [facility] k up with labs. Pt would like [...]
--- OUTSIDE RECORDS SUMMARY | 2024-11-26 08:45 | XMS_ITS ---
Author Organization [facility] Address [address] [facility] [address] [place] [phone] Care Team Providers Care Lead Nuclear Medicine Technologist Name Role Phone Craig Jean Primary Care Provider [phone] Allergies Allergen (clinical drug ingredient) Drug/Non Drug Allergy documented on EMR Reaction Allergy Type Onset Date Status semaglutide Rybelsus stomach upset Drug Allergy A ctive REASON FOR VISIT personal issues Medications Medication SIG (Take, Route, Frequency, Duration) Notes Start Date End Date Status hydrOXYzine Pamoate 25 MG 1 cap(s) Orall y three times a day as needed anxiety 11/26/2024 Active Glimepiride 1 MG 1 tablet with breakf ast or the first main meal of the day Orally Once a day; Duration: 30 day(s) Active Flomax 0.4 MG 1 cap(s) orally once a day Active DULoxetine HCl 60 MG 1 capsule Orally On ce a day; Duration: 30 day(s) 11/26/2024 Active Prasugrel HCl 10 MG as directed Orally Active Bisoprolol Fumarate 5 MG 1/2 tablet Oral ly Once a day Active Atorvastatin Calcium 40 MG 1 tab(s) oral ly once a day Active metFORMIN HCl 500 MG 1 tab(s) orally 2 t imes a day Active Jardiance 25 MG 1 tab(s) orally once a day (in the morning) Active Sildenafil Citrate 50 MG 1 tablet as nee ded Orally Once a day; Duration: 30 day(s) 08/04/2024 Active Xarelto 20 MG 1 tablet with food O rally Once a day; Duration: 30 day(s) Active Problems Problem Type SNOMED Code ICD Code Onset Dates Problem Status W/U Status Risk Notes Problem Mixed anxiety and depressive disorder (543714124) Depression with anxiety (F41.8) Active confirmed Vital Signs Blood pressure systolic 112 mm Hg 11/26/19 25 Blood pressure diastolic 60 mm Hg 025 Heart Rate 64 /min 11/26/2024 Height 71 in 11/26/2024 Weight 184.6 lbs 11/26/2024 BMI 25.74 kg/m2 11/26/2024 Encounters Encounter Location Date Provider Diagnosis [facility] [address] [facility] [address] [place] [phone] 11/26/2024 Craig Jean Depression with anxiety F41.8 Assessments Encounter Date Diagnosis (ICD Code) Assessment Notes Treatment Notes Treatment Clinical Notes Section Notes 11/26/2024 Depression with anxiety (ICD-10 - F41.8) Plan Of Treatment Medication Medication Name Sig Start Date Stop Date Notes hydrOXYzine Pamoate 25 MG 1 cap(s) Orall y three times a day as needed anxiety 11/26/2024 DULoxetine HCl 60 MG 1 capsule Orally On ce a day; Duration: 30 day(s) 11/26/2024 Next Appt Details Follow Up: 3 Months and prn, Reason: Progress Notes * DEWEYCHERYLERASHIDAOB:1960 (65 yo M)Acc No.[id number]:11/26/2024 Progress Notes Patient: RIKA FLOREZ Provider: Craig Jean M.D. :1960 A ge:64 Y S ex:Male Date:11/26/2024 Address:[address] [place], [id number] Subjective: * Chief Complaints: * 1 . Personal issues. * HPI: P sychology: Rika presents with complaints of recurring depression which he attributes to the season. He has taken Cymbalta in the past with good results. He quit taking this on his own back in the summer when he was feeling better. He also describes symptoms of anxiety and occasional near panic attacks. He is not sleeping well at night. No suicidal ideations. * ROS: D ERMATOLOGY: no R edmundo. [...] eft knee arthroscopy , back surgery at [facility] Dr Roth 05/11, right hand surgery-Dr [...] uncle: hyperlipidemia, diabetes. S iblings: Brother had [place] at age 52, heart attack. 1 brother(s) , 1 sister(s) . 2 son(s) , 1 daughter(s) . . Great grand mother diabetes. * Social History: C URRENT TOBACCO USE S moking Status: Patient does NOT smoke. C affeine: yes, frequency:. Marital Status: . Alcohol: socially, Type: [place] , Frequency: 3-5 times/week ,Years: , Determination:. [...] a day (in the morning) , Taking Sildenafil Citrate 50 MG Tablet 1 tablet as needed Orally Once a day , Medication List reviewed and reconciled with the patient * Allergies: R ybelsus: stomach upset - Side Effects. Objective: * Vitals: W t:184.6, Temp:97.7, BP:112/60, HR:64, Nurse:CAROLINA, Ht: 71, BMI:25.74. * Examination: P sychology: General Appearance: N AD. G rooming : neat. E ye contact : decreased. M ood : A bit flat. H eart: R SR. L ungs: c lear to auscultation. Assessment: * Assessment: 1. D epression with anxiety - F41.8 (Primary) Plan: * Treatment: * Procedure Codes: G 2211 Complex e/m visit add on * Follow Up: 3 Months and prn * Images: Billing Information: * Visit Code: 77589 Office Visit, Est Pt., Level 3. * Procedure Codes: G2211 Complex e/m visit add on. * Electronic signature of Craig Jean MD on 09/07/2025 at 09:12 AM EST Sign off status: Pending * Provider: Craig Jean M.D. Date: 0 11/26/2024 Generated for Lucy forrester/Eddie/Sharri on: 11/07/2024 09:12 AM EST History and Physical Notes * Examination Category Sub-Category Detail Notes Category Not es Psychology Heart: RSR Lungs: clear to auscultatio n General Appearance: NAD Grooming : neat Eye contact : decreased Mood : A bit flat
--- OUTSIDE RECORDS SUMMARY | 2025-04-13 08:45 | XMS_ITS ---
Author Organization [facility]ancy Address [facility] [address] [place] [id number] Care Team Providers Care Ceramic Engineering Professor Name Role Phone Craig Jean Primary Care [...] Encounter Location Date Provider Diagnosis [facility] [address] [place] [phone] 04/13/2025 Craig Jean Adult general medica l [...] Notes * DEEPTHI MARMOLEJO:1960 (65 yo M)Acc No.[id number]:04/13/2025 Annual Wellness Visit Patient: RIKA FLOREZ Provider: Craig Jean M.D. :1960 A ge:65 Y S ex:Male Date:04/13/2025 Address:[place], [id number] Subjective: * Chief Complaints: * 1 . [...] eft knee arthroscopy , back surgery at [facility] Dr Roth 05/11, right hand [...] frequency:. Marital Status: . Alcohol: socially, Type: [place] , Frequency: 3-5 times/week ,Years: , Determination:. [...] , G2211 Complex e/[place], [address] GLYCATED HEMOGLOBIN TEST, Modifiers: QW , 1090F PRES/ABSN URINE INCON ASSESS, 3288F FALL RISK ASSESSMENT DOCD, 1170F FXNL STATUS ASSESSED, 1126F AMNT PAIN NOTED NONE PRSNT, 1159F MED LIST DOCD IN RCRD, 1003F LEVEL OF ACTIVITY ASSESS, 76499 CBC WITH AUTO DIFF, 1036F TOBACCO NON-USER [...] 25 G2211 Complex e/[place]. [address] GLYCATED HEMOGLOBIN TEST. Modifiers: QW 1090F PRES/ABSN URINE INCON ASSESS. 3288F FALL RISK ASSESSMENT DOCD. 1170F FXNL STATUS ASSESSED. 1126F AMNT PAIN NOTED NONE PRSNT. 1159F MED LIST DOCD IN RCRD. 1003F LEVEL OF ACTIVITY ASSESS. 70097 CBC WITH AUTO DIFF. 1036F TOBACCO NON-USER. * Electronic signature of Craig Jean MD on 09/07/2025 at 09:12 AM EST Sign off status: Pending * Provider: Craig Jean M.D. Date: 0 04/13/2025 Generated for Lucy forrester/Eddie/Sharri on: 11/07/2024 09:12 [...]
--- OUTSIDE RECORDS SUMMARY | 2025-06-03 09:15 | XMS_ITS ---
Author Organization [facility] Address [address] [place] Garcia [id number] Care Team Providers Care Grocery Store Associate Name Role Phone Craig Jean Primary Care Provider Allergies Allergen (clinical drug ingredient) Drug/Non Drug Allergy documented on EMR Reaction Allergy Type Onset Date Status semaglutide Rybelsus stomach upset Drug Allergy A ctive Results Component Value Reference Range Notes Urinalysis - Inhouse Reviewed date:06/11/2025 09:49:20 AM Interpretation:not performed, returned 06/11/25 Performing Lab: Notes/Report: not performed, returned 06/11/25 CBC Venipuncture (in house) Reviewed date:06/11/2025 09:49:41 AM Interpretation:not performed, pt returned 06/11/25 Performing Lab: Notes/Report: not performed, pt returned 06/11/25 Glycohemoglobin A1c (in hous e) Reviewed date:06/10/2025 11:19:56 AM Interpretation:Not performed in office visit Performing Lab: Notes/Report: Not performed in office visit P-Comprehensive Metabolic Pa octaviano (CMP) Reviewed date:06/17/2025 01:31:38 PM Interpretation:gluc 167 Performing Lab: Notes/Report: Test performed by [facility] [address] [place] [address] , [address], [place] [address] Lucas Zhou MD, Final Cleaner CLIA: [id number] Sodium 139 135-145 mmol/L Potassium 4.8 3.5-5.3 mmol/L Chloride 102 97-108 mmol/L CO2 26 20-32 mmol/L Glucose 167 65-99 mg/dL BUN 15 8-23 mg/dL Creatinine 1.00 0.70-1.30 mg/dL Calcium 9.6 8.6-10.4 mg/dL eGFR by Creatinine 84 >59 mL/min/1.73m2 Protein 7.0 6.0-8.3 g/dL Albumin 4.2 3.5-5.3 g/dL Alkaline Phosphatase 99 40-129 IU/L ALT (SGPT) 13 <5-55 IU/L AST (SGOT) 15 <5-46 IU/L Bilirubin, Total 0.6 <0.2-1.2 mg/dL A/G Ratio 1.5 1.1-2.5 P-Microalbumin/Creatinine, R andom Urine Sample Reviewed date:06/17/2025 01:31:38 PM Interpretation:a/c 58 Performing Lab: Notes/Report: Test performed by [facility], [address] , [address], [place] [address] Lucas Zhou MD, Final Cleaner CLIA: [id number] Albumin/Creatinine Ratio, Urine 58 0-30 ug/m g Microalbumin, Urine, Random 4.5 Creatinine, Urine 78.1 X ray : Spine, cervical Reviewed date:06/17/2025 01:30:15 PM Interpretation:degenerative/chronic changes Performing Lab: Notes/Report: degenerative/chronic changes REASON FOR VISIT 6 month follow up, Needs labs, colon cancer screening, diabetic eye exam, & shingles vaccine Medications Medication SIG (Take, Route, Frequency, Duration) Notes Start Date End Date Status DULoxetine HCl 60 MG Take 1 capsule by m outh once daily Active Sildenafil Citrate 50 MG 1 tablet as nee ded Orally Once a day; Duration: 30 day(s) 08/04/2024 Active metFORMIN HCl 500 MG 1 tab(s) orally 2 t imes a day Active Glimepiride 1 MG 1 tablet with breakf ast or the first main meal of the day Orally Once a day Active Jardiance 25 MG 1 tab(s) orally once a day (in the morning) Active Flomax 0.4 MG 1 cap(s) orally once a day Active Bisoprolol Fumarate 5 MG 1/2 tablet Oral ly Once a day Active Atorvastatin Calcium 40 MG 1 tab(s) orally once a day Active Prasugrel HCl 10 MG as directed Orally Not-Taking Xarelto 20 MG 1 tablet with food Orally Once a day; Duration: 30 day(s) Not-Taking Eliquis 5 MG 1 tab Orally twice a day Active hydrOXYzine Pamoate 25 MG 1 cap(s) Orall y three times a day as needed anxiety 11/26/2024 Active Clopidogrel Bisulfate 75 MG 1 tablet Orally Once a day Active Problems Problem Type SNOMED Code ICD Code Onset Dates Problem Status W/U Status Risk Notes Problem Cervicalgia (51891003) Cervicalgia (M54.2) Active confirmed Vital Signs Blood pressure systolic 110 mm Hg 06/03/20 25 Blood pressure diastolic 60 mm Hg 025 Heart Rate 69 /min 06/03/2025 Height 71 in 06/03/2025 Weight 181.8 lbs 06/03/2025 BMI 25.35 kg/m2 06/03/2025 Encounters Encounter Location Date [facility] [address] [phone] 06/03/2025 Craig Jean Depression with anxi ety F41.8 ; Type 2 diabetes mellitus with diabetic polyneuropathy, without long-term current use of insulin E11.42 ; Cervicalgia M54.2 ; Flank pain R10.9 ; Dyslipidemia E78.5 and BMI 25.0-25.9,adult Z68.25 Assessments Encounter Date Diagnosis (ICD Code) Assessment Notes Treatment Notes Treatment Clinical Notes Section Notes 06/03/2025 Depression with anxiety (ICD-10 - F41.8) 06/03/2025 Type 2 diabetes mellitus with diabetic polyneuropathy, without long-term current use of insulin (ICD-10 - E11.42) 06/03/2025 Cervicalgia (ICD-10 - M54.2) 06/03/2025 Flank pain (ICD-10 - R10.9) 06/03/2025 Dyslipidemia (ICD-10 - E78.5) 06/03/2025 BMI 25.0-25.9,adult (ICD-10 - Z68.25) Plan Of Treatment Medication Medication Name Sig Start Date Stop Date Notes DULoxetine HCl 60 MG Take 1 capsule by m outh once daily metFORMIN HCl 500 MG 1 tab(s) orally 2 times a day Glimepiride 1 MG 1 tablet with breakf ast or the first main meal of the day Orally Once a day Jardiance 25 MG 1 tab(s) orally once a day (in the morning) hydrOXYzine Pamoate 25 MG 1 cap(s) Orall y three times a day as needed anxiety 11/26/2024 Next Appt Details Follow Up: 6 Months, Reason: Progress Notes * LISA MARMOLEJODIPIKAOB:1960 (65 yo M)Acc No.[id number]:06/03/2025 Patient: RIKA FLOREZ Provider: Craig Jean M.D. :1960 A ge:65 Y S ex:Male Date:06/03/2025 Address:[facility] [place], [id number] Subjective: * Chief Complaints: * 1 . 6 month follow up. 2. Needs labs, colon cancer screening, diabetic eye exam, & shingles vaccine. * HPI: H PI: 65 year old male presents with c/o Patient is here today for?Pt is here today for a 6 month check up. D ermatology: He is currently following with Dr. Reed for a recurring diabetic foot ulcer. c/o redness P t sts he has a spot on his left hand, but sts he does have a dermatoligist appt in a couple of weeks for it. M id Back: c/o Middle Back Pain H e complains of intermittent mild pain in the bilateral flank areas for the past 2 months. It seems to be more related to activity.? He denies dysuria or hematuria.. N raymond: He complains of progressive pain and stiffness in his neck which is leading to decreasing range of motion. No history of neck injury. No radicular symptoms. C ardiology: He continues to follow with cardiology. He is currently being evaluated for peripheral arterial disease. * ROS: D ERMATOLOGY: no R edmundo. n o H jon. G ASTROENTEROLOGY: no N ausea. n o V omiting. n o D iarrhea.? U ROLOGY: Difficulty urinating y es. B lood in urine y es.? * Medical History: T ype 2 diabetes, Hyperlipidemia, ? rheumatoid arthritis - Dr. Sylvester, Diabetic neuropathy, Diabetic foot ulcers, Diabetic retinopathy, ASCVD, Paroxysmal AF. * Surgical History: l eft knee arthroscopy , back surgery at [facility] Dr Roth 05/11, right hand [...] uncle: hyperlipidemia, diabetes. S iblings: Brother had [place] at age 52, heart attack. 1 brother(s) , 1 sister(s) . 2 son(s) , 1 daughter(s) . . Great grand mother diabetes. * Social History: C URRENT TOBACCO USE S moking Status: Patient does NOT smoke. C affeine: yes, frequency:. Marital Status: . Alcohol: socially, Type: [place] , Frequency: 3-5 times/week ,Years: , Determination:. * Medications: T aking Clopidogrel Bisulfate 75 MG Tablet 1 tablet Orally Once a day , Taking Eliquis 5 MG Tablet 1 tab Orally twice a day , Taking Glimepiride 1 MG Tablet 1 tablet with breakfast or the first main meal of the day Orally Once a day , Taking Flomax 0.4 MG Capsule 1 cap(s) orally once a day , Taking Bisoprolol Fumarate 5 [...] as needed Orally Once a day , Taking hydrOXYzine Pamoate 25 MG Capsule 1 cap(s) Orally three times a day as needed anxiety , Taking DULoxetine HCl 60 MG Capsule Delayed Release Particles Take 1 capsule by mouth once daily , Not-Taking Prasugrel HCl 10 MG Tablet as directed Orally , Not-Taking Xarelto 20 MG Tablet 1 tablet with food Orally Once a day , Medication List reviewed and reconciled with the patient * Allergies: R ybelsus: stomach upset - Side Effects. Objective: * Vitals: W t: 181.8, Temp: 97.6, BP: 110/60, HR: 69, O2 Sat: 94% on RA, Nurse: [facility], Ht: 71, BMI:25.35. * Examination: G eneral Examination: General Appearance: N AD. N raymond: H ead forward posturing. No bony tenderness of the C-spine. Decreased range of motion with limited rotation and extension.. H eart: R SR. L ungs: c lear to auscultation. A bdomen: s oft,nontender. No CVA tenderness. Assessment: * Assessment: 1. T ype 2 diabetes mellitus with diabetic polyneuropathy, without long-term current use of insulin - E11.42 (Primary) 2 . D epression with anxiety - F41.8 3 .?Cervicalgia - M54.2 4 . F lank pain - R10.9 5 . D yslipidemia - E78.5 6 . B [place] 25.0-25.9,adult - Z68.25 Plan: * Treatment: 2. D epression with anxiety Refill hydrOXYzine Pamoate Capsule, 25 MG, 1 cap(s), Orally, three times a day as needed anxiety, 20, Refills 2; C ontinue DULoxetine HCl Capsule Delayed Release Particles, 60 MG, Take 1 capsule by mouth once daily. L AB: CBC Venipuncture (in house) (Collection Date & Time - 06/11/2025) n ot performed, pt returned 06/11/25 3. C ervicalgia I maging: X ray : Spine, cervical (Performed Date - 06/08/2025) d egenerative/chronic changes 4.?Flank pain?LAB: Urinalysis - Inhouse (Collection Date & Time - 06/11/2025)?not performed, returned 06/11/25 * Labs: * L ab: P-Microalbumin/Creatinine, Random Urine Sample (Collection Date & Time - 06/03/2025 01:34 PM) a /c 58 Value Reference Range A lbumin/Creatinine Ratio, Urine 58 H 0-30 - ug /mg * C reatinine, Urine 78.1 - mg/dL * M icroalbumin, Urine, Random 4.5 - mg/dL * Craig Jean 06/17/2025 01:31:29 PM EDT > See phone encounter ?Lab: P-Comprehensive Metabolic Panel (CMP) (Collection Date & Time - 06/03/2025 01:34 PM)?gluc 167* Value Reference Range A /G Ratio 1.5 1.1-2.5 - * A lbumin 4.2 3.5-5.3 - g/dL * A lkaline Phosphatase 99 40-129 - IU/L * A LT (SGPT) 13 <5-55 - IU/L * A ST (SGOT) 15 <5-46 - IU/L * B ilirubin, Total 0.6 <0.2-1.2 - mg/dL * B UN 15 8-23 - mg/dL * C alcium 9.6 8.6-10.4 - mg/dL * C hloride 102 97-108 - mmol/L * C O2 26 20-32 - mmol/L * C reatinine 1.00 0.70-1.30 - mg/dL * G lucose 167 H 65-99 - mg/dL * P otassium 4.8 3.5-5.3 - mmol/L * S odium 139 135-145 - mmol/L * P rotein 7.0 6.0-8.3 - g/dL * e GFR by Creatinine 84 >59 - mL/min/1.73m2 * Craig Jean 06/17/2025 01:31:29 PM EDT > See phone encounter ?Lab: Glycohemoglobin A1c (in house) (Collection Date & Time - 06/10/2025) ?Not performed in office visit * Procedure Codes: G 2211 Complex e/[place] [address] CBC WITH AUTO DIFF, 10238 Urinalysis, no micro, G8420 BMI<30 AND >=22 CALC & DOCU, 1036F TOBACCO NON-USER, G8783 BP SCR PRFRM RCMDD DEFIND SCR INTVL, G8752 MOST RECENT SYSTOLIC BP < 140MM HG, G8754 MOST RECENT DIASTOLIC BP < 90MM HG * Follow Up: 6 Months * Images: Billing Information: * Visit Code: 83953 Office Visit, Est Pt., Level 4. * Procedure Codes: G2211 Complex e/[place]. [address] CBC WITH AUTO DIFF. 26669 Urinalysis, no micro. G8420 BMI<30 AND >=22 CALC & DOCU. 1036F TOBACCO NON-USER. G8783 BP SCR PRFRM RCMDD DEFIND SCR INTVL. G8752 MOST RECENT SYSTOLIC BP < 140MM HG. G8754 MOST RECENT DIASTOLIC BP < 90MM HG. * Electronic signature of Craig Jean MD on 09/07/2025 at 09:13 AM EST Sign off status: Pending * Provider: Craig Jean M.D. Date: 0 06/03/2025 Generated for Lucy forrester/Eddie/eTransmitting on: 11/07/2024 09:13 AM EST History and Physical Notes * HPI (History of Present Illness) Category Sub-Category Detail Notes Category Not es Dermatology redness Pt sts he has a spot on his left hand, but sts he does have a dermatoligist appt in a couple of weeks for it HPI Patient is here today for Pt is here today for a 6 month check up Mid Back Middle Back Pain He complains of intermittent mild pain in the bilateral flank areas for the past 2 months. It seems to be more related to activity. He denies dysuria or hematuria. Examination Category Sub-Category Detail Notes Category Not es General Examination Heart: RSR Lungs: clear to auscultatio n Abdomen: soft, nontender. No CVA tenderness General Appearance: NAD Neck: Head forward posturi ng. No bony tenderness of the C-spine. Decreased range of motion with limited rotation and extension.
--- OUTSIDE RECORDS SUMMARY | 2025-06-11 04:45 | XMS_ITS ---
Author Organization [facility] Address [address] [facility] [address] [place] [phone] Care Team Providers Care Manufacturers Service Representative Name Role Phone Craig Jean Primary Care Provider Results Component Value Reference Range Notes Urinalysis - Inhouse Reviewed date:06/17/2025 01:31:38 PM Interpretation: Performing Lab: Notes/Report: Color/Clarity yellow Leuk neg Nitrite neg Urobili 3.2 Protein 2+ pH 5.5 Blood trace-intact Sp. Gr. 1.020 Ketone neg Bili neg Gluc 3+ CBC Fingerstick (in house) Reviewed date:06/17/2025 01:31:38 PM Interpretation: Performing Lab: Notes/Report: wbc 7.3 3.5 - 10 lym 28.4 15 - 50 mid 7.2 2 - 15 gran 64.4 35 - 80 rbc 5.51 3.5 - 5.5 hgb 16.5 11.5 - 16.5 hct 49.2 35 - 55 mcv 89.3 75 - 100 mch 29.9 25 - 35 mchc 33.5 31 - 38 plat 237 100 - 400 Glycohemoglobin A1c (in hous e) Reviewed date:06/17/2025 01:31:38 PM Interpretation:8.6% Performing Lab: Notes/Report: 8.6% glycohemoglobin 8.6% 5 - 6.5 % P-Culture, Urine Reviewed date:06/17/2025 01:31:38 PM Interpretation:No growth Performing Lab: Notes/Report: CLIA: [id number] Lucas Zhou MD, Vp Production [address] [facility] , [address], [place] [address] Test performed by [employer] Specimen Source Urine - Void Culture, Urine See Below Final Report : No growth REASON FOR VISIT blood work Encounters Encounter Location Date Provider Diagnosis [facility] [address] [place] [phone] 06/11/2025 Craig Jean Type 2 diabetes mellitus without complication, without long-term current use of insulin E11.9 and Flank pain R10.9 Assessments Encounter Date Diagnosis (ICD Code) Assessment Notes Treatment Notes Treatment Clinical Notes Section Notes 06/11/2025 Type 2 diabetes mellitus without complication, without long-term current use of insulin (ICD-10 - E11.9) 06/11/2025 Flank pain (ICD-10 - R10.9) Plan Of Treatment No Information Progress Notes * RASHIDA MARMOLEJOOB:1960 (65 yo M)Acc No.[id number]:06/11/2025 Patient: RIKA FLOREZ Provider: Craig Jean M.D. :1960 A ge:65 Y S ex:Male Date:06/11/2025 Address:[facility] [address], [id number] Subjective: * Chief Complaints: * 1 . Blood work. * Medical History: Objective: * Vitals: Assessment: * Assessment: 1. T ype 2 diabetes mellitus without complication, without long-term current use of insulin - E11.9 2 . F lank pain - R10.9 Plan: * Treatment: Value Reference Range C ulture, Urine See Below - * S pecimen Source Urine - Void - * TedCraig Chuy 06/17/2025 01:31:29 PM EDT > See phone encounter ?LAB: Urinalysis - Inhouse (Collection Date & Time - 06/11/2025)* Value Reference Range C olor/Clarity yellow * L euk neg * N itrite neg * U robili 3.2 * P rotein 2+ * p H 5.5 * B lood trace-intact * S p. Gr. 1.020 * K etone neg * B brenda neg * G randi 3+ * Sherry Shea 06/11/2025 10:03 :11 AM EDT > Craig Jean 06/17/2025 01:31:29 PM EDT > See phone encounter ?LAB: CBC Fingerstick (in house) (Collection Date & Time - 06/11/2025)* Value Reference Range w bc 7.3 3.5 - 10 * l ym 28.4 15 - 50 * m id 7.2 2 - 15 * g ran 64.4 35 - 80 * r bc 5.51 3.5 - 5.5 * h gb 16.5 11.5 - 16.5 * h ct 49.2 35 - 55 * m cv 89.3 75 - 100 * m ch 29.9 25 - 35 * m chc 33.5 31 - 38 * p lat 237 100 - 400 * Monse Sherry 06/11/2025 09:56 :33 AM EDT > Craig Jean 06/17/2025 01:31:29 PM EDT > See phone encounter ?LAB: Glycohemoglobin A1c (in house) (Collection Date & Time - 06/11/2025)? 8.6%* Value Reference Range g lycohemoglobin 8.6% 5 - 6.5 % * Monse Sherry 06/11/2025 10:04 :22 AM EDT > Craig Jean 06/17/2025 01:31:29 PM EDT > See phone encounter * Procedure Codes: 8 3036 GLYCATED HEMOGLOBIN TEST, Modifiers: QW , 3052F HG A1C>EQUAL 8.0%<EQUAL 9.0%, 11464 CBC WITH AUTO DIFF, 32124 CAPILLARY BLOOD DRAW, [address] Urinalysis, no micro * Images: Billing Information: * Visit Code: * Procedure Codes: 91221 GLYCATED HEMOGLOBIN TEST. Modifiers: QW 3052F HG A1C>EQUAL 8.0%<EQUAL 9.0%. 12093 CBC WITH AUTO DIFF. 05643 CAPILLARY BLOOD DRAW. 97902 Urinalysis, no micro. * Electronic signature of Craig Jean MD on 09/07/2025 at 09:12 AM EST Sign off status: Pending * Provider: Craig Jean M.D. Date: 0 06/11/2025 Generated for Lucy forrester/Eddie/Jessiitting on: 1 11/07/2024 09:12 AM EST
--- OUTSIDE RECORDS SUMMARY | 2025-09-07 09:12 | XMS_ITS | Clinical Summary ---
[facility] Address [address] [place] [address] Care Team Providers Care Roofer Helper Vinyl Coating Name Role Phone Jasen Jean MD Primary [...] 07/01/2019 INFLUENZA VACCINE 06/04/2025 Insurance Care Teams Roofer Helper Vinyl Coating Relationship Specialty Start Date End Date Jasen Jean MD [address] [place] [facility] [address] [facility] [address] [place] [address] [facility] - General 06/27/15
--- OUTSIDE RECORDS SUMMARY | 2025-09-07 09:12 | XMS_ITS | Encounter Summary ---
Author Organization Healthcare Address [address] [place] [address] Care Team Providers Care Inspector Chief Name Role Phone Jasen Jean MD Primary Care Provider +1- [phone] Encounter Details Date Type Department Care Team (Late st Contact Info) Description 04/12/2025 Orders Only External Location [address] [place] [address] Provider, External Social History Tobacco Use Types [...] documented as of this encounter Care Teams Inspector Chief Relationship Specialty Start Date End Date Jasen Jean MD [address] [place] [id number] PCP - General 03/17/21 documented as of this encounter
--- OUTSIDE RECORDS SUMMARY | 2025-09-07 09:12 | XMS_ITS | Encounter Summary ---
Author Organization Healthcare Address [address] [place] [address] Care Team Providers Care Flash Oven Operator Name Role Phone Jasen Jean MD Primary Care Provider +1- [phone] Encounter Details Date Type Department Care Team ([facility] st Contact Info) Description 08/06/2025 Telephone [facility] [place] [address] [facility], [address] [place] [address] Elida Calderon Social History Tobacco [...] documented as of this encounter Care Teams Flash Oven Operator Relationship Specialty Start Date End Date Jasen Jean MD [address] [place] [address] PCP - General 03/17/21 documented as of this encounter
--- OUTSIDE RECORDS SUMMARY | 2025-09-07 09:13 | XMS_ITS | Encounter Summary ---
Author Organization Healthcare Address [address] [place] [address] Care Team Providers Care Kiln Maintenance Name Role Phone Jasen Jean MD Primary Care Provider +1- [phone] Encounter Details Date Type Department Care Team ([facility] st Contact Info) Description 08/04/2025 Telephone [facility] [place] [address] [facility], [address] [place] [address] Elida Calderon Social History Tobacco [...] documented as of this encounter Care Teams Kiln Maintenance Relationship Specialty Start Date End Date Jasen Jean MD [address] [place] [address] PCP - General 03/17/21 documented as of this encounter
--- OUTSIDE RECORDS SUMMARY | 2025-09-07 09:14 | XMS_ITS | Patient Health Record ---
Author Organization [facility] Address [address] [place] [id number] Care Team Providers Care Hotel Assistant General Manager Name Role Phone Craig Jean Primary [...] 167 Performing Lab: Notes/Report: Test performed by [facility], [facility] , [address], [place] [address] Lucas Zhou MD, Lens Blank Gauger CLIA: [id number] Sodium 139 135-145 mmol/L Potassium 4.8 3.5-5.3 [...] 58 Performing Lab: Notes/Report: Test performed by [facility], [facility] [address] [place] [address] , [address], [place] [address] Lucas Zhou MD, Lens Blank Gauger CLIA: [id number] Albumin/Creatinine Ratio, Urine 58 0-30 ug/m g Microalbumin, Urine, Random 4.5 Creatinine, Urine 78.1 X ray : Spine, cervical Reviewed date:06/17/2025 01:30:15 PM Interpretation:degenerative/chronic changes Performing Lab: Notes/Report: degenerative/chronic changes Urinalysis - Inhouse Reviewed date:06/17/2025 01:31:38 PM [...] growth Performing Lab: Notes/Report: Test performed by [facility], [facility] [address] [place] [address] , [address], [place] [address] Lucas Zhou MD, Lens Blank Gauger CLIA: [id number] Specimen Source Urine - Void Culture, Urine See Below Final Report : No growth Medications Medication SIG (Take, Route, Frequency, Duration) Notes Start Date End Date Status DULoxetine HCl 60 MG Take 1 capsule by m out once daily; Duration: 90 Active Bisoprolol Fumarate 5 MG 1/2 tablet [...] the day Orally Once a day Active Xarelto 20 MG 1 tablet with [...] Status Risk Notes Problem Diabetic foot ulcer (613858187) Diabetic foot ulcer (E11.621) Active confirmed Problem Anxiety disorder (090279232) Anxiety disorder (F41.9) Active confirmed Problem Cholelithiasis (661356953) Cholelithiasis (K80.20) Active confirmed Problem Cervicalgia (84395090) Cervicalgia (M54.2) Active confirmed Problem Mixed anxiety and depressive disorder (539353822) Depression with anxiety (F41.8) Active confirmed Problem Arthropathy of cervical spine facet joint (disorder) (889666300) Facet arthropathy, cervical (M46.92) Active confirmed Problem Benign prostatic hyperplasia (137230933) BPH (benign prostatic hyperplasia) (N40.0) Active confirmed Problem Pulmonary nodule (539051534) Pulmonary nodule (R91.1) Active confirmed Problem Type II diabetes mellitus without complication (937698808) Insulin dependent diabetes mellitus (E11.9) Active confirmed Problem Depressive disorder (35864506) Depressive disorder (F32.9) Active confirmed Problem Dyslipidemia (841482479) Dyslipidemia (E78.5) Active confirmed Problem Type II diabetes mellitus without complication (783138931) Type 2 diabetes mellitus without complication, without long-term current use of insulin (E11.9) Active confirmed Problem Peripheral vascular disease (246095246) PAD (peripheral artery disease) (I73.9) Active confirmed Problem Hyperglycemia due to type 2 diabetes mellitus (180889736208606) Type 2 diabetes mellitus with hyperglycemia, without long-term current use of insulin (E11.65) Active confirmed Problem Polyneuropathy due to type 2 diabetes mellitus (241735798) Type 2 diabetes mellitus with diabetic polyneuropathy, without long-term current use of insulin (E11.42) Active confirmed Problem Irritable bowel syndrome characterized by constipation (975265443) Irritable bowel syndrome with constipation (K58.1) Active confirmed Problem Lower urinary tract symptoms due to benign prostatic hypertrophy (68920002773571) Benign prostatic hyperplasia with lower urinary tract symptoms (N40.1) Active confirmed Problem Gallstone (046064262) Gall stones (K80.20) Active confirmed Problem Allergic rhinitis (37410566) Allergic rhinitis, unspecified seasonality, unspecified trigger (J30.9) Active confirmed Problem Secondary erectile dysfunction (disorder) (453508046) 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) Active confirmed Problem Contracture of palmar fascia (844793482) Dupuytren's contracture of both hands (M72.0) Active confirmed Vital Signs Heart Rate 69 /min 06/03/2025 Blood pressure diastolic 60 mm Hg 06/03/2025 Height 71 in 06/03/2025 Blood pressure systolic 110 mm Hg 06/03/2025 Weight 181.8 lbs 06/03/2025 BMI 25.35 kg/m2 06/03/2025 Encounters Encounter Location Date Provider Diagnosis [facility] [address] [place] [id number] 11/26/2024 R Chuy Ted Depression with anxi ety F41.[address] [facility] [address] [place] [id number] 06/03/2025 R Chuy Ted Depression with anxi ety F41.8 ; Type 2 diabetes mellitus with diabetic polyneuropathy, without long-term current use of insulin E11.42 ; Cervicalgia M54.2 ; Flank pain R10.9 ; Dyslipidemia E78.5 and BMI 25.0-25.9,adult Z68.25 [facility] [address] [place] [id number] 06/11/2025 R Chuy Ted Type 2 diabetes mellitus without complication, without long-term current use of insulin E11.9 and Flank pain R10.9 [facility] 1210 [facility] [address] [place] [id number] 03/15/2025 R [facility] [address] [place] [id number] 05/25/2025 R Ch[facility] Ted [facility] 1210 [facility] [address] [place] [id number] 06/08/2025 R Chuy Ted [facility] [address] [place] [id number] 06/17/2025 R Chuy Ted Cervicalgia M54.2 an [...] Date MEDICARE PART B [address] [address] [place] [address] [id number] RIKA MOY Self - patient is the insured [facility] [address] [place] [address] [id number] 1ER RIKA MOY Self - patient is the insured Medical (General) History Medical History History ICD Code type 2 diabetes hyperlipidemia ? rheumatoid arthritis - Dr. Sylvester diabetic neuropathy Diabetic foot ulcers Diabetic retinopathy ASCVD Paroxysmal AF Surgical History Surgery Date(Month/Year) left knee arthroscopy back surgery at [facility] right hand surgery-Dr Paulson 06/04/19 bone shaved from bilateral feet-Dr Sepulveda 01/2022 Coronary stent to LAD and RCA/ [place] 06/2023 Basal Cell Carcinoma Removal from Left S hugh of Nose 02/25/2024 Hospitalization History Reason Date(Month/Year) [facility] ER-Heart Palpitation 07/05/10
--- OUTSIDE RECORDS SUMMARY | 2025-09-07 09:14 | XMS_ITS | Encounter Summary ---
Author Organization [facility] Address [address] [place] [address] Care Team Providers Care Binding Machine Operator Name Role Phone Jasen Jean MD Primary Care Provider +1- [phone] Encounter Details Date Type Department Care Team (Late st Contact Info) Description 08/18/2024 Orders Only External Location [address] [place] [address] Perla Kramer, ED SPECIAL EDUCATION TEACHER [address] [facility] [address] [place] [phone] Social History Tobacco Use Types Packs/Day Years [...] 08/18/2024 8:16 AM EDT us Perla Kramer ED SPECIAL EDUCATION TEACHER IMG US PROCEDURES Sienna l Result documented in this encounter Visit Diagnoses Not on filedocumented in this encounter Additional Health Concerns Assessment Noted Time A fall risk assessment has been complete d for the patient 01/20/2024 3:23 PM EDT A Body Mass Index follow-up plan has been documented for the patient 04/13/2024 3:51 PM EDT documented as of this encounter Care Teams Binding Machine Operator Relationship Specialty Start Date End Date Jasen Jean MD [address] [place] [id number] PCP - General 03/17/21 documented as of this encounter
--- OUTSIDE RECORDS SUMMARY | 2025-09-07 09:14 | XMS_ITS | Clinical Summary ---
Author Organization [facility] ([place], [place], [place], [place], [place]) Address [address] [place] [address] Care Team Providers Care Ship Steward Name Role Phone Unavailable Primary Care Provider [...]
--- OUTSIDE RECORDS SUMMARY | 2025-09-07 09:14 | XMS_ITS | Referral Summary ---
Author Organization [facility] ([place], [place], [place], [place], [place]) Address [address] [place] [address] Care Team Providers Care Lithographic Plate Maker Name Role Phone Unavailable Primary Care Provider [...]
--- OUTSIDE RECORDS SUMMARY | 2025-09-07 09:14 | XMS_ITS | Clinical Summary ---
Author Organization [facility] Address [address] [place] [address] Care Team Providers Care Restaurant Line Server Name Role Phone Jasen Jean MD Primary Care Provider +1- [phone] Allergies Active Allergy Reactions Criticality Noted Date [...] Type Department Care Team Description 08/06/2025 Telephone [facility] [place] [address] [place] [address] Elida Calderon 08/04/2025 Telephone [facility] [place] [address] , [address] [place] [address] Elida Calderon 06/16/2025 Refill [facility] [address] [place] [address] Roxana Burris, SKILLS TRAINER Type 2 diabetes mellitus with other specified complication, with long-term current use of insulin ([facility]) from Last 3 Months Family [...] Additional history exists [facility]-Depression Screening 01/19/2025 01/20/2024 [id number] Vaccine (2 - 2024- season) 2025 01/12/2021 [...] % [facility] Kit Lot Number [id number] REPLACED BY [facility] Kit Expiration Date 07/04/26 [facility] Blood Venous blood specimen / Unknown 10/19/2024 2:29 PM EST Roxana Burris SKILLS TRAINER POINT OF CARE TEST ENTER /EDIT ORDERABLES Final Result Performing Organization Address City/State/[facility] Co de Phone Number [facility] [address] [place] [phone] from Last 3 Months or Most Recently Relevant to Health Maintenance Insurance MEDICARE ANTHEM Care Teams Restaurant Line Server Relationship Specialty Start Date End Date Jasen Jean MD [address] [place] [id number] PCP - General 03/17/21
[2025-09-07 09:25] LABS: Hematocrit 47.7 % (42.0-52.0); Hemoglobin 15.6 g/dL (14.1-18.0); Immature Granulocytes % 0.3 %; Mean Corpuscular HGB Conc 32.7 g/dL (31.8-35.4); Mean Corpuscular Hemoglobin 30.1 pg (27.0-31.2); Mean Corpuscular Volume 91.9 fl (80-94); Nucleated Red Blood Cells % 0 %; Platelet Count 287 K/mm3 (142-424); Red Blood Count 5.19 M/mm3 (4.60-6.20); Red Cell Distribution Width-SD 43.6 fL; White Blood Count 6.4 K/mm3 (4.8-10.8)
--- NOTE | 2025-09-07 09:45 | CT_ITS ---
FINAL REPORT TECHNIQUE: Axial images of the right foot was performed with and without contrast by computed tomography. Reconstructed images were obtained and reviewed. This study was performed with techniques to keep radiation doses as low as reasonably achievable, (ALARA). Individualized dose reduction techniques using automated exposure control or adjustment of mA and/or kV according to the patient's size were employed. 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 There is also amputation of the distal fifth metatarsal and proximal half of the fifth proximal phalanx. There is old fracture deformity of the fourth metatarsal shaft. Multijoint degenerative disease is identified. There is cortical irregularity involving the lateral cortex of the base of the fifth metatarsal, osteomyelitis is not excluded. The remaining osseous structures are without acute abnormality. There is a soft tissue defect overlying the base of the fifth metatarsal. Soft tissue edema is seen along the lateral ankle and lateral aspect of the hindfoot and midfoot. No peripherally enhancing fluid collections are seen to suggest an abscess. There is mild soft tissue edema surrounding the proximal phalanx of the great toe. Remaining soft tissues are without acute abnormality. IMPRESSION: Extensive postoperative changes as detailed above. Cortical irregularity along the lateral cortex of the base of the fifth metatarsal, osteomyelitis is not excluded. Soft tissue edema of the lateral hindfoot and midfoot. There is also soft tissue edema of the remaining great toe, could represent cellulitis. No evidence of abscess. Reviewed, Interpreted and Dictated by Georgia Cantu MD Transcribed by Jennifer Sanders Authenticated and [facility]
[2025-09-07 10:28] LABS: Alanine Aminotransferase 13 U/L (12-78); Albumin Level 4.2 g/dl (3.5-5.0); Albumin/Globulin Ratio 1.2 (1.1-1.8); Alkaline Phosphatase 121 U/L (38-126); Anion Gap 15.7 mEq/L (5-15); Aspartate Amino Transferase 19 U/L (17-59); Bilirubin,Total 0.9 mg/dl (0.2-1.3); Blood Urea Nitrogen 15 mg/dl (9-20); Calcium 9.5 mg/dl (8.4-10.2); Carbon Dioxide 28 mmol/L (22.0-30.0); Chloride 97 mmol/L (98-107); Creatinine,Serum 1.00 mg/dl (0.66-1.25); Estimated Glomerular Filt Rate 75 ml/min (>60); GFR (African American) 91 ML/MIN (>60); Globulin 3.4 g/dL (1.3-3.2); Glucose 163 mg/dl (74-100); Potassium 4.7 mmoL/L (3.5-5.1); Sodium 136 mmol/L (136-145); Total Protein,Serum 7.6 g/dl (6.3-8.2)
[2025-09-07 10:33] LABS: C-Reactive Protein 14.6 mg/L (0-4)
[2025-09-07] MEDS: IOPAMIDOL-370 (76%);100ML BOTTLE 75 ML IV (10:50)
[2025-09-07] MEDS: SODIUM CHLORIDE 0.9% 10ML SYR (RAD ONLY) 10 ML IV (10:50)
== END 2025-09-07 23:59 | disposition home or self-care (01) ==
LOC: RAD 09:11
PROVIDERS: PCP Family Medicine; Visit Provider Podiatrist
DX: L03.115 Cellulitis of right lower limb (principal); E11.621 Type 2 diabetes mellitus with foot ulcer; L97.519 Non-pressure chronic ulcer of other part of right foot with unspecified severity; R93.6 Abnormal findings on diagnostic imaging of limbs; R60.0 Localized edema; Z89.411 Acquired absence of right great toe; Z89.421 Acquired absence of other right toe(s)
CPT/HCPCS: 36415; 73702; 80053; 85025; 85651; 86140; Q9967

== ENCOUNTER 2025-09-13 16:50 | Outpatient (CLI) | payer MEDICARE, BC, SELFPAY ==
--- OUTSIDE RECORDS SUMMARY | 2024-08-04 10:15 | XMS_ITS ---
Author Organization [facility] Address [address] [place] [id number] Care Team Providers Care Furnace Erector Name Role Phone Craig Jean Primary Care Provider Allergies Allergen (clinical drug ingredient) Drug/Non Drug Allergy documented on EMR Reaction Allergy Type Onset Date Status semaglutide Rybelsus stomach upset Drug Allergy A ctive Results Component Value Reference Range Notes CBC Venipuncture (in house) Reviewed date:08/06/2024 04:44:51 PM Interpretation:Normal Performing Lab: Notes/Report: Normal wbc 6.2 3.5 - 10 lymph 28.9 15 - 50 mid 7.1 2 - 15 gran 64.0 35 - 80 rbc 5.04 3.5 - 5.5 hgb 15.3 11.5 - 16.5 hct 45.8 35 - 55 mcv 90.7 75 - 100 mch 30.5 25 - 35 mchc 33.5 31 - 38 platlet 282 100 - 400 Glycohemoglobin A1c (in hous e) Reviewed date:08/06/2024 04:44:51 PM Interpretation:7.4% Performing Lab: Notes/Report: 7.4% glycohemoglobin 7.4% 5 - 6.5 % P-Comprehensive Metabolic Pa octaviano (CMP) Reviewed date:08/06/2024 04:44:51 PM Interpretation:gluc 118 Performing Lab: Notes/Report: CLIA: [id number] Lucas Zhou MD, Solar Energy Advisor [facility] , [place] [address] Test performed by [employer] [facility] [employer] Sodium 141 135-145 mmol/L Potassium 4.2 3.5-5.3 mmol/L Chloride 101 97-108 mmol/L CO2 29 22-32 mmol/L Glucose 118 65-99 mg/dL BUN 17 8-23 mg/dL Creatinine 0.84 0.70-1.30 mg/dL Calcium 9.5 8.6-10.4 mg/dL eGFR by Creatinine 98 >59 mL/min/1.73m2 Protein 6.9 6.0-8.3 g/dL Albumin 4.2 3.5-5.3 g/dL Alkaline Phosphatase 76 40-129 IU/L ALT (SGPT) 12 <5-55 IU/L AST (SGOT) 15 <5-46 IU/L Bilirubin, Total 1.0 <0.2-1.2 mg/dL A/G Ratio 1.6 1.1-2.5 P-PSA Reviewed date:08/06/2024 04:44:51 PM Interpretation:Normal Performing Lab: Notes/Report: Test performed by [facility] [employer] [address] [place], [place] [address] [facility] , [address], [place] [address] Lucas Zhou MD, Solar Energy Advisor CLIA: [id number] PSA 3.60 <4.00 ng/mL Please note this is an ultrasensitive PSA assay with a lower limit of detection of 0.014 ng/mL. This test is performed by the [employer] ECLIA methodology. Values obtained with different assay methods or kits cannot be directly compared. P-Microalbumin/Creatinine, R andom Urine Sample Reviewed date:08/06/2024 04:44:51 PM Interpretation:a/c 49 Performing Lab: Notes/Report: Test performed by [facility] [employer] [address] [place], [place] [address] [facility] , [address], [place] [address] Lucas Zhou MD, Solar Energy Advisor CLIA: [id number] Albumin/Creatinine Ratio, Urine 49 0-30 ug/m g Microalbumin, Urine, Random 7.4 Creatinine, Urine 152.2 REASON FOR VISIT Check Up and Labs and Flu Shot Medications Medication SIG (Take, Route, Frequency, Duration) Notes Start Date End Date Status Flomax 0.4 MG 1 cap(s) orally once a day Active Glimepiride 1 MG 1 tablet with breakf ast or the first main meal of the day Orally Once a day; Duration: 30 day(s) Active Xarelto 20 MG 1 tablet with food O rally Once a day; Duration: 30 day(s) Active Prasugrel HCl 10 MG as directed Orally Active Sildenafil Citrate 50 MG 1 tablet as nee ded Orally Once a day; Duration: 30 day(s) 08/04/2024 Active Jardiance 25 MG 1 tab(s) orally once a day (in the morning) Active metFORMIN HCl 500 MG 1 tab(s) orally 2 t imes a day Active Atorvastatin Calcium 40 MG 1 tab(s) oral ly once a day Active Bisoprolol Fumarate 5 MG 1/2 tablet Oral ly Once a day Active Immunizations Vaccine Route Administration Date Status Comme nts Fluzone Quad (6months&older) IM Intramuscular 08/04/2024 Administered Problems Problem Type SNOMED Code ICD Code Onset Dates Problem Status W/U Status Risk Notes Problem Allergic rhinitis (07770819) Allergic rhinitis, unspecified seasonality, unspecified trigger (J30.9) Active confirmed Vital Signs Blood pressure systolic 110 mm Hg 08/04/20 24 Blood pressure diastolic 58 mm Hg 024 Heart Rate 44 /min 08/04/2024 Height 71 in 08/04/2024 Weight 181.8 lbs 08/04/2024 BMI 25.35 kg/m2 08/04/2024 Encounters Encounter Location Date Provider [facility] [address] [place] [id number] 08/04/2024 Craig Jean Encounter for immunization Z23 ; Insulin dependent diabetes mellitus E11.9 ; Dyslipidemia E78.5 ; ED (erectile dysfunction) of organic origin N52.9 ; Prostate cancer screening Z12.5 and Allergic rhinitis, unspecified seasonality, unspecified trigger J30.9 Assessments Encounter Date Diagnosis (ICD Code) Assessment Notes Treatment Notes Treatment Clinical Notes Section Notes 08/04/2024 Encounter for immunization (ICD-10 - Z23) 08/04/2024 Insulin dependent diabetes mellitus (ICD-10 - E11.9) 08/04/2024 Dyslipidemia (ICD-10 - E78.5) 08/04/2024 ED (erectile dysfunction) of organic origin (ICD-10 - N52.9) 08/04/2024 Prostate cancer screening (ICD-10 - Z12.5) 08/04/2024 Allergic rhinitis, unspecified seasonality, unspecified trigger (ICD-10 - J30.9) Plan Of Treatment Medication Medication Name Sig Start Date Stop Date Notes Sildenafil Citrate 50 MG 1 tablet as nee ded Orally Once a day; Duration: 30 day(s) 08/04/2024 Next Appt Details Follow Up: 6 Months, Reason: Progress Notes * RASHIDA MARMOLEJOOB:1960 (65 yo M)Acc No.[id number]:08/04/2024 Progress Notes Patient: RIKA FLOREZ Provider: Craig Jean M.D. :1960 A ge:64 Y S ex:Male Date:08/04/2024 Address:[facility] [place], [id number] Subjective: * Chief Complaints: * 1 . Check Up and Labs and Flu Shot. * HPI: H PI: 64 year old male presents with c/o Patient is here today for?a check up with labs. Pt would like to have his flu shot as well. E ndocrinology: He continues to follow with endocrinology and uses a continuous glucose monitor with better control of his blood sugar. He continues on glimepiride, metformin, and insulin although he does not know the type or dosage. M mari Reproductive: He would like to start back on a PDE [address]. [address] Cook a couple of years ago and tried using the Trimix injections but did not not see much additional benefit over the PDE 5 inhibitors. * ROS: D ERMATOLOGY: no R edmundo. [...] eft knee arthroscopy , back surgery at [facility] Dr Roth 05/11, right hand surgery-Dr [...] uncle: hyperlipidemia, diabetes. S iblings: Brother had MA at age 52, heart attack. 1 brother(s) , 1 sister(s) . 2 son(s) , 1 daughter(s) . . Great grand mother diabetes. * Social History: C URRENT TOBACCO USE S moking Status: Patient does NOT smoke. C affeine: yes, frequency:. Marital Status: . Alcohol: socially, Type: [place] , Frequency: 3-5 times/week ,Years: , Determination:. [...] once a day (in the morning) , Medication List reviewed and reconciled with the patient * Allergies: R ybelsus: stomach upset - Side Effects. Objective: * Vitals: W t:181.8, Temp:98.4, BP:110/58, HR:44, O2 Sat:96% on RA, Nurse:ESTELA, Ht: 71, BMI:25.35. * Examination: G eneral Examination: General Appearance: N AD. Weight stable. O ral cavity: n o lesions, mucosa moist and WNL, no erythema. N raymond: s upple, no lymphadenopathy. C hest: n ormal shape and expansion. H eart: R SR. L ungs: c lear to auscultation. S kin: n ormal, no rash. E xtremities: n o leg edema. ? Assessment: * Assessment: 1. E ncounter for immunization - Z23 (Primary) 2 . I nsulin dependent diabetes mellitus - E11.9 3 . D yslipidemia - E78.5 4 . E D (erectile dysfunction) of organic origin - N52.9 5 . P rostate cancer screening - Z12.5 6 . A llergic rhinitis, unspecified seasonality, unspecified trigger - J30.9? Plan: * Treatment: Value Reference Range A /G Ratio 1.6 1.1-2.5 - * A lbumin 4.2 3.5-5.3 - g/dL * A lkaline Phosphatase 76 40-129 - IU/L * A LT (SGPT) 12 <5-55 - IU/L * A ST (SGOT) 15 <5-46 - IU/L * B ilirubin, Total 1.0 <0.2-1.2 - mg/dL * B UN 17 8-23 - mg/dL * C alcium 9.5 8.6-10.4 - mg/dL * C hloride 101 97-108 - mmol/L * C O2 29 22-32 - mmol/L * C reatinine 0.84 0.70-1.30 - mg/dL * G lucose 118 H 65-99 - mg/dL * P otassium 4.2 3.5-5.3 - mmol/L * S odium 141 135-145 - mmol/L * P rotein 6.9 6.0-8.3 - g/dL * e GFR by Creatinine 98 >59 - mL/min/1.73m2 * Craig Jean 08/06/2024 4 :44:42 PM >See phone encounter ?LAB: P-Microalbumin/Creatinine, Random Urine Sample (Collection Date & Time - 08/04/2024 02:35 PM)?a/c 49* Value Reference Range A lbumin/Creatinine Ratio, Urine 49 H 0-30 - ug /mg * C reatinine, Urine 152.2 - mg/dL * M icroalbumin, Urine, Random 7.4 - mg/dL * Craig Jean 08/06/2024 4 :44:42 PM >See phone encounter ?LAB: CBC Venipuncture (in house) (Collection Date & Time - 08/04/2024)? Normal* Value Reference Range w bc 6.2 3.5 - 10 * l ymph 28.9 15 - 50 * m id 7.1 2 - 15 * g ran 64.0 35 - 80 * r bc 5.04 3.5 - 5.5 * h gb 15.3 11.5 - 16.5 * h ct 45.8 35 - 55 * m cv 90.7 75 - 100 * m ch 30.5 25 - 35 * m chc 33.5 31 - 38 * p latlet 282 100 - 400 * Sherry Shea 08/04/2024 3:43: 52 PM > Cragi Jean 08/06/2024 4:44:42 PM >See phone encounter ?LAB: Glycohemoglobin A1c (in house) (Collection Date & Time - 08/04/2024)? 7.4%* Value Reference Range g lycohemoglobin 7.4% 5 - 6.5 % * Sherry Shea 08/04/2024 3:45: 31 PM > Craig Jean 08/06/2024 4:44:42 PM >See phone encounter 2.?Dyslipidemia?LAB: P-Comprehensive Metabolic Panel (CMP) (Collection Date & Time - 08/04/2024 02:35 PM)?gluc 118* Value Reference Range A /G Ratio 1.6 1.1-2.5 - * A lbumin 4.2 3.5-5.3 - g/dL * A lkaline Phosphatase 76 40-129 - IU/L * A LT (SGPT) 12 <5-55 - IU/L * A ST (SGOT) 15 <5-46 - IU/L * B ilirubin, Total 1.0 <0.2-1.2 - mg/dL * B UN 17 8-23 - mg/dL * C alcium 9.5 8.6-10.4 - mg/dL * C hloride 101 97-108 - mmol/L * C O2 29 22-32 - mmol/L * C reatinine 0.84 0.70-1.30 - mg/dL * G lucose 118 H 65-99 - mg/dL * P otassium 4.2 3.5-5.3 - mmol/L * S odium 141 135-145 - mmol/L * P rotein 6.9 6.0-8.3 - g/dL * e GFR by Creatinine 98 >59 - mL/min/1.73m2 * Craig Jean 08/06/2024 4 :44:42 PM >See phone encounter 3.?ED (erectile dysfunction) of organic origin? Start Sildenafil Citrate Tablet, 50 MG, 1 tablet as needed, Orally, Once a day, 30 day(s), 30, Refills 2.??4.?Prostate cancer screening?LAB: P-PSA (Collection Date & Time - 08/04/2024 02:35 PM)?Normal* Value Reference Range P SA 3.60 <4.00 - ng/mL * Craig Jean 08/06/2024 4 :44:42 PM >See phone encounter * Immunizations: Fluzone Quad (6months&older) : 0.5 mL (Route: Intramuscular) given by ESTELA Beltrán on Right Deltoid (Encounter for immunization, Insulin dependent diabetes mellitus, Dyslipidemia, ED (erectile dysfunction) of organic origin, Prostate cancer screening) * Procedure Codes: 9 4760 [place]SE [place], [address] CBC WITH AUTO DIFF, 58117 GLYCATED HEMOGLOBIN TEST, Modifiers: QW * Follow Up: 6 Months * Images: Billing Information: * Visit Code: 08696 Office Visit, Est Pt., Level 4. * Procedure Codes: [address] [place]. [address] CBC WITH AUTO DIFF. 48129 GLYCATED HEMOGLOBIN TEST. Modifiers: QW * Electronic signature of Craig Jean MD on 09/14/2025 at 04:52 PM EST Sign off status: Pending * Provider: Craig Jean M.D. Date: Generated for Printi ng/Faherbertg/eTransmitting on: 11/14/2024 04:52 PM EST History and Physical Notes * HPI (History of Present Illness) Category Sub-Category Detail Notes Category Not es HPI Patient is here today for a [facility] k up with labs. Pt would like to have his flu shot as well Examination Category Sub-Category Detail Notes Category Not es General Examination Heart: RSR Lungs: clear to auscultatio n Extremities: no leg edema General Appearance: NAD. Weight stable Skin: normal, no rash Neck: supple, no lymphaden opathy Oral cavity: no lesions, mucosa m oist and WNL, no erythema Chest: normal shape and exp ansion
--- OUTSIDE RECORDS SUMMARY | 2024-11-26 08:45 | XMS_ITS ---
Author Organization [facility] Address [address] [facility] [address] [place] [phone] Care Team Providers Care Risk Compliance Analyst Name Role Phone Craig Jean Primary Care [...] Notes Problem Mixed anxiety and depressive disorder (078586991) Depression with anxiety (F41.8) Active confirmed Vital Signs Blood pressure systolic 112 mm Hg 11/26/19 25 Blood pressure diastolic 60 mm Hg 025 Heart Rate 64 /min 11/26/2024 Height 71 in 11/26/2024 Weight 184.6 lbs 11/26/2024 BMI 25.74 kg/m2 11/26/2024 Encounters Encounter Location Date Provider Diagnosis [facility] [address] [facility] [address] [place] [phone] 11/26/2024 Craig Jean Depression with anxiety F41.8 [...] Progress Notes * DEWEYCHERYLERASHIDAOB:1960 (65 yo M)Acc No.[id number]:11/26/2024 Progress Notes Patient: RIKA FLOREZ Provider: Craig Jean M.D. :1960 A ge:64 Y S ex:Male Date:11/26/2024 Address:[address] [place], [id number] Subjective: * Chief Complaints: * 1 . [...] eft knee arthroscopy , back surgery at [facility] Dr Roth 05/11, right hand surgery-Dr [...] uncle: hyperlipidemia, diabetes. S iblings: Brother had [place] at age 52, heart attack. 1 brother(s) , 1 sister(s) . 2 son(s) , 1 daughter(s) . . Great grand mother diabetes. * Social History: C URRENT TOBACCO USE S moking Status: Patient does NOT smoke. C affeine: yes, frequency:. Marital Status: . Alcohol: socially, Type: [place] , Frequency: 3-5 times/week ,Years: , Determination:. [...] * Images: Billing Information: * Visit Code: 33102 Office Visit, Est Pt., Level 3. * Procedure Codes: G2211 Complex e/m visit add on. * Electronic signature of Craig Jean MD on 09/14/2025 at 04:52 PM EST Sign off status: Pending * Provider: Craig Jean M.D. Date: 0 11/26/2024 Generated for Lucy forrester/Eddie/Sharri on: 11/14/2024 04:52 PM EST History and Physical Notes * Examination Category Sub-Category Detail Notes Category Not es Psychology Heart: RSR Lungs: clear to auscultatio n General Appearance: NAD Grooming : neat Eye contact : decreased Mood : A bit flat
--- OUTSIDE RECORDS SUMMARY | 2025-04-13 08:45 | XMS_ITS ---
Author Organization [facility] Address [address] [facility] [address] [place] [id number] Care Team Providers Care Mushroom Cutter Name Role Phone Craig Jean Primary Care Provider Allergies Allergen (clinical drug ingredient) Drug/Non Drug Allergy documented on EMR Reaction Allergy Type Onset Date Status semaglutide Rybelsus stomach upset Drug Allergy A ctive REASON FOR VISIT cough and checkup with Annual Wellness visit, due for diabetic eye exam Immunizations Vaccine Route Administration Date Status Comme nts Prevnar (PCV20) Unknown 04/13/2025 Pending Encounters Encounter Location Date Provider Diagnosis [facility] [address] [facility] [address] [place] [id number] 04/13/2025 Craig Jean Adult general medica l examination Z00.00 Assessments Encounter Date Diagnosis (ICD Code) Assessment Notes Treatment Notes Treatment Clinical Notes Section Notes 04/13/2025 Adult general medical examination (ICD-10 - Z00.00) Patient instructed to return to office Annually for Annual Wellness Visits to include annual screenings of Pain assessment, Functional Ability assessment, Cognitive Ability assessment, Fall Risk assessment, Depression screening and Bladder control screening. Plan Of Treatment Treatment Notes Assessment Notes Adult general medical examination Patien t instructed to return to office Annually for Annual Wellness Visits to include annual screenings of Pain assessment, Functional Ability assessment, Cognitive Ability assessment, Fall Risk assessment, Depression screening and Bladder control screening. Next Appt Details Follow Up: As directed by , Reason: Progress Notes * DEEPTHI MARMOLEJO:1960 (65 yo M)Acc No.[id number]:04/13/2025 Annual Wellness Visit Patient: RIKA FLOREZ Provider: Craig Jean M.D. :1960 A ge:65 Y S ex:Male Date:04/13/2025 Address:[place], [id number] Subjective: * Chief Complaints: * 1 . cough and checkup with Annual Wellness visit. 2. Due for diabetic eye exam. * HPI: E NT/respiratory: 65 year old male presents with c/o cough. H PI: c/o Patient is here today for P t is here today for a checkup, cough and a Medicare Annual Wellness Visit . * ROS: D ERMATOLOGY: no R edmundo. n o H jon. G ASTROENTEROLOGY: no N ausea. n o V omiting. n o D iarrhea.? O PTHALMOLOGY: Negative for d enies vision issues. U ROLOGY: Difficulty urinating y es. B lood in urine y es.? * Medical History: T ype 2 diabetes, [...] uncle: hyperlipidemia, diabetes. S iblings: Brother had RI at age 52, heart attack. 1 brother(s) , 1 sister(s) . 2 son(s) , 1 daughter(s) . . Great grand mother diabetes. * Social History: C URRENT TOBACCO USE S moking Status: Patient does NOT smoke. C affeine: yes, frequency:. Marital Status: . Alcohol: socially, Type: [place] , Frequency: 3-5 times/week ,Years: , Determination:. * Allergies: R ybelsus: stomach upset - Side Effects. Objective: * Vitals: * Physical Examination: G ENERAL: Pain Assessment: P ain level: , on a scale of 0-10 (with 10 being extreme pain). F unctional Status Assessment: P atient response to question of how often physical health interferes with daily activities: . Able to perform ADLs-including meal preparation, grocery shopping, housework, laundry, taking medications or handling finances. Cognitive Status: alert and oriented. Ambulation Status: Fully ambulatory . F all Risk Assessment: I ndependant in ambulation, adequate lighting in home. Patient has NOT fallen or had trouble walking within the past 12 months. D epression Screening: D enies depressed mood or anxiety. Describes emotional health as:. B ladder Control Screening: D enies problems. Assessment: * Assessment: 1. A dult general medical examination - Z00.00 (Primary) Plan: * Treatment: * Immunizations: Prevnar (PCV20) : 0.5 mL (Pending) * Procedure Codes: G 0439 ANNUAL WELLNESS VST; PPS SUBSQT VST, Modifiers: 25 , G2211 Complex [place], [address] GLYCATED HEMOGLOBIN TEST, Modifiers: QW , 1090F PRES/ABSN URINE INCON ASSESS, 3288F FALL RISK ASSESSMENT DOCD, 1170F FXNL STATUS ASSESSED, 1126F AMNT PAIN NOTED NONE PRSNT, 1159F MED LIST DOCD IN RCRD, 1003F LEVEL OF ACTIVITY ASSESS, 59512 CBC WITH AUTO DIFF, 1036F TOBACCO NON-USER * Preventive Medicine: Counseling: E motional health: P atient encouraged to try connecting with family or friends to boost mood. B ladder control: M ethods of controlling or managing leakage of urine discussed. E xercise: P atient advised to start, increase or maintain level of exercise/physical activity. I njury prevention: F all prevention discussed. Discussed need for cane/walker. Potential trip hazards discussed. Immunizations: P neumococcal r ecommended. I nfluenza u p to date. Screening / Special Tests: C olonoscopy R ecent history:, recommended. P SA?08/04/2024, normal. D iabetic Retinal Eye Exam R ecent history:, referred today. N ephrology History R ecent history:, GFR and urine M/A ordered today. * Follow Up: A s directed by * Images: Billing Information: * Visit Code: * Procedure Codes: G0439 ANNUAL WELLNESS VST; PPS SUBSQT VST. Modifiers: 25 G2211 Complex e/[place]. [address] GLYCATED HEMOGLOBIN TEST. Modifiers: QW 1090F PRES/ABSN URINE INCON ASSESS. 3288F FALL RISK ASSESSMENT DOCD. 1170F FXNL STATUS ASSESSED. 1126F AMNT PAIN NOTED NONE PRSNT. 1159F MED LIST DOCD IN RCRD. 1003F LEVEL OF ACTIVITY ASSESS. 51282 CBC WITH AUTO DIFF. 1036F TOBACCO NON-USER. * Electronic signature of Craig Jean MD on 09/14/2025 at 04:52 PM EST Sign off status: Pending * Provider: Craig Jean M.D. Date: 0 04/13/2025 Generated for Lucy forrester/Eddie/Sharri on: 1 11/14/2024 04:52 PM EST History and Physical Notes * HPI (History of Present Illness) Category Sub-Category Detail Notes Category Not es ENT/respiratory cough HPI Patient is here today for Pt is here today for a checkup, cough and a Medicare Annual Wellness Visit Physical Examination Category Sub-Category Detail Notes Section Note s GENERAL Pain Assessment: Pain level: , o n a scale of 0-10 (with 10 being extreme pain) Functional Status Assessment: Patient response to question of how often physical health interferes with daily activities: . Able to perform ADLs-including meal preparation, grocery shopping, housework, laundry, taking medications or handling finances. Cognitive Status: alert and oriented. Ambulation Status: Fully ambulatory Fall Risk Assessment: Independant in amb ulation, adequate lighting in home. Patient has NOT fallen or had trouble walking within the past 12 months Depression Screening: Denies depressed m ood or anxiety. Describes emotional health as: Bladder Control Screening: Denies proble ms
--- OUTSIDE RECORDS SUMMARY | 2025-06-03 09:15 | XMS_ITS ---
Author Organization [facility] Address [address] [place] [phone] Care Team Providers Care Cloth Bin Packer Name Role Phone Craig Jean Primary Care Provider [phone] Allergies Allergen (clinical drug ingredient) Drug/Non Drug [...] 01:31:38 PM Interpretation:gluc 167 Performing Lab: Notes/Report: CLIA: [id number] Lucas Zhou MD, Early Childhood Education Specialist [address] [facility] , [address], [place] [address] Test performed by [facility], [facility] Sodium 139 135-145 mmol/L Potassium 4.8 3.5-5.3 [...] 58 Performing Lab: Notes/Report: Test performed by [facility], [address] , [address], [place] [address] Lucas Zhou MD, Early Childhood Education Specialist CLIA: [id number] Albumin/Creatinine Ratio, Urine 58 0-30 ug/m g [...] Status W/U Status Risk Notes Problem Cervicalgia (16245794) Cervicalgia (M54.2) Active confirmed Vital Signs Blood pressure systolic 110 mm Hg 06/03/20 25 Blood pressure diastolic 60 mm Hg 025 Heart Rate 69 /min 06/03/2025 Height 71 in 06/03/2025 Weight 181.8 lbs 06/03/2025 BMI 25.35 kg/m2 06/03/2025 Encounters Encounter Location Date [facility] [address] [phone] 06/03/2025 Craig Jean Depression with anxi ety [...] Notes * LISA MARMOLEJODIPIKAOB:1960 (65 yo M)Acc No.[id number]:06/03/2025 Patient: RIKA FLOREZ Provider: Craig Jean M.D. :1960 A ge:65 Y S ex:Male Date:06/03/2025 Address:[facility] [place], [id number] Subjective: * Chief Complaints: * 1 . [...] eft knee arthroscopy , back surgery at [facility] Dr Roth 05/11, right hand surgery-Dr [...] uncle: hyperlipidemia, diabetes. S iblings: Brother had [place] at age 52, heart attack. 1 brother(s) , 1 sister(s) . 2 son(s) , 1 daughter(s) . . Great grand mother diabetes. * Social History: C URRENT TOBACCO USE S moking Status: Patient does NOT smoke. C affeine: yes, frequency:. Marital Status: . Alcohol: socially, Type: [place] , Frequency: 3-5 times/week ,Years: , Determination:. [...] 69, O2 Sat: 94% on RA, Nurse: [facility], Ht: 71, BMI:25.35. * Examination: G eneral [...] D yslipidemia - E78.5 6 . B [place] 25.0-25.9,adult - Z68.25 Plan: * Treatment: 2. [...] G 2211 Complex e/[place], [address] CBC WITH AUTO DIFF, 53669 Urinalysis, no micro, G8420 BMI<30 AND >=22 CALC & DOCU, 1036F TOBACCO NON-USER, G8783 BP SCR PRFRM RCMDD DEFIND SCR INTVL, G8752 MOST RECENT SYSTOLIC BP < 140MM HG, G8754 MOST RECENT DIASTOLIC BP < 90MM HG * Follow Up: 6 Months * Images: Billing Information: * Visit Code: 42156 Office Visit, Est Pt., Level 4. * Procedure Codes: G2211 Complex e/[place] [address] CBC WITH AUTO DIFF. 26247 Urinalysis, no micro. G8420 BMI<30 AND >=22 [...] 0 06/03/2025 Generated for Lucy forrester/Eddie/eTransmitting on: 11/14/2024 04:52 PM EST History and [...]
--- OUTSIDE RECORDS SUMMARY | 2025-06-11 04:45 | XMS_ITS ---
Author Organization [facility] Address [address] [facility] [address] [place] [id number] Care Team Providers Care Microsoft Application Developer Name Role Phone Craig Jean Primary Care [...] 01:31:38 PM Interpretation:No growth Performing Lab: Notes/Report: Test performed by [employer], [facility] [address] [place] [address] , [address], [place] [address] Lucas Zhou MD, Lure Maker CLIA: [id number] Specimen Source Urine - Void Culture, Urine See Below Final Report : No growth REASON FOR VISIT blood work Encounters Encounter Location Date Provider Diagnosis [facility] [address] [facility] [address] [place] [id number] 06/11/2025 Craig Chuy Jean Type 2 diabetes mellitus without complication, [...] Notes * RASHIDA MARMOLEJOOB:1960 (65 yo M)Acc No.[id number]:06/11/2025 Patient: RIKA FLOREZ Provider: Craig Jean M.D. :1960 A ge:65 Y S ex:Male Date:06/11/2025 Address:[facility] [place], [id number] Subjective: * Chief Complaints: * 1 . Blood work. * Medical History: Objective: * Vitals: Assessment: * Assessment: 1. T ype 2 diabetes mellitus without complication, without long-term current use of insulin - E11.9 2 . F lank pain - R10.9 Plan: * Treatment: Value Reference Range C ulture, Urine See Below - * S pecimen Source Urine - Void - * Ted, R Chuy 06/17/2025 01:31:29 PM EDT > See [...] QW , 3052F HG A1C>EQUAL 8.0%<EQUAL 9.0%, 48450 CBC WITH AUTO DIFF, 55430 CAPILLARY BLOOD DRAW, 89130 Urinalysis, no micro * Images: Billing Information: * Visit Code: * Procedure Codes: 40241 GLYCATED HEMOGLOBIN TEST. Modifiers: QW 3052F HG A1C>EQUAL 8.0%<EQUAL 9.0%. 19402 CBC WITH AUTO DIFF. 63847 CAPILLARY BLOOD DRAW. 85557 Urinalysis, no micro. * Electronic signature of Craig Jean MD on 09/14/2025 at 04:53 PM EST Sign off status: Pending * Provider: Craig Jean M.D. Date: 0 06/11/2025 Generated for Lucy forrester/Eddie/Sharri on: 1 11/14/2024 04:53 PM EST
--- OUTSIDE RECORDS SUMMARY | 2025-09-14 16:52 | XMS_ITS | Clinical Summary ---
Author Organization [facility] Address [address] [place] [address] Care Team Providers Care Financial Analysis Consultant Name Role Phone Jasen Jean MD Primary Care Provider +1- [phone] Allergies Active Allergy Reactions Criticality Noted Date [...] Type Department Care Team Description 08/06/2025 Telephone [facility] [place] [facility] [place] [address] [place] [address] Elida Calderon 08/04/2025 Telephone [facility] [place] [facility] [place] [address] , [address] [place] [address] Elida Calderon 06/16/2025 Refill [facility] [address] [place] [address] Roxana Burris, HYDROLOGY TEACHER Type 2 diabetes mellitus with other specified complication, with long-term current use of insulin ([facility]) from Last 3 Months Family History Medical [...] Additional history exists [facility]-Depression Screening 01/19/2025 01/20/2024 [id number] Vaccine (2 - 2024- season) 2025 01/12/2021 [...] % [facility] Kit Lot Number [id number] [facility] Kit Expiration Date 07/04/26 [facility] Blood Venous blood specimen / Unknown 10/19/2024 2:29 PM EST Roxana Burris HYDROLOGY TEACHER POINT OF CARE TEST ENTER /EDIT ORDERABLES Final Result Performing Organization Address City/State/[facility] Co de Phone Number [facility] [address] [place] [phone] from Last 3 Months or Most Recently Relevant to Health Maintenance Insurance MEDICARE ANTHEM Care Teams Financial Analysis Consultant Relationship Specialty Start Date End Date Jasen Jean MD [address] [place] [id number] PCP - General 03/17/21
--- OUTSIDE RECORDS SUMMARY | 2025-09-14 16:52 | XMS_ITS | Data Portability ---
Author Organization [place] [facility] [place] [facility] [place] [facility] ADMIN Address [address] [place] [address] Care Team Providers Care Commercial Pest Control Technician Name Role Phone RAMBO JEAN Primary Care Provider Assessment Encounter Date Assessment Date Assessment LastModified by Organization Details LastModified Time 12/31/2022 12/31/2022 [id number]-mal e with: 1) Chronic idiopathic constipation -Add fiber supplement such as Metamucil or Citrucel to bulk stool and help develop the urge to have a bowel movement -Prescribe Miralax as needed to relieve constipation and achieve regular soft bowel movements -Will obtain colonoscopy/EGD records from Dr. Green -Ingest 20 to 30 g of insoluble fiber per day -Drink plenty of water (1.5-2 liters per day) -Refrain from straining or lingering (eg reading) on the toilet. -Practice regular physical exercise. -Limit intake of fatty foods and alcohol, which can exacerbate constipation 2) Nausea: -Will consider gastric emptying study due to DM and neuropathy -Celiac serologies ordered. -Concern for possible relation of the patient's symptoms and use of Trulicity. Symptoms have improved since stopping. Ozempic has been ordered as a substitute. Recommended he monitor his GI symptoms while starting the medication. Follow-up in 6 weeks [email or web address] Not available 12/31/2022 17:38:01 05/11/2025 05/11/2025 [id number]-[id number]-mal e with intermittent epigastric pain, nausea, and dark stools over the past few months. Not available 05/11/2025 15:56:19 Plan of Treatment Reminders Order Date Submit Date Provider Last Modified By Organization Details Last Modified Time Details Appointments None recorded. Lab celiac disease comprehensi ve panel, serum [address] (Lab), [address], [place], [address], 3 08:05:56 Referral None recorded. Procedures None recorded. Surgeries None recorded. Imaging None recorded. Medication Orders omeprazole 20 mg capsule,del ayed release 2024 025 [facility] [address] [facility], [address], [address], 5 15:46:12 Miralax 17 gram/dose oral powder [address] [facility], [address], [address], 5 15:08:53 Metamucil Sugar-Free (aspartame) 3.4 gram/5.8 gram oral powder [address] [facility], [address], [address], 5 15:08:23 Patient TargetsNo targets recorded. Patient InstructionsNo instructions recorded. Reason for Referral None Reported. Problems Name Problem SNOMED Code Status Onset Date Resolution Date Notes Provider Name and Address Organization Details Recorded Time Nausea 301964242 Active 2022 Not Available [facility] 3 11:57:32 Chronic idiopathic constipation 95953492 Active 2024 Antoine Sidhu PA-C [address], [place], [address] , [place] [facility] & [place] 5 14:46:38 Epigastric pain 56407208 Active 2024 Antoien Sidhu PA-C [address], [place], [address] , [place] [facility] & [place] 5 15:53:12 Dark stools 15628466 Active 2024 Antoine Sidhu PA-C [address] [facility], [place], [address] , [place] [facility] [place] [facility] [place] 15:54:20 Problem Notes None recorded. Medical Equipment None Reported. Allergies No known drug allergies Medications Name Sig Start Date Stop Date Status Note LastModified by Organization Details LastModified Time Santyl 250 unit/gram topical ointment APPLY TOPICALLY DAILY active Not Available Not Available No t Available Miralax 17 gram/dose oral powder Dissolve 1 capful in 8 oz of liquid and drink once daily, 30 days 05/11 completed Not Available Not Available Not Available pioglitazon e 15 mg tablet TAKE 2 TABLETS BY MOUTH ONCE DAILY active Not Available Not Available No t Available fluconazole 100 mg tablet TAKE 1 TABLET BY MOUTH ONCE DAILY FOR 14 DAYS 05/11 completed Not Available Not Available Not Available atorvastati n 40 mg tablet TAKE 1 TABLET BY MOUTH ONCE DAILY -- HAVE LABS COMPLETED FOR FURTHER REFILLS active Not Available Not Available No t Available metformin 500 mg tablet TAKE 2 TABLETS BY MOUTH TWICE DAILY WITH MEALS active Not Available Not Available No t Available doxycycline hyclate 100 mg capsule TAKE 1 CAPSULE BY MOUTH TWICE DAILY FOR 14 DAYS active Not Available Not Available No t Available clindamycin HCl 300 mg capsule TAKE 1 CAPSULE BY MOUTH THREE TIMES DAILY FOR 14 DAYS; TAKE WITH A LAGRE GLASS OF WATER 12/31 completed Not Available Not Available Not Available sildenafil 50 mg tablet TAKE 1 TABLET BY MOUTH ONCE DAILY NEEDED 05/11 completed Not Available Not Available Not Available hydrocodone 5 mg-acetamin ophen 325 mg tablet TAKE 1 TABLET BY MOUTH EVERY 6 HOURS NEEDED FOR PAIN FOR 5 DAYS 05/11 completed Not Available Not Available Not Available glipizide ER 5 mg tablet, extended release 24 hr 05/11 completed Not Available Not Available Not Available clopidogrel 75 mg tablet TAKE 1 TABLET BY MOUTH ONCE DAILY active Not Available Not Available No t Available bisoprolol fumarate 5 mg tablet TAKE 1 TABLET BY MOUTH ONCE DAILY active Not Available Not Available No t Available diltiazem ER 120 mg capsule,ext ended release 12 hr TAKE 1 CAPSULE BY MOUTH ONCE DAILY 05/11 completed Not Available Not Available Not Available tamsulosin 0.4 mg capsule TAKE 1 CAPSULE BY MOUTH ONCE DAILY 05/11 completed Not Available Not Available Not Available linezolid 600 mg tablet TAKE 1 TABLET BY MOUTH TWICE DAILY FOR 7 DAYS 05/11 completed Not Available Not Available Not Available omeprazole 20 mg capsule,del ayed release TAKE 1 CAPSULE BY MOUTH ONCE DAILY 30 MIN BEFORE MORNING MEAL 2024 active Not Available Not Available Not Avai lable Cartia XT 240 mg capsule,ext ended release TAKE 1 CAPSULE BY MOUTH ONCE DAILY 05/11 completed Not Available Not Available Not Available mometasone 0.1 % topical ointment APPLY OINTMENT TOPICALLY TO AFFECTED AREA TWICE DAILY TO ITCHY AREAS 3 WEEKS ON, 1 WEEK OFF. REPEAT NEEDED 05/11 completed Not Available Not Available Not Available pioglitazon e 30 mg tablet TAKE 1 TABLET BY MOUTH ONCE DAILY 05/11 completed Not Available Not Available Not Available ondansetron 4 mg disintegrat ing tablet DISSOLVE 1 TABLET IN MOUTH EVERY 6 HOURS FOR NAUSEA FOR VOMITING 05/11 completed Not Available Not Available Not Available fluticasone propionate 50 mcg/actuati on nasal spray,suspe nsion USE 1 SPRAY(S) IN EACH NOSTRIL ONCE DAILY active Not Available Not Available No t Available metformin ER 500 mg tablet,exte nded release 24 hr 05/11 completed Not Available Not Available Not Available hydroxyzine pamoate 25 mg capsule TAKE 1 CAPSULE BY MOUTH THREE TIMES DAILY NEEDED FOR ANXIETY 05/11 completed Not Available Not Available Not Available duloxetine 60 mg capsule,del ayed release TAKE 1 CAPSULE BY MOUTH ONCE DAILY active Not Available Not Available No t Available guaifenesin ER 1,200 mg tablet, extended release 12 hr TAKE 1 TABLET BY MOUTH EVERY 12 HOURS NEEDED FOR COUGH 05/11 completed Not Available Not Available Not Available prasugrel HCl 10 mg tablet TAKE 1 TABLET BY MOUTH ONCE DAILY 05/11 completed Not Available Not Available Not Available Metamucil Sugar-Free (aspartame) 3.4 gram/5.8 gram oral powder Mix 2 teaspoons in 8 oz of water and drink once daily, 30 days 05/11 completed Not Available Not Available Not Available Xarelto 20 mg tablet TAKE 1 TABLET BY MOUTH ONCE DAILY WITH EVENING MEAL 05/11 completed Not Available Not Available Not Available Linzess 145 mcg capsule TAKE 1 CAPSULE BY MOUTH ONCE DAILY 05/11 completed Not Available Not Available Not Available Eliquis 5 mg tablet TAKE 1 TABLET BY MOUTH TWICE DAILY active Not Available Not Available No t Available Jardiance 25 mg tablet Take 1 tablet every day by oral route. active Not Available Not Available No t Available Trulicity 1.5 mg/0.5 mL subcutaneou s pen injector INJECT 1 SYRINGE SUBCUTANE OUSLY ONCE A WEEK 12/31 completed Not Available Not Available Not Available BD Christina 2nd Gen Pen Needle 32 gauge x USE TO INJECT INSULIN ONCE DAILY active Not Available Not Available No t Available Trulicity 3 mg/0.5 mL subcutaneou s pen injector INJECT 1 SYRINGE SUBCUTANE OUSLY ONCE A WEEK 05/11 completed Not Available Not Available Not Available Semglee (insulin glargine-yf gn) Pen 100 unit/mL (3 mL) subcutaneou s INJECT 18 UNITS ONCE DAILY . DO NOT EXCEED 30 UNITS PER 24 HOURS active Not Available Not Available No t Available Vitals Date Recorded Body weight Heart rate Systolic And Diastolic Provider Name and Address Organization Details Last Updated DateTime 12/31/2022 57736.74 g 79 /min 131/74 mm[Hg] Marianaamaya Mclain [facility] & [place] 12/31/2022 15:16:34 Date Recorded Body height Body mass index (BMI) Body weight Body temperature Oxygen saturation Oxygen saturation in Arterial blood by Pulse oximetry Heart rate Systolic And Diastolic Provider Name and Address Organization Details Last Updated DateTime 5 180.34 cm 25.1 kg/m2 06546.6 3 g 97.1 [degF] 98 % 98 % 78 /min 129/66 mm[Hg] Tracee Emily [facility] [place] 14:43:07 Social History None recorded. Functional Status None recorded. Mental Status None recorded. Family History Relationship Description Onset Age of this Age Resolved Age Notes LastModified by Organization Details LastModified Time Mother Chronic obstructive pulmonary disease pt. added direct ly (12/29) CHART_MERGE Not available 07/29/2023 11:57:31 Mother Myocardial infarction pt. added direct ly (12/29) CHART_MERGE Not available 07/29/2023 11:57:31 Father Disorder of endocrine system pt. added direct ly (12/29) CHART_MERGE Not available 07/29/2023 11:57:31 Father Myocardial infarction pt. added direct ly (12/29) CHART_MERGE Not available 07/29/2023 11:57:31 Brother Myocardial infarction pt. added direct ly (12/29) CHART_MERGE Not available 07/29/2023 11:57:31 Medical History No medical history recorded. Past Encounters Encounter ID Performer Location Encounter Start Date Encounter Closed Date Diagnosis/Indication Diagnosis SNOMED-CT Code Diagnosis ICD10 Code Diagnosis IMO Codes Diagnosis Note [id number] Antoine Sidhu PA-C [facility] [address] [address] 12/31/2022 15:07:49 12/31/2022 15:51:21 Chronic idiopathic constipation 30746843 K59.04 Nausea 345755553 R11.0 [id number] Antoine Sidhu PA-C [facility] [address] [address] 05/11/2025 14:29:19 05/11/2025 16:20:55 Nausea 299945798 R11.0 He is diabetic. Consider gastric emptying study if EGD is negative for source of his symptoms. Epigastric pain 73722129 R10.13 42994 -Obtain EGD for further evaluation -Limit NSAIDS as able-Start omeprazole 20 mg p.o. once daily Dark stools 79415616 R19 .5 418249 -This may be secondary to pepto bismol. EGD scheduled to ensure no source of upper GI bleeding. History of colonoscopy 3577497518 09 Z98.479 112133 He reports colonoscop y performed at [facility] in the past 5 years. He believes a 10 year repeat was suggested. We will request these records. Health Concerns Section Related Observation LastModified by Organization Detai ls LastModified Time None Recorded Concern Status LastModified by Organization Details LastModified Time None Recorded Advance Directives Directive None Recorded Payers Insurance Date Sequence Insurance Name Policy Number Policy Mireles Covered Member ID Mireles Member ID Guarantor Name 05/12/2025 1 [place] Tomy Marmolejo [id number] Tomy Marmolejo 05/12/2025 2 [place] [id number] Tomy Marmolejo [id number] Tomy Marmolejo Notes Date Note Type Note Provider Name and Address Organization Details Recorded Time 12/31/2022 text/html Mr. Marmolejo is a 75-mskk[age]ejr-male referred by Chuy Jean. Today he complains of constipation and nausea. He reports this began approximately 6-8 months ago. He states his bowel habits were regular with 1-2 BMs per day before this time. He denies heartburn, regurgitation, dysphagia, or vomiting. He also reports a decreased sensation to have a bowel movement. He reports that his constipation has improved within the last month. The patient reports starting Trulicity for his DM around the time his symptoms started. He has been unable to get the medication refilled within the last month due to pharmacy shortage. He reports his A1C is >9%. Antoine Sidhu PA-C [address], [place], [address], [facility] 12/31/2022 17:38:18 05/11/2025 text/html Mr. Marmolejo is a very pleasant 89-mjyq-oaa-male with history of insulin-dependent type 2 diabetes mellitus who presents to the office today with complaint of epigastric pressure type sensation over the past 3-4 months. Symptoms are accompanied by nausea and present in the mornings. Some days, his symptoms have persisted all day. He has noticed intermittent black stools with coffee ground appearance over the past 6 months. He takes pepto bismol intermittently. He is prescribed Plavix and Eliquis due to history of cardiac stents. He denies heartburn or early satiety. Antoine Sidhu PA-C [address], [place], [address], [facility] & [place] 05/11/2025 15:57:12
--- OUTSIDE RECORDS SUMMARY | 2025-09-14 16:53 | XMS_ITS | Clinical Summary ---
[facility] Address [address] [place] [address] Care Team Providers Care Sewing Machine Repairer Helper Name Role Phone Jasen Jean MD Primary [...] 07/01/2019 INFLUENZA VACCINE 06/04/2025 Insurance Care Teams Sewing Machine Repairer Helper Relationship Specialty Start Date End Date Jasen Jean MD [address] [facility] [address] [facility] [[email or web address] [address] [place] [address] [facility] - General 06/27/15
--- OUTSIDE RECORDS SUMMARY | 2025-09-14 16:53 | XMS_ITS | Encounter Summary ---
Author Organization Healthcare Address [address] [place] [address] Care Team Providers Care Flare Breaker Name Role Phone Jasen Jean MD Primary Care Provider +1- [phone] Encounter Details Date Type Department Care Team (Late st Contact Info) Description 04/12/2025 Orders Only External Location [address] [place] [address] Provider, External Social History Tobacco Use Types [...] documented as of this encounter Care Teams Flare Breaker Relationship Specialty Start Date End Date Jasen eJan MD [address] [place] [address] PCP - General 03/17/21 documented as of this encounter
--- OUTSIDE RECORDS SUMMARY | 2025-09-14 16:53 | XMS_ITS | Encounter Summary ---
Author Organization Healthcare Address [address] [place] [address] Care Team Providers Care Test Borer Name Role Phone Jasen Jean MD Primary Care Provider +1- [phone] Encounter Details Date Type Department Care Team (Late st Contact Info) Description 08/18/2024 Orders Only External Location [address] [place] [address] Perla Kramer, PUBLIC SAFETY DIRECTOR [address] [facility] [address] [place] [address] Social History Tobacco Use Types Packs/Day Years [...] 08/18/2024 8:16 AM EDT us Perla Kramer PUBLIC SAFETY DIRECTOR IMG US PROCEDURES Sienna l Result documented in this encounter Visit Diagnoses Not on filedocumented in this encounter Additional Health Concerns Assessment Noted Time A fall risk assessment has been complete d for the patient 01/20/2024 3:23 PM EDT A Body Mass Index follow-up plan has been documented for the patient 04/13/2024 3:51 PM EDT documented as of this encounter Care Teams Test Borer Relationship Specialty Start Date End Date Jasen Jean MD [address] [place] [address] PCP - General 03/17/21 documented as of this encounter
--- OUTSIDE RECORDS SUMMARY | 2025-09-14 16:53 | XMS_ITS | Encounter Summary ---
Author Organization Healthcare Address [address] [place] [address] Care Team Providers Care Frozen Meat Cutter Name Role Phone Jasen Jean MD Primary Care Provider +1- [phone] Encounter Details Date Type Department Care Team ([facility] st Contact Info) Description 08/06/2025 Telephone [facility] [place] [address] [facility], [address] [place] [address] Elida Calderon Social History Tobacco [...] documented as of this encounter Care Teams Frozen Meat Cutter Relationship Specialty Start Date End Date Jasen Jean MD [address] [place] [address] PCP - General 03/17/21 documented as of this encounter
--- OUTSIDE RECORDS SUMMARY | 2025-09-14 16:53 | XMS_ITS | Encounter Summary ---
Author Organization Healthcare Address [address] [place] [address] Care Team Providers Care Wharf Attendant Name Role Phone Jasen Jean MD Primary Care Provider +1- [phone] Encounter Details Date Type Department Care Team ([facility] st Contact Info) Description 08/04/2025 Telephone [facility] [place] [address] [facility], [address] [place] [address] Elida Calderon Social History Tobacco [...] documented as of this encounter Care Teams Wharf Attendant Relationship Specialty Start Date End Date Jasen Jean MD [address] [place] [address] PCP - General 03/17/21 documented as of this encounter
--- OUTSIDE RECORDS SUMMARY | 2025-09-14 16:53 | XMS_ITS | Patient Health Record ---
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 Name Role Phone Craig Jean Primary Care [...] 167 Performing Lab: Notes/Report: Test performed by [facility] , [address], [place] [address] Lucas Zhou MD, Furnace Clerk CLIA: [id number] Sodium 139 135-145 mmol/L Potassium 4.8 3.5-5.3 [...] 58 Performing Lab: Notes/Report: Test performed by [facility] [address] [place] [address] , [place] [address] Lucas Zhou MD, Furnace Clerk CLIA: [id number] Albumin/Creatinine Ratio, Urine 58 0-30 ug/m g Microalbumin, Urine, Random 4.5 Creatinine, Urine 78.1 X ray : Spine, cervical Reviewed date:06/17/2025 01:30:15 PM Interpretation:degenerative/chronic changes Performing Lab: Notes/Report: degenerative/chronic changes P-Culture, Urine Reviewed date:06/17/2025 01:31:38 PM Interpretation:No growth Performing Lab: Notes/Report: CLIA: [id number] Lucas Zhou MD, Furnace Clerk [address] [place] [address] , [place] [address] Test performed by [facility] Specimen Source Urine - Void Culture, Urine [...] Status Risk Notes Problem Diabetic foot ulcer (173497909) Diabetic foot ulcer (E11.621) Active confirmed Problem Anxiety disorder (529536382) Anxiety disorder (F41.9) Active confirmed Problem Cholelithiasis (304488399) Cholelithiasis (K80.20) Active confirmed Problem Cervicalgia (69505406) Cervicalgia (M54.2) Active confirmed Problem Mixed anxiety and depressive disorder (545233069) Depression with anxiety (F41.8) Active confirmed Problem Arthropathy of cervical spine facet joint (disorder) (618784715) Facet arthropathy, cervical (M46.92) Active confirmed Problem Benign prostatic hyperplasia (207133698) BPH (benign prostatic hyperplasia) (N40.0) Active confirmed Problem Pulmonary nodule (088490954) Pulmonary nodule (R91.1) Active confirmed Problem Type II diabetes mellitus without complication (333883231) Insulin dependent diabetes mellitus (E11.9) Active confirmed Problem Depressive disorder (46264379) Depressive disorder (F32.9) Active confirmed Problem Dyslipidemia (942815068) Dyslipidemia (E78.5) Active confirmed Problem Type II diabetes mellitus without complication (436515404) Type 2 diabetes mellitus without complication, without long-term current use of insulin (E11.9) Active confirmed Problem Peripheral vascular disease (804956917) PAD (peripheral artery disease) (I73.9) Active confirmed Problem Hyperglycemia due to type 2 diabetes mellitus (352430028526426) Type 2 diabetes mellitus with hyperglycemia, without long-term current use of insulin (E11.65) Active confirmed Problem Polyneuropathy due to type 2 diabetes mellitus (158110443) Type 2 diabetes mellitus with diabetic polyneuropathy, without long-term current use of insulin (E11.42) Active confirmed Problem Irritable bowel syndrome characterized by constipation (823438822) Irritable bowel syndrome with constipation (K58.1) Active confirmed Problem Lower urinary tract symptoms due to benign prostatic hypertrophy (40243211573211) Benign prostatic hyperplasia with lower urinary tract symptoms (N40.1) Active confirmed Problem Gallstone (402557103) Gall stones (K80.20) Active confirmed Problem Allergic rhinitis (68089412) Allergic rhinitis, unspecified seasonality, unspecified trigger (J30.9) Active confirmed Problem Secondary erectile dysfunction (disorder) (897999389) 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) Active confirmed Problem Contracture of palmar fascia (020174206) Dupuytren's contracture of both hands (M72.0) Active confirmed Vital Signs Heart Rate 69 /min 06/03/2025 Blood pressure diastolic 60 mm Hg 06/03/2025 Height 71 in 06/03/2025 Blood pressure systolic 110 mm Hg 06/03/2025 Weight 181.8 lbs 06/03/2025 BMI 25.35 kg/m2 06/03/2025 Encounters Encounter Location Date Provider Diagnosis [facility] [address] [place] [id number] 11/26/2024 R Chuy Ted Depression with anxi ety F41.[facility] [address] [place] [id number] 06/03/2025 R Chuy Ted Depression with anxi ety F41.8 ; Type 2 diabetes mellitus with diabetic polyneuropathy, without long-term current use of insulin E11.42 ; Cervicalgia M54.2 ; Flank pain R10.9 ; Dyslipidemia E78.5 and BMI 25.0-25.9,adult Z68.25 [facility] [address] [place] [id number] 06/11/2025 R Chuy Ted Type 2 diabetes mellitus without complication, without long-term current use of insulin E11.9 and Flank pain R10.9 [facility] 1210 [facility] [address] [place] [id number] 03/15/2025 R Chuy Ted [facility] [address] [place] [id number] 05/25/2025 R Chuy Ted [facility] 1210 [facility] [address] [place] [id number] 06/08/2025 R Chuy Ted [facility] [address] [place] [id number] 06/17/2025 R Chuy Ted Cervicalgia M54.2 an d Facet arthropathy, cervical M46.92 Assessments Encounter Date Diagnosis (ICD Code) Assessment Notes Treatment Notes Treatment Clinical Notes Section Notes 11/26/2024 Depression with anxiety (ICD-10 - F41.8) 06/03/2025 Depression with anxiety (ICD-10 - F41.8) 06/11/2025 Type 2 diabetes mellitus without complication, without long-term current use of insulin (ICD-10 - E11.9) 06/17/2025 Cervicalgia (ICD-10 - M54.2) 06/17/2025 Facet arthropathy, cervical (ICD-10 - M46.92) 06/03/2025 Type 2 diabetes mellitus with diabetic polyneuropathy, without long-term current use of insulin (ICD-10 - E11.42) 06/11/2025 Flank pain (ICD-10 - R10.9) 06/03/2025 Cervicalgia (ICD-10 - M54.2) 06/03/2025 Flank pain (ICD-10 - R10.9) 06/03/2025 Dyslipidemia (ICD-10 - E78.5) 06/03/2025 BMI 25.0-25.9,adult (ICD-10 - Z68.25) Plan Of Treatment No Information Insurance Providers Payer Name Payer Address Payer Phone Subscriber Number Group Number Insured Name Patient Relationship to Insured Coverage Start Date Coverage End Date MEDICARE PART B [address] [address] [place] [id number] [phone] [id number] RIKA MOY Self - patient is the insured [facility] [address] [place] [address] [id number] RIKA MOY Self - patient is the insured Medical (General) History Medical History History ICD Code type 2 diabetes hyperlipidemia ? rheumatoid arthritis - Dr. Sylvester diabetic neuropathy Diabetic foot ulcers Diabetic retinopathy ASCVD Paroxysmal AF Surgical History Surgery Date(Month/Year) left knee arthroscopy back surgery at [facility] right hand surgery-Dr Paulson 06/04/19 bone shaved from bilateral feet-Dr Sepulveda 01/2022 Coronary stent to LAD and RCA/ [place] 06/2023 Basal Cell Carcinoma Removal from Left S hugh of Nose 02/25/2024 Hospitalization History Reason Date(Month/Year) [facility] ER-Heart Palpitation 07/05/10
== END 2025-09-13 23:59 | disposition home or self-care (01) ==
LOC: LAB.DROPOF 09-14 16:51
PROVIDERS: PCP Family Medicine; Visit Provider Podiatrist
DX: E11.42 Type 2 diabetes mellitus with diabetic polyneuropathy (principal)
CPT/HCPCS: 87070; 87205

== ENCOUNTER → 2025-09-15 11:41 | Day surgery (SDC) | payer MEDICARE, BC, SELFPAY ==
[2025-09-14 12:39] VITALS: BMI 25.1
[2025-09-15] VITALS (10 sets, daily range): BP systolic 125–147; BP diastolic 63–83; PULSE 63–74; RESP 14–17; TEMP 36.2–38; O2SAT 93–100
[2025-09-15] MEDS: 0.9 % SODIUM CHLORIDE 1000ML 1,000 ML 25 ML IV (12:51)
[2025-09-15 13:05] LABS: POC Glucose,Bedside 171 gm/dL (70-110)
[2025-09-15] MEDS: VANCOMYCIN/WATER FOR INJ (PEG) 1.25 GM/250 ML PIGGYBACK IV (13:15)
[2025-09-15] MEDS: GENTAMICIN 80 MG/2 ML VIAL (14:07)
--- NOTE | 2025-09-15 14:10 | P.OP_ITS ---
Date of procedure: 09/15/25 Pre-op Diagnosis:: Right second toe DFU, osteomyelitis Right fifth metatarsal DFU, osteomyelitis Right foot cellulitis Post-op Diagnosis:: Same Procedure performed:: Right foot I&D bone cortex for OM Right partial 5th metatarsal resection Right 2nd toe (partial) amp Wound debridement Peroneal tenosynovectomy Complex wound closure, rotational flap skin closure Surgeon:: Latonia Reed DPM Anesthesia: GETA Estimated blood loss (mL): 30 Clinical Note:: Pre-Op indications: Patient is a 65 year-old male with right diabetic foot and arterial ulcers. Patient has failed conservative treatment, including multiple debridements, various wound dressings, antibiotics, immobilization. Patient has seen vascular surgeon. He had a history of wound debridement with Apligraf application on 04/05/22-which resolved wounds for several years. He also had staged surgery for wound debridement and graft applications. On 06/16/25 graft radha #1, 06/23/25 graft radha #2, 06/30/25 graft #3. He had surgery 07/29/25 for right 1-2nd distal toe amputation and 5th met wound debridement with Apligraf application #4. He had surgery for right 5th met wound debridement and graft application #1 on 08/18/25 (had to re-submit to insurance), graft #2 on 08/25/25. Planned staged surgery for graft #3 pending wound vac insurance approval-but held due to worsening clinical signs of infection. New labs and CT right foot concerning for second toe and 5th met osteomyelitis. Discussed 2nd toe (partial) amp and 5th met partial resection. Discussed concern of infection at met base and peroneal tendon insertion. Explained debridement or removal of entire met base could cause loss of peroneal attachment. At this point due to infection would not want to use hardware to anchor/advance the tendon so there could be inversion deformity, instability secondary to loss of eversion. He understands if this happens he may need lifetime bracing. Discussed possible staging with graft and VAC once infection resolves. Discussed oral/IV antibiotics and the possibility of PICC line depending on cultures/IntraOp specimen findings. Discussed the foot can change shape after surgery, toes may migrate, he may have gait changes and transfer skin lesion/new preulcerativecallus areas secondary to changes in foot structure/biomechanics. Risks and benefits were discussed including but not limited to: damage to blood vessels and nerves, bleeding, residual/recurrent/worsening infection, wound complications, need for further surgery, implant/graft failure, need for removal of implant/graft, allergic reaction, prolonged or permanent swelling of the extremity, prolonged or permanent pain or deformity, CRPS/RSD, DVT/PE, and anesthetic complications including anaphylaxis or . Patient understands if wound/graft gets re/infected, it could lead to prolonged oral or IV antibiotics or increased risk of osteomyelitis, which could lead to possible loss of toe, partial foot or even BKA. No guarantees were given. All questions fully answered. The patient/ verbalized understanding and agreed to proceed with surgery. Verbal and written consent was obtained. Operative findings:: Right 2nd toe DFU noted with dry eschar at the distal tip. Head of the middle phalanx had some cortical erosion and bony changes consistent with bone infection. Base of the middle phalanx and head of the proximal phalanx was intact with no obvious erosion or signs of infection. Infection appeared localized directly under the ulcer at the tip of the toe bone. Right 5th met DFU noted with dry eschar full-thickness with exposed lateral fifth metatarsal base. There is no kj purulence, malodor or drainage noted. Moderate leonardo wound erythema. Sharp wide excisional full-thickness debridement with 15' blade thru skin, subq into/including deep fascia to the level of the bone. Post- debridement: Right 5th met DFU: 3.0 x 2.2 x 1.4cm. There was no bleeding at the wound edges and due to the exposed bone, decision made to excise the entire ulceration to the level of good healthy bleeding bone. DFU was removed and sent as specimen. Right 5th metatarsal bone laterally was soft and crumbly at the base. Peroneal tendon still attached but the inferior lateral-most aspect that inserted into the fifth met base was stringy with tenosynovitis and fibrotic slough around it. Tendon debrided with 15 blade and forceps. Overall tissue fragile and due to the defect over the fifth met DFU, although skin closure was achieved the incision site at that area is very tight and could dehisce or the skin could necrosis. Previously discussed doing staged procedure for Apligraf and and/or snap VAC if this occurs. Overall extensive I&D and debridement of the fifth metatarsal bone for osteomyelitis, care taken to maintain peroneus brevis insertion to avoid loss of eversion and contracture deformity. Plan for oral antibiotics and await bone culture/pathology. If surgical margin is positive for osteomyelitis, patient understands he will need a PICC line with IV antibiotics. Operative note:: On this date and time patient was deemed an appropriate surgical candidate. With informed consent signed, the patient was taken to the operating theater. The patient was positioned supine. General anesthesia was induced. No tourniquet used. IV Vanco infused, Zosyn started after bone biospy. The right lower extremity was prepped and drapped in normal sterile fashion. Right 2nd digit (partial) amputation: Prior DIPJ amputation. A fish mouth incision was mapped out around the PIPJ. Utilizing a 15 blade dissection was carried down sharply to the level of the bone around the middle phalanx which was disarticulated from the proximal phalanx. The middle phalanx bone was soft and crumbly but had no malodor to it. Portion of it was cut and sent for bone culture and the other part was sent for bone biopsy for pathology. Attention was then directed to the proximal phalanx. The head was hard and intact, with no obvious discoloration or cortical erosions noted. Next vancomycin irrigation was used to flush the wound. The wound was reexplored and no further signs of infection noted. Bleeding controlled. No vessels ligated with electrocautery or tied as there was minimal to no blood loss. 3-0 Nylon was used to close skin in an interrupted simple suture fashion. Right 5th metatarsal wound debridement/ulcer excision: Sharp excisional wide full-thickness debridement, see op findings for details. Due to the wound not bleeding and exposed bone, decision made to do a full-thickness ulcer excision. 15 blade was used to make a hurricane type incision around the ulceration full- thickness through skin subcu extending into the deep fascia. The peroneal tendon was visualized. There was significant scarring, fibrotic tissue noted. No purulence to tendon noted. Ulcer was removed and sent as specimen. Wound was flushed with gentamicin irrigation. There was not enough skin to close over the ulcer site so the incisions were extended superiorly and inferiorly. To extend the skin creating a rotational flap for later closure. Right 5th metatarsal I&D, partial resection, bone biopsy: Attention was directed to the fifth metatarsal directly under where the ulcer had been. I&D performed to the lateral fifth met cortex which was easily transected. The lateral fifth met base was soft and crumbly. Saw used to transect a piece of the bone which sent for culture. Next another cut in line with the metatarsal performed and sent for pathology. A third cut was made and this piece of bone was sent for proximal/medial margin as it appeared normal texture and color. The peroneal tendon insertion was then stringy at the lateralmost aspect of the base. The medial proximal tendon attachment was intact. All wounds were flushed with gentamicin irrigation and a pulse lavage. Medullary canal was drilled in order to put Cerament G bone graft. Prior fifth metatarsal head resection had been performed years ago. Linear incision made over the fifth metatarsal head full- thickness down to the level of the bone. No signs of infection to the prior distal amputation site. The medullary canal was drilled out in order to put bone graft. Peroneal tenosynovectomy: 15 blade and forceps were used to sharply debride nonviable peroneal tendon. The incision was extended more proximally. The longus and brevis were intact with no obvious rupture. Vicryl used to reapproximate the tendons together. Wound flushed with gentamicin irrigation. Deep tissue was reapproximated including the peroneal tendon to reinforce the attachment at the base of the fifth met. Rotational flap skin closure: Attention was directed back to the prior DFU site over the fifth metatarsal base. Due to the extensive DFU excision there was a soft tissue defect. The incision ends had been extended and more then rotated plantar medial to dorsal lateral to close over the soft tissue defect where the ulcer had been excised. Subcutaneous tissue had been repaired with the Vicryl. Vancomycin powder inserted. There was still a defect about 0.7 x 0.2 x 0.2 cm. Philip guard suture guard was used on either side of the opening to decrease tension at the site to try to avoid wound dehiscence. This did help bring that defect together. The skin flap was repaired with nylon. Skin was closed with no defect remaining. The skin was cleansed. Vancomycin powder applied over the incisions. Xeroform, Betadine soaked 4x4's followed by dry sterile dressing to the foot. The patient tolerated the procedure and anesthesia well, without complications. He was transferred to recovery with vital signs stable and neurovascular status intact. Materials: Vancomycin powder 1g, Cerament G (antibiotic cement bone filler), Nylon, Philip guard (suture guard) x2 Discharge/Plan: Obtain post op films, right foot, 3 views. Ok to discharge home when ready and vss. Patient is to maintain dressing clean dry and intact. Elevate on two pillows. Hold ice due to PVD. Non weight bearing to the right lower extremity with DME assistance. Follow-up as scheduled Saturday09/20/25 for right foot skin check and dressing change. Condition: stable Disposition: same day Specimens:: Micro: Right 2nd toe bone culture Right 5th metatarsal lateral bone culture Right 5th DFU Path: Right 5th DFU tissue Right 2nd toe bone Right 5th metatarsal bone Right 5th metatarsal bone margin Complications:: None
[2025-09-15] MEDS: PIPERACILLIN/TAZO 4.5 GM in 0.9 % SODIUM CHLORIDE 100 ML IV (14:44)
[2025-09-15] MEDS: VANCOMYCIN 1000MG VIAL 1000 MG (14:56)
--- NOTE | 2025-09-15 15:06 | SUR.OPER ---
Fletcher Morris RN updating family at this time
--- NOTE | 2025-09-15 16:00 | XR_ITS ---
FINAL REPORT CLINICAL HISTORY: S/p 5th met resection, 2nd toe partial amp COMPARISON: 08/18/2025 FINDINGS: Three views of the right foot show interval amputation of the second digit at the level of the PIP joint. There are chronic postoperative changes of the 1st and 5th digits. There is old healed fracture deformity of the fourth metatarsal. Diffuse degenerative changes are noted. IMPRESSION: Interval amputation second digit with chronic changes of the right foot. Otherwise, unremarkable exam. Reviewed, Interpreted and Dictated by Ruddy Shahid MD Transcribed by Loyda Pickens Authenticated and [facility]
--- NOTE | 2025-09-15 16:05 | P.PNANES_ITS ---
[facility] Anesthesia Record Part I Anesthesia Record I Intake, IV Amount: 700 Hydration: Adequate Estimated blood loss (mL): 10 Urine output (mL): 0 Blood Products used (#): none Blood Pressure: 139/72 SaO2: 98 Pulse Rate: 73 Airway Patency: Patent Respiratory Rate: 14 Temperature: 98.3 F Patient is:: Awake and Stable Stable to PACU at:: 16:04
[2025-09-15 16:12] LABS: POC Glucose,Bedside 163 gm/dL (70-110)
--- NOTE | 2025-09-15 16:15 | SUR.PHASEI ---
radiology at bedside for post op xray
[2025-09-15] MEDS: HYDROMORPHONE 2MG/ML SYRINGE 0.5 MG IV (16:22)
--- NOTE | 2025-09-16 07:30 | P.PNANES_ITS ---
[facility] Anesthesia Record Part II Anesthesia Record Part II Discharge Time: 16:34 Destination: Surgical Day Care (OP Surgery) PACU nurse assessment reviewed?: Yes Patient Condition:: Good Anesthesia Complications:: None Swallowing reflex intact?: Yes Airway Patency: Patent Cyanosis?: No Blood Pressure: 129/77 SaO2: 95 Respiratory Rate: 17 Pulse Rate: 70 Temperature: 97.3 F Mental Status: Alert & Oriented Pain level:: 0 Nausea and/or vomitting:: None Intake, IV Amount: 0 Hydration: Adequate
[2025-09-16 07:31] VITALS: BP 129/77; PULSE 70; RESP 17; TEMP 36.3; O2SAT 95
== END | disposition home or self-care (01) ==
PROVIDERS: PCP Family Medicine; Visit Provider Podiatrist
PROC: (CPT 14040; principal; 2025-09-15 13:00)
DX: E11.621 Type 2 diabetes mellitus with foot ulcer (principal); L97.519 Non-pressure chronic ulcer of other part of right foot with unspecified severity; I25.119 Atherosclerotic heart disease of native coronary artery with unspecified angina pectoris; I48.0 Paroxysmal atrial fibrillation; E11.51 Type 2 diabetes mellitus with diabetic peripheral angiopathy without gangrene; L03.115 Cellulitis of right lower limb; M86.9 Osteomyelitis, unspecified; L90.5 Scar conditions and fibrosis of skin; L60.3 Nail dystrophy; B35.1 Tinea unguium; E11.40 Type 2 diabetes mellitus with diabetic neuropathy, unspecified; M19.071 Primary osteoarthritis, right ankle and foot; M19.072 Primary osteoarthritis, left ankle and foot; L57.0 Actinic keratosis; I70.25 Atherosclerosis of native arteries of other extremities with ulceration; Z79.4 Long term (current) use of insulin; Z79.84 Long term (current) use of oral hypoglycemic drugs; Z79.02 Long term (current) use of antithrombotics/antiplatelets; Z79.01 Long term (current) use of anticoagulants; Z95.5 Presence of coronary angioplasty implant and graft; Z89.421 Acquired absence of other right toe(s)
CPT/HCPCS: 14040; 27680; 28122; 28820; 73630; 82962; 87070; 87077; 87186; 87205; 88304; 88305; 88311; 96374; C1602; J1171; J1580; J2543; J2704; J3010; J3373; J3375; J7030

== ENCOUNTER 2025-10-11 12:00 | Outpatient (CLI) | payer MEDICARE, BC, SELFPAY ==
[2025-10-11 12:35] LABS: Hematocrit 46.4 % (42.0-52.0); Hemoglobin 15.5 g/dL (14.1-18.0); Immature Granulocytes % 0.2 %; Mean Corpuscular HGB Conc 33.4 g/dL (31.8-35.4); Mean Corpuscular Hemoglobin 30.0 pg (27.0-31.2); Mean Corpuscular Volume 89.7 fl (80-94); Nucleated Red Blood Cells % 0 %; Platelet Count 356 K/mm3 (142-424); Red Blood Count 5.17 M/mm3 (4.60-6.20); Red Cell Distribution Width-SD 39.4 fL; White Blood Count 5.4 K/mm3 (4.8-10.8)
[2025-10-11 13:10] LABS: Hemoglobin A1C 8.3 % (4.0-6.0)
[2025-10-11 13:38] LABS: Alanine Aminotransferase 19 U/L (12-78); Albumin Level 4.3 g/dl (3.5-5.0); Albumin/Globulin Ratio 1.3 (1.1-1.8); Alkaline Phosphatase 93 U/L (38-126); Anion Gap 17.6 mEq/L (5-15); Aspartate Amino Transferase 25 U/L (17-59); Bilirubin,Total 0.7 mg/dl (0.2-1.3); Calcium 9.9 mg/dl (8.4-10.2); Carbon Dioxide 27 mmol/L (22.0-30.0); Chloride 98 mmol/L (98-107); Globulin 3.3 g/dL (1.3-3.2); Glucose 240 mg/dl (74-100); Potassium 4.6 mmoL/L (3.5-5.1); Sodium 138 mmol/L (136-145); Total Protein,Serum 7.6 g/dl (6.3-8.2)
[2025-10-11 13:43] LABS: Blood Urea Nitrogen 16 mg/dl (9-20); Creatinine,Serum 1.00 mg/dl (0.66-1.25); Estimated Glomerular Filt Rate 75 ml/min (>60); GFR (African American) 91 ML/MIN (>60)
[2025-10-11 13:46] LABS: C-Reactive Protein 0.9 mg/L (0-4)
== END 2025-10-11 23:59 | disposition home or self-care (01) ==
LOC: LAB 12:01
PROVIDERS: PCP Family Medicine; Visit Provider Podiatrist
DX: E11.621 Type 2 diabetes mellitus with foot ulcer (principal); L97.515 Non-pressure chronic ulcer of other part of right foot with muscle involvement without evidence of necrosis; L03.115 Cellulitis of right lower limb
CPT/HCPCS: 36415; 80053; 83036; 85025; 85651; 86140

== ENCOUNTER 2025-10-18 11:50 | Outpatient (CLI) | payer MEDICARE, BC, SELFPAY ==
--- NOTE | 2025-10-18 11:59 | ECG_ITS ---
APPROVED REPORT Exam: Resting ECG HR:70 bpm ECG Measurements Heart Rate 70 AXES GA 199 P 53 QRSd 140 QRS -65 QT 392 T 73 QTc 413 Conclusion SINUS RHYTHM LEFT AXIS DEVIATION [QRS AXIS < -30] RIGHT BUNDLE BRANCH BLOCK [120+ ms QRS DURATION, UPRIGHT V1, 40+ ms S IN I/aVL/V4/V5/V6] ABNORMAL ECG UNCONFIRMED REPORT Electronically signed by : Brain Linares MD 10/19/2025 08:42:22
--- NOTE | 2025-10-18 12:02 | XR_ITS ---
PROCEDURE INFORMATION: Exam: XR Right Foot Complete; Alignment Exam date and time: 10/18/2025 12:05 PM Age: 65 years old Clinical indication: Pain; Foot; Right; Prior surgery; Surgery date: <1 month; Surgery type: Shaved bone due to infection; Additional info: Evaluate for right foot ulcer TECHNIQUE: Imaging protocol: Radiologic exam of the right foot. Views: 3 or more views. Total images: 3 COMPARISON: CR XR FOOT RT MIN 3V 09/15/2025 4:09 PM FINDINGS: Bones/joints: Cortical irregularity noted along the proximal aspect of the 5th metatarsal with overlying soft tissue swelling. Findings may be consistent with developing osteomyelitis. Postoperative changes of the 5th metatarsal. Old fracture of the 4th metatarsal. Postoperative changes of the distal phalanges of the 1st and 2nd toes. Moderate degenerative changes of the 1st metatarsophalangeal joint. Soft tissues: See Bones/joints finding. IMPRESSION: Cortical irregularity noted along the proximal aspect of the 5th metatarsal with overlying soft tissue swelling. Findings may be consistent with developing osteomyelitis.
== END 2025-10-18 23:59 | disposition home or self-care (01) ==
LOC: RT 11:51
PROVIDERS: PCP Family Medicine; Visit Provider Podiatrist
DX: Z01.810 Encounter for preprocedural cardiovascular examination (principal); I45.10 Unspecified right bundle-branch block; E11.621 Type 2 diabetes mellitus with foot ulcer; E11.51 Type 2 diabetes mellitus with diabetic peripheral angiopathy without gangrene; I70.235 Atherosclerosis of native arteries of right leg with ulceration of other part of foot; L97.515 Non-pressure chronic ulcer of other part of right foot with muscle involvement without evidence of necrosis; M79.89 Other specified soft tissue disorders; R93.6 Abnormal findings on diagnostic imaging of limbs; R94.31 Abnormal electrocardiogram [ECG] [EKG]; Z95.5 Presence of coronary angioplasty implant and graft
CPT/HCPCS: 73630; 93005

== ENCOUNTER 2025-10-20 08:04 | Day surgery (SDC) | payer MEDICARE, BC, SELFPAY ==
[2025-10-19 11:47] VITALS: BMI 25.1
[2025-10-20] VITALS (11 sets, daily range): BP systolic 108–143; BP diastolic 60–74; PULSE 69–74; RESP 14–18; TEMP 36.1–38; O2SAT 95–99
[2025-10-20] MEDS: 0.9 % SODIUM CHLORIDE 1000ML 1,000 ML 25 ML IV (08:38)
[2025-10-20 08:42] LABS: POC Glucose,Bedside 195 gm/dL (70-110)
--- NOTE | 2025-10-20 08:52 | EXP.ANES.CKL ---
[facility] Disclaimer: The information contained in this section may have been updated after the patient was seen, as this information can be updated by other users. Medical History Toenail deformity Toenail avulsion Abnormal ankle brachial index (MARILIA) Depression Fatigue Hypotension Headache CAD in [place] artery Tobacco user PAF (paroxysmal atrial fibrillation) Dyspnea Angina at rest PAD (peripheral artery disease) Diabetes mellitus HLD (hyperlipidemia) Palpitations Surgical History History of coronary artery stent placement History of colonoscopy Hx laparoscopic cholecystectomy Status post surgery of both feet Family History Other Family history of heart disease Social History Smoking Status: Never smoker second hand exposure: Yes alcohol intake: never substance use type: denies use current occupational status: retired Travel in the last 8 weeks?: None household members: spouse housing: house current occupational exposures/hazards: No caffeine: No Have you lived/traveled outside US in past 30 days?: No Contact w/someone who lives/traveled outside US past 30 days?: No Exposure to someone with infectious disease in past 14 days?: No Do you have a fever (greater than 100.4 F or 38 C)?: No Have you tested positive for COVID-19?: No Exposed to someone with COVID-19 in past 14 days?: No Do you have a sore throat?: No Do you have a cough?: No Do you have any weakness?: No Do you have any diarrhea?: No Are you experiencing any unusual bleeding?: No Do you have any muscle aches/pain?: No Do you have any abdominal pain?: No Are you experiencing loss of taste or smell?: No [facility] Anesthesia Checklist Patient Identification Patient Identification: Arm Band and Family Structural Data Admitted From: Home Planned Operative Procedure/s: Right foot wound debridement. applicaion of wound grft. Consent for Planned Operative Procedure(s) Verified: Yes Verified Documents: Surgical Consent and History and Physical NPO Status Verified Time NPO: 00:00 Additional verifications Patient : No Anesthesia Reactions: No Hx Blood Transfusions: No Blood Transfusion Reaction: No Cephalosporin Allergy: No Previous Colonoscopy: Yes Airway Assessment Mallampati Score:: Class II C-Spine Mobility Assessed: Yes TMJ Mobility Assessed: Yes Dentition: Good Dentition Neurological Assessment Level of Consciousness: Awake, Alert, Appropriate and Follows Commands Hx Seizures: No Numbness or tingling in extremities: No Anesthesia Plan Anesthesia Risk discussed: Yes ASA Class: III Anesthesia Type: MAC Preoperative Comments Pre-Operative Comments: Cardiac stents X2.
[2025-10-20] MEDS: VANCOMYCIN/WATER FOR INJ (PEG) 1.25 GM/250 ML PIGGYBACK IV (09:11)
[2025-10-20] MEDS: PIPERACILLIN/TAZO 4.5 GM in 0.9 % SODIUM CHLORIDE 100 ML IV (09:43)
[2025-10-20] MEDS: GENTAMICIN 80 MG/2 ML VIAL (09:44)
[2025-10-20] MEDS: VANCOMYCIN 1000MG VIAL 1000 MG (09:44)
[2025-10-20] MEDS: BUPIVACAINE 0.5% 30ML VIAL 150 MG (09:44)
--- NOTE | 2025-10-20 11:12 | P.PNANES_ITS ---
[facility] Anesthesia Record Part I Anesthesia Record I Intake, IV Amount: 900 Hydration: Adequate Estimated blood loss (mL): 30 Urine output (mL): 0 Blood Products used (#): none Blood Pressure: 108/60 SaO2: 96 Pulse Rate: 70 Airway Patency: Patent Respiratory Rate: 14 Temperature: 97.2 F Patient is:: Drowsy and Stable Stable to PACU at:: 11:08
--- NOTE | 2025-10-20 11:15 | XR_ITS ---
FINAL REPORT TECHNIQUE: Right foot 3 views CLINICAL HISTORY: s/p 5th met resection, bone biopsy COMPARISON: 10/18/2025 FINDINGS: AP, oblique and lateral views of the right foot were obtained. Postoperative changes of amputation of the distal phalanx of the great toe and the distal phalanx of the second toe are again noted. The mid portion of the fifth metatarsal has also been resected. There is a stable fracture of the fourth metatarsal shaft. New antibiotic beads are present in the base of the right fifth metatarsal, new since the prior exam of 10/18/2025. There has been further destruction of the base of the fifth metatarsal. Multijoint degenerative change is again noted, similar to the prior exam. Persistent mild soft tissue edema is noted in the foot. IMPRESSION: Evidence of postoperative changes of the foot are again noted. In the interval since the prior exam, there are new antibiotic beads present in the base of the right fifth metatarsal, with further destruction of the base of the fifth metatarsal. Reviewed, Interpreted and Dictated by Georgia Cantu MD Transcribed by Audrey Sidhu Authenticated and [facility]
--- NOTE | 2025-10-20 11:29 | EXP.OP.NOTE ---
Date of procedure: 10/20/25 Pre-op Diagnosis:: Left diabetic foot ulcer x2 History of osteomyelitis PAD Hx multiple foot surgeries, wound debridements, biopsies (last sx 09/15/25) Post-op Diagnosis:: Same Procedure performed:: Staged surgery: Right foot I&D bone cortex for OM (93216) Right partial resection metatarsal (41938) Apligraf [facility] code [id number]; Application of skin graft substitute foot/leg ([id number]), Surgical prep of skin graft recipient site () Open bone biopsy (cuboid) foot () Wound debridement x2 () Application of SNAP wound vac (85293) Surgeon:: Latonia Reed DPM SPORTS COMMENTATOR:: Eduardo Martinez Anesthesia: GETA and local (10cc 0.5% marcaine plain) Estimated blood loss (mL): 30 Clinical Note:: Patient is a 65 year-old male with right diabetic foot and arterial ulcers. Patient has failed conservative treatment, including multiple debridements, various wound dressings, antibiotics, immobilization. Patient has seen vascular surgeon. He had a history of wound debridement with Apligraf application on 04/05/22-which resolved wounds for several years. He also had staged surgery for wound debridement and graft applications. On 06/16/25 graft radha #1, 06/23/25 graft radha #2, 06/30/25 graft #3. He had surgery 07/29/25 for right 1-2nd distal toe amputation and 5th met wound debridement with Apligraf application #4. He had surgery for right 5th met wound debridement and graft application #1 on 08/18/25 (had to re-submit to insurance), graft #2 on 08/25/25. Planned staged surgery for graft #3 pending wound vac insurance approval-but held due to worsening clinical signs of infection. Labs and CT right foot concerning for second toe and 5th met osteomyelitis so he surgery 09/15/25 for Right foot I&D bone cortex for OM, Right partial 5th metatarsal resection, Right 2nd toe (partial) amp, Wound debridement, Peroneal tenosynovectomy, Complex wound closure, rotational flap skin closure. Since he has had difficulty healing the wound. New x-rays taken 10/18/25 show questionable cortical irregularity along proximal 5th met with overlying soft tissue swelling. We discussed surgical wound debridment, partial 5th met resection with use of wound graft and wound vac. Discussed concern of infection at met base and peroneal tendon insertion. Explained debridement or removal of entire met base could cause loss of peroneal attachment. At this point due to infection would not want to use hardware to anchor/advance the tendon so there could be inversion deformity, instability secondary to loss of eversion. He understands if this happens he may need lifetime bracing. Discussed possible staging with graft and VAC once infection resolves. Discussed oral/IV antibiotics and the possibility of PICC line depending on cultures/IntraOp specimen findings. Discussed the foot can change shape after surgery, toes may migrate, he may have gait changes and transfer skin lesion/new preulcerativecallus areas secondary to changes in foot structure/biomechanics. Risks and benefits were discussed including but not limited to: damage to blood vessels and nerves, bleeding, residual/recurrent/worsening infection, wound complications, need for further surgery, implant/graft failure, need for removal of implant/graft, allergic reaction, prolonged or permanent swelling of the extremity, prolonged or permanent pain or deformity, CRPS/RSD, DVT/PE, and anesthetic complications including anaphylaxis or . Patient understands if wound/graft gets re/infected, it could lead to prolonged oral or IV antibiotics or increased risk of osteomyelitis, which could lead to possible loss of toe, partial foot or even BKA. No guarantees were given. All questions fully answered. The patient verbalized understanding and agreed to proceed with surgery. Verbal and written consent was obtained. Operative findings:: Prior partial right hallux and second toe amputation. Right hallux amputation site well-healed. Right second distal toe amputation stump had a diabetic foot ulcer. Sharp excisional full-thickness debridement with 15 blade and forceps through skin into/including subcutaneous tissue. No purulence malodor or signs of infection noted. Post debridement wound 100% granular with bleeding edges, 0.4 x 0.2 x 0.2 cm. Wound edges able to be reapproximated and delayed primary closure performed closing the wound with sutures. Right fifth metatarsal DFU noted: Wound base predebridement 100% black eschar. No purulence, malodor or drainage noted. Mild leonardo wound erythema. Sharp excisional full-thickness debridement with 15' blade, forceps thru skin, subq, deep fascia. Ulcer excised and sent for tissue culture. Post-debridement: Right 5th met DFU central surgical wound dehiscence: 100% granular with bleeding wound edges, 6.7 x 3.8 x 0.5cm. Either side of the wound was reapproximated with Prolene which did close the wounds. Post partial delayed primary closure wound and prior to application of graft/wound VAC: Wound 100% granular and measured 5.2 x 3.4 x 0.4 cm. Fifth metatarsal was intact but soft. The area that correlates to the questionable area of osteomyelitis on imaging was at the previous biopsy site. There was Cerament/bone graft still noted to this area. Several new pieces of bone were taken for culture and biopsy/pathology specimens. The cuboid laterally was soft with no purulence malodor or drainage. A piece of the bone was taken for open bone biopsy. Prognosis: Fair will depend on results of the bone culture/biopsy. If recurrent osteomyelitis is noted, patient given IV antibiotics x 2 today, bone debrided and packed with antibiotic beads (gentamicin and vancomycin). Operative note:: On this date and time the patient was deemed an appropriate surgical candidate and with the informed consent signed patient was taken from preop to operating theater and placed on table in normal supine position. No tourniquet utilized. Right lower extremity prepped and draped in normal sterile fashion. 10cc 0.5% Marcaine plain given to the lateral foot/ankle. IV vancomycin, Zosyn infused. Right 2nd toe wound debridement with delayed primary closure: Second toe DFU noted. Sharp excisional full-thickness debridement with 15 blade and forceps into/including subcutaneous tissue. See operative finding for details. Wound flushed with gentamicin irrigation. Postdebridement wound edges able to be reapproximated with Prolene in a simple suture fashion. Betadine soaked gauze applied. Right 5th metatarsal wound debridement/ulcer excision, delayed primary closure: Sharp excisional wide full-thickness debridement, see op findings for details. Due to the wound not bleeding and questionable bone changes on imaging, decision made to do a full-thickness ulcer excision extending into the deep fascia. The peroneal tendon was visualized. There was fibrotic tissue noted. No purulence to tendon noted. Ulcer was removed and sent as specimen. Wound flushed with gentamicin irrigation. There was not enough skin to close over the ulcer site. The most proximal and distal aspect of the wound was reapproximated with Prolene in a simple suture fashion. Right cuboid open bone biopsy: Attention directed to the lateral cuboid bone and a rongeur was used to take a piece of the cuboid and sent for specimen. There was no obvious purulence malodor or drainage. Right 5th metatarsal I&D, partial resection: Attention was directed to the fifth metatarsal directly under where the ulcer had been. I&D performed to the lateral fifth met cortex which was easily transected. The lateral fifth met base was soft and crumbly-but could be attributed to the prior bone graft/antibiotic beads in the site not necessarily to just osteomyelitis. Rongeur used to transect a piece of the bone which sent for culture and path. Next another piece of bone from 5th metatarsal sent for biopsy/pathology. The peroneal tendon insertion was then stringy at the lateral most aspect of the base. The medial proximal tendon attachment was intact. All wounds were flushed with gentamicin irrigation in a pulse lavage. The lateral fifth met and cuboid bone cortex were drilled/fenestrated in order to put Cerament G bone graft antibiotic beads. Vancomycin powder inserted. Next due to the depth of the wound a piece of Michelle collagen was applied directly over the beads to keep them in place, prior to application of the wound graft. Application of Apligraf (Organogenesis wound graft): Graft was prepared in standard fashion. The entire graft (44sq cm) was utilized over the lateral fifth metatarsal diabetic foot ulcer/wound. The graft was placed over the fifth metatarsal open wound/DFU and circumferentially around the surrounding skin (as the graft was larger than the wound) and secured with Steri-Strips. Adaptic was applied over the graft. Application of wound vac: In standard technique a snap wound VAC was applied over the graft. VAC was secure with no leaks noted. A dry sterile dressing with gauze, darya, [place]ism[place] applied to right foot. The patient was transferred to recovery with vital signs stable and neurovascular status intact at baseline. Patient appeared to tolerate procedure well without complication. Materials: Vancomycin powder 1g, Cerament G (antibiotic cement bone filler), Prolene, Michelle collagen x1 (4.34sq in), Organogenesis Aligraf wound graft x1 (44sq cm, 0 waste) Discharge/Plan: Obtain post op films, right foot, 3 views. Ok to discharge home when ready and vss. Patient is to maintain dressing clean dry and intact. Elevate on two pillows. Hold ice due to PVD. Non weight bearing to the right lower extremity with DME assistance (GOSIA gan). shown how to trouble shoot SNAP vac. Follow-up as scheduled in one week for right foot skin check and dressing change. Condition: stable Disposition: same day Specimens:: Micro: Right ulcer tissue culture Right fifth metatarsal bone Path: Right fifth metatarsal bone Distal fifth metatarsal bone Inferior fifth metatarsal margin Cuboid bone Complications:: None
[2025-10-20 12:54] LABS: POC Glucose,Bedside 172 gm/dL (70-110)
--- NOTE | 2025-10-20 13:43 | P.PNANES_ITS ---
[facility] Anesthesia Record Part II Anesthesia Record Part II Discharge Time: 11:38 Destination: Surgical Day Care (OP Surgery) PACU nurse assessment reviewed?: Yes Patient Condition:: Good Anesthesia Complications:: None Swallowing reflex intact?: Yes Airway Patency: Patent Cyanosis?: No Blood Pressure: 143/71 SaO2: 99 Respiratory Rate: 18 Pulse Rate: 74 Temperature: 97.4 F Mental Status: Alert & Oriented Pain level:: 0 Nausea and/or vomitting:: None Intake, IV Amount: 0 Hydration: Adequate
== END 2025-10-20 12:15 | disposition home or self-care (01) ==
PROVIDERS: PCP Family Medicine; Visit Provider Podiatrist
PROC: (CPT 15002; principal; 2025-10-20 09:30)
DX: L97.519 Non-pressure chronic ulcer of other part of right foot with unspecified severity (principal); I48.0 Paroxysmal atrial fibrillation; I25.119 Atherosclerotic heart disease of native coronary artery with unspecified angina pectoris; E11.51 Type 2 diabetes mellitus with diabetic peripheral angiopathy without gangrene; E11.621 Type 2 diabetes mellitus with foot ulcer; L90.5 Scar conditions and fibrosis of skin; L60.3 Nail dystrophy; B35.1 Tinea unguium; M20.41 Other hammer toe(s) (acquired), right foot; M20.11 Hallux valgus (acquired), right foot; M20.12 Hallux valgus (acquired), left foot; E11.40 Type 2 diabetes mellitus with diabetic neuropathy, unspecified; M19.071 Primary osteoarthritis, right ankle and foot; L57.0 Actinic keratosis; I70.25 Atherosclerosis of native arteries of other extremities with ulceration; M86.9 Osteomyelitis, unspecified; Z79.4 Long term (current) use of insulin; Z79.84 Long term (current) use of oral hypoglycemic drugs; Z79.01 Long term (current) use of anticoagulants; Z79.02 Long term (current) use of antithrombotics/antiplatelets; Z90.49 Acquired absence of other specified parts of digestive tract; Z95.5 Presence of coronary angioplasty implant and graft
CPT/HCPCS: 15002; 15271; 15272; 20240; 28005; 28122; Q4101; 73630; 82962; 87070; 87077; 87205; 88304; 88311; C1602; J0665; J1100; J1580; J2003; J2250; J2405; J2543; J2704; J3010; J3373; J3375; J7030